=== PATIENT | male | born 1940 | race Caucasian/White ===

== ENCOUNTER 2022-12-22 10:45 | Emergency (ER) | payer MEDICARE, SELFPAY ==
[2022-12-22] VITALS (36 sets, daily range): BP systolic 127–160; BP diastolic 64–130; PULSE 67–135; RESP 30; TEMP 36.8; O2SAT 87–96
--- NOTE | 2022-12-22 11:00 | RT.EKG_ITS ---
APPROVED REPORT Exam: Resting ECG Reason for Exam: shortness of breath Patient Location: E HR:73 bpm ECG Measurements Heart Rate 73 AXIS NC 201 P 8 QRSd 159 QRS -87 QT 435 T -25 QTc 478 Conclusion Sinus rhythm...normal P axis, V-rate 60- 99 Right bundle branch block...QRSd>120, terminal axis(90,270) ST elevation secondary to IVCD...Multiple VCG criteria
--- NOTE | 2022-12-22 11:18 | ED.GENADUL_ITS ---
Discharge Plan Disposition Patient Disposition: Home Discharge Details Clinical Impression: Bronchitis, Emphysema lung, Respiratory failure, Lung nodule Primary Care Provider: Yobany Perez ED Provider: Anisha Raphael Home Meds and New Rx's Prescriptions: New doxycycline hyclate 100 mg capsule 100 mg PO BID Qty: 20 0RF prednisone 20 mg tablet 40 mg PO ONCE Qty: 10 0RF Continued phytonadione (vitamin K1) [vitamin K] 1 mg/0.5 mL Solution 1 mg PO 1XD tamsulosin 0.4 mg Capsule 0.8 mg PO 1XD simvastatin 20 mg Tablet 20 mg PO 1XD aspirin 81 mg Tablet,Chewable 81 mg PO 1XD hydrochlorothiazide 25 mg Tablet 25 mg PO 1XD calcium carbonate-vitamin D2 600 mg calcium- 200 unit Tablet 1 tab PO 2XD sertraline 50 mg Tablet 50 mg PO 1XD Eliquis 2.5 mg Tablet 2.5 mg PO 2XD epinephrine 0.3 mg/0.3 mL Auto-Injector 0.3 mg IM ONCE Rx Instructions: as a single dose; may repeat once Discharge Instructions Instructions: Acute Bronchitis (ED), COPD (Chronic Obstructive Pulmonary Disease) (ED) Additional Instructions: Use the Combivent inhaler, 1 puff every 6 hours Take the antibiotic and the prednisone as prescribed If CC on referral list for pulmonology to better address your lung capacity Yogurt daily while on antibiotic Your oxygen levels are quite low, you were requesting discharge home and preferred not to wear oxygen so I do recommend close outpatient reassessment and use of your inhalers prednisone, and antibiotics Referrals: Bianka Patel MD [ [facility] STAFF PHYSICIAN] - Discharge Data Discharge Date/Time-TO BE ENTERED AT DEPARTURE: 12/22/22 14:31 Medical Decision Making 82-year-old gentleman with multiple comorbidities but specifically with chronic oxygen failure, not oxygen dependent secondary to patient refusal, followed by his primary care physician, does not reportedly carry any diagnosis of COPD CT scan with nodule but no evidence of obvious infiltrate per radiology interpretation and my review, hypoxia 88 to 89% here, this is reportedly patient's baseline, he is speaking in complete sentences in no acute distress There is no evidence of volume overload, patient does have diminished lung sounds and rhonchi, after several nebs, there is some audible wheezing, patient is in no respiratory distress, his coloration is good, his pupils are equal round reactive to light and accommodation he is fully alert and oriented x4, he has no peripheral edema distal pulses intact, no calf swelling or tenderness, no abdominal tenderness, cardiac rate rhythm regular without murmur Patient supplied with 1 L of oxygen which she was willing to wear in the emergency department, 2 DuoNebs, 40 mg of prednisone, doxycycline We discussed admission, patient pleasantly declined, he states he is unwilling to wear oxygen as it impedes his quality of life He is agreeable to following up with pulmonology and has not done so in the past, he is given an ipratropium inhaler which she is never used before but feels confident that he is able to use it at home All conversations were had in the presence of patient's daughter, both are competent to make the decision to leave and again they were offered on several occasions admission to this facility I will treat patient for bronchitis and COPD with likely exacerbation, will refer to pulmonology, and will encouraged to be reevaluated as earliest ability HPI General Date/Time Provider Initiated Documentation: 12/22/22 10:53 . HPI Narrative: This 82-year-old gentleman presents with report of wheezing per his daughter, has had progressively worsening shortness of breath over the course the past several weeks although patient does not endorse this this, daughter has noted the patient has been more dyspneic. Baseline oxygen 89% per daughter, refuses oxygen at home. Patient denies any current complaints, falls, injuries, chest discomfort, calf pain or swelling. [place] Denies any calf pain or swelling, denies any falls or injuries. Related Data Home Medications Medication Instructions Recorded Confirmed apixaban 2.5 mg tablet (Eliquis) 2.5 mg PO 2XD 12/22/22 12/22/22 aspirin 81 mg chewable tablet 81 mg PO 1XD 12/22/22 12/22/22 calcium carb-ergocalciferol (vit 1 tab PO 2XD 12/22/22 12/22/22 D2) 600 mg calcium-200 unit tablet doxycycline hyclate 100 mg capsule 100 mg PO BID #20 caps 12/22/22 epinephrine 0.3 mg/0.3 mL 0.3 mg IM ONCE 12/22/22 12/22/22 injection, auto-injector hydrochlorothiazide 25 mg tablet 25 mg PO 1XD 12/22/22 12/22/22 phytonadione (vitamin K1) 1 mg/0.5 1 mg PO 1XD 12/22/22 12/22/22 mL injection solution (vitamin K) prednisone 20 mg tablet 40 mg PO ONCE #10 tabs 12/22/22 sertraline 50 mg tablet 50 mg PO 1XD 12/22/22 12/22/22 simvastatin 20 mg tablet 20 mg PO 1XD 12/22/22 12/22/22 tamsulosin 0.4 mg capsule 0.8 mg PO 1XD 12/22/22 12/22/22 Previous Rx's Medication Instructions Recorded doxycycline hyclate 100 mg capsule 100 mg PO BID #20 caps 12/22/22 prednisone 20 mg tablet 40 mg PO ONCE #10 tabs 12/22/22 Allergies Allergy/AdvReac Type Severity Reaction Status Date / Time bee venom protein (honey bee) Allergy Severe Unverified 12/22/22 12:17 General Stated Complaint: SOB ALFRED: 3 PFSH All Active Problems (Updated 12/22/22 @ 13:48 by TICO Galindo) Bronchitis (Acute) Emphysema lung (Acute) Respiratory failure (Acute) Lung nodule (Acute) Social History Smoking/Tobacco Use Status: Former Tobacco Use Smoking risk assessment performed?: Yes Substance use type: does not use Housing: house Do you feel safe at home: Yes Do you feel safe in your relationship?: Yes Course Vital Signs Vital signs: Vital Signs Temperature 36.8 C 12/22/22 10:58 Pulse 78 12/22/22 10:58 Respiratory Rate 30 H 12/22/22 10:58 Blood Pressure 133/64 12/22/22 10:58 Pulse Oximetry 90 L 12/22/22 10:58 Temperature 36.8 C 12/22/22 10:58 Temperature Source Oral 12/22/22 10:58 Pulse 78 12/22/22 10:58 Respiratory Rate 30 H 12/22/22 11:06 Respiratory Effort Short of Breath 12/22/22 11:06 Respiratory Depth Shallow 12/22/22 11:06 Respiratory Pattern Tachypnea 12/22/22 11:06 Blood Pressure 133/64 12/22/22 10:58 Blood Pressure Position Sitting 12/22/22 10:58 Pulse Oximetry 90 L 12/22/22 10:58 Oxygen Delivery Method Room Air 12/22/22 10:58 Oxygen Flow Rate 0 12/22/22 10:58 Pain Level 0 12/22/22 10:58
[2022-12-22] MEDS: Albuterol/Ipratropium 3 ML UPD VIAL UPD (11:20)
[2022-12-22 11:43] LABS: Abs Immature Grans 0.03 10^3/uL (0.0-0.06); Absolute Basophil Count 0.04 10^3/uL (0.0-0.2); Absolute Eosinophil Count 0.09 10^3/uL (0.0-0.7); Absolute Lymphocyte Count 1.89 10^3/uL (1.2-3.4); Absolute Neutrophil Count 5.82 10^3/uL (1.2-6.7); BE (Venous) 7 mmol/L (-2-3); Basophils % 0.5; Eosinophils % 1.1; HCO3 (Venous) 32 mmol/L (23-28); HCT 49.9 % (40.0-50.0); HGB 16.3 g/dL (13.5-17.5); Immature Grans % 0.4; Lymphocytes % 22.3; MCH 29.3 pg (27.0-33.0); MCHC 32.7 % (32.0-36.0); MCV 90 fL (80-95); MPV 11.8 fL (8.0-11.0); Monocytes % 7.1; Neutrophils % 68.6; O2 Sat (Venous) 64 %; Platelet Count 165 10^3/uL (130-400); RBC 5.56 10^6/uL (4.36-5.78); RDW 14.6 % (11.8-14.1); RDW-SD 47.9 fL; TCO2 (Venous) 28 mmol/L (24-29); WBC 8.47 10^3/uL (4.4-10.8); pCO2 (Venous) 53 mmHg (41-51); pH (Venous) 7.38 (7.31-7.41); pO2 (Venous) 36 mmHg
[2022-12-22 11:45] LABS: Source Nasal/Nares
--- NOTE | 2022-12-22 12:00 | DI.CT_ITS ---
Exam(s) CT CHEST PE CTA EXAM: CT CHEST PE CTA CLINICAL HISTORY: hypoxia. TECHNIQUE: Imaging Protocol: CT angiography of the chest was performed using pulmonary embolus miguel col. Multi planar reconstructions were performed. CONTRAST MATERIAL: Intravenous: Omnipaque 350 Contrast volume: 100 cc COMPARISON: No exams were available for comparison FINDINGS: CHEST: PULMONARY ARTERIES: There are no obvious intraluminal filling defects to suggest acute pulmonary embo li. LUNGS: There are no confluent infiltrates nor evidence of pulmonary infarction.. There are no pleural effusions. MEDIASTINUM: There is no hilar nor mediastinal adenopathy. Visualized thyroid unremarkable. CARDIAC: Heart size is upper normal. There is no pericardial effusion.Caliber of the thoracic aorta is within normal limits. No evidence of aortic dissection. There is no significant shift of the inte rventricular septum. PARTIALLY VISUALIZED UPPERMOST ABDOMEN: There is a well-defined lobulated hypodensity in the liver me asuring 3.5 by 1.8 cm. Probably represents a benign cyst but difficult to assess on this type study. OSSEOUS: No significant osseous lesions.. No fractures.. IMPRESSION: 1. No evidence of obvious acute pulmonary emboli. No evidence of pulmonary infarction.No pleural eff usions. 2. No evidence of aortic dissection and no pericardial effusion 3. Other findings as above. RADIATION DOSE DELIVERED: 509.57mGy.cm Total DLP DATA REPOSITORY: All CT scans at this facility are submitted to the National Radiology Data Registry (NRDR) Dose Index Registry (DIR) with the [employer] (ACR). RADIATION OPTIMIZATION: All CT scans at this facility use at least one of these dose optimization te chniques: automated exposure control; mA and/or kV adjustment per patient size (includes targeted exa ms where dose is matched to clinical indication); or iterative reconstruction.
[2022-12-22 12:08] LABS: ALT 25 U/L (16-63); AST 17 U/L (15-37); Albumin 3.8 g/dL (3.4-5.0); Alkaline Phosphatase 70 U/L (46-116); Anion Gap 7.9 mmol/L (3-11); BUN 14 mg/dL (7-18); Bilirubin, Total 0.7 mg/dL (0.2-1.0); CO2 31.1 mmol/L (21.0-32.0); CREATININE 1.4 mg/dL (0.70-1.30); Calcium 10.5 mg/dL (8.5-10.1); Chloride 104 mmol/L (98-107); Estimated GFR 49.56 (mL/min/1.73m2); Glucose 107 mg/dL (74-106); Magnesium 2.2 mg/dL (1.8-2.4); Sodium 143 mmol/L (136-145); Total Protein 7.6 g/dL (6.4-8.2); Troponin I < 50 ng/L (<or=60)
[2022-12-22 12:18] LABS: COVID-19 PCR Negative (Negative)
[2022-12-22] MEDS: Potassium Chloride 20 MEQ TABCR 40 MEQ PO (12:22)
[2022-12-22] MEDS: Normal Saline Flush 10 ML SYR IVP ×2 (12:22→12:33)
[2022-12-22] MEDS: Normal Saline - Diluent 50 ML VIAL IJ (12:22)
[2022-12-22] MEDS: Omnipaque 350 MG/ML 100 ML BTL IJ (12:23)
--- NOTE | 2022-12-22 12:55 | DI.VRAD_ITS ---
PROCEDURE INFORMATION: Exam: CTA Chest With Contrast Exam date and time: 12/22/2022 12:36 PM Age: 82 years old Clinical indication: Other: Hypoxia TECHNIQUE: Imaging protocol: Computed tomographic angiography of the chest with contrast. Exam focused on the arteries. 3D rendering (Not supervised by radiologist): MIP and/or 3D reconstructed images were created by the technologist. Radiation optimization: All CT scans at this facility use at least one of these dose optimization techniques: automated exposure control; mA and/or kV adjustment per patient size (includes targeted exams where dose is matched to clinical indication); or iterative reconstruction. Contrast material: OMNI 350; Contrast volume: 100 ml; Contrast route: INTRAVENOUS (IV); COMPARISON: No relevant prior studies available. FINDINGS: Pulmonary arteries: No evidence of pulmonary embolus to the segmental level. Aorta: No aneurysm of the aorta. No dissection of the aorta. Lungs: A ground-glass nodule in the left upper lobe posteriorly 8.8 mm. Series 4, image 23. Mild panlobular emphysematous changes. Bibasilar atelectasis Pleural spaces: Unremarkable. No pneumothorax. No pleural effusion. Heart: Unremarkable. No cardiomegaly. No pericardial effusion. Coronary arteries: Coronary artery calcifications may indicate coronary artery disease. Lymph nodes: Unremarkable. No enlarged lymph nodes. Stomach and bowel: 2.7 cm collection of air and debris projecting off of the 3rd duodenum. 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 Bones/joints: Unremarkable. No acute fracture. Soft tissues: Unremarkable. IMPRESSION: 1. No evidence of pulmonary embolus to the segmental level. 2. No aneurysm of the aorta. 3. No dissection of the aorta. 4. A ground-glass nodule in the left upper lobe posteriorly 8.8 mm. Series 4, image 23. 5. 2.7 cm collection of air and debris projecting off of the 3rd duodenum. 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 Dictated and Authenticated by: Clyde Page MD. Ordering:MIRELLA Lancaster MD
[2022-12-22] MEDS: predniSONE 20 MG TAB 40 MG PO (13:32)
[2022-12-22] MEDS: Doxycycline Hyclate 100 MG CAP PO (13:32)
[2022-12-22] MEDS: Ipratropium/Albuterol 4 GM 120 PUFF INH IH (13:34)
[2022-12-22 13:48] LABS: Lactate 1.9 mmol/L (0.6-1.4)
--- NOTE | 2022-12-22 14:03 | NUR.NOTE ---
Referral per DR. Severino to Pulmonology for next avail for COPD, resp failure. Put the referral in the Director [employer]'s box for follow up assistance.Nursing Note:
--- NOTE | 2022-12-23 08:50 | NUR.NOTE ---
Accessed chart to determine orders for EKG and to determine whether or not one needs to be cancelled. Nursing Note:
--- NOTE | 2022-12-23 09:40 | NUR.NOTE ---
Nursing Note: Patient's daughter Shawna Lomeli called stating prescription was not at pharmacy in [place]. With permission from Shelli Felix, the prescriptions were called in to [facility] in [place], [place]. Daughter is aware.
== END 2022-12-22 14:31 | disposition home or self-care (01) ==
PROVIDERS: Emergency Provider Physician Assistant
DX: J40 Bronchitis, not specified as acute or chronic (principal); J43.9 Emphysema, unspecified; J96.90 Respiratory failure, unspecified, unspecified whether with hypoxia or hypercapnia; R91.1 Solitary pulmonary nodule
CPT/HCPCS: 36415; 71275; 80053; 82805; 87635; 93005; 99285; 83605; 83735; 84484; 85025; 93010; 99284; J3490; J7512; J7620

== ENCOUNTER 2023-01-14 02:23 | Outpatient (CLI) | payer MEDICARE, SELFPAY ==
[2023-01-14] MEDS: Inhaler, Assist Device 1 EACH MC (14:09)
[2023-01-14] MEDS: Levalbuterol HFA 15 GM INH 4 PUFF IH (14:09)
--- NOTE | 2023-01-27 09:51 | W.PFT ---
Date of service: 01/14/23 Time of Service: 12:53 Pulmonary Function Test Result Indications: Bronchitis Interpretation Spirometry: There is not airflow limitation. The FVC is low. No bronchodilator response. Lung Volumes: There is moderate restictive lung disease. Diffusion Capacity: Decreased diffusion Airway Pressure: Normal airways resistance Impression Moderate restrictive lung disease with a decreased diffusion, could represent interstitial lung disease in the proper clinical context. Clinical Correlation therefore is recommended.
== END 2023-01-27 23:59 | disposition home or self-care (01) ==
LOC: RT 02:23
PROVIDERS: PCP Nurse Practitioner Family; Visit Provider Nurse Practitioner Family
DX: J40 Bronchitis, not specified as acute or chronic (principal)
CPT/HCPCS: 94060; 94726; 94729

== ENCOUNTER 2023-01-28 15:22 | Outpatient (REF) | payer MEDICARE, SELFPAY | END 2023-01-28 15:23 | disposition home or self-care (01) | LOC: LBN 15:22 | PROVIDERS: PCP Nurse Practitioner Family; Visit Provider Nurse Practitioner Family | DX: N39.0 Urinary tract infection, site not specified (principal) | CPT/HCPCS: 87086 ==

== ENCOUNTER 2023-03-31 16:45 | Outpatient (REF) | payer MEDICARE, SELFPAY ==
[2023-03-31 21:32] LABS: Bilirubin Negative (Negative); Blood Negative (Negative); Clarity Clear (Clear); Glucose Negative (Negative); Ketones Negative (Negative); Leukocyte Esterase Negative (Negative); Nitrite Negative (Negative); Specific Gravity 1.015 (1.005-1.025); Urobilinogen 0.2 mg/dL (Up to 0.2)
== END 2023-03-31 16:46 | disposition home or self-care (01) ==
LOC: LBN 16:45
PROVIDERS: PCP Nurse Practitioner Family; Visit Provider Nurse Practitioner Family
DX: R30.0 Dysuria (principal)
CPT/HCPCS: 81003

== ENCOUNTER 2023-04-02 10:10 | Outpatient (CLI) | payer MEDICARE, SELFPAY ==
[2023-04-02 12:38] LABS: Abs Immature Grans 0.05 10^3/uL (0.0-0.06); Absolute Basophil Count 0.06 10^3/uL (0.0-0.2); Absolute Lymphocyte Count 1.64 10^3/uL (1.2-3.4); Absolute Monocyte Count 0.75 10^3/uL (0.1-0.8); Absolute Neutrophil Count 8.01 10^3/uL (1.2-6.7); Basophils % 0.6; Eosinophils % 2.8; HCT 48.4 % (40.0-50.0); Immature Grans % 0.5; Lymphocytes % 15.2; MCH 29.7 pg (27.0-33.0); MCHC 33.1 % (32.0-36.0); MCV 90 fL (80-95); MPV 12.9 fL (8.0-11.0); Monocytes % 6.9; Platelet Count 174 10^3/uL (130-400); RBC 5.39 10^6/uL (4.36-5.78); RDW 14.3 % (11.8-14.1); WBC 10.82 10^3/uL (4.4-10.8)
[2023-04-02 12:45] LABS: Hemoglobin A1C 5.6 % (<5.7)
[2023-04-02 12:53] LABS: ALT 23 U/L (16-63); AST 19 U/L (15-37); Albumin 3.8 g/dL (3.4-5.0); Alkaline Phosphatase 68 U/L (46-116); Anion Gap 6.3 mmol/L (3-11); BUN 14 mg/dL (7-18); Bilirubin, Total 0.6 mg/dL (0.2-1.0); CO2 34.7 mmol/L (21.0-32.0); CREATININE 1.8 mg/dL (0.70-1.30); Calculated LDL 51 mg/dL (<100); Chloride 103 mmol/L (98-107); Cholesterol 129 mg/dL (<200); Estimated GFR 36.66 (mL/min/1.73m2); Glucose 129 mg/dL (74-106); HDL Cholesterol 50 mg/dL (40-60); Sodium 144 mmol/L (136-145); Total Protein 7.6 g/dL (6.4-8.2); Triglyceride 140 mg/dL (<150)
[2023-04-02 12:57] LABS: Calcium 13.8 mg/dL (8.5-10.1); Potassium 2.6 mmol/L (3.5-5.1)
== END 2023-04-02 10:11 | disposition home or self-care (01) ==
LOC: LOS 10:11
PROVIDERS: PCP Nurse Practitioner Family; Visit Provider Nurse Practitioner Family
DX: I10 Essential (primary) hypertension (principal); R73.01 Impaired fasting glucose; E78.5 Hyperlipidemia, unspecified; R53.1 Weakness
CPT/HCPCS: 36415; 80053; 80061; 83036; 85025

== ENCOUNTER → 2023-04-02 10:36 | Outpatient (CLI) | payer MEDICARE, SELFPAY ==
--- NOTE | 2023-04-02 10:30 | DI.CT_ITS ---
Exam(s) CT HEAD WO EXAM: CT HEAD WO CLINICAL HISTORY: weakness, confusion, R53.1. TECHNIQUE: Imaging Protocol: Axial computed tomography images with coronal and sagittal reformatted images were created and reviewed COMPARISON: No exams were available for comparison FINDINGS: There are no skull fractures. There is no fluid in the visualized paranasal sinuses. There is no evidence of intracranial hemorrhage, mass effect, or shift of midline structures. There are no extra-axial fluid collections. The ventricles are not enlarged or shifted and there is no blo od within the ventricular system nor within the basal cisterns. Calcification both basal ganglia noted. There is a an area of nonacute-chronic appearing infarct in the superior aspect of the left cerebella r hemisphere. Just below the tentorium. This is the territory of the left superior cerebellar arter y. There is abundant bilateral periventricular hypodensity consistent with chronic small vessel disease as well as symmetrical atrophy. There is also evidence of nonhemorrhagic infarct in the right fronta l lobe, age indeterminate. There is no compression of the right lateral ventricle frontal horn. IMPRESSION: Prominent relatively symmetrical atrophy. Abundant bilateral periventricular hypodensity consistent with chronic small vessel changes. 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 Area of nonhemorrhagic infarct in the right frontal lobe which may not be acute as there is no mass e ffect upon the frontal horn of the right lateral ventricle.. Recommend follow-up comparison to prior brain imaging studies or MRI with diffusion imaging. RADIATION DOSE DELIVERED: Total DLP DATA REPOSITORY: All CT scans at this facility are submitted to the National Radiology Data Registry (NRDR) Dose Index Registry (DIR) with the [employer] (ACR). RADIATION OPTIMIZATION: All CT scans at this facility use at least one of these dose optimization te chniques: automated exposure control; mA and/or kV adjustment per patient size (includes targeted exa ms where dose is matched to clinical indication); or iterative reconstruction.
== END ==
PROVIDERS: PCP Nurse Practitioner Family; Visit Provider Nurse Practitioner Family
DX: R53.1 Weakness (principal); I63.9 Cerebral infarction, unspecified
CPT/HCPCS: 70450

== ENCOUNTER 2023-04-02 14:51 | Inpatient (IN) | payer MEDICARE, SELFPAY ==
[2023-04-02] VITALS (30 sets, daily range): BP systolic 159–208; BP diastolic 88–101; PULSE 55–79; RESP 12–20; TEMP 36.4; O2SAT 89–96
--- NOTE | 2023-04-02 15:00 | RT.EKG_ITS ---
APPROVED REPORT Exam: Resting ECG Reason for Exam: Dizziness Patient Location: E HR:70 bpm ECG Measurements Heart Rate 70 AXIS TX 69 P 57 QRSd 134 QRS -114 QT 459 T -24 QTc 496 Conclusion Sinus rhythm...normal P axis, V-rate 60- 99 Right bundle branch block...QRSd>120, terminal axis(90,270) Inferior infarct, old...Q >35mS, II III aVF
--- NOTE | 2023-04-02 15:23 | ED.GENADUL_ITS ---
Discharge Plan Disposition Patient Disposition: Admit to [facility] Condition: Fair Discharge Details Clinical Impression: Hypokalemia, Hypercalcemia Primary Care Provider: Molly Powers ED Provider: Gael Avilez Home Meds and New Rx's Prescriptions: No Action sertraline 50 mg tablet 75 mg PO DAILY Combivent Respimat 20-100 mcg/actuation mist 1 puff inhalation Q6H PRN (Reason: shortness of breath or wheezing) Qty: 4 3RF Eliquis 2.5 mg tablet 2.5 mg PO BID aspirin 81 mg tablet,chewable 81 mg PO DAILY hydrochlorothiazide 25 mg tablet 25 mg PO DAILY simvastatin 20 mg tablet 20 mg PO DAILY tamsulosin 0.4 mg capsule 0.8 mg PO DAILY calcium carbonate-vitamin D2 600 mg calcium- 200 unit Tablet 1 tab PO 2XD epinephrine 0.3 mg/0.3 mL Auto-Injector 0.3 mg IM ONCE Rx Instructions: as a single dose; may repeat once Medical Decision Making MDM: Summary: Patient presented to the emergency department brought in by his daughters stating that he has had worsening confusion in the last 3 weeks and they did blood work today and it was abnormal. Labs were repeated here and his calcium level is 14 and his sodium level is normal but his potassium level is 2.7. With this finding of hypercalcemia the patient received IV fluids hydration aggressively as well as potassium replacement. He had an x-ray which shows an infiltrate on the left but there is no signs of infection so we are need to find why he is hypercalcemic. He will get a CAT scan of the abdomen pelvis and chest to rule out any malignancy. He is not anemic but urinalysis was also sent to rule out multiple myeloma. In the differential includes hyperparathyroidism malignancy multiple myeloma medication will be admitted to the hospital for hypercalcemia CT scan of the head was done earlier which was negative. Data Review Analysis All the data on this patient was reviewed by me including laboratory and imaging studies as well as bedside studies performed by me Independent review of Studies Imaging Chest x-ray shows a questionable infiltrate on the left Lab: Labs do not show any sign of infection but he does have hypercalcemia and hypokalemia Risk Stratification: Patient with significant hypercalcemia who will need to be admitted to the hospital for aggressive management Differential Diagnosis: 1. Multiple myeloma 2. Hyperparathyroidism 3. Sarcoidosis 4. Medications 5. Paraneoplastic syndrome and malignancy Consultants: I spoke with Dr. Reddy hospitalist who admit the patient to the hospital Shared disposition: Family understand the patient will need to be admitted for further management Impression: Medical Records Medical records reviewed: Yes I reviewed the patient's medical records. Imaging Data Radiologic Study: Attestation: I personally reviewed and interpreted this imaging study as follows: Imaging: X-Ray Radiologist's impression: Exam(s) XR PORTABLE CHEST AP EXAM: XR PORTABLE CHEST AP CLINICAL HISTORY: sob TECHNIQUE: 2D digital imaging was performed of the chest. One image was obtained. An AP view was obtained. COMPARISON: CT CT CHEST PE CTA from 12/22/2022 FINDINGS: There is poor inspiration. MEDIASTINUM: Normal. HEART: Upper limits of normal in size. PULMONARY VASCULATURE: Normal. LUNGS: There is an infiltrate seen in the left lung base. The right lung is clear. PLEURAL SPACE: No pleural effusion or pneumothorax. BONE:Within normal limits for the patient's age. Degenerative changes of the shoulders bilaterally. OTHER FINDINGS:Normal. IMPRESSION: Left basilar infiltrate. DATA REPOSITORY: ECG Data Attestation: I personally reviewed and interpreted this ECG (s) as follows: Interpretation: Heart rate 70 normal sinus rhythm right bundle branch block no acute ST-T changes with a Q waves in the inferior leads compatible with inferior ID HPI General Date/Time Provider Initiated Documentation: 04/02/23 14:53 . HPI Narrative: Patient presents emergency department brought in by the family who stated that he has been having low oxygen saturation for a month and who today was seen by the primary care because for the last 3 weeks he is having increased confusion lethargy decreased appetite and labs were done at the outpatient facility finding that his calcium level was high and his potassium level was low. They also did a CAT scan of the head which according to family is negative. The patient has a history of a stroke with left residual hemiparesis. According to family he also had a history of a pulmonary emboli years ago which required anticoagulation but at this time they do not know why he is on oxygen. Related Data Home Medications Medication Instructions Recorded Confirmed calcium carb-ergocalciferol (vit 1 tab PO 2XD 12/22/22 04/02/23 D2) 600 mg calcium-200 unit tablet epinephrine 0.3 mg/0.3 mL 0.3 mg IM ONCE 12/22/22 04/02/23 injection, auto-injector apixaban 2.5 mg tablet (Eliquis) 2.5 mg PO BID 01/06/23 04/02/23 aspirin 81 mg chewable tablet 81 mg PO DAILY 01/06/23 04/02/23 hydrochlorothiazide 25 mg tablet 25 mg PO DAILY 01/06/23 04/02/23 ipratropium 20 mcg-albuterol 100 1 puff inhalation Q6H PRN 01/06/23 04/02/23 mcg/actuation mist for inhalation shortness of breath or wheezing #4 (Combivent Respimat) grams sertraline 50 mg tablet 75 mg PO DAILY 01/06/23 04/02/23 simvastatin 20 mg tablet 20 mg PO DAILY 01/06/23 04/02/23 tamsulosin 0.4 mg capsule 0.8 mg PO DAILY 01/06/23 04/02/23 Previous Rx's Medication Instructions Recorded ipratropium 20 mcg-albuterol 100 1 puff inhalation Q6H PRN 01/06/23 mcg/actuation mist for inhalation shortness of breath or wheezing #4 (Combivent Respimat) grams Allergies Allergy/AdvReac Type Severity Reaction Status Date / Time bee venom protein (honey bee) Allergy Severe Verified 04/02/23 15:07 General Stated Complaint: AMS/LOC ALFRED: 3 Review of Systems Narrative: Unobtainable due to patient's mental status PFSH All Active Problems (Updated 04/02/23 @ 19:39 by Sara Cartwright NP) Elevated troponin (Acute) Discharge planning issues (Acute) On deep vein thrombosis (DVT) prophylaxis (Acute) Hypercalcemia (Acute) Hypokalemia (Acute) Altered mental status (Acute) Acute kidney injury (Acute) Hypokalemia (Acute) Hypercalcemia (Acute) Chronic respiratory failure with hypoxia (Chronic) Interstitial lung disease (Chronic) Cognitive impairment (Acute) Generalized anxiety disorder (Chronic) Hypertension (Chronic) Hyperlipidemia (Chronic) Osteopenia (Acute) Medical History History of thromboembolism P.E., DVT 2019 TIA (transient ischemic attack) Pulmonary embolism (~10/2018) CVA (cerebral vascular accident) (~09/2018) Right posterior internal capsule ischemic stroke Surgical History Status post left hip replacement History of appendectomy (07/16/20) Family History Mother Dementia Father No problems noted. Daughter No problems noted. Daughter No problems noted. Son No problems noted. Maternal Grandfather No problems noted. Maternal Grandmother No problems noted. Paternal Grandfather No problems noted. Paternal Grandmother No problems noted. Brother Alcohol use disorder Colon cancer Hyperlipidemia Hypertension Diabetes Social History Smoking/Tobacco Use Status: Former Tobacco Use tobacco type: cigarettes and smokeless tobacco Quit Date: 04/14/85 Smokeless tobacco user: snuff Second Hand Exposure: Yes Smoking risk assessment performed?: Yes Alcohol Intake: former Drug use: Never Substance use type: does not use Counseling given: No Adopted: No Caregiver/Support person: Yes Foster care: No Household members: caregiver Housing: house Number of Children: 3 number of grandchildren: 7 Communication Needs: None Education Level: high school Do you need help understanding health information?: Never 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 Pets and animals: Yes Pets and animals: dog(s) Sexually active: No Do you think of yourself as: straight/heterosexual Current gender identity: male What is your relationship status?: How often do you talk on the phone with friends or family?: three or more times per week How often do you get together with friends or relatives?: three or more times per week How often do you attend confucianist or quaker services?: 4 or more times per year Do you belong to any clubs or organized social groups?: no Panel score (0-1 are the most socially isolated patients): 3 What type of physical activity do you participate in: walking and regular exercise Duration: 45-60 minutes/day Frequency: daily Tamela/Evangelical: Scientology Special tamela needs: No Agree to transfusion: Yes Seatbelt use: always Drive intox or ride w/intox residential driver: No Working smoke detector in home: Yes Carbon monox detector in home: Yes Firearms in home: Yes Firearms unloaded and locked: Yes Do you feel safe at home: Yes Victim of physical abuse: No Victim of emotional abuse: No Victim of sexual abuse: No Would you like helpful sources: No Exam Narrative Exam Narrative: Exam; vitals signs as reported above normal Constitutional; In no acute distress, afebrile General: cooperative, healthy appearing, comfortable and no acute distress HEENT: Head: normal to inspection, no palpable skull fracture and normocephalic atraumatic Eyes: : appearance normal, both eyes and all related structures EOM intact bilaterally Pupils: PERRL : conjunctiva normal Direct ophthalmoscopy: normal light reflex, normal conjunctiva, normal visual acuity Ears: Normal TM, normal external canal Nose: normal no rhinorreha Neck no JVD, supple non tender Neck: normal visual inspection, full ROM and no lymphadenopathy Chest: normal inspection of the chest Respiratory : normal respiratory effort and able to speak in complete sentences no wheezing no rales Cardio Rate: regular rate, rhythm: regular rhythm normal heart sounds S1 and S2 no murmurs, gallops, or rubs GI : normal to inspection, normal bowel sounds, soft, non tender, non distended, no organomegaly Back/Spine/ no CVA tenderness Thoracic/Lumbar Spine: no tenderness or deformities Skin no rashes or lesions Neuro: patient alert oriented x 4 and no meningeal signs, Cranial Nerves: CN's II-XI intact bilaterally, Cognition: normal cognition, Speech: speech normal, Gait: normal gait, Depp tendon reflexes normal 2+ muscle strength 5/5 bilaterally Extremities, no edema, full range of motion, normal strength Course Vital Signs Vital signs: Vital Signs Pulse 77 04/02/23 15:03 Respiratory Rate 18 04/02/23 15:03 Pulse Oximetry 89 L 04/02/23 15:03 Pulse 77 04/02/23 15:03 Respiratory Rate 18 04/02/23 15:03 Pulse Oximetry 89 L 04/02/23 15:03 Oxygen Delivery Method Nasal Cannula 04/02/23 15:03 Oxygen Flow Rate 2 04/02/23 15:03
--- NOTE | 2023-04-02 15:30 | DI.RAD_ITS ---
Exam(s) XR PORTABLE CHEST AP EXAM: XR PORTABLE CHEST AP CLINICAL HISTORY: sob TECHNIQUE: 2D digital imaging was performed of the chest. One image was obtained. An AP view was ob tained. COMPARISON: CT CT CHEST PE CTA from 12/22/2022 FINDINGS: There is poor inspiration. MEDIASTINUM: Normal. HEART: Upper limits of normal in size. PULMONARY VASCULATURE: Normal. LUNGS: There is an infiltrate seen in the left lung base. The right lung is clear. PLEURAL SPACE: No pleural effusion or pneumothorax. BONE:Within normal limits for the patient's age. Degenerative changes of the shoulders bilaterally. OTHER FINDINGS:Normal. IMPRESSION: Left basilar infiltrate. DATA REPOSITORY: RADIATION DOSE DELIVERED:
[2023-04-02 15:55] LABS: Abs Immature Grans 0.04 10^3/uL (0.0-0.06); Absolute Basophil Count 0.04 10^3/uL (0.0-0.2); Absolute Eosinophil Count 0.37 10^3/uL (0.0-0.7); Absolute Lymphocyte Count 1.71 10^3/uL (1.2-3.4); Absolute Monocyte Count 0.84 10^3/uL (0.1-0.8); Absolute Neutrophil Count 7.52 10^3/uL (1.2-6.7); Basophils % 0.4; Eosinophils % 3.5; HCT 47.1 % (40.0-50.0); HGB 15.5 g/dL (13.5-17.5); Immature Grans % 0.4; Lymphocytes % 16.3; MCH 29.6 pg (27.0-33.0); MCHC 32.9 % (32.0-36.0); MCV 90 fL (80-95); MPV 11.8 fL (8.0-11.0); Neutrophils % 71.4; Platelet Count 183 10^3/uL (130-400); RBC 5.24 10^6/uL (4.36-5.78); RDW 14.3 % (11.8-14.1); RDW-SD 47.1 fL; WBC 10.52 10^3/uL (4.4-10.8)
[2023-04-02] MEDS: Normal Saline 1,000 ML 1000 ML IV (16:00)
[2023-04-02 16:12] LABS: ALT 22 U/L (16-63); AST 17 U/L (15-37); Albumin 3.8 g/dL (3.4-5.0); Alkaline Phosphatase 66 U/L (46-116); Anion Gap 6.5 mmol/L (3-11); BUN 15 mg/dL (7-18); Bilirubin, Total 0.6 mg/dL (0.2-1.0); CO2 37.5 mmol/L (21.0-32.0); CREATININE 1.7 mg/dL (0.70-1.30); Chloride 102 mmol/L (98-107); Estimated GFR 39.26 (mL/min/1.73m2); Glucose 146 mg/dL (74-106); Magnesium 2.1 mg/dL (1.8-2.4); Sodium 146 mmol/L (136-145); Total Protein 7.5 g/dL (6.4-8.2)
[2023-04-02 16:18] LABS: Potassium 2.7 mmol/L (3.5-5.1); Troponin I 81 ng/L (<or=60)
--- NOTE | 2023-04-02 17:31 | NUR.NOTE ---
Nursing Note: Pt remains on monitor tech and pt updated with potential plan of care. Pt awaiting MD orders for medications.
[2023-04-02] MEDS: POTASSIUM CHLORIDE 10 MEQ/100 ML BAG 100 MEQ IVPB ×2 (17:45→21:44)
[2023-04-02] MEDS: Normal Saline 1,000 ML 2000 ML IV (17:45)
--- NOTE | 2023-04-02 17:53 | HPE_ITS ---
Date of service: 04/02/23 Time of Service: 17:53 Assessment and Plan Assessment and plan (1) Altered mental status: Status: Acute Assessment and plan: in patient with cognitive impairment, labs today showing hypercalcemia. will correct and closely monitor. EXAM: CT HEAD WO CLINICAL HISTORY: weakness, confusion, R53.1. TECHNIQUE: Imaging Protocol: Axial computed tomography images with coronal and sagittal reformatted images were created and reviewed COMPARISON: No exams were available for comparison FINDINGS: There are no skull fractures. There is no fluid in the visualized paranasal sinuses. There is no evidence of intracranial hemorrhage, mass effect, or shift of midline structures. There are no extra-axial fluid collections. The ventricles are not enlarged or shifted and there is no blood within the ventricular system nor within the basal cisterns. Calcification both basal ganglia noted. There is a an area of nonacute-chronic appearing infarct in the superior aspect of the left cerebellar hemisphere. Just below the tentorium. This is the territory of the left superior cerebellar artery. There is abundant bilateral periventricular hypodensity consistent with chronic small vessel disease as well as symmetrical atrophy. There is also evidence of nonhemorrhagic infarct in the right frontal lobe, age indeterminate. There is no compression of the right lateral ventricle frontal horn. IMPRESSION: Prominent relatively symmetrical atrophy. Abundant bilateral periventricular hypodensity consistent with chronic small vessel changes. Also nonacute area of infarct in the upper left cerebellar hemisphere. Area of nonhemorrhagic infarct in the right frontal lobe which may not be acute as there is no mass effect upon the frontal horn of the right lateral ventricle.. Recommend follow-up comparison to prior brain imaging studies or MRI with diffusion imaging., (2) Hypercalcemia: Status: Acute Assessment and plan: receiving IV fluids, will need to stop HCTZ and supplemental calcium and continue to hydrate follow labs closely (3) Hypokalemia: Status: Acute Assessment and plan: replete and follow. (4) Malignancy: Status: Suspected Assessment and plan: CT scan pending, likely initial source of hypercalcemia based on previous imaging. further work up to be determined (5) Acute kidney injury: Status: Acute Assessment and plan: receiving IV fluids, suspect pre-renal avoid nephrotoxic drugs, renal dose as needed. consider FENA if does not improve (6) Cognitive impairment: Status: Acute Assessment and plan: severe advanced dementia safety precautions anticipate delirium in setting of hypercalcemia, hospitalization takes meds in pudding, otherwise diet regular (7) Hypertension: Status: Chronic Assessment and plan: need to stop HCTZ in setting of dehydration and hypercalcemia monitor blood pressure and consider another agent if needed. (8) Chronic respiratory failure with hypoxia: Status: Chronic Assessment and plan: stable and at baseline, continue to monitor keep O2 sat 88-92% (9) Elevated troponin: Status: Acute Assessment and plan: will trend but has been flat at 80 and 90 of unknown significance but in setting of RAMIN and chronic resp failure with hypoxia EKG non ischemic (10) On deep vein thrombosis (DVT) prophylaxis: Status: Acute Assessment and plan: anticoagulated on apixaban (11) Discharge planning issues: Status: Acute Assessment and plan: case management following for discharge planning discussed with Dr Reddy History of Present Illness Narrative: patient with cognitive impairment who was seen by pcp today for increasing confusion, outpatient labs taken show hypercalcemia, hypokalemia and creatinine of 1.7, about previous of 1.4 a month ago. work up in the ED does confirm labs, he is given bolus of fluids. CT scans are pending. no other findings on ED work up. will be admitted to med/surg for further management and work up. Review of Systems Narrative: obtained from ED provider and record All systems reviewed & are unremarkable except as noted in HPI and below PFSH All Active Problems (Updated 04/02/23 @ 19:39 by Sara Cartwright NP) Elevated troponin (Acute) Discharge planning issues (Acute) On deep vein thrombosis (DVT) prophylaxis (Acute) Hypercalcemia (Acute) Hypokalemia (Acute) Altered mental status (Acute) Acute kidney injury (Acute) Hypokalemia (Acute) Hypercalcemia (Acute) Chronic respiratory failure with hypoxia (Chronic) Interstitial lung disease (Chronic) Cognitive impairment (Acute) Generalized anxiety disorder (Chronic) Hypertension (Chronic) Hyperlipidemia (Chronic) Osteopenia (Acute) Medical History History of thromboembolism P.E., DVT 2019 TIA (transient ischemic attack) Pulmonary embolism (~10/2018) CVA (cerebral vascular accident) (~09/2018) Right posterior internal capsule ischemic stroke Surgical History Status post left hip replacement History of appendectomy (07/16/20) Family History Mother Dementia Father No problems noted. Daughter No problems noted. Daughter No problems noted. Son No problems noted. Maternal Grandfather No problems noted. Maternal Grandmother No problems noted. Paternal Grandfather No problems noted. Paternal Grandmother No problems noted. Brother Alcohol use disorder Colon cancer Hyperlipidemia Hypertension Diabetes Social History Smoking/Tobacco Use Status: Former Tobacco Use tobacco type: cigarettes and smokeless tobacco Quit Date: 04/14/85 Smokeless tobacco user: snuff Second Hand Exposure: Yes Smoking risk assessment performed?: Yes Alcohol Intake: former Drug use: Never Substance use type: does not use Counseling given: No Adopted: No Caregiver/Support person: Yes Foster care: No Household members: caregiver Housing: house Number of Children: 3 number of grandchildren: 7 Communication Needs: None Education Level: high school Do you need help understanding health information?: Never 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 Pets and animals: Yes Pets and animals: dog(s) Sexually active: No Do you think of yourself as: straight/heterosexual Current gender identity: male What is your relationship status?: How often do you talk on the phone with friends or family?: three or more times per week How often do you get together with friends or relatives?: three or more times per week How often do you attend restorationism or mormon services?: 4 or more times per year Do you belong to any clubs or organized social groups?: no Panel score (0-1 are the most socially isolated patients): 3 What type of physical activity do you participate in: walking and regular exercise Duration: 45-60 minutes/day Frequency: daily Tamela/Yazdanism: Voodoo Special tamela needs: No Agree to transfusion: Yes Seatbelt use: always Drive intox or ride w/intox industrial tractor driver: No Working smoke detector in home: Yes Carbon monox detector in home: Yes Firearms in home: Yes Firearms unloaded and locked: Yes Do you feel safe at home: Yes Victim of physical abuse: No Victim of emotional abuse: No Victim of sexual abuse: No Would you like helpful sources: No Meds Allergies and Home Medications Allergies Allergy/AdvReac Type Severity Reaction Status Date / Time bee venom protein (honey bee) Allergy Severe Verified 04/02/23 15:07 Home Medications Medication Instructions Recorded Confirmed Type calcium carb-ergocalciferol (vit 1 tab PO 2XD 12/22/22 04/02/23 History D2) 600 mg calcium-200 unit tablet epinephrine 0.3 mg/0.3 mL 0.3 mg IM ONCE 12/22/22 04/02/23 History injection, auto-injector apixaban 2.5 mg tablet (Eliquis) 2.5 mg PO BID 01/06/23 04/02/23 History aspirin 81 mg chewable tablet 81 mg PO DAILY 01/06/23 04/02/23 History hydrochlorothiazide 25 mg tablet 25 mg PO DAILY 01/06/23 04/02/23 History ipratropium 20 mcg-albuterol 100 1 puff inhalation Q6H PRN 01/06/23 04/02/23 Rx mcg/actuation mist for inhalation shortness of breath or wheezing #4 (Combivent Respimat) grams sertraline 50 mg tablet 75 mg PO DAILY 01/06/23 04/02/23 History simvastatin 20 mg tablet 20 mg PO DAILY 01/06/23 04/02/23 History tamsulosin 0.4 mg capsule 0.8 mg PO DAILY 01/06/23 04/02/23 History Exam Narrative Exam Narrative: Elderly male of stated age lying in bed quietly with eyes closed Head is atraumatic. Skin is pink warm dry well-perfused, no rashes or lesions noted on skin observed family denies Neck with no JVD Cardiovascular normal rate and irregular rhythm, good peripheral pulses Respirations are even and unlabored Abdomen is soft No peripheral edema Neurologic-not tested, daughters are at bedside who are providing information patient at baseline with severe advanced dementia requires 24/7 care, assistance with dressing and ADLs typically able to feed self after set up Results Labs 04/02/23 15:50 04/02/23 15:50 Labs: Laboratory Results - last 24 hr 04/02/23 15:50 WBC 10.52 RBC 5.24 Hgb 15.5 Hct 47.1 MCV 90 MCH 29.6 MCHC 32.9 RDW 14.3 H Plt Count 183 MPV 11.8 H Immature Gran % 0.4 Neutrophils % 71.4 Lymphocytes % 16.3 Monocytes % 8.0 Eosinophils % 3.5 Basophils % 0.4 Nucleated RBC % 0.0 Absolute Neutrophils 7.52 H Absolute Lymphocytes 1.71 Absolute Monocytes 0.84 H Absolute Eosinophils 0.37 Absolute Basophils 0.04 Sodium 146 H Potassium 2.7 L* Chloride 102 Carbon Dioxide 37.5 H Anion Gap 6.5 BUN 15 Creatinine 1.7 H Est GFR (CKD-EPI 2020) 39.26 Glucose 146 H Calcium 14.0 H* Magnesium 2.1 Total Bilirubin 0.6 AST 17 ALT 22 Alkaline Phosphatase 66 Troponin I 81 H* Total Protein 7.5 Albumin 3.8 Last Vital Signs Pulse 77 04/02/23 15:03 Resp 18 04/02/23 15:03 Pulse Ox 89 L 04/02/23 15:03 Time Spent Time spent with Patient: 40-54 minutes Time was spent: preparing to see the patient(eg.review tests), obtaining and/or reviewing separately otained hiistory, ordering medications,tests, procedures and indepentently interpreting results
--- NOTE | 2023-04-02 18:00 | DI.CT_ITS ---
Exam(s) CT CHEST/ABD/PEL W EXAM: CT CHEST/ABD/PEL W CLINICAL HISTORY: hypercalcemia TECHNIQUE: Imaging Protocol: Axial computed tomography images with coronal and sagittal reformatted images were created and reviewed CONTRAST MATERIAL: Intravenous: Omnipaque 350 contrast volume:100 mL Oral: No COMPARISON: Comparison is made with prior examinations. FINDINGS: The examination is limited due to patient motion artifact. . CHEST: Tracheobronchial tree: Patent where visualized. Pulmonary parenchyma: Centrilobular emphysematous changes are present. There is pulmonary fibrosis. Dependent atelectatic changes are seen in the lung bases. No focal consolidating infiltrates are s een. Visualized thyroid gland: Unremarkable. Mediastinum and Dalia: No dominant adenopathy or fluid collection. The esophagus is unremarkable. The re is a small hiatal hernia. Pleura: No effusion or pneumothorax. Heart: Mild cardiomegaly. Coronary artery calcifications are present. No pericardial effusion. Pulmonary arteries: No large central pulmonary embolus is seen. Aorta: Thoracic aorta non-dilated. Atherosclerosis. Lymph nodes: Within normal limits. Soft tissues: Unremarkable. Bones:Within normal limits for the patient's age. ABDOMEN: Liver: Normal density. There is a cyst again seen in the left lobe of the liver. There is a tiny hyp odensity in the right lobe of the liver. It is too small for further characterization. Portal, Superior Mesenteric, and Splenic Veins: Unremarkable. Gallbladder and Biliary Tract: No radiodense calculus or dilation. Pancreas: Normal density, no abnormal calcifications or inflammatory process. Spleen: Normal. Adrenals: No masses seen. Kidneys: Normal size, contour and axis. No radiodense stones or obstructive uropathy. No masses seen. Abdominal Aorta: Abdominal portion non-dilated. Atherosclerosis. Bowel: There is a large amount of stool in the colon particularly the rectum. Findings would be cons istent with constipation. There is diverticulosis of the colon without evidence of acute diverticuli tis. There is no evidence of bowel obstruction or bowel wall thickening. No evidence of appendiciti s. Peritoneal Cavity: No ascites, collection or mesenteric inflammatory response. No free air. Lymph Nodes: Within normal limits. Bones: Within normal limits for the patient's age. The patient has a left total hip replacement. Soft Tissues: There is a fat containing right inguinal hernia. PELVIS: Bladder: There is a diverticulum of arising from the left urinary bladder. The urinary bladder is ot herwise unremarkable. Reproductive Organs: Prostate gland is enlarged. Lymph Nodes: Within normal limits. Bones: Within normal limits. IMPRESSION: 1. No acute pulmonary process. 2. There is a large amount of stool in the colon particularly the rectum which can be seen with fecal impaction. 3. Incidental finding seen within the chest, abdomen and pelvis as described above. RADIATION DOSE DELIVERED: Total DLP DATA REPOSITORY: All CT scans at this facility are submitted to the National Radiology Data Registry (NRDR) Dose Index Registry (DIR) with the [employer] (ACR). RADIATION OPTIMIZATION: All CT scans at this facility use at least one of these dose optimization te chniques: automated exposure control; mA and/or kV adjustment per patient size (includes targeted exa ms where dose is matched to clinical indication); or iterative reconstruction.
[2023-04-02 19:21] LABS: Bilirubin Negative (Negative); Blood Negative (Negative); Clarity Clear (Clear); Glucose Negative (Negative); Ketones Negative (Negative); Leukocyte Esterase Moderate (Negative); Nitrite Negative (Negative); Specific Gravity 1.015 (1.005-1.025); Troponin I 96 ng/L (<or=60); Urobilinogen 0.2 mg/dL (Up to 0.2)
[2023-04-02 19:29] LABS: Bacteria Rare HPF (Negative); Epithelial Cells Rare HPF (Negative); RBC 0-2 HPF (0-2)
[2023-04-02] MEDS: Normal Saline - Diluent 50 ML VIAL IJ (19:29)
[2023-04-02 19:30] LABS: C & S Indicated? Yes; Crystals Negative HPF (Negative); Mucus Trace (Negative)
[2023-04-02] MEDS: Omnipaque 350 MG/ML 100 ML BTL IJ (19:30)
[2023-04-02 19:31] LABS: Casts 0-2 Coarse Granular LPF (Negative)
--- NOTE | 2023-04-02 20:31 | DI.VRAD_ITS ---
PROCEDURE INFORMATION: Exam: CT Chest With Contrast; Diagnostic Exam date and time: 04/02/2023 7:39 PM Age: 82 years old Clinical indication: Other: Hypercalcemia TECHNIQUE: Imaging protocol: Diagnostic computed tomography of the chest with contrast. 3D rendering (Not supervised by radiologist): MIP and/or 3D reconstructed images were created by the technologist. Contrast material: 350; Contrast volume: 100 ml; Contrast route: INTRAVENOUS (IV); COMPARISON: CT CHEST PE CTA 12/22/2022 12:36 PM FINDINGS: Lungs: Mild diffuse subpleural interstitial prominence of the lungs appears chronic and stable. No acute pulmonary infiltrate. Pleural spaces: Unremarkable. No pneumothorax. No pleural effusion. Heart: Unremarkable. No cardiomegaly. No pericardial effusion. Lymph nodes: Unremarkable. No enlarged lymph nodes. Vasculature: Dense atherosclerotic calcification of the thoracic aorta. No evidence of aneurysm or dissection. Bones/joints: Mild degenerative disc changes throughout the thoracic spine. No vertebral body compression or acute fracture. Soft tissues: Unremarkable. IMPRESSION: No acute abnormality evident in the chest. Chronic appearing changes as noted. PROCEDURE INFORMATION: Exam: CT Abdomen And Pelvis With Contrast Exam date and time: 04/02/2023 7:39 PM Age: 82 years old Clinical indication: Other: Hypercalcemia TECHNIQUE: Imaging protocol: Computed tomography of the abdomen and pelvis with contrast. 3D rendering (Not supervised by radiologist): MIP and/or 3D reconstructed images were created by the technologist. Contrast material: 350; Contrast volume: 100 ml; Contrast route: INTRAVENOUS (IV); COMPARISON: CT CHEST PE CTA 12/22/2022 12:36 PM FINDINGS: Liver: 3 cm simple cyst left lobe of the liver. Liver is otherwise unremarkable. Gallbladder and bile ducts: Normal. No calcified stones. No ductal dilation. Pancreas: Normal. No ductal dilation. Spleen: Normal. No splenomegaly. Adrenal glands: Normal. No mass. Kidneys and ureters: Normal. No hydronephrosis. Stomach and bowel: Large amount of retained stool in the rectum suggesting fecal impaction. Moderate retained stool throughout the remainder of the colon. No evidence of bowel obstruction. Appendix: No evidence of appendicitis. Intraperitoneal space: Unremarkable. No free air. No significant fluid collection. Vasculature: Moderate atherosclerotic calcification of the aorta and iliac arteries. No evidence of aneurysm or dissection. Lymph nodes: Unremarkable. No enlarged lymph nodes. Urinary bladder: Unremarkable as visualized. Reproductive: Unremarkable as visualized. Bones/joints: Left hip prosthesis produces streak artifact, partially obscuring pelvic structures. Soft tissues: Unremarkable. IMPRESSION: Findings concerning for rectal fecal impaction without bowel obstruction. Otherwise chronic appearing findings as noted. Dictated and Authenticated by: Quirino Grewal MD. Ordering:P.OTEJ Fatmata Mayo MD
[2023-04-02] MEDS: Apixaban 2.5 MG TAB PO (21:44)
[2023-04-02] MEDS: Potassium Chloride 20 MEQ TABCR PO (21:44)
[2023-04-03] VITALS (9 sets, daily range): BP systolic 141–188; BP diastolic 80–93; PULSE 53–94; RESP 15–22; TEMP 36–37.4; O2SAT 90–96
[2023-04-03] MEDS: Normal Saline 1,000 ML 150 ML IV (04:19)
[2023-04-03 06:37] LABS: Abs Immature Grans 0.02 10^3/uL (0.0-0.06); Absolute Basophil Count 0.05 10^3/uL (0.0-0.2); Absolute Eosinophil Count 0.46 10^3/uL (0.0-0.7); Absolute Lymphocyte Count 1.85 10^3/uL (1.2-3.4); Absolute Monocyte Count 0.74 10^3/uL (0.1-0.8); Absolute Neutrophil Count 5.91 10^3/uL (1.2-6.7); Basophils % 0.6; Eosinophils % 5.1; HCT 39.7 % (40.0-50.0); HGB 13.4 g/dL (13.5-17.5); Immature Grans % 0.2; Lymphocytes % 20.5; MCH 30.1 pg (27.0-33.0); MCHC 33.8 % (32.0-36.0); MCV 89 fL (80-95); Monocytes % 8.2; Neutrophils % 65.4; Platelet Count 158 10^3/uL (130-400); RBC 4.45 10^6/uL (4.36-5.78); RDW 14.1 % (11.8-14.1); WBC 9.03 10^3/uL (4.4-10.8)
[2023-04-03 07:00] LABS: ALT 18 U/L (16-63); AST 16 U/L (15-37); Albumin 2.9 g/dL (3.4-5.0); Alkaline Phosphatase 51 U/L (46-116); Anion Gap 5.2 mmol/L (3-11); BUN 12 mg/dL (7-18); Bilirubin, Total 0.4 mg/dL (0.2-1.0); CO2 30.8 mmol/L (21.0-32.0); CREATININE 1.5 mg/dL (0.70-1.30); Chloride 107 mmol/L (98-107); Estimated GFR 45.62 (mL/min/1.73m2); Glucose 94 mg/dL (74-106); Sodium 143 mmol/L (136-145); Total Protein 5.9 g/dL (6.4-8.2)
[2023-04-03 07:02] LABS: Calcium 11.6 mg/dL (8.5-10.1)
[2023-04-03 07:03] LABS: Potassium 2.7 mmol/L (3.5-5.1); Troponin I 123 ng/L (<or=60)
--- NOTE | 2023-04-03 07:45 | RT.EKG_ITS ---
APPROVED REPORT Exam: Resting ECG Reason for Exam: elevated troponin Patient Location: I HR:55 bpm ECG Measurements Heart Rate 55 AXIS AR 191 P 43 QRSd 178 QRS -128 QT 487 T -37 QTc 466 Conclusion Sinus bradycardia Right bundle branch block...QRSd>120, terminal axis(90,270)
[2023-04-03] MEDS: Tamsulosin 0.4 MG CAPCR 0.8 MG PO (08:17)
[2023-04-03] MEDS: Potassium Chloride Liquid 20 MEQ PKT PO (08:17)
[2023-04-03] MEDS: Potassium Chloride 20 MEQ TABCR 40 MEQ PO (08:17)
[2023-04-03] MEDS: Sertraline 50 MG TAB 75 MG PO (08:19)
[2023-04-03] MEDS: Simvastatin 20 MG TAB PO (08:20)
[2023-04-03] MEDS: Apixaban 2.5 MG TAB PO ×2 (08:20→19:25)
[2023-04-03] MEDS: Aspirin 81 MG CHEW PO (08:21)
[2023-04-03] MEDS: POTASSIUM CHLORIDE 20 MEQ/100 ML BAG 50 MEQ IVPB ×2 (08:22→10:53)
--- NOTE | 2023-04-03 09:22 | IN_ITS ---
PT Notes Visit Reasons: hypercalcemia, hypokalemia Physical Therapy Inpatient Initial Evaluation Date: 04/03/2023 Referring Doctor: Sara Cartwright NP PT Orders: PT CONSULT: Eval/Treat Precautions: Fall. Standard. Activity as tolerated. 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 of head showed no new acute abnormality, MRI of head pending. Patient is admitted for management of AMS, hypercalcemia, hypokalemia, suspectde malignanacy, RAMIN, cognitive impairment, HTN, chronic respiratory failure with hypoxia, and elevated troponin. PMHX: All Active Problems (Updated 04/02/23 @ 19:39 by Sara Cartwright NP) Elevated troponin (Acute) Discharge planning issues (Acute) On deep vein thrombosis (DVT) prophylaxis (Acute) Hypercalcemia (Acute) Hypokalemia (Acute) Altered mental status (Acute) Acute kidney injury (Acute) Hypokalemia (Acute) Hypercalcemia (Acute) Chronic respiratory failure with hypoxia (Chronic) Interstitial lung disease (Chronic) Cognitive impairment (Acute) Generalized anxiety disorder (Chronic) Hypertension (Chronic) Hyperlipidemia (Chronic) Osteopenia (Acute) Medical History History of thromboembolism P.E., DVT 2019 TIA (transient ischemic attack) Pulmonary embolism (~10/2018) CVA (cerebral vascular accident) (~09/2018) Right posterior internal capsule ischemic stroke Social History/Home Situation: Has 04/11 care. Daughters and son have been very involved in patient's care. in 2019. Able to cover 30-50 feet of household distance using walker with platform for the L UE with minimal to moderate assist of 1 until onset of weakness 2 weeks ago. Equipment Owned/DME: FWW with L UE platform, wheelchair Subjective: Patient only able to answer with 1-2 word sentences. Interview questions mostly answered by Daughter danyelle for patient this morning. Per daughter, her dad has been very sleepy and weak. She is not sure how much he will be able to do for this evaluation. When attempted by PT a second time to try transfer patient from bed to chair, daughter suggested to wait as his dad has been very sleepy. She agreed to trying again before lunch to see if patient can sit up on chair for his meal. Objective: General Observation: Patient was being fed breakfast by daughter when PT came in. Patient in bed with HOB elevated about 45 degrees. Coughed on last t easponful of cereal. Eyes mostly closed unless daughter requests him to open them. L UE swollen and in banormal flexion synergy. Mental Status: Lethargic. Attention span diminished significantly. Daughter needed to repeat questions for dad each time. Pain: Appeared comfortable in bed. No verbal and non-verbal expression of pain throughout. Vital Signs: Closely monitored by nursing staff ROM: Right Upper Extremity: Shoulder Flexion WFL. Shoulder abduction WFL. Elbow flexion WFL. Wrist flexion WFL. Functional opening and closing of hand WFL. Left Upper Extremity: L UE hemiplegia and in abnormal flexion synergy Right Lower Extremity: Hip flexion WFL. Hip abduction WFL. Knee flexion WFL. Ankle dorsiflexion WFL. Ankle plantarflexion WFL. Left Lower Extremity: L LE hemiparesis, unable to test at this time Strength: Right Upper Extremity: Grossly 3/5 Left Upper Extremity: L UE hemiplegia and in abnormal flexion synergy Right Lower Extremity: Grossly 3/5 Left Lower Extremity: L LE hemiparesis, unable to test at this time Bed Mobility/Transfers: Coleen (MEDINA) strongly recommended not getting their father out of bed as they feel he has to rest for as much as he could today. Gait: Coleen (POA) strongly recommended not getting their father out of bed as they feel he has to rest for as much as he could today. Balance: Coleen (POA) strongly recommended not getting their father out of bed as they feel he has to rest for as much as he could toda Special Tests: Mobility Limitations Standardized Measure [facility] AM-PAC 6 clicks Basic Mobility Inpatient Short Form: Raw Score: 6 CMS Score: 100% deficit Informed Consent/Education: Daughters were instructed in purpose of PT consult and plan of care. Agreeable to proceed with established PT POC to achieve personal goals but would like their father to get the rest that he needs first. They were agreeable to PT trying to come back today to see how their dad does but does not want to push getting out of bed too much. ASSESSMENT: Lethargic. Per daughter's request, patient was not mobilized out of bed as they do not feel that physical therapy is the top priority for now. Per daughters, patient has 24/7 care at home wand needed minimal to moderate assist with walking at home using a walker with platform on the L. Patient presents with clinical signs and symptoms consistent with current/admitting diagnoses that have resulted to mobility limitations, gait instability, generalized weakness, and overall ADL decline as demonstrated by the following impairment level findings: 1. Decreased strength to B UE/LE major muscle groups, L more affected than R 2. Impaired sitting/standing balance 3. Impaired activity tolerance 4. Limitation of joint range of motion in B UE/LE, L more affected than R 5. Lethargy Impairments are contributing to the following functional limitations: 1. Decline in bed mobility skills 2. Decline in transfer skills 3. Difficulty with ambulation without assistive device and physical assistance 4. Increased completion time for mobility ADL performance 5. Increased risk for falls 6. Difficulty with managing steps alone safely Patient is assessed as a 49976 complexity based on the following: History: 82-year-old male with past medical history as indicated above Examination: Demonstrable impairment in strength, balance, and mobility level with underlying impairments and functional limitations as exhibited above as well as deficit score of 100% utilizing the [facility] Mobility In patient Short Form Presentation: Evolving Decision Makin moderate complexity Goals: Goals X1 week 1. Supine-Sit minimal assist 2. Sit-Supine minimal assist 3. Sit-Stand minimal assist 4. Stand-Sit minimal assist with FWW with platform 5. Bed-Chair minimal assist with FWW with platform 6. Chair-Bed minimal assist with FWW with platform 7. Minimal assist with gait on level surface with use of platform walker for at least 30 feet without report of pain nor dyspnea 8. Fair static and dynamic standing balance/tolerance Plan of Care/Treatment Plan: 1-2x/day, 7 days/week x 1 week. Plan of care has been reviewed with the PROJECT EXECUTIVE providing the service under Physical Therapy direction. Initiate Physical Therapy intervention for pain management as needed, strengthening, bed mobility, transfers, gait, stairs, balance training, and use of assistive device. -May use STEDY lift as needed to reduce fall risk. -NEURO RE-ED: Focus in bilateral UE activities with hands clasped, AAROM as needed, through PNF patterns; increase static/dynamic standing tolerance using STEDY lift or parallel bars -THERA EX: R UE/LE strengthening using resistance DISCHARGE RECOMMENDATIONS: [] Home with no services [] [] Home with services [specify] [] Home with outpatient PT [] [] SNF for continued rehabilitation [] [] [facility] [] [] SNF versus LTC based on ability to participate and progress [] [X] Return home with 24/7 care. Patient will benefit from home health PT services in order to progress mobility level using least restrictive assistive ambulatory device, assess home safety, identify additional equipment needs, and establish a functional maintenance program that will increase ability of patient to remain at home. TREATMENT CODE/TIME: 06085 x 20 minutes for 1 unit, 79918 x 20 minutes for 1 unit beginning at 9:22 AM Thank you for the opportunity to participate in the care of this patient. Maty Britt PT, DPT, CLT [facility] [place], [place]
[2023-04-03 10:30] LABS: Troponin I 104 ng/L (<or=60)
[2023-04-03 10:36] LABS: Lab Add On Test DONE
--- NOTE | 2023-04-03 10:42 | W.PM.PROGNOT ---
Date of Service Date of service: 04/03/23 Time of Service: 10:42 Assessment and Plan Assessment and plan (1) Altered mental status: Status: Acute Assessment and plan: As per head CT on 04/02: nonhemorrhagic infarct in the right frontal lobe- no mass effect nonacute-chronic appearing infarct in the superior aspect of the left cerebellar hemisphere MRI recommended for comparison to prior brain imaging studies or MRI with diffusion imaging. Family seems not to aligned with this plan. Shawna the daughter met this morning, emphasis that they would prioritize comfort for Mr Teran, but the POA Angelique Munson was not present at this time. Palliative care consultation scheduled (2) Hypercalcemia: Status: Acute Assessment and plan: Will continue IVF as the patient Ca is 11.6 this AM from 14 Still holding hydrochlorothiazide If no improvement and depending on the cause, might consider calcitonin or zalendronic acid Closely monitor for fluid overload signs and symptoms BMP in AM (3) Hypokalemia: Status: Acute Assessment and plan: K 2.7, replete ; BMP in AM. (4) Malignancy: Status: Suspected Assessment and plan: CT chest/ abdomen /pelvis: negative except for again small hypodensity in the liver and for colonic constipation, diverticulosis w/o diverticulitis further workup is necessary : Vit D3 level, PTH level Bisacodyl supp X1 ordered (5) Acute kidney injury: Status: Acute Assessment and plan: Cr. 1.5 was 1.7 Continue IV fluids Consult with pharmacy for avoidance of avoidance of nephrotoxic drugs and need for renal dose. (6) Cognitive impairment: Status: Acute Assessment and plan: previous history of sundowning while inpatient as per family; also has severe advanced dementia for which we will maintain safety precautions Consider the possibility of delirium in setting of hypercalcemia, hospitalization; family spent the night and the patient verbalized that he did not want daughter to leave (7) Hypertension: Status: Chronic Assessment and plan: HCTZ on hold d/t hypercalcemia and increased Cr monitor blood pressure and consider another agent if needed. considering starting amlodipine 5mg oral daily scheduled (8) Chronic respiratory failure with hypoxia: Status: Chronic Assessment and plan: No O2 requirement,sat 96%, continue to monitor keep O2 sat 88-92% (9) Elevated troponin: Status: Acute Assessment and plan: trop max 123, down to 104, no further trending unless symptomatic (10) On deep vein thrombosis (DVT) prophylaxis: Status: Acute Assessment and plan: On home dose apixaban (11) Discharge planning issues: Status: Acute Assessment and plan: case management following for discharge planning Palliative consult 24-hour care at home discussed with Dr Cade Subjective Subjective Patient reports: no new complaints, tolerating liquids well, tolerating a regular diet, voiding w/o difficulty, no bowel movement, afebrile and other (tired, fatigue, no pain ); denies diarrhea, nausea, vomiting, shortness of breath or fever Exam Narrative Exam Narrative: Constitutional The patient is lying in bed comfortable and cooperative during the interview, daughter Shawna at bedside. The patient is without acute distress, appears fatigue, opens eyes with tactile stimuli and voice, makes eye contact, short-sentence answers but drifts back to sleep. HENMT: Head is atraumatic, normocephalic Eyes: Well aligned, intact ROM Neck: Normal ROM, no meningeal signs Neuro:alert and oriented to self, person. Residual upper left-sided paresis from previous CVA, ext is flaccid Chest:Chest is symmetrical and normal appearance Resp: Normal respiratory pattern, unlabored breathing, clear lung bilaterally Cardio: regular rhythm,tele first-degree AVB HR 56-79 S1, S2, no murmur, pulse are positive and palpable to ext X4 GI: Abdomen is not distended, soft and non tender, bowel sounds are present : no bladder distension Back/spine/Pelvis: No back tenderness, normal alignment Integumentary: No skin lesions or rash Extremities: strength 5/5 to right UE, 0/5 LUE, lower ext 4/5 Psych: RASS 0, tired mood and flat affect. Objective Last Vital Signs Temp 36.1 C L 04/03/23 07:34 Pulse 55 L 04/03/23 07:34 Resp 18 04/03/23 07:34 BP 153/85 H 04/03/23 07:34 Pulse Ox 93 04/03/23 07:34 Laboratory Results - last 24 hr 04/02/23 04/02/23 04/03/23 15:50 18:40 06:27 WBC 10.52 9.03 RBC 5.24 4.45 Hgb 15.5 13.4 L D Hct 47.1 39.7 L MCV 90 89 MCH 29.6 30.1 MCHC 32.9 33.8 RDW 14.3 H 14.1 Plt Count 183 158 MPV 11.8 H 12.0 H Immature Gran % 0.4 0.2 Neutrophils % 71.4 65.4 Lymphocytes % 16.3 20.5 Monocytes % 8.0 8.2 Eosinophils % 3.5 5.1 Basophils % 0.4 0.6 Nucleated RBC % 0.0 0.0 Absolute Neutrophils 7.52 H 5.91 Absolute Lymphocytes 1.71 1.85 Absolute Monocytes 0.84 H 0.74 Absolute Eosinophils 0.37 0.46 Absolute Basophils 0.04 0.05 Sodium 146 H 143 Potassium 2.7 L* 2.7 L* Chloride 102 107 Carbon Dioxide 37.5 H 30.8 Anion Gap 6.5 5.2 BUN 15 12 Creatinine 1.7 H 1.5 H Est GFR (CKD-EPI 2020) 39.26 45.62 Glucose 146 H 94 Calcium 14.0 H* 11.6 H D Magnesium 2.1 Total Bilirubin 0.6 0.4 AST 17 16 ALT 22 18 Alkaline Phosphatase 66 51 Troponin I 81 H* 96 H* 123 H* Total Protein 7.5 5.9 L Albumin 3.8 2.9 L Urine Color Yellow Urine Clarity Clear Urine pH 7.0 Ur Specific [place] 1.015 Urine Protein Negative Urine Ketones Negative Urine Blood Negative Urine Nitrite Negative Urine Bilirubin Negative Urine Urobilinogen 0.2 Ur Leukocyte Esterase Moderate H Urine RBC 0-2 Urine WBC 5-10 Ur Epithelial Cells Rare Urine Crystals Negative Urine Bacteria Rare Urine Casts 0-2 Coarse Granular Urine Mucus Trace Ur Culture Indicated? Yes Urine Glucose Negative Add-On Test Request 04/03/23 09:50 WBC RBC Hgb Hct MCV MCH MCHC RDW Plt Count MPV Immature Gran % Neutrophils % Lymphocytes % Monocytes % Eosinophils % Basophils % Nucleated RBC % Absolute Neutrophils Absolute Lymphocytes Absolute Monocytes Absolute Eosinophils Absolute Basophils Sodium Potassium Chloride Carbon Dioxide Anion Gap BUN Creatinine Est GFR (CKD-EPI 2020) Glucose Calcium Magnesium Total Bilirubin AST ALT Alkaline Phosphatase Troponin I 104 H* Total Protein Albumin Urine Color Urine Clarity Urine pH Ur Specific [place] Urine Protein Urine Ketones Urine Blood Urine Nitrite Urine Bilirubin Urine Urobilinogen Ur Leukocyte Esterase Urine RBC Urine WBC Ur Epithelial Cells Urine Crystals Urine Bacteria Urine Casts Urine Mucus Ur Culture Indicated? Urine Glucose Add-On Test Request DONE Time Spent with Patient Time Spent with Patient: >50 minutes Time was spent: preparing to see the patient(eg.review tests), ordering medications,tests, procedures, referring, communicating with other health healthcare business analyst, indepentently interpreting results, counseling the patient and care coordination
[2023-04-03 10:50] LABS: Magnesium 1.6 mg/dL (1.8-2.4)
[2023-04-03] MEDS: MAGNESIUM SULFATE 2 GM/50 ML BAG IVPB (12:41)
[2023-04-03] MEDS: Potassium Chloride 20 MEQ TABCR PO ×2 (13:35→19:25)
--- NOTE | 2023-04-03 14:39 | PCNE_ITS ---
Date of service: 04/03/23 Time of Service: 14:40 History of Present Illness Narrative: Jerrod was seen in his room with his daughter, Shawna present. I spoke to Angelique via phone prior to the visit. Angelique is his HCA. He is a DNR/DNI. AD- comfort focused care. HCA- Angelique, daughter He has 24/7 caregivers at home. They are paid privately. The caregivers are mostly LNAs and RNs. He also has little dog named, Francoise that sits on his lap all day long. He lives in [place], [place]. He started using O2 at home about a month ago. He was walking with a walker up until about a month ago. He has been getting weaker and using the wheelchair recently. His electrolytes were noted to be off when he came in. He had CT which showed: nonhemorrhagic infarct in the right frontal lobe- no mass effect nonacute-chronic appearing infarct in the superior aspect of the left cerebellar hemisphere His family declined further evaluation with MRI, they did not feel that it would be beneficial. The goal is to get him back home with his caregivers and work with PT at home. They wish for him to have comfort focused care but they are not yet ready for hospice. His on hospice 4 years ago so the family is familiar with the service. She had a brain tumor. Assessment and Plan Assessment and plan (1) Cognitive impairment: Status: Acute (2) Generalized anxiety disorder: Status: Chronic (3) Interstitial lung disease: Status: Chronic (4) Chronic respiratory failure with hypoxia: Status: Chronic (5) Altered mental status: Status: Acute (6) Elevated troponin: Status: Acute (7) CVA (cerebral vascular accident): Review of Systems Narrative: Patient slept through most of the visit. He denies pain. PFSH All Active Problems Elevated troponin (Acute) Discharge planning issues (Acute) On deep vein thrombosis (DVT) prophylaxis (Acute) Hypercalcemia (Acute) Hypokalemia (Acute) Altered mental status (Acute) Acute kidney injury (Acute) Hypokalemia (Acute) Hypercalcemia (Acute) Chronic respiratory failure with hypoxia (Chronic) Interstitial lung disease (Chronic) Cognitive impairment (Acute) Generalized anxiety disorder (Chronic) Hypertension (Chronic) Hyperlipidemia (Chronic) Osteopenia (Acute) Medical History History of thromboembolism P.E., DVT 2019 TIA (transient ischemic attack) Pulmonary embolism (~10/2018) CVA (cerebral vascular accident) (~09/2018) Right posterior internal capsule ischemic stroke Surgical History Status post left hip replacement History of appendectomy (07/16/20) Family History Mother Dementia Father No problems noted. Daughter No problems noted. Daughter No problems noted. Son No problems noted. Maternal Grandfather No problems noted. Maternal Grandmother No problems noted. Paternal Grandfather No problems noted. Paternal Grandmother No problems noted. Brother Alcohol use disorder Colon cancer Hyperlipidemia Hypertension Diabetes Social History Smoking/Tobacco Use Status: Former Tobacco Use tobacco type: cigarettes and smokeless tobacco Quit Date: 04/14/85 Smokeless tobacco user: snuff Second Hand Exposure: Yes Smoking risk assessment performed?: Yes Alcohol Intake: former Drug use: Never Substance use type: does not use Counseling given: No Adopted: No Caregiver/Support person: Yes Foster care: No Household members: caregiver Housing: house Number of Children: 3 number of grandchildren: 7 Communication Needs: None Education Level: high school Do you need help understanding health information?: Never 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 Pets and animals: Yes Pets and animals: dog(s) Sexually active: No Do you think of yourself as: straight/heterosexual Current gender identity: male What is your relationship status?: How often do you talk on the phone with friends or family?: three or more times per week How often do you get together with friends or relatives?: three or more times per week How often do you attend scientology or muslim services?: 4 or more times per year Do you belong to any clubs or organized social groups?: no Panel score (0-1 are the most socially isolated patients): 3 What type of physical activity do you participate in: walking and regular exercise Duration: 45-60 minutes/day Frequency: daily Tamela/Rastafarian: Zoroastrian Special tamela needs: No Agree to transfusion: Yes Seatbelt use: always Drive intox or ride w/intox pharmacy delivery driver: No Working smoke detector in home: Yes Carbon monox detector in home: Yes Firearms in home: Yes Firearms unloaded and locked: Yes Do you feel safe at home: Yes Victim of physical abuse: No Victim of emotional abuse: No Victim of sexual abuse: No Would you like helpful sources: No Exam Narrative Exam Narrative: General: very pleasant, elderly man, laying back in the recliner. He slept through most of the visit but answered a question occasionally. HEENT: normocephalic, atraumatic, EOMI, mmm, missing several teeth. Neck: supple. Respiratory: respirations appear even and unlabored. Results Last Vital Signs Temp 36.4 C L 04/03/23 11:29 Pulse 56 L 04/03/23 11:29 Resp 22 04/03/23 11:29 BP 150/82 H 04/03/23 11:29 Pulse Ox 94 04/03/23 11:29 Labs 04/04/23 07:33 04/04/23 07:33 Labs: Laboratory Results - last 24 hr 04/02/23 04/02/23 04/03/23 15:50 18:40 06:27 WBC 10.52 9.03 RBC 5.24 4.45 Hgb 15.5 13.4 L D Hct 47.1 39.7 L MCV 90 89 MCH 29.6 30.1 MCHC 32.9 33.8 RDW 14.3 H 14.1 Plt Count 183 158 MPV 11.8 H 12.0 H Immature Gran % 0.4 0.2 Neutrophils % 71.4 65.4 Lymphocytes % 16.3 20.5 Monocytes % 8.0 8.2 Eosinophils % 3.5 5.1 Basophils % 0.4 0.6 Nucleated RBC % 0.0 0.0 Absolute Neutrophils 7.52 H 5.91 Absolute Lymphocytes 1.71 1.85 Absolute Monocytes 0.84 H 0.74 Absolute Eosinophils 0.37 0.46 Absolute Basophils 0.04 0.05 Sodium 146 H 143 Potassium 2.7 L* 2.7 L* Chloride 102 107 Carbon Dioxide 37.5 H 30.8 Anion Gap 6.5 5.2 BUN 15 12 Creatinine 1.7 H 1.5 H Est GFR (CKD-EPI 2020) 39.26 45.62 Glucose 146 H 94 Calcium 14.0 H* 11.6 H D Magnesium 2.1 Total Bilirubin 0.6 0.4 AST 17 16 ALT 22 18 Alkaline Phosphatase 66 51 Troponin I 81 H* 96 H* 123 H* Total Protein 7.5 5.9 L Albumin 3.8 2.9 L Urine Color Yellow Urine Clarity Clear Urine pH 7.0 Ur Specific [place] 1.015 Urine Protein Negative Urine Ketones Negative Urine Blood Negative Urine Nitrite Negative Urine Bilirubin Negative Urine Urobilinogen 0.2 Ur Leukocyte Esterase Moderate H Urine RBC 0-2 Urine WBC 5-10 Ur Epithelial Cells Rare Urine Crystals Negative Urine Bacteria Rare Urine Casts 0-2 Coarse Granular Urine Mucus Trace Ur Culture Indicated? Yes Urine Glucose Negative Add-On Test Request 04/03/23 09:50 WBC RBC Hgb Hct MCV MCH MCHC RDW Plt Count MPV Immature Gran % Neutrophils % Lymphocytes % Monocytes % Eosinophils % Basophils % Nucleated RBC % Absolute Neutrophils Absolute Lymphocytes Absolute Monocytes Absolute Eosinophils Absolute Basophils Sodium Potassium Chloride Carbon Dioxide Anion Gap BUN Creatinine Est GFR (CKD-EPI 2020) Glucose Calcium Magnesium 1.6 L Total Bilirubin AST ALT Alkaline Phosphatase Troponin I 104 H* Total Protein Albumin Urine Color Urine Clarity Urine pH Ur Specific [place] Urine Protein Urine Ketones Urine Blood Urine Nitrite Urine Bilirubin Urine Urobilinogen Ur Leukocyte Esterase Urine RBC Urine WBC Ur Epithelial Cells Urine Crystals Urine Bacteria Urine Casts Urine Mucus Ur Culture Indicated? Urine Glucose Add-On Test Request DONE
--- NOTE | 2023-04-03 16:14 | PDOC.CMIN ---
Date of service: 04/03/23 Time of Service: 16:14 Care Management Initial Assmt Initial Assessment REASON FOR HOSPITALIZATION:: hypercalcemia, hypokalemia PREVIOUS FUNCTIONAL STATUS/SOCIAL/FAMILY SUPPORTS:: Resides in [place], [place], Jerrod is but well supported by adult children who reside locally. Jerrod has had multiple strokes in the past resulting in left sided residual weakness. Per reports, he has also experienced increased confusion in the last few weeks. CURRENT FUNCTIONAL STATUS:: Jerrod's family sought care at [facility] from [place]. He is lethargic and unable to engage. Daughter at bedside awaiting Palliative consult. ADVANCE DIRECTIVES:: On file, daughter Angelique as agent. Has patient been provided with info about the portal/API?: Yes Did the patient sign up for the portal?: Yes CODE STATUS:: DNR/DNI INSURANCE COVERAGE / FINANCIAL ISSUES:: Medicare, AARP PRIMARY CARE PHYSICIAN:: Molly Powers POTENTIAL DISCHARGE NEEDS:: Follow up appointments, PT evaluation, Palliative consult. PATIENT/FAMILY EDUCATION NEEDS:: Review discharge instructions, discuss Ask Me Three. ANTICIPATED BARRIERS TO DISCHARGE:: None identified. TRANSPORTATION:: Via private vehicle with family. PLAN:: Awaiting Palliative consult to inform goals of care, as well as PT consult if patient is able to engage. CM continues to follow. PFSH All Active Problems (Updated 04/02/23 @ 19:39 by Sara Cartwright NP) Elevated troponin (Acute) Discharge planning issues (Acute) On deep vein thrombosis (DVT) prophylaxis (Acute) Hypercalcemia (Acute) Hypokalemia (Acute) Altered mental status (Acute) Acute kidney injury (Acute) Hypokalemia (Acute) Hypercalcemia (Acute) Chronic respiratory failure with hypoxia (Chronic) Interstitial lung disease (Chronic) Cognitive impairment (Acute) Generalized anxiety disorder (Chronic) Hypertension (Chronic) Hyperlipidemia (Chronic) Osteopenia (Acute) Medical History History of thromboembolism P.E., DVT 2019 TIA (transient ischemic attack) Pulmonary embolism (~10/2018) CVA (cerebral vascular accident) (~09/2018) Right posterior internal capsule ischemic stroke Surgical History Status post left hip replacement History of appendectomy (07/16/20) Family History Mother Dementia Father No problems noted. Daughter No problems noted. Daughter No problems noted. Son No problems noted. Maternal Grandfather No problems noted. Maternal Grandmother No problems noted. Paternal Grandfather No problems noted. Paternal Grandmother No problems noted. Brother Alcohol use disorder Colon cancer Hyperlipidemia Hypertension Diabetes Social History Smoking/Tobacco Use Status: Former Tobacco Use tobacco type: cigarettes and smokeless tobacco Quit Date: 04/14/85 Smokeless tobacco user: snuff Second Hand Exposure: Yes Smoking risk assessment performed?: Yes Alcohol Intake: former Drug use: Never Substance use type: does not use Counseling given: No Adopted: No Caregiver/Support person: Yes Foster care: No Household members: caregiver Housing: house Number of Children: 3 number of grandchildren: 7 Communication Needs: None Education Level: high school Do you need help understanding health information?: Never 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 Pets and animals: Yes Pets and animals: dog(s) Sexually active: No Do you think of yourself as: straight/heterosexual Current gender identity: male What is your relationship status?: How often do you talk on the phone with friends or family?: three or more times per week How often do you get together with friends or relatives?: three or more times per week How often do you attend quaker or jewish services?: 4 or more times per year Do you belong to any clubs or organized social groups?: no Panel score (0-1 are the most socially isolated patients): 3 What type of physical activity do you participate in: walking and regular exercise Duration: 45-60 minutes/day Frequency: daily Tamela/Lutheran: Druze Special tamela needs: No Agree to transfusion: Yes Seatbelt use: always Drive intox or ride w/intox pickup driver: No Working smoke detector in home: Yes Carbon monox detector in home: Yes Firearms in home: Yes Firearms unloaded and locked: Yes Do you feel safe at home: Yes Victim of physical abuse: No Victim of emotional abuse: No Victim of sexual abuse: No Would you like helpful sources: No
[2023-04-03] MEDS: Bisacodyl 10 MG SUPP PR (18:07)
[2023-04-03] MEDS: amLODIPine 5 MG TAB PO (19:25)
[2023-04-03] MEDS: Nicotine 21 MG/24 HR PATCH TD (22:45)
[2023-04-04] VITALS (7 sets, daily range): BP systolic 119–150; BP diastolic 67–84; PULSE 63–72; RESP 18–20; TEMP 36.5–37.2; O2SAT 88–95
[2023-04-04] MEDS: Normal Saline 1,000 ML 150 ML IV (00:59)
[2023-04-04 07:47] LABS: Abs Immature Grans 0.02 10^3/uL (0.0-0.06); Absolute Basophil Count 0.04 10^3/uL (0.0-0.2); Absolute Eosinophil Count 0.42 10^3/uL (0.0-0.7); Absolute Lymphocyte Count 1.49 10^3/uL (1.2-3.4); Absolute Monocyte Count 0.67 10^3/uL (0.1-0.8); Absolute Neutrophil Count 6.25 10^3/uL (1.2-6.7); Basophils % 0.4; Eosinophils % 4.7; HCT 38.4 % (40.0-50.0); HGB 12.8 g/dL (13.5-17.5); Immature Grans % 0.2; Lymphocytes % 16.8; MCH 29.7 pg (27.0-33.0); MCHC 33.3 % (32.0-36.0); MCV 89 fL (80-95); MPV 11.7 fL (8.0-11.0); Monocytes % 7.5; Neutrophils % 70.4; Platelet Count 139 10^3/uL (130-400); RBC 4.31 10^6/uL (4.36-5.78); RDW 14.1 % (11.8-14.1); WBC 8.89 10^3/uL (4.4-10.8)
[2023-04-04 07:57] LABS: Anion Gap 3.5 mmol/L (3-11); BUN 9 mg/dL (7-18); CO2 30.5 mmol/L (21.0-32.0); CREATININE 1.4 mg/dL (0.70-1.30); Calcium 9.6 mg/dL (8.5-10.1); Chloride 109 mmol/L (98-107); Estimated GFR 49.56 (mL/min/1.73m2); Glucose 92 mg/dL (74-106); Magnesium 1.7 mg/dL (1.8-2.4); Sodium 143 mmol/L (136-145)
[2023-04-04 08:03] LABS: Lab Add On Test COMPLETED
[2023-04-04 08:42] LABS: Vitamin D 25 Total 64.3 ng/mL (30-100)
[2023-04-04] MEDS: Aspirin 81 MG CHEW PO (08:44)
[2023-04-04] MEDS: Tamsulosin 0.4 MG CAPCR 0.8 MG PO (08:44)
[2023-04-04] MEDS: Apixaban 2.5 MG TAB PO ×2 (08:44→19:39)
[2023-04-04] MEDS: amLODIPine 5 MG TAB PO (08:45)
[2023-04-04] MEDS: Simvastatin 20 MG TAB PO (08:46)
[2023-04-04] MEDS: Potassium Chloride 20 MEQ TABCR PO ×3 (08:46→19:39)
[2023-04-04] MEDS: Sertraline 50 MG TAB 75 MG PO (08:47)
--- NOTE | 2023-04-04 08:54 | RESPIRATORY ---
Pt's baseline is 2L O2 at home. DME: Juan A. Per report from daughter, Pt has hx of LULU and trialed NIV at [facility] in the past and adamantly refused to use it.
--- NOTE | 2023-04-04 11:34 | PDOC.CMPRO ---
Date of service: 04/04/23 Time of Service: 11:34 Care Management Progress Note Progress Note Text Progress Note Text: S/O: Jerrod was sitting up in bed when CM met with him. His daughter Shawna was in the room, helping him eat lunch, and stated that it is difficult for him to hold the small silverware; CM suggested built up silverware, and discussed this with nursing, who will provide it for his next meal. Shawna stated that she was expecting to see PT to get Jerrod up and out of bed, to his chair. CM talked with PT who will be seeing him soon. Palliative will be meeting with him this afternoon, which will help clarify his goals of care. Jerrod has 04/11 caregivers, organized by his daughters, Shawna and Angelique. He will return home with a resumption of caregiver support when medically cleared. CM will continue to follow. A: Jerrod is an 82 year old male admitted to [facility] on 04/02/23 for hypercalcemia, hypokalemia. P: Jerrod's family has expressed that they would like to focus on comfort, per his wishes, with no aggressive measures. He will be seen by palliative care later today, which will help direct his plan of care. He will likely return home with a resumption of care provided by his family. He will follow up with his PCP and discharge plan of care. CM will continue to follow.
--- NOTE | 2023-04-04 13:01 | W.NUTRFU ---
Date of service: 04/04/23 Time of Service: 11:30 Nutrition Note NOTE: visited with kayleigh and his during lunch -his assisting with his feeding. They are anxious and hopefully looking forward to discharge tomorrow if all goes well. regular diet order with normal consistencies however appears that most ofhis lunch food were puree consistency. low albumin and total protein low two days ago - offered protein supplement bid and he and his stated he does get boost ONS at home and we will provide this on his breakfast and dinner trays during his admission. offered my card for outpatient nutrition support. pt and with no concerns or questions regarding his nutrition at this time. Time Spent in Nutritional Counseling and Treatment: 15 minutes
--- NOTE | 2023-04-04 13:46 | PT.INTREAT ---
Date of service: 04/04/23 Time of Service: 12:58 PT Notes Visit Reasons: hypercalcemia, hypokalemia Inpatient Physical Therapy Treatment Note [facility] Date: 04/04/23 PRECAUTIONS: Fall, standard, activity as tolerated. LEFT SIDE WEAKNESS FROM PREVIOUS CVAS. SUBJECTIVE: Patient reports I'm gaining on it. Daughter Shawna present, reports patient looks much better today than yesterday. OBJECTIVE: Patient supine in bed. Daughter Shawna present. Both report agreeable to therapy, looking forward to patient sitting up in bedside chair. ? PAIN: None reported, except briefly when patient's left leg was badly positioned to don shoes. Resolves immediately upon repositioning leg. VITALS: monitored by nursing staff. Therapeutic Activities ([id number]): Direct one-on-one instruction in dynamic activities to improve functional performance. ? BED MOBILITY/TRANSFERS? Rolling L/R: min assist x2 with CORPORATE ETHICS OFFICER Melissa Supine-sit x3: max assist of 1 or mod x2? Sit-supine x2: max assist of 1 or mod x2 ? Sit-stand x6: mod-max x2 with gait belt.? Stand-sit x6: CGA-min x2 ? Bed-Chair: max x2 with max verbal and tactile cueing, transferring to right (unaffected) side. ? Chair-bed: max x2 with max verbal and tactile cueing, transferring to right (unaffected) side. Provided skilled cues and instruction on performance and technique throughout. ASSESSMENT:? Patient would benefit from continued strengthening before returning home, as he is not yet at his baseline min-mod assist for all bed mobility and transfers. PLAN: Continue global strengthening per plan of care until patient is medically cleared for discharge and obtains a safe discharge plan. TREATMENT CODE/TIME: 45 minutes beginning at 12:58
--- NOTE | 2023-04-04 15:37 | PGE_ITS ---
Date of Service Date of service: 04/04/23 Time of Service: 09:15 Assessment and Plan Assessment and plan (1) Altered mental status: Status: Acute Assessment and plan: As per head CT on 04/02: nonhemorrhagic infarct in the right frontal lobe- no mass effect nonacute-chronic appearing infarct in the superior aspect of the left cerebellar hemisphere MRI recommended: Family still refusing MRI, Chely HANEY ( daughter) not in the room at this time but as per Shawna they were looking forward to bring their dad home today and that most tomorrow., awaiting palliative care consult (2) Hypercalcemia: Status: Acute Assessment and plan: Ca 9.6 today, after albumin correction Ca is 10.6. Will stop IVF and continue to hold thiazide. The patient was on calcium supplementation at home and this will not be re-ordered at discharge. The patient also has CDK stage 3 history. Most likely those 3 risk factors could have contributed greatly to the hypercalcemia. At this point the patient might not require calcitonin or zalendronic acid, as the calcium level is decreasing to near normal. BMP and albumin in AM hold HCTZ D/C IVF (3) Hypokalemia: Status: Acute Assessment and plan: K 3.0 replacement provided BMP in AM. (4) Malignancy: Status: Suspected Assessment and plan: CT chest/ abdomen /pelvis: negative except for again small hypodensity in the liver and for colonic constipation, diverticulosis w/o diverticulitis further workup is necessary Vit D3 level, PTH level ordered and results are pending Bisacodyl SC on 04/03, effective (5) Acute kidney injury: Status: Acute Assessment and plan: Cr. 1.4, close to baseline from 12/22/2022 Stop IV fluids Careful screening of nephrotoxic drugs and pharmacy consultation if renal dosing necessary (6) Cognitive impairment: Status: Acute Assessment and plan: no acute delirium, patient remains calm, previous history of delirium sun- downingas per daughter. Patient cooperative during interview, but not oriented d/t history of dementia. Continue PT: as per PT notes: Patient would benefit from continued strengthening before returning home, as he is not yet at his baseline min-mod assist for all bed mobility and transfers. (7) Hypertension: Status: Chronic Assessment and plan: Continue amlodipine 5mg oral daily, new from 04/03 holding HCTZ on hold d/t hypercalcemia (8) Chronic respiratory failure with hypoxia: Status: Chronic Assessment and plan: Not requiring oxygen supplementation, sat in the mid-90's; continue to monitor keep O2 sat 88-92% (9) Elevated troponin: Status: Acute Assessment and plan: Resolved: max 123, then 104 remains asymptomatic (10) On deep vein thrombosis (DVT) prophylaxis: Status: Acute Assessment and plan: Continue home dose Eliquis (11) Discharge planning issues: Status: Acute Assessment and plan: Anticipated for 04/05; case management following for discharge planning, considering nursing, PT, OT and HEAD OF BIOLOGY. Palliative consult pending Private 24-hour care at home discussed with Dr Cade Subjective Subjective Patient reports: no new complaints, feels better, tolerating liquids well, tolerating a regular diet, voiding w/o difficulty, flatus and bowel movement; denies diarrhea, blood in stool, nausea, vomiting, shortness of breath or fever Exam Narrative Exam Narrative: When seen, the patient was in bed, appears tired, daughter Shawna at bedside. The patient had his eyes closed, was arousable to voice and light tactile stimuli. Head was atraumatic, normocephalic. No acute focal neurodeficit noticed, residual left upper extremity somewhat flaccid paralysis again noticed. Clear lungs, diminished bases Telemetry in first-degree AV block, heart rate 58-73, S1 and S2 regular,no murmur, pulses are positive and palpable to all 4 extremities Abdomen is soft nontender, not distended, bowel sounds are present No bladder retention Strength right upper extremity 5 out of 5, bilateral lower extremities 4 out of 5, unable to move left upper extremity Objective Last Vital Signs Temp 36.8 C 04/04/23 11:25 Pulse 65 04/04/23 11:25 Resp 18 04/04/23 11:25 BP 124/67 04/04/23 11:25 Pulse Ox 94 04/04/23 11:25 Laboratory Results - last 24 hr 04/04/23 04/04/23 04/04/23 07:33 07:38 07:59 WBC 8.89 RBC 4.31 L Hgb 12.8 L Hct 38.4 L MCV 89 MCH 29.7 MCHC 33.3 RDW 14.1 Plt Count 139 MPV 11.7 H Immature Gran % 0.2 Neutrophils % 70.4 Lymphocytes % 16.8 Monocytes % 7.5 Eosinophils % 4.7 Basophils % 0.4 Nucleated RBC % 0.0 Absolute Neutrophils 6.25 Absolute Lymphocytes 1.49 Absolute Monocytes 0.67 Absolute Eosinophils 0.42 Absolute Basophils 0.04 Sodium 143 Potassium 3.0 L Chloride 109 H Carbon Dioxide 30.5 Anion Gap 3.5 BUN 9 Creatinine 1.4 H Est GFR (CKD-EPI 2020) 49.56 Glucose 92 Calcium 9.6 Magnesium 1.7 L 25-OH Vitamin D Total 64.3 Add-On Test Request COMPLETED Time Spent with Patient Time Spent with Patient: >50 minutes Time was spent: preparing to see the patient(eg.review tests), ordering medications,tests, procedures, referring, communicating with other health assistant child care teacher, indepentently interpreting results, counseling the patient and care coordination
[2023-04-04 15:53] LABS: Lab Add On Test DONE
[2023-04-04 16:08] LABS: Albumin 2.7 g/dL (3.4-5.0)
[2023-04-04] MEDS: Potassium Chloride 20 MEQ TABCR 40 MEQ PO (16:39)
[2023-04-04] MEDS: MAGNESIUM SULFATE 2 GM/50 ML BAG IVPB (16:39)
[2023-04-04] MEDS: POTASSIUM CHLORIDE 20 MEQ/100 ML BAG 50 MEQ IVPB (19:41)
[2023-04-05 03:50] VITALS: BP 146/94; PULSE 72; RESP 20; TEMP 36.8; O2SAT 92
[2023-04-05 06:58] LABS: Abs Immature Grans 0.04 10^3/uL (0.0-0.06); Absolute Basophil Count 0.04 10^3/uL (0.0-0.2); Absolute Eosinophil Count 0.39 10^3/uL (0.0-0.7); Absolute Lymphocyte Count 1.62 10^3/uL (1.2-3.4); Absolute Monocyte Count 0.82 10^3/uL (0.1-0.8); Absolute Neutrophil Count 6.43 10^3/uL (1.2-6.7); Basophils % 0.4; Eosinophils % 4.2; HCT 38.6 % (40.0-50.0); HGB 12.9 g/dL (13.5-17.5); Immature Grans % 0.4; Lymphocytes % 17.3; MCH 29.8 pg (27.0-33.0); MCHC 33.4 % (32.0-36.0); MCV 89 fL (80-95); MPV 12.5 fL (8.0-11.0); Monocytes % 8.8; Neutrophils % 68.9; Platelet Count 134 10^3/uL (130-400); RBC 4.33 10^6/uL (4.36-5.78); RDW 14.1 % (11.8-14.1); WBC 9.34 10^3/uL (4.4-10.8)
[2023-04-05 07:16] VITALS: BP 167/68; PULSE 70; RESP 17; TEMP 36.2; O2SAT 93
[2023-04-05 07:18] LABS: Albumin 2.6 g/dL (3.4-5.0); Anion Gap 7.6 mmol/L (3-11); BUN 9 mg/dL (7-18); CO2 26.4 mmol/L (21.0-32.0); CREATININE 1.2 mg/dL (0.70-1.30); Calcium 8.6 mg/dL (8.5-10.1); Chloride 109 mmol/L (98-107); Estimated GFR 59.63 (mL/min/1.73m2); Glucose 91 mg/dL (74-106); Potassium 3.4 mmol/L (3.5-5.1); Sodium 143 mmol/L (136-145)
[2023-04-05] MEDS: Sertraline 50 MG TAB 75 MG PO (08:39)
[2023-04-05] MEDS: Tamsulosin 0.4 MG CAPCR 0.8 MG PO (08:41)
[2023-04-05] MEDS: Aspirin 81 MG CHEW PO (08:42)
[2023-04-05] MEDS: Potassium Chloride 20 MEQ TABCR PO (08:42)
[2023-04-05] MEDS: Simvastatin 20 MG TAB PO (08:43)
[2023-04-05] MEDS: Apixaban 2.5 MG TAB PO (08:44)
[2023-04-05] MEDS: amLODIPine 5 MG TAB PO (08:44)
[2023-04-05] MEDS: Normal Saline Flush 10 ML SYR (08:45)
[2023-04-05] MEDS: POTASSIUM CHLORIDE 20 MEQ/100 ML BAG 50 MEQ IVPB (08:46)
--- NOTE | 2023-04-05 09:19 | W.PM.DS.N ---
Date of service: 04/05/23 Time of Service: 11:42 DS: Diagnosis Discharge Diagnosis (1) Altered mental status: Status: Acute (2) Hypercalcemia: Status: Acute (3) Hypokalemia: Status: Acute (4) Malignancy: Status: Suspected (5) Acute kidney injury: Status: Acute (6) Cognitive impairment: Status: Acute (7) Hypertension: Status: Chronic (8) Chronic respiratory failure with hypoxia: Status: Chronic (9) Elevated troponin: Status: Acute (10) On deep vein thrombosis (DVT) prophylaxis: Status: Acute (11) Discharge planning issues: Status: Acute (12) CVA (cerebral vascular accident): (13) Generalized anxiety disorder: Status: Chronic (14) Interstitial lung disease: Status: Chronic Discharge Plan Disposition Patient Disposition: Home W/Home Health Services Condition: Improving Discharge Details Reason For Visit: hypercalcemia, hypokalemia Admit Date/Time: 04/02/23 18:11 Admit Provider: Tejinder Reddy Attending Provider: Tejinder Reddy Primary Care Provider: Molly Powers Hospital Course Hospital Course: This 82 years old male patient with a past medical history of cerebaral vascular accident, pulmonary embolism, and deep veinous thrombosis presented to the ED at [facility] on 04/02/2023 with cognitive impairment with increased confusion after seen his primary care provider. Reported outpatient lab values showed hypercalcemia, hypokalemia and creatinine of 1.7, about previous of 1.4 a month ago.Repeated ED labs showed calcium level is 14 and his sodium level is normal but his potassium level is 2.7. In the ED the patient received IV fluids hydration aggressively as well as potassium replacement. The chest x-ray which shows an infiltrate on the left but there is no signs of infection. The CAT scan of the abdomen pelvis and chest to rule out any malignancy showed no acute pulmonary process, colonic constipation. Small left lobe liver cyst seen again as on the CT form 12/2022. The head CT showed nonhemorrhagic infarct in the right frontal lobe- no mass effect and a nonacute-chronic appearing infarct in the superior aspect of the left cerebellar hemisphere. Changes most likely old and MRI suggestion was refused. The hospitalist admitted the patient to med/surg with telemetry for further evaluation and management of hypercalcemia, confusion, hypokalemia and hypomagnesemia. During his stay, the patient received IV fluid to correct the hypercalcemia and calcium is now 8.6. Hypokalemia and hypomagnesemia corrected with further replacement. Thiazide and calcium supplement were stopped as they can contribute to the hypercalcemia with a creatinine for which the baseline seems to have been around 1.4. Troponin aximum evleation was 126 then down to 104, without symptoms of acute coronary syndrome. Telemetry was in a first degree AV block , 56 to 78 heart rate. The patient was started on Amlodipine for hypertension, as hydrochlorothiazide was no more and option. Cardiac echo completed and official read is pending. PTH levels ordered and level pending; to be followed by primary care. The patient saw physical therapy and recommendation is for home health physical therapy for global strengthening. The patient is alert and oriented to self, family members and knows he wants to go home from the hospital. The patient will need a follow-up with his primary care within the next seven days. Home Meds and New Rx's Prescriptions: New amlodipine 5 mg Tablet 5 mg PO DAILY Qty: 30 0RF Continued sertraline 50 mg tablet 75 mg PO DAILY Combivent Respimat 20-100 mcg/actuation mist 1 puff inhalation Q6H PRN (Reason: shortness of breath or wheezing) Qty: 4 3RF Eliquis 2.5 mg tablet 2.5 mg PO BID aspirin 81 mg tablet,chewable 81 mg PO DAILY simvastatin 20 mg tablet 20 mg PO DAILY tamsulosin 0.4 mg capsule 0.8 mg PO DAILY epinephrine 0.3 mg/0.3 mL Auto-Injector 0.3 mg IM ONCE Rx Instructions: as a single dose; may repeat once Discontinued hydrochlorothiazide 25 mg tablet 25 mg PO DAILY calcium carbonate-vitamin D2 600 mg calcium- 200 unit Tablet 1 tab PO 2XD Discharge Instructions Stand Alone Forms: Nursing Discharge Form Activity:: Activity as Tolerated Equipment/Supplies:: Walker Diet:: As Tolerated Discharge Orders Discharge Orders: Discharge Order (Routine); Ordered 04/05/23 Ordered By: Melody Desir DS: Summary Time Spent with Patient providing and/or coordinating discharge services: Greater than 30 minutes Status at Discharge Functional status at discharge: uses cane/walker Overall status at discharge: patient is back to baseline Mental Status: mental status grossly normal Speech and Movement: speech and movement normal Mood: congruent mood Affect: normal affect Exam Narrative Exam Narrative: When seen, the patient was in bed, comfortable, daughter Shawna at bedside. 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, diminished bases Telemetry in first-degree AV block, heart rate 72-78, S1 and S2 regular,no murmur, positive pulse to extremities Abdomen is soft nontender, not distended, bowel sounds are present No bladder retention Psych Mental Status: mental status grossly normal Speech and Movement: speech and movement normal Mood: congruent mood Affect: normal affect DS: Data Vitals/I&O Vitals and I&O: Vital Signs Temperature 36.2 C L 04/05/23 07:16 Temperature Source Tympanic 04/05/23 07:16 Pulse 70 04/05/23 07:16 Pulse Rhythm Regular 04/04/23 19:30 Pulse 79 04/02/23 19:54 Respiratory Rate 17 04/05/23 07:16 Respiratory Effort Normal, Non-Labored 04/04/23 19:30 Respiratory Depth Normal 04/04/23 19:30 Respiratory Pattern Normal 04/04/23 19:30 Blood Pressure 167/68 H 04/05/23 07:16 Blood Pressure Mean 139 04/02/23 20:01 Pulse Oximetry 93 04/05/23 07:16 Oxygen Delivery Method Room Air 04/05/23 07:16 Oxygen Flow Rate 0 04/05/23 07:16 Pain Level 0 04/05/23 07:16 Comment eyes pain around 2 dry 04/03/23 22:49 Intake & Output 04/04/23 04/04/23 04/05/23 11:59 23:59 11:59 Intake Total 1100 / 1100 Balance 1100 / 1100 Intake: IV 1100 / 1100 Other: Urine Color Yellow Yellow Urine Appearance Clear Clear Urine Odor Normal Stool Size Small Large Stool Characteristics Soft Soft Mucoid Voiding Methods Diaper Urinal Incontinent Data Completed and Pending Labs on day of discharge: Labs from last 24 hours 04/05/23 04/04/23 04/04/23 06:10 15:46 07:33 WBC 9.34 RBC 4.33 L Hgb 12.9 L Hct 38.6 L MCV 89 MCH 29.8 MCHC 33.4 RDW 14.1 Plt Count 134 MPV 12.5 H Immature Gran % 0.4 Neutrophils % 68.9 Lymphocytes % 17.3 Monocytes % 8.8 Eosinophils % 4.2 Basophils % 0.4 Nucleated RBC % 0.0 Absolute Neutrophils 6.43 Absolute Lymphocytes 1.62 Absolute Monocytes 0.82 H Absolute Eosinophils 0.39 Absolute Basophils 0.04 Sodium 143 Potassium 3.4 L Chloride 109 H Carbon Dioxide 26.4 Anion Gap 7.6 BUN 9 Creatinine 1.2 Est GFR (CKD-EPI 2020) 59.63 Glucose 91 Calcium 8.6 Magnesium 2.0 Albumin 2.6 L 2.7 L Add-On Test Request DONE [facility] All Active Problems Elevated troponin (Acute) Discharge planning issues (Acute) On deep vein thrombosis (DVT) prophylaxis (Acute) Hypercalcemia (Acute) Hypokalemia (Acute) Altered mental status (Acute) Acute kidney injury (Acute) Hypokalemia (Acute) Hypercalcemia (Acute) Chronic respiratory failure with hypoxia (Chronic) Interstitial lung disease (Chronic) Cognitive impairment (Acute) Generalized anxiety disorder (Chronic) Hypertension (Chronic) Hyperlipidemia (Chronic) Osteopenia (Acute) Medical History History of thromboembolism P.E., DVT 2019 TIA (transient ischemic attack) Pulmonary embolism (~10/2018) CVA (cerebral vascular accident) (~09/2018) Right posterior internal capsule ischemic stroke Surgical History Status post left hip replacement History of appendectomy (07/16/20) Family History Mother Dementia Father No problems noted. Daughter No problems noted. Daughter No problems noted. Son No problems noted. Maternal Grandfather No problems noted. Maternal Grandmother No problems noted. Paternal Grandfather No problems noted. Paternal Grandmother No problems noted. Brother Alcohol use disorder Colon cancer Hyperlipidemia Hypertension Diabetes Social History Smoking/Tobacco Use Status: Former Tobacco Use tobacco type: cigarettes and smokeless tobacco Quit Date: 04/14/85 Smokeless tobacco user: snuff Second Hand Exposure: Yes Smoking risk assessment performed?: Yes Alcohol Intake: former Drug use: Never Substance use type: does not use Counseling given: No Adopted: No Caregiver/Support person: Yes Foster care: No Household members: caregiver Housing: house Number of Children: 3 number of grandchildren: 7 Communication Needs: None Education Level: high school Do you need help understanding health information?: Never 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 Pets and animals: Yes Pets and animals: dog(s) Sexually active: No Do you think of yourself as: straight/heterosexual Current gender identity: male What is your relationship status?: How often do you talk on the phone with friends or family?: three or more times per week How often do you get together with friends or relatives?: three or more times per week How often do you attend cheondoism or latter day services?: 4 or more times per year Do you belong to any clubs or organized social groups?: no Panel score (0-1 are the most socially isolated patients): 3 What type of physical activity do you participate in: walking and regular exercise Duration: 45-60 minutes/day Frequency: daily Tamela/Yazidi: Mormon Special tamela needs: No Agree to transfusion: Yes Seatbelt use: always Drive intox or ride w/intox sales route driver helper: No Working smoke detector in home: Yes Carbon monox detector in home: Yes Firearms in home: Yes Firearms unloaded and locked: Yes Do you feel safe at home: Yes Victim of physical abuse: No Victim of emotional abuse: No Victim of sexual abuse: No Would you like helpful sources: No Time Spent with Patient Time Spent with Patient: >85 minutes Time was spent: preparing to see the patient(eg.review tests), ordering medications,tests, procedures, referring, communicating with other health healthcare analyst, indepentently interpreting results, counseling the patient and care coordination
--- NOTE | 2023-04-05 10:14 | PT.INNT ---
PT Notes Visit Reasons: hypercalcemia, hypokalemia Pt getting ready for Discharge, pt going home with daughter on personal vehicle. Pt will be with [facility] care.
[2023-04-05] MEDS: Nicotine 21 MG/24 HR PATCH TD (10:36)
--- NOTE | 2023-04-05 12:08 | PDOC.HHF2F ---
Home Health Referral Home Health Orders Clinical synopsis of why skilled professionals are needed: Patient with past medical history of CVA with residual paralysis, TIA, PE admiitted with hypercalcemia with weakness and confusion. Medical diagnosis necessitation home health referral: Hypercalcemia resulting in residual weakness, improving with PT Physical Therapist: Check all that apply Increase strength & endurance for safe mobility at home: Ordered To design/establish home maintenance program: Ordered Home safety evaluation and teaching/gait training including stair management (if applicable): Ordered Other: Continue global strengthening per plan of residential Bound Status Requires the aid of supportive device (check all that apply): Wheelchair and Walker Describe why leaving home would require a considerable and taxing effort: Requires frequent rest periods and Confusion Encounter Date and Reason: I certify that a FTF encounter for this patient was performed on April 05, 2023 and that such encounter was related to the primary reason the patient requires home health services. The encounter was conducted in the following manner: By me as the certifying physician, SELLING UNDERWRITER, PA or By an inpatient physician, SELLING UNDERWRITER or PA during an inpatient stay who communicated findings to me, Certification And Authentication I certify that I composed the above information based on my clinical judgment relating to this patient's medical condition and, if applicable, clinical findings communicated to me by the NPP or inpatient physician who performed the FTF encounter. Name of Provider that will be monitoring home health services: Molly Powers
--- NOTE | 2023-04-05 14:42 | PDOC.CMDIS ---
Date of service: 04/05/23 Time of Service: 14:42 LACE Index Scoring Tool Questions: Length of Stay (in days): 3 Was the patient admitted via the E.D.?: Yes Comorbidities: Cerebrovascular Disease and Chronic Pulmonary Disease E.D. Visits: 2 Answers: Total Score: 11 Risk of Readmission: High Risk Care Management Discharge Plan Reason for Hospitalization: hypercalcemia, hypokalemia Discharge Plan: Kayleigh has 04/11 caregivers, organized by his daughters, Shawna and Angelique. He will return home with a resumption of caregiver support and the [id number] of new home health services for PT. kayleigh will transport with family and follow up with community providers and plan of care. Patient/Family Education Needs: Review discharge instructions, expectations, limitations, follow up plan, discuss Ask Me Three. Services Needed at Discharge: Home Health Care Services
[2023-04-09 15:14] LABS: 1,25-Dihydroxyvitamin D <8.0 pg/mL (18-64)
[2023-04-09 15:27] LABS: PTH-Related Peptide 0.7 pmol/L (< or = 4.2)
[2023-04-10 17:28] LABS: PTH AB NEGATIVE (NEGATIVE)
== END 2023-04-05 15:15 | disposition home health service (06) | DRG 641 ==
LOC: ER 18:38 → MS 20:22
PROVIDERS: Internal Medicine; Nurse Practitioner Acute Care; Admitting Provider Family Medicine; Emergency Provider Emergency Medicine Emergency Medical Services; PCP Nurse Practitioner Family; Visit Provider Family Medicine
DX: E83.52 Hypercalcemia (principal); N17.9 Acute kidney failure, unspecified; J96.11 Chronic respiratory failure with hypoxia; J84.9 Interstitial pulmonary disease, unspecified; R41.82 Altered mental status, unspecified; R53.1 Weakness; E87.6 Hypokalemia; R41.89 Other symptoms and signs involving cognitive functions and awareness; R74.8 Abnormal levels of other serum enzymes; F41.1 Generalized anxiety disorder; E78.5 Hyperlipidemia, unspecified; M85.80 Other specified disorders of bone density and structure, unspecified site; Z86.718 Personal history of other venous thrombosis and embolism; Z86.711 Personal history of pulmonary embolism; Z86.73 Personal history of transient ischemic attack (TIA), and cerebral infarction without residual deficits; Z96.642 Presence of left artificial hip joint; K59.09 Other constipation; K57.30 Diverticulosis of large intestine without perforation or abscess without bleeding; N18.30 Chronic kidney disease, stage 3 unspecified; I12.9 Hypertensive chronic kidney disease with stage 1 through stage 4 chronic kidney disease, or unspecified chronic kidney disease; C80.1 Malignant (primary) neoplasm, unspecified
CPT/HCPCS: 00123; 36415; 36416; 74177; 80048; 80053; 80061; 82306; 82962; 83519; 93005; 96361; 96365; 96366; 97162; 97530; 99285; 70450; 71045; 71260; 81003; 81015; 82040; 82397; 82652; 83036; 83735; 84484; 85025; 87086; 93010; 93306; 94760; 99223; 99233; 99239; J3480; J3490

== ENCOUNTER 2023-04-10 15:50 | Outpatient (REF) | payer MEDICARE, SELFPAY ==
[2023-04-10 21:23] LABS: Abs Immature Grans 0.04 10^3/uL (0.0-0.06); Absolute Basophil Count 0.07 10^3/uL (0.0-0.2); Absolute Eosinophil Count 0.34 10^3/uL (0.0-0.7); Absolute Lymphocyte Count 1.68 10^3/uL (1.2-3.4); Absolute Monocyte Count 0.67 10^3/uL (0.1-0.8); Absolute Neutrophil Count 7.55 10^3/uL (1.2-6.7); Basophils % 0.7; Eosinophils % 3.3; HCT 44.6 % (40.0-50.0); HGB 14.7 g/dL (13.5-17.5); Immature Grans % 0.4; Lymphocytes % 16.2; MCH 29.8 pg (27.0-33.0); MCV 91 fL (80-95); Monocytes % 6.5; Neutrophils % 72.9; Platelet Count 195 10^3/uL (130-400); RBC 4.93 10^6/uL (4.36-5.78); RDW 14.9 % (11.8-14.1); RDW-SD 49.2 fL; WBC 10.35 10^3/uL (4.4-10.8)
[2023-04-10 21:46] LABS: Lab Add On Test DONE
[2023-04-10 21:47] LABS: FREE T4 0.89 ng/dL (0.76-1.46); TSH 7.79 uIU/mL (0.36-3.74)
[2023-04-10 21:48] LABS: ALT 22 U/L (16-63); AST 16 U/L (15-37); Albumin 3.5 g/dL (3.4-5.0); Alkaline Phosphatase 73 U/L (46-116); Anion Gap 9.8 mmol/L (3-11); BUN 7 mg/dL (7-18); Bilirubin, Total 0.4 mg/dL (0.2-1.0); CO2 27.2 mmol/L (21.0-32.0); CREATININE 1.3 mg/dL (0.70-1.30); Calcium 8.9 mg/dL (8.5-10.1); Chloride 106 mmol/L (98-107); Estimated GFR 54.17 (mL/min/1.73m2); Ferritin 69 ng/mL (26-388); Glucose 119 mg/dL (74-106); Potassium 3.5 mmol/L (3.5-5.1); Sodium 143 mmol/L (136-145); Total Protein 6.9 g/dL (6.4-8.2)
[2023-04-10 22:24] LABS: Vitamin B12 986 pg/mL (193-986)
[2023-04-11 20:32] LABS: PSA, Screening 1.1 ng/mL (<=6.5)
[2023-04-11 21:16] LABS: Hepatitis C Ab w Rflx HCV PCR Negative (Negative)
== END 2023-04-10 15:51 | disposition home or self-care (01) ==
LOC: LBN 15:50
PROVIDERS: PCP Nurse Practitioner Family; Visit Provider Nurse Practitioner Family
DX: N17.9 Acute kidney failure, unspecified (principal); R41.89 Other symptoms and signs involving cognitive functions and awareness
CPT/HCPCS: 80053; 84153; 86803; 82607; 82728; 84439; 84443; 85025

== ENCOUNTER 2023-04-20 20:00 | Inpatient (IN) | payer MEDICARE, SELFPAY ==
[2023-04-20] VITALS (40 sets, daily range): BP systolic 88–131; BP diastolic 55–72; PULSE 87–118; RESP 15–28; TEMP 36.6–38.3; O2SAT 86–91
--- NOTE | 2023-04-20 20:15 | DI.RAD_ITS ---
Exam(s) XR PORTABLE CHEST AP EXAM: XR PORTABLE CHEST AP CLINICAL HISTORY: fever TECHNIQUE: 2D digital imaging was performed of the chest. One image was obtained. An AP view was ob tained. COMPARISON: CR XR PORTABLE CHEST AP from 04/02/2023 FINDINGS: Exam limited by low lung volumes and patient positioning. MEDIASTINUM: Normal. HEART: Normal. PULMONARY VASCULATURE: Normal. Aortic calcifications are present. LUNGS: The right lung apex is not visualized due to the patient's position. No focal consolidations. PLEURAL SPACE: No pleural effusion or pneumothorax. BONE:Within normal limits for the patient's age. OTHER FINDINGS:Normal. IMPRESSION: No acute pulmonary findings. DATA REPOSITORY: RADIATION DOSE DELIVERED:
--- NOTE | 2023-04-20 20:30 | W.ED.GENAD ---
HPI General Stated Complaint: Fever ALFRED: 3 Date/Time Provider Initiated Documentation: 04/20/23 20:25. Limitations to Documentation: physical limitation. Information obtained by: patient and family. HPI Narrative: 82-year-old gentleman with past medical history including interstitial lung, hypertension, CVA presents for evaluation of GERD. Symptoms started today. Associated with raspy. Being sad. Does have several oxygen to use at home, and they. Reports that his O2 sat should be between 88 to 92%. They report some cough. He had a recent hospitalization with significant electrolyte derangement. He was discharged home, they report that last week he had a cold. He was not evaluated at that time. He had no fever at that time. Denies any vomiting, abdominal pain, complaints of chest pain. He lives at home with 24 hour day care attendant. Related Data Home Medications Medication Instructions Recorded Confirmed epinephrine 0.3 mg/0.3 mL 0.3 mg IM ONCE 12/22/22 04/20/23 injection, auto-injector aspirin 81 mg chewable tablet 81 mg PO DAILY 01/06/23 04/20/23 ipratropium 20 mcg-albuterol 100 1 puff inhalation Q6H PRN 01/06/23 04/20/23 mcg/actuation mist for inhalation shortness of breath or wheezing #4 (Combivent Respimat) grams amlodipine 5 mg tablet 5 mg PO DAILY #90 tabs 04/10/23 04/20/23 apixaban 2.5 mg tablet (Eliquis) 2.5 mg PO BID #180 tabs 04/10/23 04/20/23 cholecalciferol (vitamin D3) 25 25 mcg PO DAILY 04/10/23 04/20/23 mcg (1,000 unit) capsule multivitamin 1 tab PO DAILY 04/10/23 04/20/23 polyethylene glycol 3350 17 17 g PO DAILY 04/10/23 04/20/23 gram/dose oral powder (Miralax) sertraline 50 mg tablet 75 mg (1.5 x 50 mg) PO DAILY #135 04/10/23 04/20/23 tabs simvastatin 20 mg tablet 20 mg PO DAILY #90 tabs 04/10/23 04/20/23 tamsulosin 0.4 mg capsule 0.8 mg (2 x 0.4 mg) PO DAILY #180 04/10/23 04/20/23 caps Previous Rx's Medication Instructions Recorded ipratropium 20 mcg-albuterol 100 1 puff inhalation Q6H PRN 01/06/23 mcg/actuation mist for inhalation shortness of breath or wheezing #4 (Combivent Respimat) grams amlodipine 5 mg tablet 5 mg PO DAILY #90 tabs 04/10/23 apixaban 2.5 mg tablet (Eliquis) 2.5 mg PO BID #180 tabs 04/10/23 sertraline 50 mg tablet 75 mg (1.5 x 50 mg) PO DAILY #135 04/10/23 tabs simvastatin 20 mg tablet 20 mg PO DAILY #90 tabs 04/10/23 tamsulosin 0.4 mg capsule 0.8 mg (2 x 0.4 mg) PO DAILY #180 04/10/23 caps Allergies Allergy/AdvReac Type Severity Reaction Status Date / Time bee venom protein (honey bee) Allergy Severe Verified 04/20/23 20:49 PFSH All Active Problems (Updated 04/20/23 @ 21:45 by Miller Adorno) Sepsis syndrome (Acute) Pneumonia (Acute) Cognitive impairment (Chronic) Suspect dementia, declines neurology consult Interstitial lung disease (Chronic) Chronic respiratory failure with hypoxia (Chronic) Hypertension (Chronic) Hyperlipidemia (Chronic) History of thromboembolism (Chronic) P.E., DVT 2018 Generalized anxiety disorder (Chronic) Osteopenia (Chronic) BPH w urinary obs/LUTS (Chronic) Diverticulosis of colon (Chronic) Medical History Bladder diverticulum TIA (transient ischemic attack) Pulmonary embolism (~10/2018) CVA (cerebral vascular accident) (~09/2018) Right posterior internal capsule ischemic stroke Surgical History Status post left hip replacement History of appendectomy (07/16/20) Family History Mother Dementia Father No problems noted. Daughter No problems noted. Daughter No problems noted. Son No problems noted. Maternal Grandfather No problems noted. Maternal Grandmother No problems noted. Paternal Grandfather No problems noted. Paternal Grandmother No problems noted. Brother Alcohol use disorder Colon cancer Hyperlipidemia Hypertension Diabetes Social History Smoking/Tobacco Use Status: Former Tobacco Use tobacco type: cigarettes and smokeless tobacco Quit Date: 04/14/85 Smokeless tobacco user: snuff Second Hand Exposure: Yes Smoking risk assessment performed?: Yes Alcohol Intake: former Drug use: Never Substance use type: does not use Counseling given: No Adopted: No Caregiver/Support person: Yes Foster care: No Household members: caregiver Housing: house Number of Children: 3 number of grandchildren: 7 Communication Needs: None Education Level: high school Do you need help understanding health information?: Never 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 Pets and animals: Yes Pets and animals: dog(s) Sexually active: No Do you think of yourself as: straight/heterosexual Current gender identity: male What is your relationship status?: How often do you talk on the phone with friends or family?: three or more times per week How often do you get together with friends or relatives?: three or more times per week How often do you attend muslim or nondenominational services?: 4 or more times per year Do you belong to any clubs or organized social groups?: no Panel score (0-1 are the most socially isolated patients): 3 What type of physical activity do you participate in: walking and regular exercise Duration: 45-60 minutes/day Frequency: daily Tamela/Sabianism: Protestant Special tamela needs: No Agree to transfusion: Yes Seatbelt use: always Drive intox or ride w/intox coach tour driver: No Working smoke detector in home: Yes Carbon monox detector in home: Yes Firearms in home: Yes Firearms unloaded and locked: Yes Do you feel safe at home: Yes Victim of physical abuse: No Victim of emotional abuse: No Victim of sexual abuse: No Would you like helpful sources: No Exam Narrative Exam Narrative: Review of Systems: All systems reviewed & are unremarkable except as noted in HPI and below Elderly, frail-appearing NACT PERRL, normal conjunctiva Dry mucous membranes Tachycardic Coarse breath sounds bilaterally O2 sat 88 on room air, Unlabored respiratory effort Nontender, nondistended abdomen Extremities w/o deformity, no cyanosis Trace bilateral lower extremity edema No rashes or lesions. Course Vital Signs Vital signs: Vital Signs Temperature 36.6 C 04/20/23 20:02 Pulse 118 H 04/20/23 20:02 Respiratory Rate 18 04/20/23 20:02 Blood Pressure 128/67 04/20/23 20:02 Pulse Oximetry 88 L 04/20/23 20:02 Temperature 36.6 C 04/20/23 20:02 Temperature Source Skin 04/20/23 20:02 Pulse 118 H 04/20/23 20:02 Respiratory Rate 18 04/20/23 20:02 Blood Pressure 128/67 04/20/23 20:02 Pulse Oximetry 91 L 04/20/23 20:23 Oxygen Delivery Method OxyMask 04/20/23 20:23 Oxygen Flow Rate 3 04/20/23 20:23 Pain Level 0 04/20/23 20:02 Lab/Test Results Lab/Test Results: 04/20/23 20:25 Blood Blood Culture - Pending 04/20/23 20:25 Blood Blood Culture - Pending Medical Decision Making Emergent evaluation of acute febrile illness. Initial differential includes sepsis, pneumonia, bacteremia. Viral illness also considered. Patient reports any swelling. Has 0 complaints. His daughters are concerned about his fever. They report that he did give Tylenol about 4 hours ago, he is afebrile here. he is oxygen saturation is normal, but with normal limits normal per the daughters. initial plan For lab work, x-ray and likely admission given his condition. 2100: labs reviewed, leukocytosis noted with slightly elevated lactic acid. will give broad spectrum abx. reviewed medical record and noted recent echo with EF 55%. will give fluid resuscitation as well. 2150: discussed with hospitalist. given concern for sepsis, possible HCAP, will admit to hospital. Medical Records Medical records reviewed: Yes I reviewed the patient's medical records. Lab Data Lab results reviewed: Yes I reviewed the patient's lab results. ECG Data Attestation: I personally reviewed and interpreted this ECG (s) as follows: Prior ECG tracings: available for review Interpretation: SINUS 98 RBBb Quality:SDOH Health Related Social Needs: No Data to Display Discharge Plan Discharge Details Chief Complaint: Fever Primary Care Provider: Molly Powers ED Provider: Lucio Long Home Meds and New Rx's Prescriptions: No Action cholecalciferol (vitamin D3) 25 mcg (1,000 unit) capsule 25 mcg PO DAILY multivitamin Tablet 1 tab PO DAILY polyethylene glycol 3350 [Miralax] 17 gram/dose powder 17 g PO DAILY amlodipine 5 mg tablet 5 mg PO DAILY Qty: 90 3RF Eliquis 2.5 mg tablet 2.5 mg PO BID Qty: 180 3RF sertraline 50 mg tablet 75 mg PO DAILY Qty: 135 3RF simvastatin 20 mg tablet 20 mg PO DAILY Qty: 90 3RF tamsulosin 0.4 mg capsule 0.8 mg PO DAILY Qty: 180 3RF Combivent Respimat 20-100 mcg/actuation mist 1 puff inhalation Q6H PRN (Reason: shortness of breath or wheezing) Qty: 4 3RF aspirin 81 mg tablet,chewable 81 mg PO DAILY epinephrine 0.3 mg/0.3 mL Auto-Injector 0.3 mg IM ONCE Rx Instructions: as a single dose; may repeat once
[2023-04-20 20:47] LABS: Abs Immature Grans 0.07 10^3/uL (0.0-0.06); Basophils % 0.2; Eosinophils % 0.1; HCT 43.9 % (40.0-50.0); HGB 14.5 g/dL (13.5-17.5); Immature Grans % 0.4; Lactate 1.7 mmol/L (0.6-1.4); Lymphocytes % 3.7; MCH 29.2 pg (27.0-33.0); MCV 88 fL (80-95); MPV 11.2 fL (8.0-11.0); Monocytes % 4.1; Neutrophils % 91.5; Platelet Count 192 10^3/uL (130-400); RBC 4.97 10^6/uL (4.36-5.78); RDW 15.1 % (11.8-14.1); RDW-SD 49.1 fL; WBC 17.16 10^3/uL (4.4-10.8)
[2023-04-20 20:48] LABS: Absolute Basophil Count 0.03 10^3/uL (0.0-0.2); Absolute Eosinophil Count 0.02 10^3/uL (0.0-0.7); Absolute Lymphocyte Count 0.63 10^3/uL (1.2-3.4)
[2023-04-20 21:08] LABS: ALT 27 U/L (16-63); AST 24 U/L (15-37); Albumin 3.4 g/dL (3.4-5.0); Alkaline Phosphatase 79 U/L (46-116); BUN 12 mg/dL (7-18); Bilirubin, Total 0.7 mg/dL (0.2-1.0); CREATININE 1.5 mg/dL (0.70-1.30); Chloride 105 mmol/L (98-107); Estimated GFR 45.62 (mL/min/1.73m2); Glucose 136 mg/dL (74-106); Potassium 3.4 mmol/L (3.5-5.1); Sodium 143 mmol/L (136-145); Troponin I < 50 ng/L (<or=60)
[2023-04-20 21:13] LABS: NT-proBNP 210 pg/mL (<300)
[2023-04-20 21:19] LABS: Procalcitonin 0.2 ng/mL
[2023-04-20] MEDS: Normal Saline 1,000 ML 1000 ML IV (21:26)
[2023-04-20] MEDS: PIPERACILLIN/TAZO 4.5 GM in Normal Saline 100 ML IVPB (21:26)
--- NOTE | 2023-04-20 21:30 | RT.EKG_ITS ---
APPROVED REPORT Exam: Resting ECG Reason for Exam: tachy Patient Location: E HR:98 bpm ECG Measurements Heart Rate 98 AXIS PA 180 P 12 QRSd 148 QRS -138 QT 396 T -17 QTc 506 Conclusion Sinus rhythm normal P axis, V-rate 60- 99 Right bundle branch
--- NOTE | 2023-04-20 21:39 | HPE_ITS ---
Date of service: 04/20/23 Time of Service: 21:40 Assessment and Plan Assessment and plan (1) Sepsis syndrome: Start date: 04/20/23 Status: Acute Assessment and plan: This is an 82-year-old gentleman recently hospitalized for electrolyte abnormalities with adjustment of his medications and only mild abnormalities presently presenting with acute onset of fever with rigors, tachypnea with cough and extreme weakness. In the ED he had hypotension with no measured fever but continued tachypnea and tachycardia with leukocytosis. Met criteria for sepsis but was responding well to IV fluid resuscitation having been given 1.5 L and now on 150 cc of normal saline continuously. His BNP was normal and he does have some slight edema which he does not recognize at home and will be careful with fluid resuscitation. He does have elevation in his baseline creatinine with mild RAMIN but once again is responding to IV fluids. His electrolyte abnormalities are nonsevere and he did receive 1 run of potassium 10 mEq in the ED with a low normal magnesium not requiring repletion. Clinically he has signs and symptoms of pneumonia with his presentation but chest x-ray was read as no acute abnormalities. Follow-up will be made on chest x-ray if clinical findings persist in the right lobe. He is on hospital-acquired pneumonia treatment with cefepime and vancomycin. He is a DNR/DNI. (2) Pneumonia: Start date: 04/20/23 Status: Acute Assessment and plan: Clinically patient has pneumonia with ED physician concerned about right lung tong. Imaging was unrevealing with plain film and follow-up imaging as indicated. Patient appears to be responding to treatment. Follow-up on cultures to screen for other sources of infection with adjustment antibiotics as needed. Of note, the patient procalcitonin was negative. Viral screening was negative as well. Qualifiers: Laterality: right Lung location: lower lobe of lung Pneumonia type: d ue to unspecified organism Qualified Code(s): J18.9 - Pneumonia, unspecified organism (3) Chronic respiratory failure with hypoxia: Status: Chronic Assessment and plan: Patient only recently began to use oxygen according to his daughters but does have a history of interstitial lung disease. Continue oxygen supplementation as needed during his hospital stay and reevaluate need for home O2. Nebulizer treatments will be given for now with the patient's previous history of interstitial lung disease and having a raspy cough. This may help clear secretions. (4) Interstitial lung disease: Status: Chronic Assessment and plan: Not usually on respiratory care or oxygen at home according to the daughters. (5) History of thromboembolism: Status: Chronic Assessment and plan: Continue Eliquis with no other DVT prophylaxis needed at this time. History of Present Illness History of Present Illness Chief Complaint: Fever with cough and acute hypoxemia Narrative: This is an 82-year-old male patient recently hospitalized in late March 2023 for electrolyte abnormalities and had a cold 1 week prior to this admission but was feeling stronger and even while ambulating and exercising at home prior to acute onset of symptoms on the day of admission. About 3 in the afternoon he began to have a raspy voice with cough without much production and a lower oxygen level than his usual being on intermittent oxygen at home which was used only since his last admission in March 2023. He also had an acute onset of rigors with fever and did not feel well asking his daughters to bring him to the emergency room for evaluation. He usually lives at home with 24-hour care. In the ED he was not febrile though has had fever at home and was given Tylenol at home. He was tachypneic with tachycardia and became hypotensive with IV fluid resuscitation initiated. He did have an elevated WBC and chest x-ray was read by the ED provider as progressive pneumonia with chronic changes. Since patient was recently hospitalized and had symptoms of sepsis he was initiated on IV antibiotic therapy to cover for a possible pneumonia with cultures pending. He has not increased oxygen needs and had nasal cannula O2 to maintain maintain pulse oximeter above 90% and stated that he felt better since he has had IV fluid resuscitation and IV antibiotics. He does appear slightly dry from his baseline and his potassium was low with magnesium being checked with repletion as needed. During his last hospitalization he was severely low on potassium and magnesium with elevated calcium having been on hydrochlorothiazide and calcium supplement at home with these now having been stopped. Hypertension medications which is only amlodipine at this point will be held and his apixaban will be continued with a history of thromboembolic phenomena with PE. His recent echocardiogram in March 2023 revealed preserved left ventricular ejection fraction with no wall movement abnormalities with this being performed during his last hospital stay. The patient is a DNR/DNI. Patient's daughters were present in the room when I interviewed the patient and examined him. They clarified history with patient being soft-spoken and still weak. Review of Systems Narrative: 13 point review of systems otherwise unrevealing or stable as per patient and family in the room. This family denies any chronic use of oxygen other than this last hospitalization but he did have a diagnosis of stiff lungs. He denies any peripheral edema but does have weakness in his right upper extremity especially in the hand which is chronically closed after recent stroke. He has no new neurological complaints. He was tachypneic at home and upon presentation with his moist cough. PFSH All Active Problems (Updated 04/20/23 @ 21:45 by Miller Adorno) Sepsis syndrome (Acute) Pneumonia (Acute) Cognitive impairment (Chronic) Suspect dementia, declines neurology consult Interstitial lung disease (Chronic) Chronic respiratory failure with hypoxia (Chronic) Hypertension (Chronic) Hyperlipidemia (Chronic) History of thromboembolism (Chronic) P.E., DVT 2018 Generalized anxiety disorder (Chronic) Osteopenia (Chronic) BPH w urinary obs/LUTS (Chronic) Diverticulosis of colon (Chronic) Medical History Bladder diverticulum TIA (transient ischemic attack) Pulmonary embolism (~10/2018) CVA (cerebral vascular accident) (~09/2018) Right posterior internal capsule ischemic stroke Surgical History Status post left hip replacement History of appendectomy (07/16/20) Family History Mother Dementia Father No problems noted. Daughter No problems noted. Daughter No problems noted. Son No problems noted. Maternal Grandfather No problems noted. Maternal Grandmother No problems noted. Paternal Grandfather No problems noted. Paternal Grandmother No problems noted. Brother Alcohol use disorder Colon cancer Hyperlipidemia Hypertension Diabetes Social History Smoking/Tobacco Use Status: Former Tobacco Use tobacco type: cigarettes and smokeless tobacco Quit Date: 04/14/85 Smokeless tobacco user: snuff Second Hand Exposure: Yes Smoking risk assessment performed?: Yes Alcohol Intake: former Drug use: Never Substance use type: does not use Counseling given: No Adopted: No Caregiver/Support person: Yes Foster care: No Household members: caregiver Housing: house Number of Children: 3 number of grandchildren: 7 Communication Needs: None Education Level: high school Do you need help understanding health information?: Never 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 Pets and animals: Yes Pets and animals: dog(s) Sexually active: No Do you think of yourself as: straight/heterosexual Current gender identity: male What is your relationship status?: How often do you talk on the phone with friends or family?: three or more times per week How often do you get together with friends or relatives?: three or more times per week How often do you attend sikhism or sabianism services?: 4 or more times per year Do you belong to any clubs or organized social groups?: no Panel score (0-1 are the most socially isolated patients): 3 What type of physical activity do you participate in: walking and regular exercise Duration: 45-60 minutes/day Frequency: daily Tamela/Jain: Jain Special tamela needs: No Agree to transfusion: Yes Seatbelt use: always Drive intox or ride w/intox milk pickup driver: No Working smoke detector in home: Yes Carbon monox detector in home: Yes Firearms in home: Yes Firearms unloaded and locked: Yes Do you feel safe at home: Yes Victim of physical abuse: No Victim of emotional abuse: No Victim of sexual abuse: No Would you like helpful sources: No Meds Allergies and Home Medications Allergies Allergy/AdvReac Type Severity Reaction Status Date / Time bee venom protein (honey bee) Allergy Severe Verified 04/20/23 20:49 Home Medications Medication Instructions Recorded Confirmed Type epinephrine 0.3 mg/0.3 mL 0.3 mg IM ONCE 12/22/22 04/20/23 History injection, auto-injector aspirin 81 mg chewable tablet 81 mg PO DAILY 01/06/23 04/20/23 History ipratropium 20 mcg-albuterol 100 1 puff inhalation Q6H PRN 01/06/23 04/20/23 Rx mcg/actuation mist for inhalation shortness of breath or wheezing #4 (Combivent Respimat) grams amlodipine 5 mg tablet 5 mg PO DAILY #90 tabs 04/10/23 04/20/23 Rx apixaban 2.5 mg tablet (Eliquis) 2.5 mg PO BID #180 tabs 04/10/23 04/20/23 Rx cholecalciferol (vitamin D3) 25 25 mcg PO DAILY 04/10/23 04/20/23 History mcg (1,000 unit) capsule multivitamin 1 tab PO DAILY 04/10/23 04/20/23 History polyethylene glycol 3350 17 17 g PO DAILY 04/10/23 04/20/23 History gram/dose oral powder (Miralax) sertraline 50 mg tablet 75 mg (1.5 x 50 mg) PO DAILY #135 04/10/23 04/20/23 Rx tabs simvastatin 20 mg tablet 20 mg PO DAILY #90 tabs 04/10/23 04/20/23 Rx tamsulosin 0.4 mg capsule 0.8 mg (2 x 0.4 mg) PO DAILY #180 04/10/23 04/20/23 Rx caps Exam Narrative Exam Narrative: General: Patient appears appropriate for age, he appears generally weak and needs 3 to assist sitting up in bed. He is in no acute distress. He is alert and oriented at least to person and place. HEENT: Normocephalic, eyes with pupils equal and react light symmetrically, extraocular movement intact and sclera anicteric. Oropharynx with dry mucosa and mostly missing teeth with poor dentition. Neck: Supple without JVD. Back: Kyphotic without CVA tenderness. Lungs: Bronchovesicular breath sounds diffusely with fair aeration except at right base with coarse crackles and rhonchi and sparse coarse crackles over the left base. No expiratory wheeze. No focalizing rales. Heart: Regular rate and rhythm at the time my exam with patient being tachycardic prior, no appreciable murmur or gallop. Abdomen: Obese contour, soft nontender to palpation no palpable hepatosplenomegaly. Bowel sounds positive all quadrants. Genitalia/rectal: Exam deferred. Extremities: 1+ pitting edema both ankles with chronic skin changes over the legs with loss of hair and shiny atrophic skin. Osteoarthritic changes of most joints with fair range of motion. Patient does have his left hand close in a tight fist and is unable to open this voluntarily with his previous stroke. Capillary refill fair. No clubbing or cyanosis. Skin: Pale, warm and dry. Exam changes over sun exposed areas with rough texture. Neuro: Cranial nerves II through XII gross intact, no motor strength or movement in the left hand with 3-4 out of 5 strength over the rest of the left upper extremity, no other focal motor deficits. No tremor. Psych: Flattened affect with normal mood. No abnormal thought processes. Remote memory intact with recent memory less intact but difficult to test with the daughters doing most of the answering of questions. Results Imaging Imaging Studies: Exam: XR Chest Exam date and time: 04/20/2023 8:53 PM Age: 82 years old Clinical indication: Fever TECHNIQUE: Imaging protocol: Radiologic exam of the chest. Views: 1 view. COMPARISON: CT CHEST/ABD/PEL W 04/02/2023 7:39 PM FINDINGS: Lungs: Unremarkable. No consolidation. Pleural spaces: Unremarkable. No pleural effusion. No pneumothorax. Heart/Mediastinum: Unremarkable. No cardiomegaly. Bones/joints: Mild degenerative changes of the spine and right shoulder. No acute fracture. IMPRESSION: No acute disease Labs 04/20/23 20:36 04/20/23 20:36 Labs: Laboratory Results - last 24 hr 04/20/23 20:36 WBC 17.16 H RBC 4.97 Hgb 14.5 Hct 43.9 MCV 88 MCH 29.2 MCHC 33.0 RDW 15.1 H Plt Count 192 MPV 11.2 H Immature Gran % 0.4 Neutrophils % 91.5 Lymphocytes % 3.7 Monocytes % 4.1 Eosinophils % 0.1 Basophils % 0.2 Nucleated RBC % 0.0 Absolute Neutrophils 15.70 H Absolute Lymphocytes 0.63 L Absolute Monocytes 0.70 Absolute Eosinophils 0.02 Absolute Basophils 0.03 VBG Lactate 1.7 H Sodium 143 Potassium 3.4 L Chloride 105 Carbon Dioxide 26.0 Anion Gap 12.0 H BUN 12 Creatinine 1.5 H Est GFR (CKD-EPI 2020) 45.62 Glucose 136 H Calcium 10.0 Total Bilirubin 0.7 AST 24 ALT 27 Alkaline Phosphatase 79 Troponin I < 50 NT-Pro-B Natriuret Pep 210 Total Protein 7.0 Albumin 3.4 Procalcitonin 0.2 Last Vital Signs Temp 36.6 C 04/20/23 20:02 Pulse 105 H 04/20/23 21:26 Resp 25 H 04/20/23 21:26 BP 88/55 L 04/20/23 21:26 Pulse Ox 88 L 04/20/23 21:26 Time Spent Time spent with Patient: >75 minutes Time was spent: obtaining and/or reviewing separately otained hiistory, ordering medications,tests, procedures, referring, communicating with other health neonatal critical care nurse, indepentently interpreting results, care coordination and other (Reviewing care plan and differential diagnoses with daughters)
--- NOTE | 2023-04-20 21:42 | DI.VRAD_ITS ---
PROCEDURE INFORMATION: Exam: XR Chest Exam date and time: 04/20/2023 8:53 PM Age: 82 years old Clinical indication: Fever TECHNIQUE: Imaging protocol: Radiologic exam of the chest. Views: 1 view. COMPARISON: CT CHEST/ABD/PEL W 04/02/2023 7:39 PM FINDINGS: Lungs: Unremarkable. No consolidation. Pleural spaces: Unremarkable. No pleural effusion. No pneumothorax. Heart/Mediastinum: Unremarkable. No cardiomegaly. Bones/joints: Mild degenerative changes of the spine and right shoulder. No acute fracture. IMPRESSION: No acute disease Dictated and Authenticated by: Quirino Grewal MD. Ordering:DAVID Cox MD
[2023-04-20] MEDS: Normal Saline 250 ML IV (21:57)
[2023-04-20] MEDS: Normal Saline 250 ML 500 ML IV (21:57)
[2023-04-20] MEDS: VANCOMYCIN 1,300 MG in Normal Saline 500 ML 250 MG IVPB (21:57)
[2023-04-20 21:58] LABS: BE (Venous) 0 mmol/L (-2-3); HCO3 (Venous) 24 mmol/L (23-28); O2 Sat (Venous) 98 %; TCO2 (Venous) 21 mmol/L (24-29); pCO2 (Venous) 31 mmHg (41-51); pH (Venous) 7.49 (7.31-7.41); pO2 (Venous) 90 mmHg
[2023-04-20] MEDS: Acetaminophen 500 MG TAB 1000 MG PO (22:12)
[2023-04-20 22:14] LABS: Magnesium 1.9 mg/dL (1.8-2.4)
[2023-04-20] MEDS: Normal Saline 1,000 ML 150 ML IV (22:37)
[2023-04-20 23:24] LABS: Bilirubin Negative (Negative); Blood Negative (Negative); Clarity Sl Cloudy (Clear); Glucose Negative (Negative); Ketones Negative (Negative); Leukocyte Esterase Small (Negative); Nitrite Negative (Negative); Specific Gravity 1.015 (1.005-1.025); Urobilinogen 0.2 mg/dL (Up to 0.2)
[2023-04-20] MEDS: CEFEPIME 1 GM in Normal Saline 50 ML IVPB (23:32)
[2023-04-20 23:34] LABS: Bacteria Few HPF (Negative); C & S Indicated? Yes; Crystals Negative HPF (Negative); Epithelial Cells Rare HPF (Negative); Mucus Trace (Negative); RBC 0-2 HPF (0-2)
[2023-04-20] MEDS: Albuterol/Ipratropium 3 ML UPD VIAL UPD (23:38)
[2023-04-21] VITALS (83 sets, daily range): BP systolic 93–146; BP diastolic 46–71; PULSE 65–94; RESP 2–26; TEMP 36.7–37.6; O2SAT 90–97
--- NOTE | 2023-04-21 | DI.CT_ITS ---
Exam(s) CT CHEST PE ABD PELVIS W EXAM: CT CHEST PE ABD PELVIS W CLINICAL HISTORY: sepsis, unclear source , h/o thromboembolism. TECHNIQUE: Imaging Protocol: Axial CT angiography was performed with multi-slice acquisition and mu lti-planar and/or 3D reconstructions. CONTRAST MATERIAL: Intravenous: Omnipaque 350contrast volume:100 mL COMPARISON: CT CT CHEST/ABD/PEL W from 04/02/2023 CR,XR XR PORTABLE CHEST AP from 04/20/2023 FINDINGS: CHEST: Tracheobronchial tree: Patent where visualized. Pulmonary parenchyma: Centrilobular emphysematous changes are present. There is an infiltrate seen i n the right lower lobe. Mild pulmonary fibrosis is seen in the lung. No pulmonary nodules are prese nt. Pulmonary Arteries: Beyond the segmental level secondary to patient motion artifact. No large centra l pulmonary embolism is seen. Mediastinum and Dalia: No dominant adenopathy or fluid collection. The esophagus is unremarkable. Ther e is a small hiatal hernia. Visualized thyroid gland: Unremarkable. Pleura: No effusion or pneumothorax. Heart: Cardiomegaly. Coronary artery calcifications are present. No pericardial effusion. Aorta: Thoracic aorta non-dilated. There is suboptimal opacification of the aorta secondary to the emily germaine timed to the pulmonary arteries. No obvious dissection is seen. Atherosclerosis. Bones: Within normal limits for the patient's age. Soft tissues: Unremarkable. ABDOMEN: Liver: Normal density. There is a hepatic cyst in the left lobe of the liver. No follow-up is recomm ended. There is a tiny hypodensity in the right lobe of the liver. It is too small for further emmanuel acterization but likely reflects a small cyst. No suspicious hepatic masses are seen. Portal, Superior Mesenteric, and Splenic Veins: Unremarkable. Gallbladder and Biliary Tract: There does appear to be a gallstone or polyp. No biliary ductal dilat ation. Pancreas: Normal density, no abnormal calcifications or inflammatory process. Spleen: Normal. Adrenals: No masses seen. Kidneys: Normal size, contour and axis. Right nephrolithiasis. No obstructive uropathy. No masses s een. Abdominal Aorta: Abdominal portion non-dilated. Atherosclerosis. Bowel: The stomach is distended but otherwise unremarkable. There is a diverticulum associated with the 3rd portion of the duodenum. There is a large amount of stool in the rectum which may represent impaction. There is mild thickening of the wall of the distal sigmoid colon and proximal rectum. No inflammatory changes are seen. There is diverticulosis seen in the colon but no findings to suggest diverticulitis. There is no evidence of bowel obstruction. No evidence of appendicitis. Peritoneal Cavity: No ascites, collection or mesenteric inflammatory response. No free air. Lymph Nodes: Within normal limits. Bones: Within normal limits for the patient's age. The patient has a left total hip replacement. Soft Tissues: There is a small fat containing umbilical hernia. There is a fat containing right ingu inal hernia. PELVIS: Bladder: Symmetric distention, no gross wall thickening. There is a left-sided urinary bladder divert iculum. Reproductive Organs: Prostate gland appears enlarged but is obscured by artifact from the patient's l eft total hip replacement. Lymph Nodes: Within normal limits. Bones: Within normal limits. IMPRESSION: 1. No evidence of a pulmonary embolism as described above. 2. Right lower lobe pneumonia. 3. Large amount of stool seen in the distal sigmoid colon and rectum with bowel wall thickening sugge sting stercoral colitis. 4. Diverticulosis of the colon without evidence of acute diverticulitis. 5. Chronic findings seen in the abdomen and pelvis as described above. RADIATION DOSE DELIVERED: 1,840.58mGy.cm Total DLP DATA REPOSITORY: All CT scans at this facility are submitted to the National Radiology Data Registry (NRDR) Dose Index Registry (DIR) with the [employer] (ACR). RADIATION OPTIMIZATION: All CT scans at this facility use at least one of these dose optimization te chniques: automated exposure control; mA and/or kV adjustment per patient size (includes targeted exa ms where dose is matched to clinical indication); or iterative reconstruction.
--- NOTE | 2023-04-21 | DI.US_ITS ---
Exam(s) US EXTREMITY VENOUS BI EXAM: US EXTREMITY VENOUS BI CLINICAL HISTORY: BLE edema. TECHNIQUE: Bilateral lower extremity venous ultrasound performed using grayscale, color-flow, and sp ectral Doppler analysis. COMPARISON: CT CT CHEST PE ABD PELVIS W from 04/21/2023 FINDINGS: The right common femoral, femoral and popliteal veins demonstrate normal compressibility, augmentatio n, and color Doppler. The posterior tibial and peroneal veins are patent. The saphenofemoral junctio n is unremarkable. There is no evidence of a Callahan's cyst. The soft tissues are unremarkable. The left common femoral and popliteal veins demonstrate normal compressibility, augmentation, and col or Doppler. The left femoral vein is decreased in size with no flow seen internally. The findings a re suspicious for thrombus which may be chronic. The posterior tibial and peroneal veins are patent. The saphenofemoral junction is unremarkable. There is no evidence of a Callahan's cyst. The soft tiss ues are unremarkable. IMPRESSION: 1. No evidence of a right lower extremity DVT. 2. No flow in the small sized left femoral vein. The findings are suspicious for thrombus. This may be chronic or acute. DATA REPOSITORY:
[2023-04-21] MEDS: POTASSIUM CHLORIDE 10 MEQ/100 ML BAG 100 MEQ IVPB (00:07)
[2023-04-21] MEDS: Albuterol/Ipratropium 3 ML UPD VIAL UPD ×3 (03:57→21:29)
[2023-04-21 06:07] LABS: HCT 35.5 % (40.0-50.0); HGB 11.7 g/dL (13.5-17.5); MCH 29.5 pg (27.0-33.0); MCV 89 fL (80-95); Platelet Count 153 10^3/uL (130-400); RBC 3.97 10^6/uL (4.36-5.78); RDW 15.3 % (11.8-14.1); RDW-SD 50.5 fL; WBC 17.77 10^3/uL (4.4-10.8)
[2023-04-21 06:08] LABS: Lactate 1.3 mmol/L (0.6-1.4)
[2023-04-21 06:28] LABS: ALT 18 U/L (16-63); AST 17 U/L (15-37); Albumin 2.4 g/dL (3.4-5.0); Alkaline Phosphatase 55 U/L (46-116); Anion Gap 10.2 mmol/L (3-11); BUN 13 mg/dL (7-18); Bilirubin, Total 0.7 mg/dL (0.2-1.0); CO2 24.8 mmol/L (21.0-32.0); CREATININE 1.4 mg/dL (0.70-1.30); Calcium 8.4 mg/dL (8.5-10.1); Chloride 109 mmol/L (98-107); Estimated GFR 49.56 (mL/min/1.73m2); Glucose 112 mg/dL (74-106); Magnesium 1.8 mg/dL (1.8-2.4); Potassium 3.4 mmol/L (3.5-5.1); Sodium 144 mmol/L (136-145); Total Protein 5.3 g/dL (6.4-8.2)
--- NOTE | 2023-04-21 06:35 | NUR.NOTE ---
PT provided with breakfast Nursing Note:
[2023-04-21] MEDS: Normal Saline - Diluent 50 ML VIAL IJ (08:33)
[2023-04-21] MEDS: Omnipaque 350 MG/ML 100 ML BTL IJ (08:34)
[2023-04-21] MEDS: Aspirin 81 MG CHEW PO (09:40)
[2023-04-21] MEDS: Sertraline 50 MG TAB 75 MG PO (09:40)
[2023-04-21] MEDS: Apixaban 2.5 MG TAB PO (09:40)
[2023-04-21] MEDS: Cholecalciferol (Vitamin D3) 1,000 UNIT TAB 1000 UNITS PO (09:41)
[2023-04-21] MEDS: Multivitamin TAB 1 TAB PO (09:41)
[2023-04-21] MEDS: Potassium Chloride 20 MEQ TABCR 40 MEQ PO (09:41)
[2023-04-21] MEDS: Normal Saline Flush 10 ML SYR IVP ×3 (09:47→20:49)
--- NOTE | 2023-04-21 10:19 | W.PM.PROGNOT ---
Date of Service Date of service: 04/21/23 Time of Service: 10:22 Assessment and Plan Assessment and plan (1) Sepsis syndrome: Start date: 04/20/23 Status: Acute Assessment and plan: Due to pneumonia, present on admission. UA is also c/w bacteriuria but not too impressive for a UTI. However, antibiotics should effectively target both. I did switch his abx to unasyn given that the source is likely aspiration and am checking his MRSA nares to see if we can stop the vancomycin Await blood and urine culture. Await sputum cx. I have ordered pneumonia studies. (2) Acute respiratory failure with hypoxia: Status: Acute Assessment and plan: Due to pneumonia. The patient is NOT on home oxygen, per my discussion with the daughter. Treat pneumonia. Wean O2 as tolerated. (3) Aspiration pneumonia: Status: Acute Assessment and plan: As above. C/s speech therapy for a swallowing evaluation. (4) Left femoral vein DVT: Status: Acute Assessment and plan: Acute vs chronic - read not definitive. Increase apixaban to 10 mg BID x 7 days. (5) Interstitial lung disease: Status: Chronic Assessment and plan: This does not appear to be a flare. F/u as outpatient. (6) Constipation: Status: Acute Assessment and plan: Schedule a bowel regimen. (7) Bacteriuria: Status: Acute Assessment and plan: I am not convinced the patient has a UTI, but he is being treated w/ antibiotics. Prior urine cultures mixed. Has a h/o bladder diverticulum. It appears a montgomery catheter was placed in the ED. would need to have a voiding trial prior to d/c. I held his flomax today. (8) Discharge planning issues: Status: Acute Assessment and plan: DNR/DNI C/s PT, OT, speech. Consider a palliative care consult. Subjective Subjective Interval history since last seen: Mr Teran is feeling a little better. No dizziness, CP, SOB is a little better, not coughing much today. Headache and nausea have resolved. Diarrhea has also resolved. The family member in the room does state that the patient sometimes chokes. They do sit him up to eat and administer his pills with yogurt at home. We discussed the findings on the CT scan, the possibility that the RLL pneumonia is due to aspiration, and that I was consulting speech therapy. He is on 2L of O2 by GA. BPs have normalized. He was downgraded to the medical surgical floor. Exam Narrative Exam Narrative: General: Pleasant elderly male who is dysarthric, A&Ox3, answering questions appropriately, R facial droop HEENT: EOMI, MMM Heart: RRR, no m/r/g Lungs: crackles and expiratory wheezes at B bases Abdomen: soft, nontender, nondistended Extremities: +1 edema B ankles, symmetric, no c/c Objective Last Vital Signs Temp 36.7 C 04/21/23 07:40 Pulse 79 04/21/23 08:01 Resp 21 04/21/23 08:10 BP 130/65 04/21/23 08:01 Pulse Ox 97 04/21/23 07:40 Laboratory Results - last 24 hr 04/20/23 04/20/23 04/20/23 20:36 21:53 23:16 WBC 17.16 H RBC 4.97 Hgb 14.5 Hct 43.9 MCV 88 MCH 29.2 MCHC 33.0 RDW 15.1 H Plt Count 192 MPV 11.2 H Immature Gran % 0.4 Neutrophils % 91.5 Lymphocytes % 3.7 Monocytes % 4.1 Eosinophils % 0.1 Basophils % 0.2 Nucleated RBC % 0.0 Absolute Neutrophils 15.70 H Absolute Lymphocytes 0.63 L Absolute Monocytes 0.70 Absolute Eosinophils 0.02 Absolute Basophils 0.03 VBG pH 7.49 H VBG pCO2 31 L VBG pO2 90 VBG HCO3 24 VBG Total CO2 21 L VBG O2 Saturation 98 VBG Base Excess 0 VBG Lactate 1.7 H Sodium 143 Potassium 3.4 L Chloride 105 Carbon Dioxide 26.0 Anion Gap 12.0 H BUN 12 Creatinine 1.5 H Est GFR (CKD-EPI 2020) 45.62 Glucose 136 H Calcium 10.0 Magnesium 1.9 Total Bilirubin 0.7 AST 24 ALT 27 Alkaline Phosphatase 79 Troponin I < 50 NT-Pro-B Natriuret Pep 210 Total Protein 7.0 Albumin 3.4 Procalcitonin 0.2 TSH 2.40 Urine Color Yellow Urine Clarity Sl Cloudy Urine pH 7.0 Ur Specific [place] 1.015 Urine Protein Negative Urine Ketones Negative Urine Blood Negative Urine Nitrite Negative Urine Bilirubin Negative Urine Urobilinogen 0.2 Ur Leukocyte Esterase Small H Urine RBC 0-2 Urine WBC 10-20 H Ur Epithelial Cells Rare Urine Crystals Negative Urine Bacteria Few Urine Mucus Trace Ur Culture Indicated? Yes Urine Glucose Negative 04/21/23 06:03 WBC 17.77 H RBC 3.97 L Hgb 11.7 L D Hct 35.5 L MCV 89 MCH 29.5 MCHC 33.0 RDW 15.3 H Plt Count 153 MPV 11.0 Immature Gran % Neutrophils % Lymphocytes % Monocytes % Eosinophils % Basophils % Nucleated RBC % Absolute Neutrophils Absolute Lymphocytes Absolute Monocytes Absolute Eosinophils Absolute Basophils VBG pH VBG pCO2 VBG pO2 VBG HCO3 VBG Total CO2 VBG O2 Saturation VBG Base Excess VBG Lactate 1.3 Sodium 144 Potassium 3.4 L Chloride 109 H Carbon Dioxide 24.8 Anion Gap 10.2 BUN 13 Creatinine 1.4 H Est GFR (CKD-EPI 2020) 49.56 Glucose 112 H Calcium 8.4 L Magnesium 1.8 Total Bilirubin 0.7 AST 17 ALT 18 Alkaline Phosphatase 55 Troponin I NT-Pro-B Natriuret Pep Total Protein 5.3 L Albumin 2.4 L Procalcitonin TSH Urine Color Urine Clarity Urine pH Ur Specific [place] Urine Protein Urine Ketones Urine Blood Urine Nitrite Urine Bilirubin Urine Urobilinogen Ur Leukocyte Esterase Urine RBC Urine WBC Ur Epithelial Cells Urine Crystals Urine Bacteria Urine Mucus Ur Culture Indicated? Urine Glucose Objective Narrative Objective Narrative: CT Chest/abdomen/pelvis: 1. No evidence of a pulmonary embolism as described above. 2. Right lower lobe pneumonia. 3. Large amount of stool seen in the distal sigmoid colon and rectum with bowel wall thickening suggesting stercoral colitis. 4. Diverticulosis of the colon without evidence of acute diverticulitis. 5. Chronic findings seen in the abdomen and pelvis as described above. Venous doppler BLEs: 1. No evidence of a right lower extremity DVT. 2. No flow in the small sized left femoral vein. The findings are suspicious for thrombus. This may be chronic or acute. Time Spent with Patient Time Spent with Patient: 35-49 minutes Time was spent: preparing to see the patient(eg.review tests), obtaining and/or reviewing separately otained hiistory, ordering medications,tests, procedures, referring, communicating with other health foster care therapist, indepentently interpreting results, counseling the patient and care coordination
[2023-04-21] MEDS: Docusate Sodium 100 MG CAP PO ×2 (10:51→20:48)
[2023-04-21] MEDS: AMPICILLIN/SULBACTAM 3 GM in Normal Saline 100 ML IVPB ×3 (11:02→22:26)
[2023-04-21 11:19] LABS: Vancomycin, Random 8.3 ug/mL
[2023-04-21] MEDS: VANCOMYCIN 500 MG in Normal Saline 100 ML 100 MG IVPB ×2 (11:46→23:03)
--- NOTE | 2023-04-21 13:51 | PT.INIE ---
PT Notes Visit Reasons: Fever Physical Therapy Inpatient Initial Evaluation Date: 04/21/2022 Referring Doctor: Larissa Cade MD PT Orders: PT CONSULT: Eval/Treat Precautions: Fall. Standard. Activity as tolerated. 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 PMHX: All Active Problems (Updated 04/20/23 @ 21:45 by Miller Aodrno) Sepsis syndrome (Acute) Pneumonia (Acute) Cognitive impairment (Chronic) Suspect dementia, declines neurology consultInterstitial lung disease (Chronic) Chronic respiratory failure with hypoxia (Chronic) Hypertension (Chronic) Hyperlipidemia (Chronic) History of thromboembolism (Chronic) P.E., DVT 2019Generalized anxiety disorder (Chronic) Osteopenia (Chronic) BPH w urinary obs/LUTS (Chronic) Diverticulosis of colon (Chronic) Medical History Bladder diverticulum TIA (transient ischemic attack) Pulmonary embolism (~10/2018) CVA (cerebral vascular accident) (~09/2018) Right posterior internal capsule ischemic stroke Surgical History Status post left hip replacement History of appendectomy (07/16/20) Social History/Home Situation: Has 04/11 care. Daughters and son have been very involved in patient's care. in 2019. Able to cover 30-50 feet of household distance using walker (with platform for the L UE) with minimal to moderate assist of 1. receiving HH PT and OT at home. Equipment Owned/DME: FWW with L UE platform, wheelchair Subjective: Patient was trying to sleep when PT came in around 1:51 PM today and needed to be repositioned on the bedside recliner to be more comfortable and be safer. On the second try later in the afternoon, daughter felt that father usually uses the bedside commode for a bowel movement at this time and so patient was assisted to and from the commode for this session using hemiwalker on the R side. Did not report any chest pain, lighthededness and headache through out the seond session. Objective: General Observation: Patient in bedside chair trying to get some sleep. Daughter danyelle present in room. L UE flexion synergy. Mental Status: Able to respond to questions appropriately. Able to express needs a lot better than he did the last admission. Pain:No verbal and non-verbal expression of pain throughout. Vital Signs: Closely monitored by nursing staff ROM: Right Upper Extremity: Shoulder Flexion WFL. Shoulder abduction WFL. Elbow flexion WFL. Wrist flexion WFL. Functional opening and closing of hand WFL. Left Upper Extremity: L UE hemiplegia and in abnormal flexion synergy Right Lower Extremity: Hip flexion WFL. Hip abduction WFL. Knee flexion WFL. Ankle dorsiflexion WFL. Ankle plantarflexion WFL. Left Lower Extremity: L LE hemiparesis, unable to test at this time Strength: Right Upper Extremity: Grossly 3/5 Left Upper Extremity: L UE hemiplegia and in abnormal flexion synergy Right Lower Extremity: Grossly 3/5 Left Lower Extremity: L LE hemiparesis, unable to test at this time Bed Mobility/Transfers: Moderate cueing provided for use of B hands as needed for support, movement sequence, Ad management, and and posture to reduce fall risk and minimize pain report. Sit to stand minimal assist of PT and CGA of daughter Danyelle using hemiwalker on R Stand to sit minimal assist of PT and CGA of daughter Danyelle using hemiwalker on R recliner to bedside commode minimal assist of PT and CGA of yoli Matos using hemiwalker on R Bedside commode to recliner minimal assist of PT and CGA of yoli Matso using hemiwalker on R yeah if you can Gait: Tolerated 6-8 steps using hemiwalker with minimal assist of 2 and moderate verbal cueing for AD management, posture, limb advancement, and overall safety. Special Tests: Mobility Limitations Standardized Measure [facility] AM-PAC 6 clicks Basic Mobility Inpatient Short Form: Raw Score: 17 CMS Score: 51% deficit Informed Consent/Education: Patient and daughter Danyelle were instructed in purpose of PT consult and plan of care. Agreeable to proceed with established PT POC to achieve personal goals while on admission. ASSESSMENT: Patient able to negotiate short distance to transfer from recliner to bedside commode using hemiwalker on R with moderate cueing to appropriately weight bear onto AD. No report of dicsomfort nor fatigue covering a short distance from commode to chair. Daughter states that patient is alomost at baseline mobility but is agreeable to continue PT so he does not decline while hospitalized. Could not have a bowel movement this afternoon which is unusual for him per daughter, question beginning issue with constipation. Nurse Samira in room when patient was asssited to the commode and is aware that he did not defecate. Patient presents with clinical signs and symptoms consistent with current/admitting diagnoses that have resulted to mobility limitations, gait instability, generalized weakness, and overall ADL decline as demonstrated by the following impairment level findings: 1. Decreased strength to B UE/LE major muscle groups, L more affected than R 2. Impaired sitting/standing balance 3. Impaired activity tolerance 4. Limitation of joint range of motion in B UE/LE, L more affected than R Impairments are contributing to the following functional limitations: 1. Decline in bed mobility skills 2. Decline in transfer skills 3. Difficulty with ambulation without assistive device and physical assistance 4. Increased completion time for mobility ADL performance 5. Increased risk for falls 6. Difficulty with managing steps alone safely Patient is assessed as a 54189 complexity based on the following: History: 82-year-old male with past medical history as indicated above Examination: Demonstrable impairment in strength, balance, and mobility level with underlying impairments and functional limitations as exhibited above as well as deficit score of 100% utilizing the [facility] Mobility Inpatient Short Form Presentation: Evolving Decision Makin moderate complexity Goals: Goals X1 week 1. Supine-Sit minimal assist 2. Sit-Supine minimal assist 3. Sit-Stand minimal assist 4. Stand-Sit minimal assist with hemiwalker 5. Bed-Chair minimal assist with hemiwalker 6. Chair-Bed minimal assist with hemiwalker 7. Minimal assist with gait on level surface with use of hemiwalker for at least 30 feet without report of pain nor dyspnea 8. Fair static and dynamic standing balance/tolerance Plan of Care/Treatment Plan: 1-2x/day, 7 days/week x 1 week. Plan of care has been reviewed with the UNIFORM FORCE CAPTAIN providing the service under Physical Therapy direction. Initiate Physical Therapy intervention for pain management as needed, strengthening, bed mobility, transfers, gait, stairs, balance training, and use of assistive device. -NEURO RE-ED: Focus in bilateral UE activities with hands clasped, AAROM as needed, through PNF patterns; increase static/dynamic standing tolerance using STEDY lift or parallel bars -THERA EX: R UE/LE strengthening using resistance to maintain/improve mobility level DISCHARGE RECOMMENDATIONS: [] Home with no services [] [] Home with services [specify] [] Home with outpatient PT [] [] SNF for continued rehabilitation [] [] Shelter Care [] [] SNF versus LTC based on ability to participate and progress [] [X] Return home with 24/7 care. Patient will benefit from home health PT services in order to progress mobility level using least restrictive assistive ambulatory device, assess home safety, identify additional equipment needs, and establish a functional maintenance program that will increase ability of patient to remain at home. TREATMENT CODE/TIME: 60968 x 20 minutes for 1 unit, 24297 x 13 minutes for 1 unit beginning at 13:51 and 14:40 PM. Thank you for the opportunity to participate in the care of this patient. Maty Britt PT, DPT, CLT [facility] [place], [place]
--- NOTE | 2023-04-21 14:06 | W.SPSTE ---
Date of service: 04/21/23 Time of Service: 12:45 Subjective Clinical (Bedside) Swallow Evaluation Speech Language Pathology Referred by: Dr. Cade Referral Type: Clinical Swallow Evaluation Reason for Referral/HPI: Jerrod Teran is an 82 yo male with PMH significant for hx posterior ICA CVA in September 2018 (daughter reports hx 4 CVAs in total, though September 2018 was most significant), cognitive impairment, interstitial lung disease, and acute respiratory failure who presented to [facility] 04/20/23 with fever, cough, and weakness. This is in the context of recent admission in March 2023 with sepsis. MARKET DEVELOPER referral placed due to suspicion of aspiration pneumonia. CXR completed 04/21/23 revealing R LL pneumonia. Jerrod has 04/11 caregiver aid support and is 1:1 feed assist for all PO, typically performing a few bites of self-feeding each meal. Family/aids cut up food into small bites and add sauces at baseline. MARKET DEVELOPER IMPRESSIONS & RECOMMENDATIONS: Jerrod presents with acute on chronic mild-moderate oral pharyngeal dysphagia, judged to be residual from his history of CVA in September 2018 and likely exacerbated in light of current deconditioned state. Oral mechanism assessment is significant for slight asymmetry of palate and tongue on protrusion, missing/sparse lower dentition, and upper denture. Oral phase is judged to be slow/prolonged though WFL for trials assessed (chopped/moist foods). Pharyngeal phase is significant for delayed swallow initiation and suspected reduced hyolaryngeal movement, however no overt s/s aspiration within duration of noon meal today. Patient did attempt to self-feed 1-2 bites throughout meal, though this significantly increased work of breath and thus he continues to benefit from 1:1 assist for majority of meal. Ultimately, patient is at risk for aspiration-related illness in light of deficits outlined above, however anticipate these risks can be mitigated with swallowing precautions/recommendations as outlined below. Recommend continue baseline diet: L6 soft/bite size, thin liquids, 1:1 assist for all meals, pills whole in yogurt or applesauce. Based on today's assessment, and no additional history of pneumonia per family, will hold on instrumental assessment at this time, though will continue to monitor to determine if need. Nature of modified barium swallow assessment was explained to daughter and patient, who agreed they would like to hold off for now if not necessary. Extensive education reviewed with Jerrod and his daughter, who expressed excellent awareness of swallow precautions at baseline, including chopping up Jerrod's food, adding extra sauce/condiments, slow eating, encouraging him to take his time, upright positioning during and at least 2-3 hours after meals. FURTHER MARKET DEVELOPER SERVICES: Patient to be followed while on unit. Upon Discharge, do not anticipate ongoing MARKET DEVELOPER needs Diet Recommendations: SOLIDS: L6 Soft Bite Size LIQUIDS: L0 thin MEDICATIONS: 1 at a time in yogurt/applesauce (baseline) SUPERVISION: 1:1 assist with all meals, direct supervision with solids, intermittent supervision with liquids SUBJECTIVE: Patient received awake/alert, agreeable to evaluation Pain Reported? none Baseline Swallow Function: Patient denies difficulty Daughter reports occasional coughing episodes with PO, no specific trigger foods identified. Feels it's better if food is cut up and moist PO Trials Assessed: IDDSI 0 Thin Liquids via straw IDDSI 4 Puree (ice cream) IDDSI 6 Soft & Bite Size Solid (chopped salad with dressing, chopped chicken) Oral Mechanism Examination: Dentition: upper dentures in place, sparse lower dentition (1 tooth) Oral mucosa is moist. Cranial Nerve Assessment: CN V ? Trigeminal Jaw Strength reduced ?Impaired CN VII- Facial Reduced labial strength Impaired CN IX ? Glossopharyngeal No evidence of nasal emissions. Palate rises on phonation but assymetrically to left Impaired CN X ? Vagus Delayed swallow initiation Wet cough intermittently Impaired CX XII ? Hypoglossal Mildly decreased with protrusion to R side Impaired Oral Phase Findings: Difficulty chewing Pharyngeal Phase Findings: Delayed swallow initiation Reduced hyolaryngeal elevation/excursion ? Thompson Swallow Protocol Results: PASS ??? ASSESSMENT: Further MARKET DEVELOPER Services indicated. Patient to be followed while on unit. Recommendation at Discharge: to be determined Suggested Referrals: N/A Recommended Procedures: Will continue to monitor need for MBSS Recommendations: ? SOLIDS: 6-Soft & Bite-Sized Solids LIQUIDS: 0-Thin Liquids MEDICATIONS: Whole with Puree (yogurt/applesauce) RISK MANAGEMENT: HOB upright as tolerated; upright for all PO intake. Encourage physical mobility as tolerated. Oral hygiene BID using friction with toothbrush on all oral structures as tolerated Level of Assistance/Supervision: Assistive feeding by trained staff/family Direct supervision with solids, intermittent supervision with liquids Strategies/Adaptations/Assistive Equipment: Reduce auditory and/or visual distractions when eating Provide verbal and/or visual cues to use recommended strategies Small sips and bites when eating Slow rate of intake Posture/Positioning Needs: Maintain upright position at least 30-60 minutes after meals Avoid meals/snacks 2-3 hours prior to reclining/sleeping Sleep with head of bed elevated to reduce likelihood of nocturnal reflux Education Provided to: Patient, Daughter, Nursing Topics Addressed: anatomy/physiology of swallowing mechanism, overt s/sx to monitor for re: potential aspiration of food / liquids, role of MARKET DEVELOPER, consideration of MBSS PLAN: Frequency: 2-3x/week for 1-2 weeks Goals: Mcfp Goals: Patient will remain free from aspiration-related illness, malnutrition, and dehydration. Short Term Goals: Patient will tolerate L6 Soft Bite Size Diet and Thin liquids without overt s/s aspiration across 2/2 visits. Patient will tolerate PO trials for consideration of diet upgrade without overt s/s aspiration across 2/2 visits. MARKET DEVELOPER CPT Code: 95632 Clinical Swallowing Evaluation TOTAL TIME: 20 Minutes (12:40-1:00) Coding CPT Codes EVALUATE SWALLOWING FUNCTION - 93384 ([id number]) Additional Codes Date of Service (19764) Date of service: 04/21/23
[2023-04-21] MEDS: Nicotine 21 MG/24 HR PATCH TD (19:35)
[2023-04-21] MEDS: Apixaban 5 MG TAB 10 MG PO (20:48)
[2023-04-21] MEDS: Simvastatin 20 MG TAB PO (20:49)
[2023-04-21 23:25] LABS: MRSA PCR Negative (Negative)
[2023-04-21 23:43] LABS: Legionella Ag Detection Urine Negative (Negative)
[2023-04-22] VITALS (11 sets, daily range): BP systolic 119–168; BP diastolic 68–93; PULSE 69–99; RESP 2–19; TEMP 36.8–37.5; O2SAT 89–97
[2023-04-22] MEDS: Albuterol/Ipratropium 3 ML UPD VIAL UPD ×3 (04:07→21:56)
[2023-04-22] MEDS: Acetaminophen 325 MG TAB 650 MG PO (04:43)
[2023-04-22] MEDS: AMPICILLIN/SULBACTAM 3 GM in Normal Saline 100 ML IVPB ×4 (06:50→21:42)
[2023-04-22 07:21] LABS: Abs Immature Grans 0.08 10^3/uL (0.0-0.06); Absolute Basophil Count 0.05 10^3/uL (0.0-0.2); Absolute Eosinophil Count 0.35 10^3/uL (0.0-0.7); Absolute Lymphocyte Count 1.33 10^3/uL (1.2-3.4); Basophils % 0.4; Eosinophils % 2.7; HCT 36.2 % (40.0-50.0); HGB 12.1 g/dL (13.5-17.5); Immature Grans % 0.6; Lymphocytes % 10.2; MCH 29.9 pg (27.0-33.0); MCHC 33.4 % (32.0-36.0); MCV 89 fL (80-95); MPV 12.2 fL (8.0-11.0); Monocytes % 5.4; Neutrophils % 80.7; Platelet Count 163 10^3/uL (130-400); RBC 4.05 10^6/uL (4.36-5.78); RDW 15.4 % (11.8-14.1); RDW-SD 50.7 fL; WBC 13.06 10^3/uL (4.4-10.8)
[2023-04-22 07:24] LABS: Absolute Monocyte Count 0.71 10^3/uL (0.1-0.8); Absolute Neutrophil Count 10.54 10^3/uL (1.2-6.7)
[2023-04-22 07:42] LABS: Anion Gap 9.4 mmol/L (3-11); BUN 11 mg/dL (7-18); CO2 24.6 mmol/L (21.0-32.0); CREATININE 1.3 mg/dL (0.70-1.30); Chloride 108 mmol/L (98-107); Estimated GFR 54.17 (mL/min/1.73m2); Glucose 98 mg/dL (74-106); Potassium 3.2 mmol/L (3.5-5.1); Sodium 142 mmol/L (136-145)
[2023-04-22] MEDS: Normal Saline Flush 10 ML SYR IVP ×3 (10:05→20:20)
[2023-04-22] MEDS: Polyethylene Glycol 3350 17 GM PACKET PO (10:06)
[2023-04-22] MEDS: Sertraline 50 MG TAB 75 MG PO (10:07)
[2023-04-22] MEDS: POTASSIUM CHLORIDE 20 MEQ/100 ML BAG 50 MEQ IVPB ×2 (10:07→13:23)
[2023-04-22] MEDS: Docusate Sodium 100 MG CAP PO ×2 (10:07→20:20)
[2023-04-22] MEDS: Cholecalciferol (Vitamin D3) 1,000 UNIT TAB 1000 UNITS PO (10:08)
[2023-04-22] MEDS: Apixaban 5 MG TAB 10 MG PO ×2 (10:08→20:20)
[2023-04-22] MEDS: Multivitamin TAB 1 TAB PO (10:08)
[2023-04-22] MEDS: Aspirin 81 MG CHEW PO (10:08)
[2023-04-22] MEDS: VANCOMYCIN 500 MG in Normal Saline 100 ML 100 MG IVPB (10:24)
--- NOTE | 2023-04-22 10:49 | PTTR_ITS ---
Date of service: 04/22/23 Time of Service: 10:16 PT Notes Visit Reasons: Fever Inpatient Physical Therapy Treatment Note [facility] Date: 04/22/23 PRECAUTIONS: Fall. Standard. Activity as tolerated. 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 SUBJECTIVE: Patient appears alert and in a good mood. OBJECTIVE: Supine in bed, agreeable to therapy. Daughter Bina present. AFTERNOON: Sitting up in bedside chair, agreeable to therapy. Daughter Shawna present. ? PAIN: none reported. VITALS: monitored by nursing staff Therapeutic Activities (16118q0): Direct one-on-one instruction in dynamic activities to improve functional performance. ? BED MOBILITY/TRANSFERS? Rolling L/R: min assist of one with mod-max verbal and tactile cues Supine-sit: tactile cues and extended time to swing legs over EOB. Min assist of one behind left (affected) shoulder to assist patient pushing up into seated position. ?Sit-supine: min assist to maneuver bilateral legs into bed. Min assist to hold feet in place so that patient can push to scoot up. Verbal cues for patient to scoot up, square hips. ? Sit-stand: min-mod assist of one at gait belt with verbal cues to push up from sitting surface. ? Stand-sit: CGA-min assist of one at gait belt to slow patient's descent. ? Bed-Chair: min assist of one at gait belt on left side to support patient's balance, support left arm. ? Chair-bed: min assist of one at gait belt on left side to support patient's balance, support left arm. Skilled cues provided throughout. Neuromuscular Re-education (33042b6): Activities that facilitate re-education of movement balance, posture, coordination, and proprioception or kinesthetic sense, requiring skilled tactile and verbal cues ? Exercises/techniques: * unsupported sitting static balance * unsupported sitting - dynamic balance, reaching activities * facilitation of opening affected left hand * weight bearing activities through left hand knuckles * self PROM of left UE via interlaced fingers * Weight bearing activities simultaneously through affected left UE and LE during multiple sit to stands. ASSESSMENT:? Patient tolerates therapy well. Reports fatigue in the afternoon, requests to go back to bed for a while despite daughter Shawna stating that patient typically does not return to bed during the day. PLAN: Continue global strengthening and neuro reeducation training per plan of care until patient is medically cleared for discharge. TREATMENT CODE/TIME: 32 minutes beginning at 10:16 and 31 minutes beginning at 14:32 for a total of 63 minutes today.
--- NOTE | 2023-04-22 12:50 | W.SPSTP ---
Date of service: 04/22/23 Time of Service: 12:15 Subjective Patient was contacted during lunch for meal tolerance follow-up and continued education. He was up to chair and his daughter, Bina was present and providing feeding setup and assist. She was not present yesterday during initial evaluation but has spoken with her sister, Shawna about the results and recommendations of that evaluation. Objective/Assessment/Plan Objective Treatment Techniques & Outcomes: PO Trials Assessed: IDDSI 0 Thin Liquids via straw IDDSI 4 Puree (ice cream) IDDSI 6 Soft & Bite Size Solid (chopped salad with dressing, chopped chicken) Oral Phase Findings: Difficulty chewing Intermittent buccal residue, cleared with cued vs spontaneous finger sweep, liquid wash. Pharyngeal Phase Findings: Delayed swallow initiation Reduced hyolaryngeal elevation/excursion suspected Assessment Acute on chronic mild-moderate oral pharyngeal dysphagia likely residual from CVA and exacerbated by in deconditioned state. Patient and family participated in through education x2 regarding rationale and instructions for aspiration risk management including posture, oral care, diet consistency, and safe swallow strategies. They are receptive to all education and plan to implement new oral care regimen, strict upright positioning during/after meals, and continue with safe swallow strategies as outlined below. Good baseline understanding of dysphagia and given this is first incidence of pna, no MBSS to be performed at this time per family preference. Recommendation at discharge: Home without further FINANCE INTERN services. Patient's daughters received adequate education and verbalized plans for implementing new recommendations and increasing involvement of paid caregivers. If further concerns arise, please refer for MBSS. ? Plan Plan: Frequency: 2-3x/week for 1-2 weeks Goals: Filler Shredding Machine Loader Goals: Patient will remain free from aspiration-related illness, malnutrition, and dehydration. Short Term Goals: Patient will tolerate L6 Soft Bite Size Diet and Thin liquids without overt s/s aspiration across 2/2 visits. Patient will tolerate PO trials for consideration of diet upgrade without overt s/s aspiration across 2/2 visits. Recommendations Diet: 6-Soft & Bite Size(advanced/chopped) Liquids: 0-Thin Liquids Recommendations: MEDICATIONS: Whole with Puree (yogurt/applesauce) RISK MANAGEMENT: HOB upright as tolerated; upright for all PO intake. Encourage physical mobility as tolerated. Oral hygiene BID using friction with toothbrush on all oral structures as tolerated Level of Assistance/Supervision: Assistive feeding by trained staff/family Direct supervision with solids, intermittent supervision with liquids Strategies/Adaptations/Assistive Equipment: Reduce auditory and/or visual distractions when eating Provide verbal and/or visual cues to use recommended strategies Small sips and bites when eating Slow rate of intake Posture/Positioning Needs: Maintain upright position at least 30-60 minutes after meals Avoid meals/snacks 2-3 hours prior to reclining/sleeping Sleep with head of bed elevated to reduce likelihood of nocturnal reflux Total Time Spent: 25 minutes (12:15-12:40pm) Coding CPT Codes ORAL FUNCTION THERAPY - 06155 ([id number]) Additional Codes Date of Service (24230) Date of service: 04/22/23
[2023-04-22] MEDS: Tamsulosin 0.4 MG CAPCR 0.8 MG PO (13:21)
--- NOTE | 2023-04-22 16:12 | DSE_ITS ---
Date of service: 04/22/23 Time of Service: 16:13 DS: Diagnosis Discharge Diagnosis (1) Sepsis syndrome: Status: Acute (2) Acute respiratory failure with hypoxia: Status: Acute (3) Aspiration pneumonia: Status: Acute (4) Left femoral vein DVT: Status: Acute (5) Interstitial lung disease: Status: Chronic (6) Constipation: Status: Acute (7) Bacteriuria: Status: Acute (8) Hypokalemia: Status: Acute (9) Tobacco abuse: Status: Acute Discharge Plan Disposition Patient Disposition: Home W/Home Health Services Condition: Improving Discharge Details Reason For Visit: Fever Admit Date/Time: 04/20/23 21:45 Admit Provider: Larissa Cdae Attending Provider: Larissa Cade [facility] Hospital Course: Mr Teran is an 82 year old male with PMHx of CVA with resultant L hemiparesis and cognitive impairment, as well as dysphagia, LLE DVT in 2019, BPH, who was admitted to [facility] ICU under the hospitalist service on 04/20/23 for sepsis due to aspiration pneumonia with acute hypoxic respiratory failure. He had leucocytosis, a fever, and was saturating 86% on RA, requiring 2L of O2 to saturate in the 90s. CT chest/abdomen/pelvis confirmed a RLL pneumonia. The patient was started empirically on vancomycin/cefepime, which was then changed to unasyn. He was hypotensive to 88/55. his initial lactate was 1.7. He did not require vasopressor use, responding quite quickly to antibiotics and IV fluids. He was downgraded to the medical surgical floor on 04/21/23. He was evaluated by speech therapy who recommended Soft and Bite-sized solid with thin liquids, medications to be administered whole with puree (yogurt/applesauce). The patient's blood cultures came back negative. His oxygen requirement has resolved. Given h/o VTE, we did rule out an acute PE given the patient's presentation with a negative CTA of the chest. Given mild edema of his BLEs, we also obtained venous dopplers of his BLEs. This did confirm that he has a small left femoral vein DVT, which may be chronic or acute. Given that he was on apixaban 2.5 mg BID and the age of the clot is not known, it is not obvious that he failed apixaban. We did increase the apixaban to 10 mg PO BID x 7 days prior to decreasing to 5 mg PO BID to treat it as if it were acute (and present on admission). He is getting his ambulatory pulse ox checked prior to discharge home tomorrow once his home caregivers have been confirmed. He is medically stable for discharge home tomorrow morning to complete his antibiotic course with liquid augmentin, as well as with a higher dose of eliquis. Home health services are being resumed on discharge. Home health nursing to obtain a CBC w/ diff, BMP, magnesium on 04/24/23 with results to his PCP, Molly Powers. Care for patient as well as completion of his discharge summary took 45 minutes. Home Meds and New Rx's Prescriptions: New nicotine 21 mg/24 hr Patch 24 Hour 21 mg transdermal DAILY PRN PRNQty: 28 0RF nicotine (polacrilex) 2 mg Lozenge 2 mg SUC Q2H PRN PRNQty: 72 0RF amoxicillin-pot clavulanate 400-57 mg/5 mL suspension for reconstitution 10 ml PO Q12H Qty: 75 0RF Eliquis 5 mg tablet See Rx Instructions .ROUTE .COMPLEX Qty: 70 0RF Rx Instructions: 2 tablets (10 mg) by mouth twice daily x 9 doses, then 1 tablet (5 mg) by mouth twice daily potassium chloride 40 mEq/15 mL liquid 40 meq PO DAILY Qty: 473 0RF Continued cholecalciferol (vitamin D3) 25 mcg (1,000 unit) capsule 25 mcg PO DAILY multivitamin Tablet 1 tab PO DAILY polyethylene glycol 3350 [Miralax] 17 gram/dose powder 17 g PO DAILY amlodipine 5 mg tablet 5 mg PO DAILY Qty: 90 3RF sertraline 50 mg tablet 75 mg PO DAILY Qty: 135 3RF simvastatin 20 mg tablet 20 mg PO DAILY Qty: 90 3RF tamsulosin 0.4 mg capsule 0.8 mg PO DAILY Qty: 180 3RF Combivent Respimat 20-100 mcg/actuation mist 1 puff inhalation Q6H PRN (Reason: shortness of breath or wheezing) Qty: 4 3RF aspirin 81 mg tablet,chewable 81 mg PO DAILY epinephrine 0.3 mg/0.3 mL Auto-Injector 0.3 mg IM ONCE Rx Instructions: as a single dose; may repeat once Discontinued Eliquis 2.5 mg tablet 2.5 mg PO BID Qty: 180 3RF Discharge Instructions Instructions: Amoxicillin/Clavulanate Potassium (By mouth), Apixaban (By mouth), Deep Vein Thrombosis (DC), Aspiration Pneumonia (DC) Additional Instructions: Finish your antibiotics as prescribed. Return to the hospital with any fever, bleeding, chest pain, or shortness of breath. Follow up with your PCP in 1-2 weeks. Care Plan Goals: Resumption of home health services. Home health nursing to draw CBC w/ diff, BMP, magnesium on 04/24/23 - results to Molly Powers. Referrals: Molly Powers NP [Primary Care Provider] - Activity:: Activity as Tolerated Equipment/Supplies:: No Equipment Needed Diet:: soft/bite-sized/thin liquids DS: Summary Time Spent with Patient providing and/or coordinating discharge services: Greater than 30 minutes Status at Discharge Functional status at discharge: uses cane/walker Overall status at discharge: patient is progressing back to baseline Mental Status: mental status grossly normal Speech and Movement: speech and movement normal Mood: congruent mood Affect: normal affect Quality:SDOH Health Related Social Needs: No Data to Display Exam Narrative Exam Narrative: General: Pleasant elderly male who is dysarthric, A&Ox3, answering questions appropriately, on RA, looks better HEENT: EOMI, MMM Heart: RRR, no m/r/g Lungs: quiet expiratory wheezes Abdomen: soft, nontender, nondistended Extremities: +1 edema B ankles, symmetric, no c/c Psych Mental Status: mental status grossly normal Speech and Movement: speech and movement normal Mood: congruent mood Affect: normal affect DS: Data Vitals/I&O Vitals and I&O: Vital Signs Temperature 36.9 C 04/22/23 15:31 Temperature Source Tympanic 04/22/23 15:31 Pulse 69 04/22/23 15:31 Pulse Rhythm Regular 04/21/23 20:40 Pulse 72 04/21/23 11:20 Respiratory Rate 18 04/22/23 15:31 Respiratory Effort Normal, Non-Labored 04/21/23 20:40 Respiratory Depth Normal 04/21/23 20:40 Respiratory Pattern Normal 04/21/23 20:40 Blood Pressure 163/87 H 04/22/23 15:31 Blood Pressure Mean 95 04/21/23 11:01 Pulse Oximetry 90 L 04/22/23 15:31 Oxygen Delivery Method Room Air 04/22/23 15:31 Oxygen Flow Rate 0 04/22/23 15:31 Pain Level 0 04/22/23 15:31 Comment Pt. denies pain at this time. 04/22/23 11:33 Intake & Output 04/21/23 04/22/23 04/22/23 23:59 11:59 23:59 Intake Total 510 / 2060 440 / 1027.5 587.5 / 1027.5 Output Total 800 / 800 1100 / 1445 345 / 1445 Balance -290 / 1260 -660 / -417.5 242.5 / -417.5 Weight 85.73 kg Intake: IV 410 / 1960 200 / 307.5 107.5 / 307.5 Oral 100 / 100 240 / 720 480 / 720 Output: Urine 800 / 800 1100 / 1445 345 / 1445 Other: Urine Color Pale Yellow Yellow Yellow Urine Appearance Clear Clear Clear Urine Odor Normal Normal Comment According to patient's daughter patient voided again in urinal with the amount of 120 ml. two voids. Stool Size Large Stool Characteristics Soft Liquid Brown Voiding Methods Urinal Urinal Urinal Data Completed and Pending Completed studies during hospitalization [Text1]: CXR 04/20/23: No acute pulmonary findings. CT chest/abdomen/pelvis 04/20/23: 1. No evidence of a pulmonary embolism as described above. 2. Right lower lobe pneumonia. 3. Large amount of stool seen in the distal sigmoid colon and rectum with bowel wall thickening suggesting stercoral colitis. 4. Diverticulosis of the colon without evidence of acute diverticulitis. 5. Chronic findings seen in the abdomen and pelvis as described above. Venous dopplers BLEs 04/21/23: 1. No evidence of a right lower extremity DVT. 2. No flow in the small sized left femoral vein. The findings are suspicious for thrombus. This may be chronic or acute. Labs on day of discharge: Labs from last 24 hours 04/22/23 04/21/23 04/21/23 06:27 22:23 21:40 WBC 13.06 H RBC 4.05 L Hgb 12.1 L Hct 36.2 L MCV 89 MCH 29.9 MCHC 33.4 RDW 15.4 H Plt Count 163 MPV 12.2 H Immature Gran % 0.6 Neutrophils % 80.7 Lymphocytes % 10.2 Monocytes % 5.4 Eosinophils % 2.7 Basophils % 0.4 Nucleated RBC % 0.0 Absolute Neutrophils 10.54 H Absolute Lymphocytes 1.33 Absolute Monocytes 0.71 Absolute Eosinophils 0.35 Absolute Basophils 0.05 Sodium 142 Potassium 3.2 L Chloride 108 H Carbon Dioxide 24.6 Anion Gap 9.4 BUN 11 Creatinine 1.3 Est GFR (CKD-EPI 2020) 54.17 Glucose 98 Calcium 9.0 Magnesium 2.0 Urine Legionella Ag MRSA (TEM-PCR) Negative Ur Strep pneumoniae Ag Pending 04/21/23 12:30 WBC RBC Hgb Hct MCV MCH MCHC RDW Plt Count MPV Immature Gran % Neutrophils % Lymphocytes % Monocytes % Eosinophils % Basophils % Nucleated RBC % Absolute Neutrophils Absolute Lymphocytes Absolute Monocytes Absolute Eosinophils Absolute Basophils Sodium Potassium Chloride Carbon Dioxide Anion Gap BUN Creatinine Est GFR (CKD-EPI 2020) Glucose Calcium Magnesium Urine Legionella Ag Negative MRSA (TEM-PCR) Ur Strep pneumoniae Ag Preliminary micro results at discharge 04/20/23 23:16 Urine Culture - Preliminary Urine - Reflex from Ua Gram Positive Francoise,Mixed Gram Negative Albert 04/21/23 11:29 Sputum Culture - Preliminary Sputum Normal Francoise 04/20/23 19:00 Blood Culture - Preliminary Blood NO GROWTH 24 HOURS 04/20/23 20:36 Blood Culture - Preliminary Blood NO GROWTH 24 HOURS PFSH All Active Problems (Updated 04/22/23 @ 16:34 by Larissa Cade MD) Tobacco abuse (Acute) Hypokalemia (Acute) Constipation (Acute) Discharge planning issues (Acute) Acute respiratory failure with hypoxia (Acute) Bacteriuria (Acute) Left femoral vein DVT (Acute) Aspiration pneumonia (Acute) Sepsis syndrome (Acute) Pneumonia (Acute) Cognitive impairment (Chronic) Suspect dementia, declines neurology consult Interstitial lung disease (Chronic) Chronic respiratory failure with hypoxia (Chronic) Hypertension (Chronic) Hyperlipidemia (Chronic) History of thromboembolism (Chronic) P.E., DVT 2018 Generalized anxiety disorder (Chronic) Osteopenia (Chronic) BPH w urinary obs/LUTS (Chronic) Diverticulosis of colon (Chronic) Medical History Bladder diverticulum TIA (transient ischemic attack) Pulmonary embolism (~10/2018) CVA (cerebral vascular accident) (~09/2018) Right posterior internal capsule ischemic stroke Surgical History Status post left hip replacement History of appendectomy (07/16/20) Family History Mother Dementia Father No problems noted. Daughter No problems noted. Daughter No problems noted. Son No problems noted. Maternal Grandfather No problems noted. Maternal Grandmother No problems noted. Paternal Grandfather No problems noted. Paternal Grandmother No problems noted. Brother Alcohol use disorder Colon cancer Hyperlipidemia Hypertension Diabetes Social History Smoking/Tobacco Use Status: Former Tobacco Use tobacco type: cigarettes and smokeless tobacco Quit Date: 04/14/85 Smokeless tobacco user: snuff Second Hand Exposure: Yes Smoking risk assessment performed?: Yes Alcohol Intake: former Drug use: Never Substance use type: does not use Counseling given: No Adopted: No Caregiver/Support person: Yes Foster care: No Household members: caregiver Housing: house Number of Children: 3 number of grandchildren: 7 Communication Needs: None Education Level: high school Do you need help understanding health information?: Never 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 Pets and animals: Yes Pets and animals: dog(s) Sexually active: No Do you think of yourself as: straight/heterosexual Current gender identity: male What is your relationship status?: How often do you talk on the phone with friends or family?: three or more times per week How often do you get together with friends or relatives?: three or more times per week How often do you attend evangelical or sabianism services?: 4 or more times per year Do you belong to any clubs or organized social groups?: no Panel score (0-1 are the most socially isolated patients): 3 What type of physical activity do you participate in: walking and regular exercise Duration: 45-60 minutes/day Frequency: daily Tamela/Pentecostal: Gnosticism Special tamela needs: No Agree to transfusion: Yes Seatbelt use: always Drive intox or ride w/intox hammer driver: No Working smoke detector in home: Yes Carbon monox detector in home: Yes Firearms in home: Yes Firearms unloaded and locked: Yes Do you feel safe at home: Yes Victim of physical abuse: No Victim of emotional abuse: No Victim of sexual abuse: No Would you like helpful sources: No Time Spent with Patient Time Spent with Patient: 45-69 minutes Time was spent: preparing to see the patient(eg.review tests), obtaining and/or reviewing separately otained hiistory, ordering medications,tests, procedures, referring, communicating with other health post acute care nurse, indepentently interpreting results, counseling the patient and care coordination
[2023-04-22] MEDS: Furosemide 20 MG/2 ML VIAL IVP (17:15)
--- NOTE | 2023-04-22 17:34 | PDOC.CMIN ---
Date of service: 04/22/23 Time of Service: 17:34 Care Management Initial Assmt Initial Assessment REASON FOR HOSPITALIZATION:: Fever PREVIOUS FUNCTIONAL STATUS/SOCIAL/FAMILY SUPPORTS:: Jerrod lives in [place] with 24/7 caregivers, coordinated by his daughters, Shawna and Bina. His adult children are very supportive and live locally. Jerrod requires support for his ADLs due to multiple strokes in the past resulting in left sided residual weakness. CURRENT FUNCTIONAL STATUS:: Jerrod was lying in bed when CM met with him. His daughter, Shawna, was visiting. They were both pleasant and engaged well in conversation. He stated that he feels much better today. Per MD, he will likely be discharged tomorrow, as long as he continues to improve. Jerrod expressed understanding and agreement to this plan. Shawna stated that they have 24/7 caregivers in the home, who will be prepared for his return tomorrow. Shawna stated that Jerrod has HH services; CM will resume HH upon discharge. CM will continue to follow. ADVANCE DIRECTIVES:: On file, yoli Merino as agent. Has patient been provided with info about the portal/API?: Yes Did the patient sign up for the portal?: Yes CODE STATUS:: DNR/DNI INSURANCE COVERAGE / FINANCIAL ISSUES:: MCR. AARP. CURRENT HOME/COMMUNITY SERVICES/EQUIPMENT:: 24/7 caregivers in the home; HH services. FWW with L UE platform; Wheelchair. PRIMARY CARE PHYSICIAN:: Molly Powers POTENTIAL DISCHARGE NEEDS:: Evaluations for further needs, follow up appointments. PATIENT/FAMILY EDUCATION NEEDS:: Review discharge instructions and limitations, discussion of self care needs including ask me three. ANTICIPATED BARRIERS TO DISCHARGE:: None identified. TRANSPORTATION:: Via private vehicle by Shawna. PLAN:: Anticipate Jerrod will return home when medically cleared with a resumption of HH services. His daughter Shawna will drive him home via private vehicle. He will follow up with his PCP and discharge plan of care. CM will continue to follow. PFSH All Active Problems (Updated 04/22/23 @ 16:34 by Larissa Cade MD) Tobacco abuse (Acute) Hypokalemia (Acute) Constipation (Acute) Discharge planning issues (Acute) Acute respiratory failure with hypoxia (Acute) Bacteriuria (Acute) Left femoral vein DVT (Acute) Aspiration pneumonia (Acute) Sepsis syndrome (Acute) Pneumonia (Acute) Cognitive impairment (Chronic) Suspect dementia, declines neurology consult Interstitial lung disease (Chronic) Chronic respiratory failure with hypoxia (Chronic) Hypertension (Chronic) Hyperlipidemia (Chronic) History of thromboembolism (Chronic) P.E., DVT 2018 Generalized anxiety disorder (Chronic) Osteopenia (Chronic) BPH w urinary obs/LUTS (Chronic) Diverticulosis of colon (Chronic) Medical History Bladder diverticulum TIA (transient ischemic attack) Pulmonary embolism (~10/2018) CVA (cerebral vascular accident) (~09/2018) Right posterior internal capsule ischemic stroke Surgical History Status post left hip replacement History of appendectomy (07/16/20) Family History Mother Dementia Father No problems noted. Daughter No problems noted. Daughter No problems noted. Son No problems noted. Maternal Grandfather No problems noted. Maternal Grandmother No problems noted. Paternal Grandfather No problems noted. Paternal Grandmother No problems noted. Brother Alcohol use disorder Colon cancer Hyperlipidemia Hypertension Diabetes Social History Smoking/Tobacco Use Status: Former Tobacco Use tobacco type: cigarettes and smokeless tobacco Quit Date: 04/14/85 Smokeless tobacco user: snuff Second Hand Exposure: Yes Smoking risk assessment performed?: Yes Alcohol Intake: former Drug use: Never Substance use type: does not use Counseling given: No Adopted: No Caregiver/Support person: Yes Foster care: No Household members: caregiver Housing: house Number of Children: 3 number of grandchildren: 7 Communication Needs: None Education Level: high school Do you need help understanding health information?: Never 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 Pets and animals: Yes Pets and animals: dog(s) Sexually active: No Do you think of yourself as: straight/heterosexual Current gender identity: male What is your relationship status?: How often do you talk on the phone with friends or family?: three or more times per week How often do you get together with friends or relatives?: three or more times per week How often do you attend roman catholic or restoration services?: 4 or more times per year Do you belong to any clubs or organized social groups?: no Panel score (0-1 are the most socially isolated patients): 3 What type of physical activity do you participate in: walking and regular exercise Duration: 45-60 minutes/day Frequency: daily Tamela/Yazdanism: Episcopal Special tamela needs: No Agree to transfusion: Yes Seatbelt use: always Drive intox or ride w/intox diesel truck driver: No Working smoke detector in home: Yes Carbon monox detector in home: Yes Firearms in home: Yes Firearms unloaded and locked: Yes Do you feel safe at home: Yes Victim of physical abuse: No Victim of emotional abuse: No Victim of sexual abuse: No Would you like helpful sources: No SDOH(Care Management) Screening Will the Patient Participate in the Screening?: Yes Do you worry about having a steady place to live?: no In the past 12 months, have you had to go without electric, gas, oil or water in your home?: no Have you or anyone in your house had to go without enough food to eat?: no Has lack of transportation kept you from medical appointments or from doing things needed for daily living?: no Has anyone in your support network made you feel unsafe for any reason?: no
[2023-04-22] MEDS: Simvastatin 20 MG TAB PO (20:19)
[2023-04-23 03:13] VITALS: BP 129/82; PULSE 79; RESP 18; TEMP 36.8; O2SAT 91
[2023-04-23] MEDS: AMPICILLIN/SULBACTAM 3 GM in Normal Saline 100 ML IVPB ×2 (04:45→09:42)
[2023-04-23 06:54] LABS: Abs Immature Grans 0.07 10^3/uL (0.0-0.06); Absolute Basophil Count 0.05 10^3/uL (0.0-0.2); Absolute Eosinophil Count 0.49 10^3/uL (0.0-0.7); Absolute Lymphocyte Count 1.39 10^3/uL (1.2-3.4); Absolute Monocyte Count 0.67 10^3/uL (0.1-0.8); Absolute Neutrophil Count 7.96 10^3/uL (1.2-6.7); Basophils % 0.5; Eosinophils % 4.6; HCT 37.9 % (40.0-50.0); HGB 12.7 g/dL (13.5-17.5); Immature Grans % 0.7; Lymphocytes % 13.1; MCH 29.6 pg (27.0-33.0); MCHC 33.5 % (32.0-36.0); MCV 88 fL (80-95); MPV 11.4 fL (8.0-11.0); Monocytes % 6.3; Neutrophils % 74.8; Platelet Count 185 10^3/uL (130-400); RBC 4.29 10^6/uL (4.36-5.78); RDW 15.4 % (11.8-14.1); RDW-SD 50.3 fL; WBC 10.63 10^3/uL (4.4-10.8)
[2023-04-23 07:21] LABS: Anion Gap 8.2 mmol/L (3-11); BUN 10 mg/dL (7-18); CO2 26.8 mmol/L (21.0-32.0); CREATININE 1.4 mg/dL (0.70-1.30); Calcium 9.3 mg/dL (8.5-10.1); Chloride 107 mmol/L (98-107); Estimated GFR 49.56 (mL/min/1.73m2); Glucose 96 mg/dL (74-106); Potassium 3.3 mmol/L (3.5-5.1); Sodium 142 mmol/L (136-145)
[2023-04-23 07:36] VITALS: BP 150/85; PULSE 80; RESP 18; TEMP 37.4; O2SAT 90
--- NOTE | 2023-04-23 09:37 | PT.INTREAT ---
Date of service: 04/23/23 PT Notes Visit Reasons: Fever Inpatient Physical Therapy Treatment Note [facility] Date: 04/24/23 PRECAUTIONS: Fall. Standard. Activity as tolerated. 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 SUBJECTIVE: Patient appears alert and in a good mood. Greets this clinician warmly. Daughter Shawna reports that patient was able to get right up this a.m. with very little assistance. OBJECTIVE: Sitting up in bedside chair. Daughter Shawna present. Agreeable to therapy. ? PAIN: none reported VITALS: monitored by nursing staff ? BED MOBILITY/TRANSFERS? Rolling L/R: not assessed Supine-sit: not assessed ? Sit-supine: not assessed ? Sit-stand: not assessed ? Stand-sit: not assessed ? Bed-Chair: not assessed ? Chair-bed: not assessed ? Therapeutic Exercises ([id number]): Direct one-on-one instruction in therapeutic exercises to develop strength, endurance, range of motion and flexibility. ? Exercises: Created and reviewed HEP as follows, with patient and daughter Shawna. Access Code: [email or web address] URL: [email or web address] Date: 04/23/2023 Prepared by: Shari Hawthorne Exercises - LE D2 Extension in Supine - 1 x daily - 7 x weekly - 3 sets - 10 reps - LE D2 Flexion in Supine - 1 x daily - 7 x weekly - 3 sets - 10 reps - LE D1 Extension in Supine - 1 x daily - 7 x weekly - 3 sets - 10 reps - LE D1 Flexion in Supine - 1 x daily - 7 x weekly - 3 sets - 10 reps - Supine Single Arm Shoulder PNF D1 Extension - 1 x daily - 7 x weekly - 3 sets - 10 reps - Supine Single Arm Shoulder PNF D1 Flexion - 1 x daily - 7 x weekly - 3 sets - 10 reps - Supine PNF D2 - 1 x daily - 7 x weekly - 3 sets - 10 reps Patient Education - Weight-Bearing Benefits and Modifications for the Hemiplegic Hand ASSESSMENT:? Patient tolerates therapy well, reports no discomfort with movement. Both patient and daughter report a notable difference in the flexibility of the affected left hand since yesterday. PLAN: Continue global strengthening, neuro reeducation, patient and caregiver training until patient is medically cleared for discharge. Patient would benefit from home health PT after discharge to continue restoring function. TREATMENT CODE/TIME: 18 minutes beginning at 9:55
[2023-04-23] MEDS: Polyethylene Glycol 3350 17 GM PACKET PO (09:40)
[2023-04-23] MEDS: Cholecalciferol (Vitamin D3) 1,000 UNIT TAB 1000 UNITS PO (09:40)
[2023-04-23] MEDS: Potassium Chloride Liquid 20 MEQ PKT 40 MEQ PO (09:40)
[2023-04-23] MEDS: Aspirin 81 MG CHEW PO (09:40)
[2023-04-23] MEDS: Multivitamin TAB 1 TAB PO (09:40)
[2023-04-23] MEDS: Tamsulosin 0.4 MG CAPCR 0.8 MG PO (09:40)
[2023-04-23] MEDS: Docusate Sodium 100 MG CAP PO (09:41)
[2023-04-23] MEDS: Normal Saline Flush 10 ML SYR IVP (09:41)
[2023-04-23] MEDS: Sertraline 50 MG TAB 75 MG PO (09:41)
[2023-04-23] MEDS: Apixaban 5 MG TAB 10 MG PO (09:45)
--- NOTE | 2023-04-23 09:53 | W.PM.PROGNOT ---
Date of Service Date of service: 04/23/23 Time of Service: 09:53 Assessment and Plan Assessment and plan (1) Sepsis syndrome: Status: Resolved Assessment and plan: see Dr. Cade's excellent discharge summary from yesterday. No plans for any change in his therapies. He is ready for dc home w/ continued Augmentin for his pneumonia (2) Acute respiratory failure with hypoxia: Status: Resolved Assessment and plan: no longer hypoxemic (3) Aspiration pneumonia: Status: Acute Assessment and plan: patient to complete his course of Augmentin. He had Unasyn this morning. Qualifiers: Aspiration pneumonia type: due to gastric secretions Laterality: right Lung location: lower lobe of lung Qualified Code(s): J69.0 - Pneumonitis due to inhalation of food and vomit (4) Left femoral vein DVT: Status: Acute Assessment and plan: not requiring any supplemental oxygen Qualifiers: Chronicity: acute Qualified Code(s): I82.412 - Acute embolism and thrombosis of left femoral vein (5) Interstitial lung disease: Status: Chronic (6) Bacteriuria: Status: Acute Assessment and plan: urine culture pending but patient already on antibiotics for his pneumonia (7) Discharge planning issues: Status: Acute Assessment and plan: dc home w/ 24 hour care givers present, resumption of home health services as outlined by Dr. Cade. Daughter will transport him home today Subjective Subjective Interval history since last seen: Patient was seen prior to dc home. I met w/ him, his nurse and his daughter. There has been no clinical changes overnight. He is not dyspneic at rest. he is tolerating his diet, eating breakfast w/out any coughing or choking spells. Exam Narrative Exam Narrative: Alert, oriented to person/place; smiling and pleasant Lungs: right basilar rhonchi and rales Heart: irregularly irregular but controlled rate Extremities: no edema Objective Last Vital Signs Temp 37.4 C 04/23/23 07:36 Pulse 80 04/23/23 07:36 Resp 18 04/23/23 07:36 BP 150/85 H 04/23/23 07:36 Pulse Ox 90 L 04/23/23 07:36 Laboratory Results - last 24 hr 04/23/23 06:22 WBC 10.63 RBC 4.29 L Hgb 12.7 L Hct 37.9 L MCV 88 MCH 29.6 MCHC 33.5 RDW 15.4 H Plt Count 185 MPV 11.4 H Immature Gran % 0.7 Neutrophils % 74.8 Lymphocytes % 13.1 Monocytes % 6.3 Eosinophils % 4.6 Basophils % 0.5 Nucleated RBC % 0.0 Absolute Neutrophils 7.96 H Absolute Lymphocytes 1.39 Absolute Monocytes 0.67 Absolute Eosinophils 0.49 Absolute Basophils 0.05 Sodium 142 Potassium 3.3 L Chloride 107 Carbon Dioxide 26.8 Anion Gap 8.2 BUN 10 Creatinine 1.4 H Est GFR (CKD-EPI 2020) 49.56 Glucose 96 Calcium 9.3 Magnesium 2.0 Time Spent with Patient Time Spent with Patient: <25 minutes Time was spent: referring, communicating with other health manager home healthcare and care coordination
--- NOTE | 2023-04-23 10:20 | PDOC.CMDIS ---
Date of service: 04/23/23 Time of Service: 10:20 LACE Index Scoring Tool Questions: Length of Stay (in days): 3 Was the patient admitted via the E.D.?: Yes Comorbidities: Cerebrovascular Disease and Chronic Pulmonary Disease E.D. Visits: 2 Answers: Total Score: 11 Risk of Readmission: High Risk Care Management Discharge Plan Reason for Hospitalization: Fever Discharge Plan: Jerrod will return home with a resumption of HH PT through [facility]. His daughter, Shawna will drive him home via private vehicle. He will follow up with his PCP and discharge plan of care. He is happy to be going home. Patient/Family Education Needs: Review discharge instructions and limitations, discussion of self care needs including ask me three. Services Needed at Discharge: Home Health Care Services (resume HH PT, O/E vna) SDOH Health Related Social Needs: No Data to Display
[2023-04-23 10:25] VITALS: RESP 5; RESP 9; O2SAT 89
[2023-04-23] MEDS: Albuterol/Ipratropium 3 ML UPD VIAL UPD (10:25)
[2023-04-23 11:45] VITALS: BP 140/70; PULSE 74; RESP 18; TEMP 37; O2SAT 92
--- NOTE | 2023-04-23 14:21 | OT.INNT ---
Occupational Therapy Notes 04/23/23 OT consult received and pts chart was reviewed. OT went in to see pt and his daughter was present. They report that pt is leaving today and have all adaptive equipment needed. They do not feel that OT consult is needed at this time. Monika Posada, OTR/L
--- NOTE | 2023-04-23 15:13 | CHAPLAIN ---
Jerrod was up in the chair and nurse Roor, MALLORY, was helping him take some meds, when I visited. Jerrod told me that he is from [place], [place] and attends the [employer] there. His daughter encouraged Jerrod to tell me that his hearing aid consultant in [place] had unexpectedly last weekend. He went on to tell me that the volunteer, Nisreen Kenny, who plays the dulcimer for patients, came in to play for him yesterday and it was emotional for him because his hearing aid consultant also played the dulcimer. Jerrod said Nisreen played some songs that his hearing aid consultant played in scientology, and she offered to play them in memory of his hearing aid consultant. Jerrod was discharged this afternoon.
[2023-04-24 15:07] LABS: Streptococcus Pneumoniae Ag, U Negative (Negative)
== END 2023-04-23 13:24 | disposition home health service (06) | DRG 871 ==
LOC: ER 04-21 07:09 → MS 04-21 12:17
PROVIDERS: Family Medicine; Admitting Provider Internal Medicine; Emergency Provider Emergency Medicine; PCP Nurse Practitioner Family; Visit Provider Internal Medicine
DX: A41.9 Sepsis, unspecified organism (principal); J69.0 Pneumonitis due to inhalation of food and vomit; J96.21 Acute and chronic respiratory failure with hypoxia; J84.9 Interstitial pulmonary disease, unspecified; I82.412 Acute embolism and thrombosis of left femoral vein; N17.9 Acute kidney failure, unspecified; N13.8 Other obstructive and reflux uropathy; I69.354 Hemiplegia and hemiparesis following cerebral infarction affecting left non-dominant side; Z86.718 Personal history of other venous thrombosis and embolism; K59.00 Constipation, unspecified; E87.6 Hypokalemia; Z79.01 Long term (current) use of anticoagulants; Z66 Do not resuscitate; Z86.711 Personal history of pulmonary embolism; E78.5 Hyperlipidemia, unspecified; F41.1 Generalized anxiety disorder; K57.30 Diverticulosis of large intestine without perforation or abscess without bleeding; N40.1 Benign prostatic hyperplasia with lower urinary tract symptoms; M85.80 Other specified disorders of bone density and structure, unspecified site; I10 Essential (primary) hypertension; Z96.642 Presence of left artificial hip joint; F17.290 Nicotine dependence, other tobacco product, uncomplicated; I69.391 Dysphagia following cerebral infarction; R13.10 Dysphagia, unspecified; I69.318 Other symptoms and signs involving cognitive functions following cerebral infarction
CPT/HCPCS: 00123; 36415; 71275; 74177; 80048; 80053; 82805; 84145; 85027; 87040; 87449; 87641; 92526; 92610; 93005; 96365; 96366; 96367; 96368; 97110; 97112; 97162; 97530; 99283; 99285; 71045; 80202; 81003; 81015; 83605; 83735; 83880; 84443; 84484; 85025; 87070; 87086; 87205; 87581; 87899; 93010; 93970; 94640; 94760; 99233; 99239; J0295; J0692; J1941; J2543; J3370; J3480; J3490; J7620

== ENCOUNTER 2023-04-28 16:30 | Outpatient (CLI) | payer MEDICARE, SELFPAY ==
[2023-04-28 12:46] LABS: Abs Immature Grans 0.17 10^3/uL (0.0-0.06); Absolute Basophil Count 0.09 10^3/uL (0.0-0.2); Absolute Eosinophil Count 0.41 10^3/uL (0.0-0.7); Absolute Monocyte Count 0.94 10^3/uL (0.1-0.8); Basophils % 0.6; Eosinophils % 2.8; HCT 46.4 % (40.0-50.0); HGB 15.2 g/dL (13.5-17.5); Immature Grans % 1.2; Lymphocytes % 11.9; MCH 29.6 pg (27.0-33.0); MCHC 32.8 % (32.0-36.0); MCV 90 fL (80-95); Monocytes % 6.4; Neutrophils % 77.1; Platelet Count 285 10^3/uL (130-400); RBC 5.13 10^6/uL (4.36-5.78); RDW-SD 50.1 fL; WBC 14.67 10^3/uL (4.4-10.8)
[2023-04-28 12:47] LABS: Absolute Lymphocyte Count 1.75 10^3/uL (1.2-3.4); Absolute Neutrophil Count 11.31 10^3/uL (1.2-6.7)
[2023-04-28 13:44] LABS: ALT 33 U/L (16-63); AST 20 U/L (15-37); Albumin 3.4 g/dL (3.4-5.0); Alkaline Phosphatase 82 U/L (46-116); Anion Gap 7.2 mmol/L (3-11); BUN 10 mg/dL (7-18); Bilirubin, Total 0.5 mg/dL (0.2-1.0); CO2 29.8 mmol/L (21.0-32.0); CREATININE 1.6 mg/dL (0.70-1.30); Calcium 10.5 mg/dL (8.5-10.1); Chloride 105 mmol/L (98-107); Estimated GFR 42.22 (mL/min/1.73m2); Ferritin 81 ng/mL (26-388); Glucose 106 mg/dL (74-106); Potassium 4.2 mmol/L (3.5-5.1); Sodium 142 mmol/L (136-145); TSH (W/Ref FT4) 4.88 uIU/mL (0.36-3.74); Total Protein 7.7 g/dL (6.4-8.2)
[2023-04-28 23:07] LABS: PSA, Screening 3.3 ng/mL (<=6.5)
[2023-04-28 23:55] LABS: Hepatitis C Ab w Rflx HCV PCR Negative (Negative)
== END 2023-04-28 16:31 | disposition home or self-care (01) ==
LOC: LBO 16:30
PROVIDERS: PCP Nurse Practitioner Family; Visit Provider Nurse Practitioner Family
DX: N17.9 Acute kidney failure, unspecified (principal); Z12.5 Encounter for screening for malignant neoplasm of prostate
CPT/HCPCS: 36415; 80053; 84153; 86803; 82728; 84439; 84443; 85025

== ENCOUNTER 2023-07-30 04:31 | Outpatient (CLI) | payer MEDICARE, SELFPAY ==
[2023-07-30 12:47] LABS: Abs Immature Grans 0.02 10^3/uL (0.0-0.06); Absolute Basophil Count 0.04 10^3/uL (0.0-0.2); Absolute Eosinophil Count 0.13 10^3/uL (0.0-0.7); Absolute Lymphocyte Count 2.22 10^3/uL (1.2-3.4); Absolute Monocyte Count 0.53 10^3/uL (0.1-0.8); Absolute Neutrophil Count 6.09 10^3/uL (1.2-6.7); Basophils % 0.4; Eosinophils % 1.4; HCT 44.9 % (40.0-50.0); HGB 14.5 g/dL (13.5-17.5); Immature Grans % 0.2; Lymphocytes % 24.6; MCH 28.3 pg (27.0-33.0); MCHC 32.3 % (32.0-36.0); MCV 88 fL (80-95); MPV 12.1 fL (8.0-11.0); Monocytes % 5.9; Neutrophils % 67.5; Platelet Count 198 10^3/uL (130-400); RBC 5.13 10^6/uL (4.36-5.78); RDW 14.1 % (11.8-14.1); RDW-SD 45.7 fL; WBC 9.03 10^3/uL (4.4-10.8)
[2023-07-30 14:20] LABS: ALT 21 U/L (16-63); AST 15 U/L (15-37); Albumin 3.8 g/dL (3.4-5.0); Alkaline Phosphatase 85 U/L (46-116); Anion Gap 9.6 mmol/L (3-11); BUN 11 mg/dL (7-18); Bilirubin, Total 0.5 mg/dL (0.2-1.0); CO2 29.4 mmol/L (21.0-32.0); CREATININE 1.4 mg/dL (0.70-1.30); Calcium 9.6 mg/dL (8.5-10.1); Chloride 105 mmol/L (98-107); Estimated GFR 49.56 (mL/min/1.73m2); Glucose 125 mg/dL (74-106); Potassium 3.7 mmol/L (3.5-5.1); Sodium 144 mmol/L (136-145)
[2023-07-30 14:58] LABS: FREE T4 0.82 ng/dL (0.76-1.46); Total Protein 7.4 g/dL (6.4-8.2)
[2023-07-30 16:05] LABS: Vitamin D 25 Total 75.8 ng/mL (30-100)
[2023-07-30 18:04] LABS: Ionized Calcium 1.18 mmol/L (1.14-1.35)
[2023-07-30 20:06] LABS: Parathyroid Hormone,Intact 69 pg/mL (19-88)
== END 2023-07-30 04:32 | disposition home or self-care (01) ==
LOC: LOS 04:31
PROVIDERS: PCP Nurse Practitioner Family; Visit Provider Family Medicine
DX: E83.52 Hypercalcemia (principal); J96.11 Chronic respiratory failure with hypoxia; R79.89 Other specified abnormal findings of blood chemistry
CPT/HCPCS: 36415; 80053; 82306; 82330; 83970; 84439; 84443; 85025

== ENCOUNTER 2023-11-06 14:06 | Inpatient (IN) | payer MEDICARE, SELFPAY ==
[2023-11-06] VITALS (34 sets, daily range): BP systolic 102–159; BP diastolic 51–83; PULSE 79–112; RESP 16–31; TEMP 37.1–38.8; O2SAT 89–97
--- NOTE | 2023-11-06 14:00 | RT.EKG_ITS ---
APPROVED REPORT Exam: Resting ECG Reason for Exam: chest pain Patient Location: E HR:98 bpm ECG Measurements Heart Rate 98 AXIS VT 182 P -1 QRSd 153 QRS 136 QT 371 T 31 QTc 474 Conclusion Sinus rhythm...normal P axis, V-rate 60- 99 Multiple ventricular premature complexes...V complexes w/ short R-R intervls RBBB and LPFB...QRSd >120mS, axis(90,210) Normal [place] Nonspecific ST-T changes There are no significant changes compared to prior EKG performed on 04/20/2023 at 21:39.
--- NOTE | 2023-11-06 14:13 | W.ED.GENAD ---
Discharge Plan Disposition Patient Disposition: Admit to [facility] Condition: Fair Discharge Details Clinical Impression: Pneumonia Primary Care Provider: Molly Powers ED Provider: Prabhakar Major and New Rx's Prescriptions: No Action cholecalciferol (vitamin D3) 25 mcg (1,000 unit) capsule 25 mcg PO DAILY multivitamin Tablet 1 tab PO DAILY polyethylene glycol 3350 [Miralax] 17 gram/dose powder 17 g PO DAILY amlodipine 5 mg tablet 5 mg PO DAILY Qty: 90 3RF sertraline 50 mg tablet 75 mg PO DAILY Qty: 135 3RF simvastatin 20 mg tablet 20 mg PO DAILY Qty: 90 3RF tamsulosin 0.4 mg capsule 0.8 mg PO DAILY Qty: 180 3RF Eliquis 5 mg tablet 5 mg PO BID Qty: 180 3RF Combivent Respimat 20-100 mcg/actuation mist 1 puff inhalation Q6H PRN (Reason: shortness of breath or wheezing) Qty: 4 3RF aspirin 81 mg tablet,chewable 81 mg PO DAILY potassium chloride 20 mEq tablet extended release 20 meq PO DAILY Qty: 90 3RF epinephrine 0.3 mg/0.3 mL Auto-Injector 0.3 mg IM ONCE Rx Instructions: as a single dose; may repeat once HPI General Mode of arrival: EMS. Date/Time Provider Initiated Documentation: 11/06/23 14:12. Limitations to Documentation: no limitations. Information obtained by: patient, RN notes reviewed and old records reviewed. HPI Narrative: Patient transferred to us from urgent care after presenting there with complaint of cough, weakness. Patient initially tachycardic and hypoxic there. EMS placed on NRB and sats up to low 90's. tank house supervisor reported STEMI so EMS also gave patient aspirin. On arrival patient is awake and alert. He denies any pain or SOB. He does feel extremely weak, tired and has had a cough. He denies fever. Per notes symptoms potentially started a few weeks ago. Family/caregiver not here yet. Patient denies vomiting, urinary symptoms, chest pain, abdominal pain, headache. He was admitted here in April with aspiration pneumonia. Related Data Home Medications ?Medication ?Instructions ?Recorded ?Confirmed epinephrine 0.3 mg/0.3 mL 0.3 mg IM ONCE 12/22/22 11/06/23 injection, auto-injector aspirin 81 mg chewable tablet 81 mg PO DAILY 01/06/23 11/06/23 ipratropium 20 mcg-albuterol 100 1 puff inhalation Q6H PRN 01/06/23 11/06/23 mcg/actuation mist for inhalation shortness of breath or wheezing #4 (Combivent Respimat) grams amlodipine 5 mg tablet 5 mg PO DAILY #90 tabs 04/10/23 11/06/23 cholecalciferol (vitamin D3) 25 25 mcg PO DAILY 04/10/23 11/06/23 mcg (1,000 unit) capsule multivitamin 1 tab PO DAILY 04/10/23 11/06/23 polyethylene glycol 3350 17 17 g PO DAILY 04/10/23 11/06/23 gram/dose oral powder (Miralax) sertraline 50 mg tablet 75 mg (1.5 x 50 mg) PO DAILY #135 04/10/23 11/06/23 tabs simvastatin 20 mg tablet 20 mg PO DAILY #90 tabs 04/10/23 11/06/23 tamsulosin 0.4 mg capsule 0.8 mg (2 x 0.4 mg) PO DAILY #180 04/10/23 11/06/23 caps apixaban 5 mg tablet (Eliquis) 5 mg PO BID #180 tabs 04/30/23 11/06/23 potassium chloride 20 mEq 20 meq PO DAILY #90 tabs 07/16/23 11/06/23 tablet,extended release Previous Rx's ?Medication ?Instructions ?Recorded ipratropium 20 mcg-albuterol 100 1 puff inhalation Q6H PRN 01/06/23 mcg/actuation mist for inhalation shortness of breath or wheezing #4 (Combivent Respimat) grams amlodipine 5 mg tablet 5 mg PO DAILY #90 tabs 04/10/23 sertraline 50 mg tablet 75 mg (1.5 x 50 mg) PO DAILY #135 04/10/23 tabs simvastatin 20 mg tablet 20 mg PO DAILY #90 tabs 04/10/23 tamsulosin 0.4 mg capsule 0.8 mg (2 x 0.4 mg) PO DAILY #180 04/10/23 caps apixaban 5 mg tablet (Eliquis) 5 mg PO BID #180 tabs 04/30/23 potassium chloride 20 mEq 20 meq PO DAILY #90 tabs 07/16/23 tablet,extended release Allergies Allergy/AdvReac Type Severity Reaction Status Date / Time bee venom protein (honey bee) Allergy Severe Anaphylaxis Verified 11/06/23 14:12 General Stated Complaint: SOB ALFRED: 2 Review of Systems Narrative: per HPI Exam Narrative Exam Narrative: Const: WDWN elderly male in NAD. VS per triage. HEENT: NC/AT. Normal facial exam. Neck: Supple. Trachea midline. Lungs: Normal respiratory effort. Lungs w rhonchi B bases. Cor: Irregular without murmur. Good radial pulses. GI: Soft/ND/NT. Neuro: A+O x 3. Normal speech. Cranial nerves II - XII grossly intact. LUE weakness/mild contracture Ext: No C/C. BLE edema present. Course Vital Signs Vital signs: Vital Signs Temperature 99.9 F H 11/06/23 14:07 Pulse 94 H 11/06/23 14:07 Respiratory Rate 31 H 11/06/23 14:07 Blood Pressure 132/73 11/06/23 14:07 Pulse Oximetry 90 L 11/06/23 14:07 Temperature 99.9 F H 11/06/23 14:07 Pulse 94 H 11/06/23 14:07 Respiratory Rate 31 H 11/06/23 14:07 Respiratory Effort Normal 11/06/23 14:11 Blood Pressure 132/73 11/06/23 14:07 Pulse Oximetry 90 L 11/06/23 14:07 Oxygen Delivery Method Non-Rebreather 11/06/23 14:07 Oxygen Flow Rate 15 11/06/23 14:07 Pain Level 0 11/06/23 14:07 Medical Decision Making Patient presenting to ED by ambulance from urgent care where he had presented with increased weakness and cough. tank house supervisor for EMS reported STEMI. He did receive aspirin. He denies any chest pain or shortness of breath. I reviewed the rhythm strips from EMS monitor. I do not agree with the computer reading and do not see a STEMI. 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 Patient reportedly tachycardic and hypoxemic upon EMS arrival at urgent care. Arrives here with a heart rate in the 90s and saturations in the low 90s on nonrebreather. Second IV placed. Fluids started. Laboratory studies and chest x-ray ordered. 16:00 - Patient's laboratory studies pretty unremarkable except for elevated white count greater than 18. Troponin is negative. Electrolytes are normal. Kidney function is baseline. Chest x-ray per my read and radiology read consistent with right lower lobe pneumonia best seen on lateral view. Given patient's prior history of aspiration will cover with Unasyn as well as azithromycin. Still requiring oxygen but appears to be stable and appropriate for floor. Discussed with hospitalist. Discussed with patient and family. Medical Records Medical records reviewed: Yes I reviewed the patient's medical records. Medical records narrative: Discharge summary from this winter as well as last 2 clinic visits and urgent care visit today Lab Data Lab results reviewed: Yes I reviewed the patient's lab results. ECG Data Attestation: I personally reviewed and interpreted this ECG (s) as follows: Prior ECG tracings: available for review Interpretation: See EKG/MDM PFS All Active Problems (Updated 11/06/23 @ 17:23 by Prabhakar Major MD) Pneumonia (Acute) Acute on chronic respiratory failure with hypoxia (Acute) HTN (hypertension) (Chronic) RAMIN (acute kidney injury) (Acute) Aspiration pneumonia (Acute) Severe sepsis (Acute) TIA (transient ischemic attack) (Acute) Pulmonary embolism (Chronic ~10/2018) Bladder diverticulum (Acute) Nicotine dependence (Acute) Hypercalcemia (Acute) Left femoral vein DVT (Acute) Chronic respiratory failure with hypoxia (Chronic) Osteopenia (Chronic) Diverticulosis of colon (Chronic) Medical History Interstitial lung disease Generalized anxiety disorder BPH w urinary obs/LUTS History of thromboembolism P.E., DVT 2018 Hyperlipidemia Hypertension Cognitive impairment Suspect dementia, declines neurology consult CVA (cerebral vascular accident) (~09/2018) Right posterior internal capsule ischemic stroke Surgical History Status post left hip replacement History of appendectomy (07/16/20) Family History Mother Dementia Father No problems noted. Daughter No problems noted. Daughter No problems noted. Son No problems noted. Maternal Grandfather No problems noted. Maternal Grandmother No problems noted. Paternal Grandfather No problems noted. Paternal Grandmother No problems noted. Brother Alcohol use disorder Colon cancer Hyperlipidemia Hypertension Diabetes Social History Smoking/Tobacco Use Status: Former Tobacco Use tobacco type: cigarettes and smokeless tobacco Quit Date: 04/14/85 Smokeless tobacco user: snuff Second Hand Exposure: Yes Smoking risk assessment performed?: Yes Alcohol Intake: former Drug use: Never Substance use type: does not use Counseling given: No Adopted: No Caregiver/Support person: Yes Foster care: No Household members: caregiver Housing: house Number of Children: 3 number of grandchildren: 7 Communication Needs: None Education Level: high school Do you need help understanding health information?: Never 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 Pets and animals: Yes Pets and animals: dog(s) Sexually active: No Do you think of yourself as: straight/heterosexual Current gender identity: male What is your relationship status?: How often do you talk on the phone with friends or family?: three or more times per week How often do you get together with friends or relatives?: three or more times per week How often do you attend scientology or mormonism services?: 4 or more times per year Do you belong to any clubs or organized social groups?: no Panel score (0-1 are the most socially isolated patients): 3 What type of physical activity do you participate in: walking and regular exercise Duration: 45-60 minutes/day Frequency: daily Tamela/Presybeterian: Yarsanism Special tamela needs: No Agree to transfusion: Yes Seatbelt use: always Drive intox or ride w/intox pick up truck driver: No Working smoke detector in home: Yes Carbon monox detector in home: Yes Firearms in home: Yes Firearms unloaded and locked: Yes Do you feel safe at home: Yes Victim of physical abuse: No Victim of emotional abuse: No Victim of sexual abuse: No Would you like helpful sources: No
--- NOTE | 2023-11-06 14:15 | DI.RAD_ITS ---
Exam(s) XR CHEST 2V PA LATERAL EXAM: XR CHEST 2V PA LATERAL CLINICAL HISTORY: cough, weakness. TECHNIQUE: 2D digital imaging was performed. COMPARISON: CR,XR XR PORTABLE CHEST AP from 04/20/[address] CHEST PE ABD PELVIS W from 04/21/2023 FINDINGS: 2 views: Heart size is upper normal. The mediastinum is not widened. Pulmonary venous hypertension pattern noted without airspace pulmonary edema nor obvious pleural effu sions. On the lateral view there is a suggestion of infiltrate posteriorly. I suspect this is in the bucket wash operator ior basal segment of the right lower lobe, given the findings on CT scan of 04/21/2023. IMPRESSION: Probable right lower lobe infiltrate. Please note there is infiltrate in the right lower on chest CT scan of 04/21/2023. No obvious pleural effusions. DATA REPOSITORY: RADIATION DOSE DELIVERED:
[2023-11-06 14:28] LABS: Absolute Basophil Count 0.06 10^3/uL (0.0-0.2); Absolute Lymphocyte Count 1.57 10^3/uL (1.2-3.4); Absolute Monocyte Count 0.91 10^3/uL (0.1-0.8); Absolute Neutrophil Count 16.26 10^3/uL (1.2-6.7); Basophils % 0.3 %; Eosinophils % 0.2 %; HCT 43.3 % (40.0-50.0); HGB 13.7 g/dL (13.5-17.5); Immature Grans % 0.5 %; Lymphocytes % 8.3 %; MCH 27.4 pg (27.0-33.0); MCHC 31.6 % (32.0-36.0); MCV 87 fL (80-95); MPV 12.1 fL (8.0-11.0); Monocytes % 4.8 %; Neutrophils % 85.9 %; Platelet Count 182 10^3/uL (130-400); RDW 15.4 % (11.8-14.1); RDW-SD 48.7 fL; WBC 18.93 10^3/uL (4.4-10.8)
[2023-11-06 14:29] LABS: Absolute Eosinophil Count 0.04 10^3/uL (0.0-0.7)
[2023-11-06] MEDS: Lactated Ringers 1,000 ML 1000 ML IV (14:49)
[2023-11-06 14:53] LABS: ALT 17 U/L (16-63); Albumin 3.8 g/dL (3.4-5.0); Alkaline Phosphatase 73 U/L (46-116); BUN 13 mg/dL (7-18); Bilirubin, Total 0.76 mg/dL (0.2-1.0); CREATININE 1.7 mg/dL (0.70-1.30); Calcium 9.5 mg/dL (8.5-10.1); Chloride 105 mmol/L (98-107); Estimated GFR 39.02 (mL/min/1.73m2); Glucose 137 mg/dL (74-106); Magnesium 2.1 mg/dL (1.8-2.4); Potassium 4.1 mmol/L (3.5-5.1); Sodium 143 mmol/L (136-145); Total Protein 7.3 g/dL (6.4-8.2); Troponin I < 50 ng/L (< or =60)
[2023-11-06 14:57] LABS: AST < 5 U/L (15-37)
[2023-11-06 16:04] LABS: COVID-19 PCR Negative (Negative); Influenza A PCR Negative (Negative); Influenza B PCR Negative (Negative); RSV PCR Negative (Negative); Source Nasopharynx
--- NOTE | 2023-11-06 16:12 | W.PM.HP.N ---
Date of service: 11/06/23 Time of Service: 17:07 Assessment and Plan Assessment and plan (1) Severe sepsis: Status: Acute Assessment and plan: -Patient meets criteria for severe sepsis with heart rate greater than 90, white blood cell count of 18, suspected source of infection being right lower lobe aspiration pneumonia given history of aspiration, and an RAMIN with a creatinine of 1.7 (baseline 1.4) -Patient started on Unasyn and azithromycin in the emergency department, will continue Unasyn for coverage of aspiration pneumonia -follow-up a.m. CBC (2) Aspiration pneumonia: Status: Acute Assessment and plan: - As noted above (3) Acute on chronic respiratory failure with hypoxia: Status: Acute Assessment and plan: - Currently requiring 10 L OxyMask -Wean as tolerated with goal oxygen saturation greater than 90% -Discharge from previous hospitalization patient was documented as having chronic hypoxic respiratory failure though family states they have oxygen at home but patient does not use it -Will continue to monitor oxygen requirements set up patient with home oxygen if unable to completely wean off of supplemental oxygen during this hospitalization (4) RAMIN (acute kidney injury): Status: Acute Assessment and plan: - As noted above -Will follow-up a.m. BMP (5) Left femoral vein DVT: Status: Acute Assessment and plan: - History of left femoral DVT -Continue home Eliquis Qualifiers: Chronicity: acute Qualified Code(s): I82.412 - Acute embolism and thrombosis of left femoral vein (6) HTN (hypertension): Status: Chronic Assessment and plan: - Continue home amlodipine (7) Generalized anxiety disorder: Assessment and plan: Continue home sertraline (8) Cognitive impairment: (9) Interstitial lung disease: Assessment and plan: - Continue home inhaler regimen History of Present Illness History of Present Illness Chief Complaint: cough, weakness Narrative: 83-year-old male with past medical history of TIA, PE, nicotine dependence, left femoral vein DVT, and interstitial lung disease with recent hospitalization in April due to an aspiration pneumonia presents to the emergency department with complaints of cough and weakness. Patient initially presented to urgent care complaining of cough and weakness while there, he was noted to be tachycardic and hypoxic prompting EMS to bring him to the emergency department. EMS had placed him on a nonrebreather neurointervention oxygen saturation greater than 90%. Initially, EMS flat spring assembler showed concern for STEMI patient was given aspirin. Upon further questioning the patient he states that he been feeling weak with a cough for the last few days but denies any lightheadedness, dizziness, shortness of breath, nausea vomiting diarrhea or fever. In the emergency department the patient was noted as initially requiring up to 15 L OxyMask to maintain oxygen saturation of greater than 90% though this was weaned down to about 10 L oxime mask. Additionally, he was tachycardic with a heart rate in the low 100s, white blood cell count of 18, blood pressure 134/71, and respiratory rate of 22. CMP was unremarkable with the exception of a creatinine of 1.7 (baseline and normally 1.4), and chest x-ray showed likely right lower lobe infiltrate. Given that the patient had history of aspiration in the past he was started Unasyn and azithromycin, was also given 1 L of LR. At which time, emergency room physician paged hospitalist for admission for patient with severe sepsis secondary to presumed aspiration pneumonia with acute hypoxic respiratory failure. Review of Systems All systems reviewed & are unremarkable except as noted in HPI and below PFSH All Active Problems (Updated 11/06/23 @ 17:28 by AME RIVERO) Pneumonia (Acute) Acute on chronic respiratory failure with hypoxia (Acute) HTN (hypertension) (Chronic) RAMIN (acute kidney injury) (Acute) Aspiration pneumonia (Acute) Severe sepsis (Acute) TIA (transient ischemic attack) (Acute) Pulmonary embolism (Chronic ~10/2018) Bladder diverticulum (Acute) Nicotine dependence (Acute) Hypercalcemia (Acute) Left femoral vein DVT (Acute) Chronic respiratory failure with hypoxia (Chronic) Osteopenia (Chronic) Diverticulosis of colon (Chronic) Medical History Interstitial lung disease Generalized anxiety disorder BPH w urinary obs/LUTS History of thromboembolism P.E., DVT 2019 Hyperlipidemia Hypertension Cognitive impairment Suspect dementia, declines neurology consult CVA (cerebral vascular accident) (~09/2018) Right posterior internal capsule ischemic stroke Surgical History Status post left hip replacement History of appendectomy (07/16/20) Family History Mother Dementia Father No problems noted. Daughter No problems noted. Daughter No problems noted. Son No problems noted. Maternal Grandfather No problems noted. Maternal Grandmother No problems noted. Paternal Grandfather No problems noted. Paternal Grandmother No problems noted. Brother Alcohol use disorder Colon cancer Hyperlipidemia Hypertension Diabetes Social History Smoking/Tobacco Use Status: Former Tobacco Use tobacco type: cigarettes and smokeless tobacco Quit Date: 04/14/85 Smokeless tobacco user: snuff Second Hand Exposure: Yes Smoking risk assessment performed?: Yes Alcohol Intake: former Drug use: Never Substance use type: does not use Counseling given: No Adopted: No Caregiver/Support person: Yes Foster care: No Household members: caregiver Housing: house Number of Children: 3 number of grandchildren: 7 Communication Needs: None Education Level: high school Do you need help understanding health information?: Never 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 Pets and animals: Yes Pets and animals: dog(s) Sexually active: No Do you think of yourself as: straight/heterosexual Current gender identity: male What is your relationship status?: How often do you talk on the phone with friends or family?: three or more times per week How often do you get together with friends or relatives?: three or more times per week How often do you attend rastafarian or rastafarian services?: 4 or more times per year Do you belong to any clubs or organized social groups?: no Panel score (0-1 are the most socially isolated patients): 3 What type of physical activity do you participate in: walking and regular exercise Duration: 45-60 minutes/day Frequency: daily Tamela/Gnosticist: Roman Catholic Special tamela needs: No Agree to transfusion: Yes Seatbelt use: always Drive intox or ride w/intox route driver salesperson: No Working smoke detector in home: Yes Carbon monox detector in home: Yes Firearms in home: Yes Firearms unloaded and locked: Yes Do you feel safe at home: Yes Victim of physical abuse: No Victim of emotional abuse: No Victim of sexual abuse: No Would you like helpful sources: No Meds Allergies and Home Medications Allergies Allergy/AdvReac Type Severity Reaction Status Date / Time bee venom protein (honey bee) Allergy Severe Anaphylaxis Verified 11/06/23 14:12 Home Medications ?Medication ?Instructions ?Recorded ?Confirmed ?Type epinephrine 0.3 mg/0.3 mL 0.3 mg IM ONCE 12/22/22 11/06/23 History injection, auto-injector aspirin 81 mg chewable tablet 81 mg PO DAILY 01/06/23 11/06/23 History ipratropium 20 mcg-albuterol 100 1 puff inhalation Q6H PRN 01/06/23 11/06/23 Rx mcg/actuation mist for inhalation shortness of breath or wheezing #4 (Combivent Respimat) grams amlodipine 5 mg tablet 5 mg PO DAILY #90 tabs 04/10/23 11/06/23 Rx cholecalciferol (vitamin D3) 25 25 mcg PO DAILY 04/10/23 11/06/23 History mcg (1,000 unit) capsule multivitamin 1 tab PO DAILY 04/10/23 11/06/23 History polyethylene glycol 3350 17 17 g PO DAILY 04/10/23 11/06/23 History gram/dose oral powder (Miralax) sertraline 50 mg tablet 75 mg (1.5 x 50 mg) PO DAILY #135 04/10/23 11/06/23 Rx tabs simvastatin 20 mg tablet 20 mg PO DAILY #90 tabs 04/10/23 11/06/23 Rx tamsulosin 0.4 mg capsule 0.8 mg (2 x 0.4 mg) PO DAILY #180 04/10/23 11/06/23 Rx caps apixaban 5 mg tablet (Eliquis) 5 mg PO BID #180 tabs 04/30/23 11/06/23 Rx potassium chloride 20 mEq 20 meq PO DAILY #90 tabs 07/16/23 11/06/23 Rx tablet,extended release Exam Narrative Exam Narrative: Chronically ill-appearing older gentleman laying in bed in no acute distress, nonrebreather in place, awake, alert, oriented to person only, heart regular rate rhythm, lungs with coarse breath sounds and right lower lobe, abdomen soft, nontender, nondistended Results Labs 11/06/23 14:20 11/06/23 14:20 Labs: Laboratory Results - last 24 hr 11/06/23 11/06/23 14:20 15:20 WBC 18.93 H RBC 5.00 Hgb 13.7 Hct 43.3 MCV 87 MCH 27.4 MCHC 31.6 L RDW 15.4 H Plt Count 182 MPV 12.1 H Immature Gran % 0.5 Neutrophils % 85.9 Lymphocytes % 8.3 Monocytes % 4.8 Eosinophils % 0.2 Basophils % 0.3 Nucleated RBC % 0.0 Absolute Neutrophils 16.26 H Absolute Lymphocytes 1.57 Absolute Monocytes 0.91 H Absolute Eosinophils 0.04 Absolute Basophils 0.06 Sodium 143 Potassium 4.1 Chloride 105 Carbon Dioxide 26.0 Anion Gap 12.0 H BUN 13 Creatinine 1.7 H Est GFR (CKD-EPI 2020) 39.02 Glucose 137 H Calcium 9.5 Magnesium 2.1 Total Bilirubin 0.76 AST < 5 L ALT 17 Alkaline Phosphatase 73 Troponin I < 50 Total Protein 7.3 Albumin 3.8 COVID-19 Source Nasopharynx SARS-CoV-2 (PCR) Negative Influenza Type A (PCR) Negative Influenza Type B (PCR) Negative RSV (PCR) Negative Last Vital Signs Temp 99.9 F H 11/06/23 14:07 Pulse 87 11/06/23 15:01 Resp 22 11/06/23 15:01 BP 134/71 11/06/23 15:01 Pulse Ox 96 11/06/23 15:25 Time Spent Time spent with Patient: >75 minutes Time was spent: preparing to see the patient(eg.review tests), obtaining and/or reviewing separately otained hiistory, ordering medications,tests, procedures, referring, communicating with other health care information associate, indepentently interpreting results, counseling the patient and care coordination
[2023-11-06] MEDS: AMPICILLIN/SULBACTAM 3 GM in Normal Saline 100 ML IVPB (16:15)
[2023-11-06] MEDS: Azithromycin 250 MG TAB 500 MG PO (16:16)
[2023-11-06] MEDS: Nicotine 21 MG/24 HR PATCH TD (18:32)
[2023-11-06] MEDS: Simvastatin 20 MG TAB PO (20:29)
[2023-11-06] MEDS: Normal Saline Flush 10 ML SYR IVP (20:29)
[2023-11-06] MEDS: Apixaban 5 MG TAB PO (20:29)
[2023-11-06] MEDS: Acetaminophen 325 MG TAB PO (20:36)
[2023-11-07] VITALS (71 sets, daily range): BP systolic 110–139; BP diastolic 59–84; PULSE 64–89; RESP 13–26; TEMP 36.5–37.7; O2SAT 87–95
[2023-11-07] MEDS: AMPICILLIN/SULBACTAM 3 GM in Normal Saline 100 ML IVPB ×2 (04:22→16:21)
[2023-11-07] MEDS: Normal Saline 10 ML VIAL IJ (04:28)
[2023-11-07] MEDS: Normal Saline Flush 10 ML SYR IVP ×3 (05:01→20:46)
[2023-11-07 06:59] LABS: HCT 35.1 % (40.0-50.0); HGB 11.3 g/dL (13.5-17.5); MCH 27.6 pg (27.0-33.0); MCHC 32.2 % (32.0-36.0); MCV 86 fL (80-95); Platelet Count 135 10^3/uL (130-400); RBC 4.09 10^6/uL (4.36-5.78); RDW 15.4 % (11.8-14.1); RDW-SD 48.1 fL; WBC 14.42 10^3/uL (4.4-10.8)
[2023-11-07 07:09] LABS: BUN 13 mg/dL (7-18); CREATININE 1.4 mg/dL (0.70-1.30); Calcium 9.3 mg/dL (8.5-10.1); Chloride 108 mmol/L (98-107); Estimated GFR 49.25 (mL/min/1.73m2); Glucose 97 mg/dL (74-106); Potassium 3.4 mmol/L (3.5-5.1); Sodium 144 mmol/L (136-145)
[2023-11-07] MEDS: Polyethylene Glycol 3350 17 GM PACKET PO (08:25)
[2023-11-07] MEDS: Nicotine 21 MG/24 HR PATCH TD (08:25)
[2023-11-07] MEDS: Potassium Chloride 20 MEQ TABCR PO (08:26)
[2023-11-07] MEDS: Sertraline 25 MG TAB 75 MG PO (08:26)
[2023-11-07] MEDS: Aspirin 81 MG CHEW PO (08:26)
[2023-11-07] MEDS: Cholecalciferol (Vitamin D3) 1,000 UNIT TAB 1000 UNITS PO (08:26)
[2023-11-07] MEDS: Tamsulosin 0.4 MG CAPCR 0.8 MG PO (08:26)
[2023-11-07] MEDS: amLODIPine 5 MG TAB PO (08:27)
[2023-11-07] MEDS: Multivitamin TAB 1 TAB PO (08:27)
[2023-11-07] MEDS: Apixaban 5 MG TAB PO ×2 (08:27→20:45)
--- NOTE | 2023-11-07 08:56 | INITIAL_ITS ---
Date of service: 11/07/23 Time of Service: 08:57 Care Management Initial Assmt Initial Assessment Reason for Hospitalization: sepsis with pneumonia Functional Status/Living Situation Patient Presentation: Jerrod was sleeping when CM went to see him. CM did not wake him as his daughter Shawna was available to provide information. Jerrod was admitted with aspiration pneumonia and sepsis. He has dementia at baseline and was more confused than baseline per Shawna. Jerrod lives in his own home in [place]. He has 24/7 privately paid caregivers who have been with the family for many years. They first cared for his before she 4 years ago and have been caring for him since. Jerrod requires total care, including bathing, dressing and toileting. He can ambulate for very short distances with a cane or walker with a gait belt and someone to assist. He has 3 children who live locally and who regularly check on him and visit. 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 Town of Residence: [place] Resides with: Other (/ caregivers) Significant Other/Family: Local Employment Status: Retired Instrumental Activities of Daily Living (ADLs): Requires support (needs help with all ADLs) with Dishes/food prep, Groceries and Transportation Medications Medication Management: No Issues/Barriers identified Physical Functioning/Mobility Assistive Device: cane, walker and other assistive equipment Advance Directives Advance Directives: Do you have an Advance Directive: Y 01/12/23 21:[address] [facility]: Y 11/17/17 08:10 Date Asked 11/06/23 11/06/23 14:17 AD Date Reviewed 07/29/23 07/29/23 11:[address] [facility] Yes 01/12/23 21:09 COLST Date Scanned 01/06/23 01/12/23 21:09 Comment: Angelique Rhoades Code Status Resuscitation Status DNR/DNI Portal Pt does not currently have a portal and education provided: No Insurance Coverage/Financial Issues Insurance: Medicare [facility] Care Team Visit Care Team Role Provider Type Molly Powers NP Primary Care Provider NURSE PRACTITIONER Prabhakar Major MD Emergency Provider [facility] STAFF PHYSICIAN Tejinder Reddy MD Admit Provider [facility] STAFF PHYSICIAN Attending Provider Discharge Potential Discharge Needs: PCP F/U Appt Anticipated Barriers to Discharge: None Identified Patient/Family Education Needs: Review discharge instructions, discuss Ask Me Three Transportation: Private vehicle Plan: Anticipate Jerrod will return home when medically cleared, possibly with new home health services for PT and OT. He will follow up with his PCP and plan of care and transport with family.CM will follow and continue to assess for d ischarge needs. PFSH All Active Problems (Updated 11/06/23 @ 17:28 by AME RIVERO) Pneumonia (Acute) Acute on chronic respiratory failure with hypoxia (Acute) HTN (hypertension) (Chronic) RAMIN (acute kidney injury) (Acute) Aspiration pneumonia (Acute) Severe sepsis (Acute) TIA (transient ischemic attack) (Acute) Pulmonary embolism (Chronic ~10/2018) Bladder diverticulum (Acute) Nicotine dependence (Acute) Hypercalcemia (Acute) Left femoral vein DVT (Acute) Chronic respiratory failure with hypoxia (Chronic) Osteopenia (Chronic) Diverticulosis of colon (Chronic) Medical History Interstitial lung disease Generalized anxiety disorder BPH w urinary obs/LUTS History of thromboembolism P.E., DVT 2019 Hyperlipidemia Hypertension Cognitive impairment Suspect dementia, declines neurology consult CVA (cerebral vascular accident) (~09/2018) Right posterior internal capsule ischemic stroke Surgical History Status post left hip replacement History of appendectomy (07/16/20) Family History Mother Dementia Father No problems noted. Daughter No problems noted. Daughter No problems noted. Son No problems noted. Maternal Grandfather No problems noted. Maternal Grandmother No problems noted. Paternal Grandfather No problems noted. Paternal Grandmother No problems noted. Brother Alcohol use disorder Colon cancer Hyperlipidemia Hypertension Diabetes Social History Smoking/Tobacco Use Status: Former Tobacco Use tobacco type: cigarettes and smokeless tobacco Quit Date: 04/14/85 Smokeless tobacco user: snuff Second Hand Exposure: Yes Smoking risk assessment performed?: Yes Alcohol Intake: former Drug use: Never Substance use type: does not use Counseling given: No Adopted: No Caregiver/Support person: Yes Foster care: No Household members: caregiver Housing: house Number of Children: 3 number of grandchildren: 7 Communication Needs: None Education Level: high school Do you need help understanding health information?: Never 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 Pets and animals: Yes Pets and animals: dog(s) Sexually active: No Do you think of yourself as: straight/heterosexual Current gender identity: male What is your relationship status?: How often do you talk on the phone with friends or family?: three or more times per week How often do you get together with friends or relatives?: three or more times per week How often do you attend faith or moravian services?: 4 or more times per year Do you belong to any clubs or organized social groups?: no Panel score (0-1 are the most socially isolated patients): 3 What type of physical activity do you participate in: walking and regular exercise Duration: 45-60 minutes/day Frequency: daily Tamela/Hoahaoism: Religion Special tamela needs: No Agree to transfusion: Yes Seatbelt use: always Drive intox or ride w/intox bus van driver: No Working smoke detector in home: Yes Carbon monox detector in home: Yes Firearms in home: Yes Firearms unloaded and locked: Yes Do you feel safe at home: Yes Victim of physical abuse: No Victim of emotional abuse: No Victim of sexual abuse: No Would you like helpful sources: No SDOH(Care Management) Screening Will the Patient Participate in the Screening?: Yes Do you worry about having a steady place to live?: no Problems where you live: no known problems In the past 12 months, have you had to go without electric, gas, oil or water in your home?: no Have you or anyone in your house had to go without enough food to eat?: no Has lack of transportation kept you from medical appointments or from doing things needed for daily living?: no Has anyone in your support network made you feel unsafe for any reason?: no
--- NOTE | 2023-11-07 10:39 | W.PM.PROGNOT ---
Date of Service Date of service: 11/07/23 Time of Service: 10:39 Assessment and Plan Assessment and plan (1) Severe sepsis: Status: Acute Assessment and plan: -Patient meets criteria for severe sepsis with heart rate greater than 90, white blood cell count of 18, suspected source of infection being right lower lobe aspiration pneumonia given history of aspiration, and an RAMIN with a creatinine of 1.7 (baseline 1.4) -Patient started on Unasyn and azithromycin in the emergency department, will continue Unasyn for coverage of aspiration pneumonia -WBC 14, down from 18 on admission -f/u AM CBC (2) Aspiration pneumonia: Status: Acute Assessment and plan: - As noted above (3) Acute on chronic respiratory failure with hypoxia: Status: Acute Assessment and plan: -had required up to 10 L OxyMask -down to 2L NC AM 11/06 -Wean as tolerated with goal oxygen saturation greater than 90% -Discharge from previous hospitalization patient was documented as having chronic hypoxic respiratory failure though family states they have oxygen at home but patient does not use it -Will continue to monitor oxygen requirements set up patient with home oxygen if unable to completely wean off of supplemental oxygen during this hospitalization (4) RAIMN (acute kidney injury): Status: Acute Assessment and plan: - As noted above -Will follow-up a.m. BMP (5) Left femoral vein DVT: Status: Acute Assessment and plan: - History of left femoral DVT -Continue home Eliquis Qualifiers: Chronicity: acute Qualified Code(s): I82.412 - Acute embolism and thrombosis of left femoral vein (6) HTN (hypertension): Status: Chronic Assessment and plan: - Continue home amlodipine (7) Generalized anxiety disorder: Assessment and plan: Continue home sertraline (8) Cognitive impairment: (9) Interstitial lung disease: Assessment and plan: - Continue home inhaler regimen Subjective Subjective Interval history since last seen: Patient sitting up eating with the assistance of INFORMATICA ARCHITECT and states that he is feeling well today. Exam Narrative Exam Narrative: well appearing older gentleman laying in bed in no acute distress, nonrebreather in place, awake, alert, oriented to person only, heart regular rate rhythm, lungs with coarse breath sounds and right lower lobe, abdomen soft, nontender, nondistended Objective Last Vital Signs Temp 97.7 F 11/07/23 08:01 Pulse 66 11/07/23 08:01 Resp 22 11/07/23 08:01 BP 133/64 11/07/23 08:01 Pulse Ox 92 11/07/23 08:08 Laboratory Results - last 24 hr 11/06/23 11/06/23 11/07/23 14:20 15:20 05:30 WBC 18.93 H 14.42 H RBC 5.00 4.09 L Hgb 13.7 11.3 L D Hct 43.3 35.1 L MCV 87 86 MCH 27.4 27.6 MCHC 31.6 L 32.2 RDW 15.4 H 15.4 H Plt Count 182 135 MPV 12.1 H 13.0 H Immature Gran % 0.5 Neutrophils % 85.9 Lymphocytes % 8.3 Monocytes % 4.8 Eosinophils % 0.2 Basophils % 0.3 Nucleated RBC % 0.0 Absolute Neutrophils 16.26 H Absolute Lymphocytes 1.57 Absolute Monocytes 0.91 H Absolute Eosinophils 0.04 Absolute Basophils 0.06 Sodium 143 144 Potassium 4.1 3.4 L Chloride 105 108 H Carbon Dioxide 26.0 27.0 Anion Gap 12.0 H 9.0 BUN 13 13 Creatinine 1.7 H 1.4 H Est GFR (CKD-EPI 2020) 39.02 49.25 Glucose 137 H 97 Calcium 9.5 9.3 Magnesium 2.1 2.0 Total Bilirubin 0.76 AST < 5 L ALT 17 Alkaline Phosphatase 73 Troponin I < 50 Total Protein 7.3 Albumin 3.8 COVID-19 Source Nasopharynx SARS-CoV-2 (PCR) Negative Influenza Type A (PCR) Negative Influenza Type B (PCR) Negative RSV (PCR) Negative Time Spent with Patient Time Spent with Patient: >50 minutes Time was spent: preparing to see the patient(eg.review tests), obtaining and/or reviewing separately otained hiistory, ordering medications,tests, procedures, referring, communicating with other health healthcare network pricing consultant, indepentently interpreting results, counseling the patient and care coordination
--- NOTE | 2023-11-07 11:46 | IN_ITS ---
PT Notes Visit Reasons: severe sepsis,aspiration,PNA,acute hyp resp failur Inpatient Physical Therapy Evaluation Date: 11/07/23 Referring Doctor: Dr. Reddy PT Orders: PT CONSULT: limited ability to ambulate Precautions: fall, standard Patient Profile/Admitting Diagnosis: Patient admitted 11/06/23 for acute management of severe sepsis secondary to presumed aspiration pneumonia with acute hypoxic respiratory failure. PT orders received today. Social History/Home Situation: Jerrod lives in [place] with 04/11 caregivers, coordinated by his daughters, one of whom is present and supportive during evaluation. Jerrod requires support for his ADLs due to multiple strokes with left hemiparesis. His daughter reports that he typically ambulates with a cane or a platform walker and assist of one. He also requires assist of one for bed mobility, utilizing a trapeze with RUE. He has had intermittent PT through , and his caregivers carry out daily exercises with him. Equipment Owned/DME: cane, platform walker, trapeze Subjective: Jerrod is agreeable to PT intervention. Objective: General Observation: Resting in bed, with bolsters and pillows positioning him in partial right sidelying. He has supplemental O2 via nasal cannula, and IV in RUE. Monitored on telemetry and pulse oximetry. Mental Status: Alert throughout session. Pleasant and cooperative. Able to follow commands throughout session. Pain: denies Vital Signs: Resting O2 saturations in low 90s. With bed exercises, he desaturates to 87%, recovering back to 90s with cues for breathing. During transfer, he desaturates to 78%, requiring seated rest to recover. ROM: Right Upper Extremity: Passive shoulder flexion allows 100*. Elbow and wrist motion WFL. Left Upper Extremity: Passive shoulder flexion allows 90*. Elbow and wrist motion WFL. Hand clasped in full oncology physician assistant (amputated first digit), and passively able to open ~75%. Right Lower Extremity: WFL Left Lower Extremity: WFL Strength: Right Upper Extremity: Shoulder flexion 3-/5, with scapular hiking. Biceps 4/5. Triceps 3+/5. Window Caser is weak. Left Upper Extremity: Shoulder flexion 2/5. Biceps 3-/5. Triceps 3-/5. Unable to actively open hand. Right Lower Extremity: Hip flexion 3/5. Hip AB 3/5. Quads 4/5. HS 3/5. Ankle DF 3/5. Left Lower Extremity: Hip flexion 3/5. Hip AB 3-/5. Quads 4/5. HS 3/5. Ankle DF 3/5. Bed Mobility/Transfers: supine-sit: mod A x 3 sit-stand: mod A x 2 stand-sit: mod A x 2, with limited safety awareness and need for continuous cues for positioning bed-chair: mod A x 2 via stand step with hemiwalker on right, with significant left trunk lean and reliance on assistance for management of hemiwalker Gait: unable Balance: Static Sitting: fair, requiring mod cues for neutral positioning, and frequent external support due to left trunk lean. Requires pillow positioning in chair to support trunk Dynamic Sitting: poor Static Standing: poor Dynamic Standing: poor Special Tests: Mobility Limitations Standardized Measure [facility] AM-PAC 6 clicks Basic Mobility Inpatient Short Form: Raw Score: 10 CMS Score: 77% impairment Informed Consent/Education: Patient instructed in purpose of PT consult and plan of care. Treatment: Initial Evaluation (49684) Therapeutic Exercises (40120r3): Instructed in the following: ankle pumps 10x SAQ 10x each SLR 10x each LAQ 10x each seated ankle pumps 10x seated march 10x right shoulder flexion (punch out within limited range) 10x Assessment: Patient is an 83 year old male referred to physical therapy service s with the diagnosis of severe sepsis secondary to presumed aspiration pneumonia with acute hypoxic respiratory failure. He has baseline mobility impairments related to left hemiparesis, and has round the clock care in his home, with very supportive family managing. He demonstrates limitations in functional mobility today below his baseline level of mobility, and requires PT intervention to maximize participation and activity tolerance to allow for safe transition back home with caregiver support. He currently demonstrates the following impairment level findings: 1. left hemiparesis with weakness LUE>LLE 2. decreased static and dynamic balance 3. decreased safety awareness 4. decreased activity tolerance, with significant oxygen desaturation during transfers Impairments are contributing to the following functional limitations: 1. unable to perform baseline bed mobility (min A x 1) 2. unable to perform baseline transfer (min A x 1 with cane) 3. unable to sit independently 4. unable to ambulate Patient is assessed as Moderate 62972 complexity based on the following: History: As above Examination: functional limitations as noted above Presentation: evolving due to acute medical issues (severe sepsis) Decision Making: moderate complexity Goals: Goals X1 week 1. Supine-Sit : min A x 2 (use of trapeze at home with min A x 1) 2. Sit-Supine : min A x 2 3. Sit-Stand : min A x 1 4. Stand-Sit : min A x 1 5. Bed-Chair : min A x 1 with hemiwalker or cane 6. Chair-Bed : min A x 1 with hemiwalker or cane 7. Gait : min A x 1 with hemiwalker or cane x 20' Plan of Care/Treatment Plan: 1-2x/day, 7 days/week x 1 week. Plan of care has been reviewed with the WATER TREATMENT PLANT ENGINEER providing the service under Physical Therapy direction. Initiate Physical Therapy intervention for strengthening, bed mobility, transfers, gait, stairs, balance training, use of assistive device. DISCHARGE RECOMMENDATIONS: Home with PT TREATMENT CODE/TIME: 72873, 57775 ([id number]) Corrie Deras, PT, DPT [facility] All Active Problems (Updated 11/06/23 @ 17:28 by AME RIVERO) Pneumonia (Acute) Acute on chronic respiratory failure with hypoxia (Acute) HTN (hypertension) (Chronic) RAMIN (acute kidney injury) (Acute) Aspiration pneumonia (Acute) Severe sepsis (Acute) TIA (transient ischemic attack) (Acute) Pulmonary embolism (Chronic ~10/2018) Bladder diverticulum (Acute) Nicotine dependence (Acute) Hypercalcemia (Acute) Left femoral vein DVT (Acute) Chronic respiratory failure with hypoxia (Chronic) Osteopenia (Chronic) Diverticulosis of colon (Chronic) Medical History Interstitial lung disease Generalized anxiety disorder BPH w urinary obs/LUTS History of thromboembolism P.E., DVT 2019 Hyperlipidemia Hypertension Cognitive impairment Suspect dementia, declines neurology consult CVA (cerebral vascular accident) (~09/2018) Right posterior internal capsule ischemic stroke Surgical History Status post left hip replacement History of appendectomy (07/16/20)
--- NOTE | 2023-11-07 13:40 | PT.INTREAT ---
PT Notes Visit Reasons: severe sepsis,aspiration,PNA,acute hyp resp failur Inpatient Physical Therapy Treatment Note [facility] Date: 11/07/23 PRECAUTIONS:fall, standard SUBJECTIVE: Jerrod's daughter reports that he seems to be getting tired. Jerrod nods in agreement that he'd like to go back to bed. OBJECTIVE: ? VITALS: ? During transfer, Jerrod desaturates to low 80s while on 3LPM via nasal cannula. Requires supplementation at 5LPM via mask for recovery, as managed by nursing. Therapeutic Activities ([id number]): Direct one-on-one instruction in dynamic activities to improve functional performance. ? BED MOBILITY/TRANSFERS? Rolling L/R: max A x 2? Sit-supine: max A x 2 ? Sit-stand: mod A x 2? Stand-sit: mod A x 2 ? Bed-Chair: mod A x 2 with hemiwalker on right side. Cues for sequencing throughout. Limited safety awareness, requiring step by step cues for foot placement and hemiwalker advancement. ? ASSESSMENT:? Improved tolerance to transfer. PLAN: Continue progressive strengthening and ambulation. TREATMENT CODE/TIME: [id number] (40128) DISCHARGE RECOMMENDATION: home with caregiver support
--- NOTE | 2023-11-07 16:09 | CHAPLAIN ---
Jerrod was resting in bed when I visited. His daughter was with him. He's from [place], [place], and connected to the [employer] there. I explained my role and offered support and will continue to visit.
--- NOTE | 2023-11-07 16:21 | SP_ITS ---
Date of service: 11/07/23 Time of Service: 16:21 Subjective Clinical (Bedside) Swallow Evaluation Speech Language Pathology Referred by: Dr. Reddy Referral Type: Clinical Swallow Evaluation Start time: 13:45 End time: 14:15 Total length of session: 30 minutes Reason for Referral/HPI: Jerrod Teran is an 83 yo male with PMH significant for hx posterior ICA CVA in September 2018 (daughter reports hx 4 CVAs in total, though September 2018 was most significant), cognitive impairment, interstitial lung disease, aspiration pneumonia (04/2023 admitted to [facility]), Jerrod has / caregiver aid support and is 1:1 feed assist for all PO. On previous hospitalization he was evaluated by CUSTOMER ASSISTANCE REPRESENTATIVE with consideration of MBSS but family decided against it at that time. He is now admitted with sepsis for presumed R LL pneumonia with hypoxic respiratory failure. CUSTOMER ASSISTANCE REPRESENTATIVE IMPRESSIONS & RECOMMENDATIONS: Jerrod presents with stable chronic mild- moderate oral pharyngeal dysphagia, though at heightened risk of aspiration at this time due to respiratory failure and acute medical status. Dysphagia judged to be residual from history of CVA. Patient has had sparse lower dentition completely removed since last hospitalization, and is in process of obtaining lower dentures. He has full upper dentures as well. Oral mechanism assessment is remarkable for mild lingual palate asymmetry (as baseline). Patient was unwilling to take any solid PO trials with CUSTOMER ASSISTANCE REPRESENTATIVE this date but per family and nursing, he appears to tolerate soft/bite size solids (baseline diet) without any s/sx aspiration. He does not cough with thin liquids at home, and nursing does not report this at this time either. Per discussion with his daughter, they do their best to keep him fully upright for meals but they have a rotation of paid caregivers who assist with feeding and sometimes this is forgotten. He also has water within reach at all times and often remains very reclined for liquid intake. He also chews tobacco at home. Patient/caregivers perform oral care BID at baseline. Patient does recline himself after meals are complete. Question if there is reflux aspiration component. Also given this is second instance of aspiration pna, provided education with Jerrod/family regarding increasing frequency of oral care, remaining upright after meals, and further re commendations as below. Patient's family is not interested in MBSS at this time, but may consider this once he is feeling better. MBSS may be useful in determine likelihood of prandial vs post-prandial aspiration and to further identify appropriate modifications/risk management approaches. FURTHER CUSTOMER ASSISTANCE REPRESENTATIVE SERVICES: Patient to be followed while on unit. Consider inpatient vs outpatient MBSS. Recommend HH CUSTOMER ASSISTANCE REPRESENTATIVE once discharged. Recommendations: ? SOLIDS: 6-Soft & Bite-Sized Solids LIQUIDS: 0-Thin Liquids MEDICATIONS: Whole with Puree (yogurt/applesauce) RISK MANAGEMENT: HOB upright as tolerated; upright for all PO intake. Encourage physical mobility as tolerated. Oral hygiene before/after meals using friction with toothbrush on all oral structures as tolerated Level of Assistance/Supervision: Assistive feeding by trained staff/family Direct supervision with solids, intermittent supervision with liquids Strategies/Adaptations/Assistive Equipment: Reduce auditory and/or visual distractions when eating Provide verbal and/or visual cues to use recommended strategies Small sips and bites when eating Slow rate of intake Posture/Positioning Needs: Maintain upright position at least 30-60 minutes after meals Avoid meals/snacks 2-3 hours prior to reclining/sleeping Sleep with head of bed elevated to reduce likelihood of nocturnal reflux Education Provided to: Patient, Daughter, Nursing Topics Addressed: anatomy/physiology of swallowing mechanism, overt s/sx to monitor for re: potential aspiration of food / liquids, role of CUSTOMER ASSISTANCE REPRESENTATIVE, consideration of MBSS SUBJECTIVE: Patient received awake/alert, agreeable to evaluation Pain Reported? none Baseline Swallow Function: Patient denies difficulty. Daughter reports frequent throat clearing throughout the day, postnasal drip, coughing after lying down. Denies difficulty tolerating liquids, solids. She does not believe food gets stuck in his throat. Reports minimal coughing with PO intake. Takes pills in yogurt at home without difficulty. OBJECTIVE: Oral Mechanism Examination: Dentition: upper dentures in place, absent lower dentition. Oral mucosa is moist. Cranial Nerve Assessment: CN V ? Trigeminal Jaw Strength/ROM WNL ?WNL CN VII- Facial WNL labial ROM, strength, reduced coordination. abn CN IX ? Glossopharyngeal Palate rises on phonation but assymetrically to left abn CN X ? Vagus Delayed swallow initiation abn CX XII ? Hypoglossal Mildly decreased with protrusion to R side abn PO Trials Assessed: IDDSI 0 Thin Liquids via tsp, straw Oral Phase Findings: Difficulty chewing (reported, not observed) Otherwise WFL for thin liquids Pharyngeal Phase Findings: Delayed swallow initiation Reduced hyolaryngeal elevation/excursion SUSPECTED ? [place] Swallow Protocol Results: PASS PLAN: Frequency: 2-3x/week for 1-2 weeks Goals: Showroom Consultant Goals: Patient will remain free from aspiration-related illness, malnutrition, and dehydration. Short Term Goals: Patient will tolerate L6 Soft Bite Size Diet and Thin liquids without overt s/s aspiration across 2/2 visits. Patient will tolerate PO trials for consideration of diet upgrade without overt s/s aspiration across 2/2 visits.
[2023-11-07] MEDS: Acetaminophen 325 MG TAB PO (20:45)
[2023-11-07] MEDS: Simvastatin 20 MG TAB PO (20:46)
[2023-11-08 00:01] VITALS: BP 131/74; PULSE 68; PULSE 69; RESP 18; O2SAT 93
[2023-11-08 02:00] VITALS: PULSE 73; RESP 20; TEMP 36.4; O2SAT 92
[2023-11-08 04:02] VITALS: BP 127/69; PULSE 73; PULSE 74; RESP 19; O2SAT 91
[2023-11-08] MEDS: AMPICILLIN/SULBACTAM 3 GM in Normal Saline 100 ML IVPB (04:39)
[2023-11-08] MEDS: Normal Saline Flush 10 ML SYR IVP ×2 (05:43→08:28)
[2023-11-08 06:02] LABS: HCT 34.6 % (40.0-50.0); MCH 27.4 pg (27.0-33.0); MCHC 31.8 % (32.0-36.0); MCV 86 fL (80-95); MPV 12.8 fL (8.0-11.0); Platelet Count 134 10^3/uL (130-400); RBC 4.02 10^6/uL (4.36-5.78); RDW 15.3 % (11.8-14.1); RDW-SD 48.8 fL; WBC 11.22 10^3/uL (4.4-10.8)
[2023-11-08 06:14] LABS: Anion Gap 7.3 mmol/L (3-11); BUN 14 mg/dL (7-18); CO2 27.7 mmol/L (21.0-32.0); CREATININE 1.2 mg/dL (0.70-1.30); Calcium 8.8 mg/dL (8.5-10.1); Chloride 108 mmol/L (98-107); Estimated GFR 59.26 (mL/min/1.73m2); Glucose 90 mg/dL (74-106); Potassium 3.4 mmol/L (3.5-5.1); Sodium 143 mmol/L (136-145)
[2023-11-08] MEDS: Nicotine 21 MG/24 HR PATCH TD (07:53)
[2023-11-08] MEDS: amLODIPine 5 MG TAB PO (07:54)
[2023-11-08] MEDS: Sertraline 25 MG TAB 75 MG PO (07:54)
[2023-11-08] MEDS: Multivitamin TAB 1 TAB PO (07:54)
[2023-11-08] MEDS: Aspirin 81 MG CHEW PO (07:54)
[2023-11-08] MEDS: Polyethylene Glycol 3350 17 GM PACKET PO (07:54)
[2023-11-08] MEDS: Potassium Chloride 20 MEQ TABCR PO (07:55)
[2023-11-08] MEDS: Tamsulosin 0.4 MG CAPCR 0.8 MG PO (07:55)
[2023-11-08] MEDS: Apixaban 5 MG TAB PO (07:55)
[2023-11-08] MEDS: Cholecalciferol (Vitamin D3) 1,000 UNIT TAB 1000 UNITS PO (07:55)
--- NOTE | 2023-11-08 10:22 | W.PM.DS.N ---
Date of service: 11/08/23 Time of Service: 10:22 DS: Diagnosis Discharge Diagnosis (1) Severe sepsis: Status: Acute Asessment and Plan: -Patient met criteria for severe sepsis with heart rate greater than 90, white blood cell count of 18, suspected source of infection being right lower lobe aspiration pneumonia given history of aspiration, and an RAMIN with a creatinine of 1.7 (baseline 1.4) -Patient started on Unasyn and azithromycin in the emergency department, -unasyn was continued during hospitalization, but patient will transition to PO augmentin for an additional 4 days of treatment -WBC 14, down from 18 on admission (2) Aspiration pneumonia: Status: Acute (3) Acute on chronic respiratory failure with hypoxia: Status: Acute Asessment and Plan: -had required up to 10 L OxyMask -down to 2L NC AM 11/06 and to room air as of PM 11/06 -Wean as tolerated with goal oxygen saturation greater than 90% -Discharge from previous hospitalization patient was documented as having chronic hypoxic respiratory failure though family states they have oxygen at home but patient does not use it (4) RAMIN (acute kidney injury): Status: Acute Asessment and Plan: -back to baseline (5) Left femoral vein DVT: Status: Acute Asessment and Plan: -continue home eliqus (6) HTN (hypertension): Status: Chronic (7) Generalized anxiety disorder: (8) Cognitive impairment: (9) Interstitial lung disease: Discharge Plan Disposition Patient Disposition: Home Condition: Good Discharge Details Reason For Visit: severe sepsis,aspiration,PNA,acute hyp resp failur Admit Date/Time: 11/06/23 16:12 Admit Provider: Tejinder Reddy Attending Provider: Tejinder Reddy Primary Care Provider: Molly Powers Hospital Course Hospital Course: Patient presented initially with signs and symptoms that were ultimately determined to be consistent with severe sepsis secondary to aspiration pneumonia. He was treated with IV Unasyn and had significant improvement of his symptoms very rapidly returned to his baseline mental and functional status. Given that the patient has very close family support and 04/11 caregivers who are comfortable with patient returning home and in combination with his rapid clinical improvement, is determined that the patient was stable for discharge home and will continue his antibiotic regiment with p.o. Augmentin. Home Meds and New Rx's Prescriptions: New amoxicillin-pot clavulanate [Augmentin XR] 1,000-62.5 mg tablet extended release 12 hr 1 tab PO BID 4 Days Qty: 8 0RF Continued cholecalciferol (vitamin D3) 25 mcg (1,000 unit) capsule 25 mcg PO DAILY multivitamin Tablet 1 tab PO DAILY polyethylene glycol 3350 [Miralax] 17 gram/dose powder 17 g PO DAILY amlodipine 5 mg tablet 5 mg PO DAILY Qty: 90 3RF sertraline 50 mg tablet 75 mg PO DAILY Qty: 135 3RF simvastatin 20 mg tablet 20 mg PO DAILY Qty: 90 3RF tamsulosin 0.4 mg capsule 0.8 mg PO DAILY Qty: 180 3RF Eliquis 5 mg tablet 5 mg PO BID Qty: 180 3RF Combivent Respimat 20-100 mcg/actuation mist 1 puff inhalation Q6H PRN (Reason: shortness of breath or wheezing) Qty: 4 3RF aspirin 81 mg tablet,chewable 81 mg PO DAILY potassium chloride 20 mEq tablet extended release 20 meq PO DAILY Qty: 90 3RF epinephrine 0.3 mg/0.3 mL Auto-Injector 0.3 mg IM ONCE Rx Instructions: as a single dose; may repeat once Discharge Instructions Activity:: Activity as Tolerated Equipment/Supplies:: No Equipment Needed Diet:: As Tolerated Discharge Orders Discharge Orders: Discharge Order (Routine); Ordered 11/08/23 Ordered By: Tejinder Reddy DS: Summary Time Spent with Patient providing and/or coordinating discharge services: Greater than 30 minutes Status at Discharge Functional status at discharge: independent ambulation Overall status at discharge: patient is back to baseline Mental Status: mental status grossly normal Speech and Movement: speech and movement normal Mood: congruent mood Affect: normal affect Quality:SDOH Health Related Social Needs: No Data to Display Exam Narrative Exam Narrative: well appearing older gentleman laying in bed in no acute distress, nonrebreather in place, awake, alert, oriented to person only, heart regular rate rhythm, lungs with coarse breath sounds and right lower lobe, abdomen soft, nontender, nondistended Psych Mental Status: mental status grossly normal Speech and Movement: speech and movement normal Mood: congruent mood Affect: normal affect DS: Data Vitals/I&O Vitals and I&O: Vital Signs Temperature 97.5 F L 11/08/23 02:00 Temperature Source Temporal Artery Scan 11/07/23 20:15 Pulse 73 11/08/23 04:02 Pulse Rhythm Regular 11/08/23 02:45 Pulse 74 11/08/23 04:02 Respiratory Rate 19 11/08/23 04:02 Respiratory Effort Normal 11/08/23 07:28 Respiratory Depth Normal 11/08/23 07:28 Respiratory Pattern Normal 11/08/23 07:28 Blood Pressure 127/69 11/08/23 04:02 Blood Pressure Mean 88 11/08/23 04:02 Pulse Oximetry 91 L 11/08/23 04:02 Oxygen Delivery Method Nasal Cannula 11/07/23 23:33 Oxygen Flow Rate 1 11/07/23 23:33 Pain Level 2 11/07/23 20:45 Intake & Output 11/07/23 11/08/23 11/08/23 17:59 05:59 17:59 Intake Total 1010 / 1010 340 / 340 Output Total 395 / 395 900 / 1295 125 / 125 Balance 615 / 615 -900 / -285 215 / 215 Intake: IV 110 / 110 100 / 100 Oral 900 / 900 240 / 240 Output: Urine 395 / 395 900 / 1295 125 / 125 Other: Urine Color Yellow Yellow Yellow Urine Appearance Clear Clear Clear Urine Odor Normal Comment pt was also incontinent other than the 100 out with urinary incont Voiding Methods Urinal Urinal Data Completed and Pending Labs on day of discharge: Labs from last 24 hours 11/08/23 05:50 WBC 11.22 H RBC 4.02 L Hgb 11.0 L Hct 34.6 L MCV 86 MCH 27.4 MCHC 31.8 L RDW 15.3 H Plt Count 134 MPV 12.8 H Sodium 143 Potassium 3.4 L Chloride 108 H Carbon Dioxide 27.7 Anion Gap 7.3 BUN 14 Creatinine 1.2 Est GFR (CKD-EPI 2020) 59.26 Glucose 90 Calcium 8.8 PFSH All Active Problems (Updated 11/06/23 @ 17:28 by AME RIVERO) Pneumonia (Acute) Acute on chronic respiratory failure with hypoxia (Acute) HTN (hypertension) (Chronic) RAMIN (acute kidney injury) (Acute) Aspiration pneumonia (Acute) Severe sepsis (Acute) TIA (transient ischemic attack) (Acute) Pulmonary embolism (Chronic ~10/2018) Bladder diverticulum (Acute) Nicotine dependence (Acute) Hypercalcemia (Acute) Left femoral vein DVT (Acute) Chronic respiratory failure with hypoxia (Chronic) Osteopenia (Chronic) Diverticulosis of colon (Chronic) Medical History Interstitial lung disease Generalized anxiety disorder BPH w urinary obs/LUTS History of thromboembolism P.E., DVT 2019 Hyperlipidemia Hypertension Cognitive impairment Suspect dementia, declines neurology consult CVA (cerebral vascular accident) (~09/2018) Right posterior internal capsule ischemic stroke Surgical History Status post left hip replacement History of appendectomy (07/16/20) Family History Mother Dementia Father No problems noted. Daughter No problems noted. Daughter No problems noted. Son No problems noted. Maternal Grandfather No problems noted. Maternal Grandmother No problems noted. Paternal Grandfather No problems noted. Paternal Grandmother No problems noted. Brother Alcohol use disorder Colon cancer Hyperlipidemia Hypertension Diabetes Social History Smoking/Tobacco Use Status: Former Tobacco Use tobacco type: cigarettes and smokeless tobacco Quit Date: 04/14/85 Smokeless tobacco user: snuff Second Hand Exposure: Yes Smoking risk assessment performed?: Yes Alcohol Intake: former Drug use: Never Substance use type: does not use Counseling given: No Adopted: No Caregiver/Support person: Yes Foster care: No Household members: caregiver Housing: house Number of Children: 3 number of grandchildren: 7 Communication Needs: None Education Level: high school Do you need help understanding health information?: Never 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 Pets and animals: Yes Pets and animals: dog(s) Sexually active: No Do you think of yourself as: straight/heterosexual Current gender identity: male What is your relationship status?: How often do you talk on the phone with friends or family?: three or more times per week How often do you get together with friends or relatives?: three or more times per week How often do you attend hoahaoism or anabaptist services?: 4 or more times per year Do you belong to any clubs or organized social groups?: no Panel score (0-1 are the most socially isolated patients): 3 What type of physical activity do you participate in: walking and regular exercise Duration: 45-60 minutes/day Frequency: daily Tamela/Rastafarian: Mosque Special tamela needs: No Agree to transfusion: Yes Seatbelt use: always Drive intox or ride w/intox regional company hazmat tanker driver: No Working smoke detector in home: Yes Carbon monox detector in home: Yes Firearms in home: Yes Firearms unloaded and locked: Yes Do you feel safe at home: Yes Victim of physical abuse: No Victim of emotional abuse: No Victim of sexual abuse: No Would you like helpful sources: No Time Spent with Patient Time Spent with Patient: <45 minutes Time was spent: preparing to see the patient(eg.review tests), obtaining and/or reviewing separately otained hiistory, ordering medications,tests, procedures, referring, communicating with other health career services manager, indepentently interpreting results, counseling the patient and care coordination
--- NOTE | 2023-11-08 10:53 | PDOC.HHF2F_ITS ---
Home Health Referral Home Health Orders Clinical synopsis of why skilled professionals are needed: Dementia, aspiration pneumonia Physical Therapist: Check all that apply Increase strength & endurance for safe mobility at home: Ordered To design/establish home maintenance program: Ordered Home safety evaluation and teaching/gait training including stair management (if applicable): Ordered Other: Continue global strengthening per plan of shelter Bound Status Requires the aid of supportive device (check all that apply): Wheelchair and Walker Encounter Date and Reason: I certify that a FTF encounter for this patient was performed on November 08, 2023 and that such encounter was related to the primary reason the patient requires home health services. The encounter was conducted in the following manner: * By me as the certifying physician, [employer], PA or * By an inpatient physician, [employer]PERINT[employer]ENT or PA during an inpatient stay who communicated findings to me, Certification And Authentication I certify that I composed the above information based on my clinical judgment relating to this patient's medical condition and, if applicable, clinical findings communicated to me by the NPP or inpatient physician who performed the FTF encounter. Name of Provider that will be monitoring home health services: Molly Powers
--- NOTE | 2023-11-08 18:08 | PDOC.CMDIS ---
Date of service: 11/08/23 Time of Service: 18:08 LACE Index Scoring Tool Questions: Length of Stay (in days): 2 Was the patient admitted via the E.D.?: Yes Comorbidities: Cerebrovascular Disease, Chronic Pulmonary Disease and Dementia E.D. Visits: 1 Answers: Total Score: 11 Risk of Readmission: High Risk Care Management Discharge Plan Reason for Hospitalization: pneumonia Discharge Plan: Jerrod will return home when medically cleared with new home health services for PT and OT. He will follow up with his PCP and plan of care and transport with family. Patient/Family Education Needs: Review discharge instructions, activity, limitations, follow up discuss Ask Me Three Services Needed at Discharge: Home Health Care Services SDOH Health Related Social Needs: No Data to Display
== END 2023-11-08 12:12 | disposition home or self-care (01) | DRG 871 ==
LOC: ER 17:23 → ICU 18:33
PROVIDERS: Admitting Provider Family Medicine; Emergency Provider Emergency Medicine; PCP Nurse Practitioner Family; Visit Provider Family Medicine
DX: A41.9 Sepsis, unspecified organism (principal); J69.0 Pneumonitis due to inhalation of food and vomit; J96.21 Acute and chronic respiratory failure with hypoxia; N17.9 Acute kidney failure, unspecified; J84.9 Interstitial pulmonary disease, unspecified; I45.2 Bifascicular block; R65.20 Severe sepsis without septic shock; I10 Essential (primary) hypertension; F41.1 Generalized anxiety disorder; Z86.73 Personal history of transient ischemic attack (TIA), and cerebral infarction without residual deficits; Z86.711 Personal history of pulmonary embolism; K57.30 Diverticulosis of large intestine without perforation or abscess without bleeding; M85.80 Other specified disorders of bone density and structure, unspecified site; E78.5 Hyperlipidemia, unspecified; Z96.642 Presence of left artificial hip joint; F03.90 Unspecified dementia, unspecified severity, without behavioral disturbance, psychotic disturbance, mood disturbance, and anxiety; Z79.01 Long term (current) use of anticoagulants; Z86.718 Personal history of other venous thrombosis and embolism; I49.3 Ventricular premature depolarization
CPT/HCPCS: 00123; 36415; 80048; 80053; 85027; 87637; 92610; 93005; 96361; 96365; 97110; 97116; 97162; 99285; 71046; 83735; 84484; 85025; 93010; 99223; 99233; 99238; J0295

== ENCOUNTER 2024-01-20 21:43 | Outpatient (REF) | payer MEDICARE, SELFPAY ==
[2024-01-20 22:42] LABS: C Diff PCR Negative (Negative)
== END 2024-01-20 21:44 | disposition home or self-care (01) ==
LOC: LBN 21:43
PROVIDERS: PCP Nurse Practitioner Family; Visit Provider Family Medicine
DX: R91.8 Other nonspecific abnormal finding of lung field (principal)
CPT/HCPCS: 87493

== ENCOUNTER 2024-01-28 21:09 | Outpatient (REF) | payer MEDICARE, SELFPAY ==
[2024-01-28 22:06] LABS: Anion Gap 12.4 mmol/L (3-11); BUN 11 mg/dL (7-18); CO2 28.6 mmol/L (21.0-32.0); CREATININE 1.2 mg/dL (0.70-1.30); Calcium 10.4 mg/dL (8.5-10.1); Chloride 107 mmol/L (98-107); Estimated GFR 59.26 (mL/min/1.73m2); Glucose 90 mg/dL (74-106); Potassium 4.1 mmol/L (3.5-5.1); Sodium 148 mmol/L (136-145)
[2024-01-28 22:07] LABS: Abs Immature Grans 0.02 10^3/uL (0.0-0.06); Absolute Basophil Count 0.03 10^3/uL (0.0-0.2); Absolute Lymphocyte Count 1.63 10^3/uL (1.2-3.4); Absolute Monocyte Count 0.64 10^3/uL (0.1-0.8); Basophils % 0.4 %; Eosinophils % 1.3 %; HCT 43.5 % (40.0-50.0); HGB 13.7 g/dL (13.5-17.5); Immature Grans % 0.3 %; Lymphocytes % 21.4 %; MCH 27.1 pg (27.0-33.0); MCHC 31.5 % (32.0-36.0); MCV 86 fL (80-95); Monocytes % 8.4 %; Neutrophils % 68.2 %; Platelet Count 177 10^3/uL (130-400); RBC 5.06 10^6/uL (4.36-5.78); RDW 16.5 % (11.8-14.1); RDW-SD 51.4 fL; WBC 7.62 10^3/uL (4.4-10.8)
== END 2024-01-28 21:10 | disposition home or self-care (01) ==
LOC: LBN 21:09
PROVIDERS: PCP Nurse Practitioner Family; Visit Provider Nurse Practitioner Family
DX: I10 Essential (primary) hypertension (principal); J96.11 Chronic respiratory failure with hypoxia; Z23 Encounter for immunization
CPT/HCPCS: 80048; 85025

== ENCOUNTER 2024-05-15 21:08 | Observation (INO) | payer MEDICARE, SELFPAY ==
[2024-05-15] VITALS (16 sets, daily range): BP systolic 128–154; BP diastolic 52–102; PULSE 48–115; RESP 12–25; TEMP 37.1; O2SAT 92–94
--- NOTE | 2024-05-15 21:15 | DI.CT_ITS ---
Exam(s) CT CHEST/ABD/PEL WO CT THORACIC LUMBAR SPINE REC EXAM: CT CHEST/ABD/PEL WO CLINICAL HISTORY: trauma TECHNIQUE: Imaging Protocol: Axial computed tomography images with coronal and sagittal reformatted images were created and reviewed. Computer aided detection (CAD) was utilized. COMPARISON: CT CT CHEST PE CTA from 12/22/[address] CHEST PE ABD PELVIS W from 04/21/2023 CR XR CHEST 2V PA LATERAL from 11/06/[address] THORACIC LUMBAR SPINE REC from 05/15/2024 FINDINGS: Evaluation of the abdominal and pelvic organs is limited secondary to lack of IV contrast material. The examination is limited due to patient motion artifact. CHEST: Tracheobronchial tree: Patent where visualized. No bronchiectasis. Pulmonary parenchyma: No consolidation or dominant measurable mass. There are areas of pulmonary fibr osis. Mediastinum and Dalia: No dominant adenopathy or fluid collection. The esophagus is unremarkable. Thyroid gland: Unremarkable. Pleura: No effusion or pneumothorax. Heart: Cardiomegaly. There is 3 vessel coronary artery calcification. No pericardial effusion. Aorta: Thoracic aorta non-dilated. Atherosclerotic calcification is present. Lymph nodes: Within normal limits. Bones:Within normal limits for the patient's age. Soft tissues: Unremarkable. CT thoracic spine recons: Age-appropriate degenerative changes are seen in the thoracic spine. There is mild compression of the T12 vertebral body not present on prior examinations. This is of indeter minate age. Otherwise the thoracic vertebral bodies appears stable. CT lumbar spine recons: Age-appropriate degenerative changes are seen in the lumbar spine. No new ac mario fractures or subluxations are present. The appearance of the vertebral bodies appears stable. ABDOMEN: Liver: Normal density. Stable hepatic cysts. Gallbladder and Biliary Tract: There is a gallstone present. No biliary ductal dilatation. Pancreas: Normal density, no abnormal calcifications or inflammatory process. Spleen: Normal. Adrenals: No masses seen. Kidneys: Normal size, contour and axis. No radiodense stones or obstructive uropathy. No masses seen. Abdominal Aorta: Abdominal portion non-dilated. Atherosclerotic calcification is present. Bowel: There is a large amount of stool seen in the colon and rectum. There is colonic diverticulosi s but no evidence of acute diverticulitis. There is no evidence of bowel obstruction or bowel wall t hickening. There is no evidence of appendicitis. Peritoneal Cavity: No ascites, collection or mesenteric inflammatory response. No free air. Lymph Nodes: Within normal limits. Bones: Within normal limits for the patient's age. There is artifact in the pelvis from the patient' s left total hip arthroplasty. Soft Tissues: There is a fat containing small right inguinal hernia. PELVIS: Bladder: The urinary bladder is incompletely distended limiting evaluation. No gross abnormalities i dentified. Reproductive Organs: The prostate gland is enlarged. Lymph Nodes: Within normal limits. Bones: Within normal limits for the patient's age. IMPRESSION: 1. No acute pulmonary process. 2. No acute abdominal or pelvic process. 3. Nonacute stable findings in the abdomen and pelvis. 4. No evidence of an acute fracture subluxation of the lumbar spine. 5. Mild compression of the superior endplate of T12 which was new compared to prior examinations. It is age indeterminate. Follow-up as clinically appropriate. This may include an MRI of the thoracic spine. Unexpected findings RADIATION DOSE DELIVERED: 895.32mGy.cm Total DLP 895.32mGy.cm Total DLP DATA REPOSITORY: All CT scans at this facility are submitted to the National Radiology Data Registry (NRDR) Dose Index Registry (DIR) with the [employer] (ACR). RADIATION OPTIMIZATION: All CT scans at this facility use at least one of these dose optimization te chniques: automated exposure control; mA and/or kV adjustment per patient size (includes targeted exa ms where dose is matched to clinical indication); or iterative reconstruction.
--- NOTE | 2024-05-15 21:15 | DI.CT_ITS ---
Exam(s) CT HEAD CERVICAL SPINE WO EXAM: CT HEAD CERVICAL SPINE WO CLINICAL HISTORY: fall, on eliquis. TECHNIQUE: Imaging Protocol: Axial computed tomography images with coronal and sagittal reformatted images were created and reviewed COMPARISON: CT CT HEAD WO from 04/02/2023 FINDINGS: CT Head: Ventricles and Extra axial spaces: Normal in size and morphology for the patient's age. Hemorrhage: None. Cerebral parenchyma: There are areas of decreased attenuation in the white matter consistent with chr onic microvascular ischemic disease. There are bilateral lacunar infarcts present. No acute territo rial infarct. There are old bilateral cerebellar infarcts. Midline shift: None. Brainstem/Cerebellum: Normal. Calvarium: Normal. Visualized Paranasal sinuses/Mastoids: Clear. Soft Tissues: Unremarkable. CT Cervical Spine: Bones: No acute fracture or subluxation. Age-appropriate degenerative changes are present. Soft Tissues: Unremarkable. Lung Apices: Clear. IMPRESSION: 1. No acute intracranial process. 2. No acute fracture or subluxation in the cervical spine. RADIATION DOSE DELIVERED: 1,289.95mGy.cm Total DLP DATA REPOSITORY: All CT scans at this facility are submitted to the National Radiology Data Registry (NRDR) Dose Index Registry (DIR) with the [employer] (ACR). RADIATION OPTIMIZATION: All CT scans at this facility use at least one of these dose optimization te chniques: automated exposure control; mA and/or kV adjustment per patient size (includes targeted exa ms where dose is matched to clinical indication); or iterative reconstruction.
--- NOTE | 2024-05-15 21:41 | ED.GENADUL_ITS ---
Discharge Plan Discharge Details Chief Complaint: Orthopedic Primary Care Provider: Molly Powers ED Provider: Lala Thomas Home Meds and New Rx's Prescriptions: No Action cholecalciferol (vitamin D3) 25 mcg (1,000 unit) capsule 25 mcg PO DAILY multivitamin Tablet 1 tab PO DAILY sertraline 50 mg tablet 75 mg PO DAILY Qty: 135 3RF Combivent Respimat 20-100 mcg/actuation mist 1 puff inhalation Q6H PRN (Reason: shortness of breath or wheezing) Qty: 4 3RF aspirin 81 mg tablet,chewable 81 mg PO DAILY potassium chloride 20 mEq tablet extended release 20 meq PO DAILY Qty: 90 3RF polyethylene glycol 3350 [Miralax] 17 gram/dose powder 17 g PO .MWF Rx Instructions: See Task from 01/21/2024. -hb simvastatin 20 mg tablet 20 mg PO DAILY Qty: 90 3RF amlodipine 5 mg tablet 5 mg PO DAILY Qty: 90 3RF Eliquis 5 mg tablet 5 mg PO BID Qty: 180 3RF tamsulosin 0.4 mg capsule 0.8 mg PO DAILY Qty: 180 3RF epinephrine 0.3 mg/0.3 mL Auto-Injector 0.3 mg IM ONCE Rx Instructions: as a single dose; may repeat once HPI General Date/Time Provider Initiated Documentation: 05/15/24 21:28 . HPI Narrative: Jerrod is an 83 year old male who presents to the ED today via EMS for evaluation of lower back pain and L hip pain. According to daughter, he fell while getting ready to go out, losing his balance while walking with his walker. He fell backwards, landing directly on his back, possibly hitting his head as well. No loss of consciousness. He has reported lower back pain with palpation along the sacrum/coccyx, as well as left hip pain with ambulation. No shortening of the extremity or rotation of the limb. Jerrod denies headache, dizziness, vision changes, nausea/vomiting, bleeding from nose or mouth, neck pain, back pain, chest pain, shortness of breath, new extremity weakness or numbness. Past medical history is significant for dementia, PE currently on anticoagulation, HTN, TIA, CVA with left-sided deficits, and chronic respiratory failure with hypoxia requiring O2 at baseline. Physical exam reassuring. Marcille is alert, answers questions easily. PERRL, EOMs intact. Facial strength normal. Sensation grossly intact to lower extremities, 5 out of 5 muscle strength to feet. Easy work of breathing, lung sounds clear bilaterally. Normal heart sounds. Abdomen soft, nondistended, nontender to palpation. No C-spine or T-spine step-off/deformity/tenderness to palpation. He does have some pain along the lower lumbar spine and sacrum with palpation, no obvious step-off/deformity. No overlying ecchymosis or skin tears. No tenderness with palpation of legs or hips. D/dx includes but is not limited to: Fracture, dislocation, soft tissue injury, intracranial hemorrhage I independently interpreted the following tests: Head CT reassuring, no intracranial hemorrhage noted. This was confirmed by radiologist. Handoff report given to Dr. Suazo, overnight attending (CT results pending). Related Data Home Medications ?Medication ?Instructions ?Recorded ?Confirmed epinephrine 0.3 mg/0.3 mL 0.3 mg IM ONCE 12/22/22 05/15/24 injection, auto-injector aspirin 81 mg chewable tablet 81 mg PO DAILY 01/06/23 05/15/24 ipratropium 20 mcg-albuterol 100 1 puff inhalation Q6H PRN 01/06/23 05/15/24 mcg/actuation mist for inhalation shortness of breath or wheezing #4 (Combivent Respimat) grams cholecalciferol (vitamin D3) 25 25 mcg PO DAILY 04/10/23 05/15/24 mcg (1,000 unit) capsule multivitamin 1 tab PO DAILY 04/10/23 05/15/24 sertraline 50 mg tablet 75 mg (1.5 x 50 mg) PO DAILY #135 04/10/23 05/15/24 tabs potassium chloride 20 mEq 20 meq PO DAILY #90 tabs 07/16/23 05/15/24 tablet,extended release polyethylene glycol 3350 17 17 g PO .MWF 01/21/24 05/15/24 gram/dose oral powder (Miralax) amlodipine 5 mg tablet 5 mg PO DAILY #90 tabs 04/12/24 05/15/24 apixaban 5 mg tablet (Eliquis) 5 mg PO BID #180 tabs 04/12/24 05/15/24 simvastatin 20 mg tablet 20 mg PO DAILY #90 tabs 04/12/24 05/15/24 tamsulosin 0.4 mg capsule 0.8 mg (2 x 0.4 mg) PO DAILY #180 04/12/24 05/15/24 caps Previous Rx's ?Medication ?Instructions ?Recorded ipratropium 20 mcg-albuterol 100 1 puff inhalation Q6H PRN 01/06/23 mcg/actuation mist for inhalation shortness of breath or wheezing #4 (Combivent Respimat) grams sertraline 50 mg tablet 75 mg (1.5 x 50 mg) PO DAILY #135 04/10/23 tabs potassium chloride 20 mEq 20 meq PO DAILY #90 tabs 07/16/23 tablet,extended release amlodipine 5 mg tablet 5 mg PO DAILY #90 tabs 04/12/24 apixaban 5 mg tablet (Eliquis) 5 mg PO BID #180 tabs 04/12/24 simvastatin 20 mg tablet 20 mg PO DAILY #90 tabs 04/12/24 tamsulosin 0.4 mg capsule 0.8 mg (2 x 0.4 mg) PO DAILY #180 04/12/24 caps Allergies Allergy/AdvReac Type Severity Reaction Status Date / Time bee venom protein (honey bee) Allergy Severe Anaphylaxis Verified 05/15/24 21:17 General Stated Complaint: Orthopedic ALFRED: 3 Review of Systems Narrative: See HPI Exam Const General: cooperative, healthy appearing, comfortable, no acute distress and well developed Nutritional Appearance: average body habitus Orientation: alert and awake [facility] Head: normal to inspection, no Yancey's sign, no raccoon eyes and No periorbital ecchymosis Ears: hearing grossly normal bilaterally, external ears normal and TM's normal bilaterally General nose exam: external nose normal Face and sinus: normal facial exam Mouth: oral mucosae normal and moist mucous membranes Eyes Periorbital: periorbital findings normal Pupils: PERRL EOM: EOM intact bilaterally Neck Neck: normal visual inspection Resp Effort & Inspection: normal respiratory effort and able to speak in complete sentences Auscultation: clear to auscultation bilaterally Other: on O2 per baseline Cardio Rate: regular rate Rhythm: regular rhythm GI Inspection: normal to inspection and non-distended Palpation: soft, not firm, no guarding and nontender Back/Spine/Pelvis Cervical Spine: normal cervical lordosis and cervical ROM normal Thoracic/Lumbar Spine: No thoracic spinal tenderness Sacrum: tenderness Coccyx: tenderness Back/spine/pelvis image: 2 1. tenderness with palpation, no deformity or overlying lesions/ecchymosis Skin General skin exam: no rashes or lesions noted Course Vital Signs Vital signs: Vital Signs Temperature 37.1 C 05/15/24 21:08 Pulse 115 H 05/15/24 21:08 Respiratory Rate 21 05/15/24 21:08 Blood Pressure 154/102 H 05/15/24 21:08 Pulse Oximetry 93 05/15/24 21:08 Temperature 37.1 C 05/15/24 21:08 Pulse 115 H 05/15/24 21:08 Respiratory Rate 21 05/15/24 21:08 Blood Pressure 154/102 H 05/15/24 21:08 Blood Pressure Position Sitting 05/15/24 21:08 Pulse Oximetry 93 05/15/24 21:08 Oxygen Delivery Method Nasal Cannula 05/15/24 21:08 Oxygen Flow Rate 2 05/15/24 21:08 Medical Decision Making Imaging Data Radiologic Study: Radiologist's impression: PROCEDURE INFORMATION: Exam: CT Head Without Contrast Exam date and time: 05/15/2024 9:54 PM Age: 83 years old Clinical indication: Other: Fall, on eliquis TECHNIQUE: Imaging protocol: Computed tomography of the head without contrast. COMPARISON: CT HEAD WO 04/02/2023 11:07 AM FINDINGS: Brain: No acute intracranial hemorrhage, mass-effect, midline shift, or extra-axial collection is seen. There are small old right frontal, right parietal, and left cerebellar infarcts. There are old bilateral lacunar infarcts in the region of the basal ganglia and deep white matter tracts. Otherwise, the graywhite matter differentiation appears preserved. There is extensive patchy white matter hypoattenuation, nonspecific but commonly seen as a chronic sequela of small vessel ischemic disease. There is global parenchymal volume loss. There is symmetric basal ganglia calcification. Cerebral ventricles: The ventricular system and basilar cisterns appear prominent but appropriate in size and configuration given the degree of parenchymal volume loss. Paranasal sinuses: The visualized paranasal sinuses appear well-aerated. Mastoid air cells: The mastoid air cells appear well-aerated. Auditory system: The middle ear cavities appear clear. Orbital cavities: The globes and intraorbital structures appear grossly intact. Bones: The bony calvarium appears intact. No depressed skull fracture is seen. Soft tissues: There is a 2.0 cm x 1.0 cm left posterior scalp lipoma, image 49 of series 2. No gross focal scalp hematoma is seen. Vasculature: There is atherosclerotic calcification within the intracranial portion of the internal carotid arteries bilaterally. IMPRESSION: 1. No acute intracranial abnormality seen. 2. Presumed chronic microvascular ischemic change. Small old transcortical infarcts and lacunar infarcts, as detailed above. 3. Global parenchymal volume loss. PROCEDURE INFORMATION: Exam: CT Cervical Spine Without Contrast Exam date and time: 05/15/2024 9:54 PM Age: 83 years old Clinical indication: Other: Fall, on eliquis TECHNIQUE: Imaging protocol: Computed tomography of the cervical spine without contrast. COMPARISON: CT CHEST PE ABD PELVIS W 04/21/2023 8:28 AM FINDINGS: Bones/joints: No acute cervical fracture or malalignment is seen. Old superior endplate compression fracture deformity at T1 with mild loss of anterior vertebral height, also seen on the comparison CT chest exam from April 02, 2023. C2-C3: Disc height preserved. Moderate-severe facet arthrosis on the right. No significant central canal narrowing or left- sided foraminal narrowing. Mild right-sided foraminal narrowing. C3-C4: Disc height preserved. Severe facet arthrosis on the right. Posterior osteophytic ridging with uncovertebral hypertrophy on the right. Mild central canal narrowing. No significant left-sided foraminal narrowing. Moderate right-sided foraminal narrowing. C4-C5: Disc height preserved. Moderate-severe facet arthrosis on the right. No central canal narrowing. No left-sided foraminal narrowing. Moderate right-sided foraminal narrowing. C5-C6: Disc height relatively preserved. Anterior osteophytes. No central canal narrowing or neural foraminal narrowing. C6-C7: Loss of disc height with endplate irregularity, posterior osteophytic ridging, and bilateral uncovertebral hypertrophy. No central canal narrowing. Mild bilateral foraminal narrowing. C7-T1: Disc height preserved. No central canal narrowing or neural foraminal narrowing. Lungs: The lung apices appear clear. Vasculature: There is atherosclerotic calcification at the carotid bifurcations bilaterally. Soft tissues: Within the limits of the exam, no gross soft tissue fluid collection is seen in the neck. IMPRESSION: No acute cervical fracture or malalignment is seen. Quality:SDOH Health Related Social Needs: 2 No Data to Display PFSH All Active Problems HTN (hypertension) (Chronic) TIA (transient ischemic attack) (Acute) Pulmonary embolism (Chronic ~10/2018) Bladder diverticulum (Acute) Nicotine dependence (Acute) Hypercalcemia (Acute) Left femoral vein DVT (Acute) Chronic respiratory failure with hypoxia (Chronic) Osteopenia (Chronic) Diverticulosis of colon (Chronic) Medical History Pneumonia BPH w urinary obs/LUTS Interstitial lung disease Cognitive impairment Suspect dementia, declines neurology consult History of thromboembolism P.E., DVT 2019 Generalized anxiety disorder Hypertension Hyperlipidemia CVA (cerebral vascular accident) (~09/2018) Right posterior internal capsule ischemic stroke Surgical History Status post left hip replacement History of appendectomy (07/16/20) Family History Mother Dementia Father No problems noted. Daughter No problems noted. Daughter No problems noted. Son No problems noted. Maternal Grandfather No problems noted. Maternal Grandmother No problems noted. Paternal Grandfather No problems noted. Paternal Grandmother No problems noted. Brother Alcohol use disorder Colon cancer Hyperlipidemia Hypertension Diabetes Social History Smoking/Tobacco Use Status: Former Tobacco Use tobacco type: cigarettes and smokeless tobacco Quit Date: 04/14/85 Smokeless tobacco user: snuff Second Hand Exposure: Yes Smoking risk assessment performed?: Yes Alcohol Intake: former Drug use: Never Substance use type: does not use Counseling given: No Adopted: No Caregiver/Support person: Yes Foster care: No Household members: caregiver Housing: house Number of Children: 3 number of grandchildren: 7 Communication Needs: None Education Level: high school Do you need help understanding health information?: Never 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 Pets and animals: Yes Pets and animals: dog(s) Sexually active: No Do you think of yourself as: straight/heterosexual Current gender identity: male What is your relationship status?: How often do you talk on the phone with friends or family?: three or more times per week How often do you get together with friends or relatives?: three or more times per week How often do you attend religion or christianity services?: 4 or more times per year Do you belong to any clubs or organized social groups?: no Panel score (0-1 are the most socially isolated patients): 3 What type of physical activity do you participate in: walking and regular exercise Duration: 45-60 minutes/day Frequency: daily Tamela/Christian: Jainism Special tamela needs: No Agree to transfusion: Yes Seatbelt use: always Drive intox or ride w/intox short haul driver: No Working smoke detector in home: Yes Carbon monox detector in home: Yes Firearms in home: Yes Firearms unloaded and locked: Yes Do you feel safe at home: Yes Victim of physical abuse: No Victim of emotional abuse: No Victim of sexual abuse: No Would you like helpful sources: No
--- NOTE | 2024-05-15 22:44 | DI.VRAD_ITS ---
PROCEDURE INFORMATION: Exam: CT Head Without Contrast Exam date and time: 05/15/2024 9:54 PM Age: 83 years old Clinical indication: Other: Fall, on eliquis TECHNIQUE: Imaging protocol: Computed tomography of the head without contrast. COMPARISON: CT HEAD WO 04/02/2023 11:07 AM FINDINGS: Brain: No acute intracranial hemorrhage, mass-effect, midline shift, or extra-axial collection is seen. There are small old right frontal, right parietal, and left cerebellar infarcts. There are old bilateral lacunar infarcts in the region of the basal ganglia and deep white matter tracts. Otherwise, the aleman-white matter differentiation appears preserved. There is extensive patchy white matter hypoattenuation, nonspecific but commonly seen as a chronic sequela of small vessel ischemic disease. There is global parenchymal volume loss. There is symmetric basal ganglia calcification. Cerebral ventricles: The ventricular system and basilar cisterns appear prominent but appropriate in size and configuration given the degree of parenchymal volume loss. Paranasal sinuses: The visualized paranasal sinuses appear well-aerated. Mastoid air cells: The mastoid air cells appear well-aerated. Auditory system: The middle ear cavities appear clear. Orbital cavities: The globes and intraorbital structures appear grossly intact. Bones: The bony calvarium appears intact. No depressed skull fracture is seen. Soft tissues: There is a 2.0 cm x 1.0 cm left posterior scalp lipoma, image 49 of series 2. No gross focal scalp hematoma is seen. Vasculature: There is atherosclerotic calcification within the intracranial portion of the internal carotid arteries bilaterally. IMPRESSION: 1. No acute intracranial abnormality seen. 2. Presumed chronic microvascular ischemic change. Small old transcortical infarcts and lacunar infarcts, as detailed above. 3. Global parenchymal volume loss. PROCEDURE INFORMATION: Exam: CT Cervical Spine Without Contrast Exam date and time: 05/15/2024 9:54 PM Age: 83 years old Clinical indication: Other: Fall, on eliquis TECHNIQUE: Imaging protocol: Computed tomography of the cervical spine without contrast. COMPARISON: CT CHEST PE ABD PELVIS W 04/21/2023 8:28 AM FINDINGS: Bones/joints: No acute cervical fracture or malalignment is seen. Old superior endplate compression fracture deformity at T1 with mild loss of anterior vertebral height, also seen on the comparison CT chest exam from April 02, 2023. C2-C3: Disc height preserved. Moderate-severe facet arthrosis on the right. No significant central canal narrowing or left-sided foraminal narrowing. Mild right-sided foraminal narrowing. C3-C4: Disc height preserved. Severe facet arthrosis on the right. Posterior osteophytic ridging with uncovertebral hypertrophy on the right. Mild central canal narrowing. No significant left-sided foraminal narrowing. Moderate right-sided foraminal narrowing. C4-C5: Disc height preserved. Moderate-severe facet arthrosis on the right. No central canal narrowing. No left-sided foraminal narrowing. Moderate right-sided foraminal narrowing. C5-C6: Disc height relatively preserved. Anterior osteophytes. No central canal narrowing or neural foraminal narrowing. C6-C7: Loss of disc height with endplate irregularity, posterior osteophytic ridging, and bilateral uncovertebral hypertrophy. No central canal narrowing. Mild bilateral foraminal narrowing. C7-T1: Disc height preserved. No central canal narrowing or neural foraminal narrowing. Lungs: The lung apices appear clear. Vasculature: There is atherosclerotic calcification at the carotid bifurcations bilaterally. Soft tissues: Within the limits of the exam, no gross soft tissue fluid collection is seen in the neck. IMPRESSION: No acute cervical fracture or malalignment is seen. Dictated and Authenticated by: Eriberto Lane MD. Orderin Manjit Reeves MD
--- NOTE | 2024-05-15 23:36 | DI.VRAD_ITS ---
PROCEDURE INFORMATION: Exam: CT Chest Without Contrast; Diagnostic Exam date and time: 05/15/2024 10:02 PM Age: 83 years old Clinical indication: Other: Trauma TECHNIQUE: Imaging protocol: Diagnostic computed tomography of the chest without contrast. COMPARISON: CT CHEST PE ABD PELVIS W 04/21/2023 8:28 AM FINDINGS: Lungs: Mild scattered subpleural interstitial prominence. No yeni pulmonary consolidation. Pleural spaces: Unremarkable. No pneumothorax. No pleural effusion. Heart: Unremarkable. No cardiomegaly. No pericardial effusion. Coronary arteries: Moderate diffuse coronary artery calcifications. Lymph nodes: Unremarkable. No enlarged lymph nodes. Vasculature: Dense atherosclerotic calcification throughout the aorta. No evidence of aneurysm. Bones/joints: Osseous alignment is normal. No acute fracture. Mild multilevel degenerative changes throughout the thoracic spine. Soft tissues: Unremarkable. IMPRESSION: No acute abnormality. Chronic appearing findings as noted. PROCEDURE INFORMATION: Exam: CT Abdomen And Pelvis Without Contrast Exam date and time: 05/15/2024 10:02 PM Age: 83 years old Clinical indication: Other: Trauma TECHNIQUE: Imaging protocol: Computed tomography of the abdomen and pelvis without contrast. COMPARISON: CT CHEST PE ABD PELVIS W 04/21/2023 8:28 AM FINDINGS: Liver: 4 cm cystic appearing lesion in the medial segment of the left lobe of the liver measure is slightly larger than previous. Liver is otherwise unremarkable. Gallbladder and biliary ducts: Single small calcified gallstone is present in the gallbladder. No gallbladder wall thickening. No significant biliary ductal dilation. Pancreas: Normal. No ductal dilation. Spleen: Normal. No splenomegaly. Adrenal glands: Normal. No mass. Kidneys and ureters: Normal. No hydronephrosis. Stomach and bowel: Diffuse colonic diverticulosis, most pronounced in the sigmoid. No bowel wall thickening or evidence of bowel obstruction. Appendix: No evidence of appendicitis. Intraperitoneal space: Unremarkable. No free air. No significant fluid collection. Vasculature: Dense atherosclerotic calcification throughout the aorta and its branches. No evidence of aneurysm. Lymph nodes: Unremarkable. No enlarged lymph nodes. Urinary bladder: Unremarkable as visualized. Reproductive: Unremarkable as visualized. Bones/joints: Left hip prosthesis noted. Mild degenerative changes throughout the lumbar spine. No vertebral body compression. No acute fracture. Soft tissues: Unremarkable. IMPRESSION: No acute abnormality. Chronic appearing findings as noted. Dictated and Authenticated by: Quirino Grewal MD. Orderin Manjit Reeves MD
--- NOTE | 2024-05-15 23:40 | DI.VRAD_ITS ---
PROCEDURE INFORMATION: Exam: CT Thoracic Spine Without Contrast Exam date and time: 05/15/2024 10:02 PM Age: 83 years old Clinical indication: Other: Fall, lower back pain and L hip pain TECHNIQUE: Imaging protocol: Computed tomography of the thoracic spine without contrast. COMPARISON: CT CHEST/ABD/PEL WO 05/15/2024 10:02 PM FINDINGS: Bones/joints: Slight thoracic scoliosis. No acute compression fracture. Mild multilevel degenerative disc changes throughout the thoracic spine. Soft tissues: Unremarkable. Vasculature: Moderate atherosclerotic calcification throughout the aorta. No evidence of aneurysm. IMPRESSION: No acute abnormality. Chronic findings as noted PROCEDURE INFORMATION: Exam: CT Lumbar Spine Without Contrast Exam date and time: 05/15/2024 10:02 PM Age: 83 years old Clinical indication: Other: Fall, lower back pain and L hip pain TECHNIQUE: Imaging protocol: Computed tomography of the lumbar spine without contrast. COMPARISON: CT CHEST/ABD/PEL WO 05/15/2024 10:02 PM FINDINGS: Bones/joints: Mild multilevel disc bulge. No vertebral body compression or acute fracture. Moderate narrowing of the left L5 neural foramen Vasculature: Diffuse atherosclerotic calcification throughout the distal aorta and iliac arteries. No aneurysm. Moderate degenerative changes of the sacroiliac joints. Soft tissues: Unremarkable. IMPRESSION: No acute abnormality. Chronic findings as noted. Dictated and Authenticated by: Quirino Grewal MD. Orderin Manjit Reeves MD
--- NOTE | 2024-05-15 23:51 | ED.PROG_ITS ---
Date of service: 05/15/24 Time of Service: 23:30 Medical Decision Making This patient was signed out to me. Please see previous notes for H&P and initial eval. In brief, 83yo M presenting after a fall. CT head/c-spine negative. Awaiting VRAD read of chest/abd/pelvis. CTs as below, no acute findings. On reassessment patient is well appearing with reassuring vital signs. No significant traumatic findings on my exam; he dose have an extremely tender left thoracic paraspinal spasm. No midline tenderness. Given tylenol, cyclobenzaprine, and lidocaine patch. Subsequently remains unable to get up, significant pain with attempting to sit upright. Added oxycodone. On reassessment pt able to sit but is a three-person assist when ambulating, remains in significant pain. Given this, warrants observation for pain control and PT/OT. Discussed with [facility] hospitalist Dr. Fermin; pt accepted to medicine service. Awaiting admission orders and transfer to the floor when bed available; will board in the ED in the meantime. Imaging Data Radiologic Study: Imaging: CT Scan Radiologist's impression: Chest: IMPRESSION: No acute abnormality. Chronic appearing findings as noted Abd/pelv: IMPRESSION: No acute abnormality. Chronic appearing findings as noted Thoracic spine: IMPRESSION: No acute abnormality. Chronic appearing findings as noted Lumbar spine: IMPRESSION: No acute abnormality. Chronic findings as noted. Quality:SDOH Health Related Social Needs: No Data to Display Exam Narrative Exam Narrative: GENERAL: Alert, no acute distress SKIN: Warm and well perfused. No rashes, bruises, discolorations or abrasions. HEAD: Atraumatic, normocephalic without edema, discoloration or evidence of trauma. EYES: PERRL. No scleral icterus or conjunctival injection. NECK: Trachea midline. No discolorations or edema. No midline spinal tenderness. CV: Regular rate and rhythm, Normal s1 and s2. No murmurs, rubs, or gallops. PV: Radial pulses 2+ bilaterally and symmetric. 2+ capillary refill. CHEST: No abrasions or ecchymosis. Chest symmetric with respirations. No chest wall tenderness. Lungs are clear to auscultation bilaterally. ABDOMEN: No ecchymosis or abrasions. Soft, nondistended, nontender. BACK: No abrasions, skin openings, or ecchymosis. Spine without bony tenderness, no step offs. Left thoracic paraspinal spasm. PELVIC: Pelvis stable, nontender to lateral compression MSK: No gross deformities or discolorations or lesions. Extremities without tenderness. NEURO: Alert. Moves all extremities freely against gravity. Discharge Plan Disposition Patient Disposition: Admit to [facility] Condition: Stable Discharge Details Clinical Impression: Fall, Ambulatory dysfunction, Back pain, Muscle spasm Admit Date/Time: 05/16/24 04:55 Admit Provider: Catarino Fermin Attending Provider: Catarino Fermin Primary Care Provider: Molly Powers ED Provider: Janine Suazo Discharge Data Discharge Date/Time-TO BE ENTERED AT DEPARTURE: 05/16/24 05:21
[2024-05-16] VITALS (81 sets, daily range): BP systolic 98–162; BP diastolic 60–95; PULSE 54–91; RESP 14–25; TEMP 36.6–37.6; O2SAT 89–96
[2024-05-16] MEDS: Lidocaine 5% Patch 1 PATCH TP (00:35)
[2024-05-16] MEDS: Cyclobenzaprine 10 MG TAB PO (00:36)
[2024-05-16] MEDS: Acetaminophen 500 MG TAB 1000 MG PO (00:36)
[2024-05-16] MEDS: oxyCODONE 10 MG TAB PO (01:32)
--- NOTE | 2024-05-16 04:24 | W.PM.HP.N ---
Date of service: 05/16/24 Time of Service: 04:24 Assessment and Plan Assessment and plan (1) Back pain: Status: Acute Assessment and plan: The patient comes in with acute back pain s/p fall w/o any loss of consciousness earlier this evening. His imaging does not show any acute fracture and his pain has required Flexeril, Oxycodone, Lidocaine and Tylenol. On my evaluation he is drowsy and his BP is slightly low. He is not in any acute pain. I recommend to obs the patient and continue to monitor him. For now we should defer further opioids due to slight hypotension. Re-evaluate if his pain is controlled in the morning. -Obs patient and cont to monitor -Monitor BP and hold any opioids -Control pain w/ non-opioid (2) HTN (hypertension): Status: Chronic Assessment and plan: Hold BP meds due to hypotension from pain meds -Hold Norvasc 5mg daily (3) Left femoral vein DVT: Status: Acute Assessment and plan: -Cont w/ Eliquis 5mg bid (4) Chronic respiratory failure with hypoxia: Status: Chronic Assessment and plan: Emphysematous, fibrotic changes noted on chest CT scans over the years with PFTs this month showing moderate restrictive pattern -Cont to monitor w/ oxygen supplementation as needed (5) CVA (cerebral vascular accident): Assessment and plan: CVA w/ LUE/LLE weakness -Not on ASA -Cont w/ Simvastatin 20mg daily History of Present Illness History of Present Illness Chief Complaint: Back Pain Narrative: The patient is a 83 y/o C M w/ PMH CVA w/ LUE/LLE weakness, ILD on oxygen and DVT (2018) who is brought in today due to a fall which has resulted in back pain. He is under the care of 24 hour nursing and got tripped up with his oxygen tubing when he fell backwards. The nurse did note that he did hit his head but he did not have any loss of consciousness. He was able to get up with the assistance of his care takers. Since then he has been reporting of mid-line back pain. On my evaluation he is sleepy/drowsy and the history has been obtained by the daughter at his bedside. She notes that while he was complaining of pain it was not intolerable. At baseline, he is conversational and is able to ambulate with the use of a walker and a gait belt and requires assistance. She denies any recent fever, chills or night sweats. He was not complaining of chest pain or worsening dyspnea. She did not notice any dysarthria, facial droops or any new motor deficits. Review of Systems Narrative: Patient is drowsy and the ROS is obtained from the daughter who provided the history. PFSH All Active Problems (Updated 05/16/24 @ 03:58 by Janine Suazo MD) Muscle spasm (Acute) Back pain (Acute) Ambulatory dysfunction (Acute) Fall (Acute) HTN (hypertension) (Chronic) TIA (transient ischemic attack) (Acute) Pulmonary embolism (Chronic ~10/2018) Bladder diverticulum (Acute) Nicotine dependence (Acute) Hypercalcemia (Acute) Left femoral vein DVT (Acute) Chronic respiratory failure with hypoxia (Chronic) Osteopenia (Chronic) Diverticulosis of colon (Chronic) Medical History Pneumonia BPH w urinary obs/LUTS Interstitial lung disease Cognitive impairment Suspect dementia, declines neurology consult History of thromboembolism P.E., DVT 2019 Generalized anxiety disorder Hypertension Hyperlipidemia CVA (cerebral vascular accident) (~09/2018) Right posterior internal capsule ischemic stroke Surgical History Status post left hip replacement History of appendectomy (07/16/20) Family History Mother Dementia Father No problems noted. Daughter No problems noted. Daughter No problems noted. Son No problems noted. Maternal Grandfather No problems noted. Maternal Grandmother No problems noted. Paternal Grandfather No problems noted. Paternal Grandmother No problems noted. Brother Alcohol use disorder Colon cancer Hyperlipidemia Hypertension Diabetes Social History Smoking/Tobacco Use Status: Former Tobacco Use tobacco type: cigarettes and smokeless tobacco Quit Date: 04/14/85 Smokeless tobacco user: snuff Second Hand Exposure: Yes Smoking risk assessment performed?: Yes Alcohol Intake: former Drug use: Never Substance use type: does not use Counseling given: No Adopted: No Caregiver/Support person: Yes Foster care: No Household members: caregiver Housing: house Number of Children: 3 number of grandchildren: 7 Communication Needs: None Education Level: high school Do you need help understanding health information?: Never 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 Pets and animals: Yes Pets and animals: dog(s) Sexually active: No Do you think of yourself as: straight/heterosexual Current gender identity: male What is your relationship status?: How often do you talk on the phone with friends or family?: three or more times per week How often do you get together with friends or relatives?: three or more times per week How often do you attend christianity or anabaptism services?: 4 or more times per year Do you belong to any clubs or organized social groups?: no Panel score (0-1 are the most socially isolated patients): 3 What type of physical activity do you participate in: walking and regular exercise Duration: 45-60 minutes/day Frequency: daily Tamela/Latter Day: Bahai Special tamela needs: No Agree to transfusion: Yes Seatbelt use: always Drive intox or ride w/intox cdl truck driver: No Working smoke detector in home: Yes Carbon monox detector in home: Yes Firearms in home: Yes Firearms unloaded and locked: Yes Do you feel safe at home: Yes Victim of physical abuse: No Victim of emotional abuse: No Victim of sexual abuse: No Would you like helpful sources: No Meds Allergies and Home Medications Allergies Allergy/AdvReac Type Severity Reaction Status Date / Time bee venom protein (honey bee) Allergy Severe Anaphylaxis Verified 05/15/24 21:17 Home Medications ?Medication ?Instructions ?Recorded ?Confirmed ?Type epinephrine 0.3 mg/0.3 mL 0.3 mg IM ONCE 12/22/22 05/15/24 History injection, auto-injector aspirin 81 mg chewable tablet 81 mg PO DAILY 01/06/23 05/15/24 History ipratropium 20 mcg-albuterol 100 1 puff inhalation Q6H PRN 01/06/23 05/15/24 Rx mcg/actuation mist for inhalation shortness of breath or wheezing #4 (Combivent Respimat) grams cholecalciferol (vitamin D3) 25 25 mcg PO DAILY 04/10/23 05/15/24 History mcg (1,000 unit) capsule multivitamin 1 tab PO DAILY 04/10/23 05/15/24 History sertraline 50 mg tablet 75 mg (1.5 x 50 mg) PO DAILY #135 04/10/23 05/15/24 Rx tabs potassium chloride 20 mEq 20 meq PO DAILY #90 tabs 07/16/23 05/15/24 Rx tablet,extended release polyethylene glycol 3350 17 17 g PO .MWF 01/21/24 05/15/24 History gram/dose oral powder (Miralax) amlodipine 5 mg tablet 5 mg PO DAILY #90 tabs 04/12/24 05/15/24 Rx apixaban 5 mg tablet (Eliquis) 5 mg PO BID #180 tabs 04/12/24 05/15/24 Rx simvastatin 20 mg tablet 20 mg PO DAILY #90 tabs 04/12/24 05/15/24 Rx tamsulosin 0.4 mg capsule 0.8 mg (2 x 0.4 mg) PO DAILY #180 04/12/24 05/15/24 Rx caps Exam Const General: no acute distress Orientation: other (Drowsy) HENMT Head: normal to inspection Ears: hearing grossly normal bilaterally General nose exam: external nose normal Face and sinus: normal facial exam Eyes General: appearance normal, both eyes and all related structures Alignment and Position: alignment normal Eyelids: eyelids normal Neck Neck: normal visual inspection Chest Chest: normal inspection of the chest Resp Effort & Inspection: normal respiratory effort Auscultation: crackles Cardio Rate: regular rate Rhythm: regular rhythm Heart Sounds: S1 normal and S2 normal GI Inspection: normal to inspection Percussion: normal to percussion Auscultation: normal bowel sounds Skin General skin exam: no rashes or lesions noted Neuro Other: L hand w/ contracture Results Imaging Imaging Studies: CT Chest and Thoracic Spine Bones/joints: Slight thoracic scoliosis. No acute compression fracture. Mild multilevel degenerative disc changes throughout the thoracic spine. Soft tissues: Unremarkable. Vasculature: Moderate atherosclerotic calcification throughout the aorta. No evidence of aneurysm. CT head 1. No acute intracranial abnormality seen. 2. Presumed chronic microvascular ischemic change. Small old transcortical infarcts and lacunar infarcts, as detailed above. 3. Global parenchymal volume loss. Last Vital Signs Temp 37.1 C 05/15/24 21:08 Pulse 67 05/16/24 04:02 Resp 18 05/16/24 02:01 BP 129/71 05/16/24 02:26 Pulse Ox 94 05/16/24 04:02 Time Spent Time spent with Patient: 40-54 minutes Time was spent: preparing to see the patient(eg.review tests), obtaining and/or reviewing separately otained hiistory, ordering medications,tests, procedures, referring, communicating with other health manager urgent care, indepentently interpreting results, counseling the patient and care coordination
[2024-05-16] MEDS: Apixaban 5 MG TAB PO ×2 (08:28→21:24)
[2024-05-16] MEDS: Tamsulosin 0.4 MG CAPCR 0.8 MG PO (08:28)
[2024-05-16] MEDS: Aspirin 81 MG CHEW PO (08:28)
--- NOTE | 2024-05-16 11:02 | IN_ITS ---
PT Notes Visit Reasons: Back Pain Inpatient Physical Therapy Evaluation Date: 05/16/24 Referring Doctor: Dr. Mead PT Orders: PT CONSULT Precautions: N/A Patient Profile/Admitting Diagnosis: Back pain following a fall Subjective: Pt's daughters present and provide the patient history. They note that Jerrod lives alone but has 24/7 care providers that assist him fully. He does not ever manage any stairs and uses a walker for all mobility. He does not usually walk far distances. He does use supplemental 02 of 2 L/min at baseline which the caregivers assist with. He fell last night backwards with one of the new caregivers. He required EMS to transfer him to the hospital and he did not get any sleep as he was in the ED all night. His daughters state that he is much more tired than usual. He did have a previous stroke that effected his LUE mostly and he has to use a platform attachement on his walker. Objective: General Observation: Does not converse more than one word answers Mental Status: A+Ox2 Pain: Describes pain during movements Vital Signs: SpO2 - 94% on 2 L/min ROM: LUE limited as he is unable to perform any active motion on that side. RUE is able to flex about 60 degrees with heavy cues. Strength: Able to perform heel slide on RLE, unable to perform on LLE Bed Mobility/Transfers: max assist of 3 to sit him up at the edge of the bed, unable to support himself in the seated position without assistance Gait: No attempt, not safe to perform Balance: Static Sitting: poor Dynamic Sitting: poor Special Tests: Mobility Limitations Standardized Measure [facility] AM-PAC 6 clicks Basic Mobility Inpatient Short Form: Raw Score: 8 CMS Score: 86.62% Informed Consent/Education: Patient instructed in purpose of PT consult and plan of care. Assessment: Patient presents today with many functional limitations that make him unable to return home. He does have 24/7 caregivers but he is currently only able to sit up at the edge of the bed with max assist of 3. He was unable to support himself in static sitting so standing was not attempted. He will need rehab likely prior to returning home. He is very fatigued today so this may be playing a part in his significant lack of mobility. He will continue to be followed by PT to progress him functionally as tolerated. Patient is assessed as a Moderate 96048 complexity based on the following: History: Moderate Examination: Moderate Presentation: Moderate Decision Making: Moderate Goals: Goals X1 week 1. Supine-Sit - min assist 2. Sit-Supine - min assist 3. Sit-Stand - min assist 4. Stand-Sit - min assist 5. Bed-Chair - min assist 6. Chair-Bed - min assist 7. Gait - ambulate 50 ft w/platform walker and CGA Plan of Care/Treatment Plan: 1-2x/day, 7 days/week x 1 week. Plan of care has been reviewed with the CLAM SHUCKING MACHINE TENDER providing the service under Physical Therapy direction. Initiate Physical Therapy intervention for strengthening, bed mobility, transfers, gait, stairs, balance training, use of assistive device. DISCHARGE RECOMMENDATIONS: [x] SNF versus LTC based on ability to participate and progress TREATMENT CODE/TIME: Moderate Complexity Evaluation - 52147 (30 min)
--- NOTE | 2024-05-16 13:57 | W.PC.ACHO ---
Registration Status: Primary Language: Preferred Language: ED Information & Data Chief Complaint Orthopedic 05/15/24 22:17 Triage Note BIBA from home, pt had a 05/15/24 21:08 fall earlier in the day. Witnessed by home health nurse, able to get him into a chair, pain with standing to his right hip. left deficits from prior CVA. pt was able to stand and pivot to EMS cot. pt on 2L nc continuously Medical / Surgical History (Last Reviewed 01/28/24 @ 12:04 by Cristobal Casillas NP) Pneumonia Interstitial lung disease Generalized anxiety disorder BPH w urinary obs/LUTS History of thromboembolism Hyperlipidemia Hypertension Cognitive impairment CVA (cerebral vascular accident) (~09/2018) (Last Reviewed 01/28/24 @ 12:04 by Cristobal Casillas NP) Status post left hip replacement History of appendectomy (07/16/20) Most Recent Vital Signs Temperature 36.6 C 05/16/24 07:53 Temperature Source Oral 05/16/24 07:53 Pulse 68 05/16/24 11:39 Pulse 86 05/16/24 02:10 Respiratory Rate 16 05/16/24 07:53 Respiratory Effort Normal, Non-Labored 05/16/24 04:56 Respiratory Depth Normal 05/16/24 04:56 Respiratory Pattern Normal 05/16/24 04:56 Blood Pressure 123/71 05/16/24 08:00 Blood Pressure Mean 86 05/16/24 08:00 Blood Pressure Position Supine 05/16/24 04:56 Pulse Oximetry 94 05/16/24 11:39 Oxygen Delivery Method Nasal Cannula 05/16/24 11:39 Oxygen Flow Rate 2 05/16/24 11:39 Comment oxygen 2-3 lpm at home 05/15/24 21:08 Allergies bee venom protein (honey bee) Allergy (Severe, Verified 05/15/24 21:17) Anaphylaxis Active Medications Generic Name Dose Route Start Last Admin Trade Name Freq PRN Reason Stop Dose Admin Apixaban 5 mg 05/16/24 08:30 05/16/24 08:28 Apixaban 5 Mg Tab PO 5 mg BID ZEUS Administration Aspirin 81 mg 05/16/24 08:30 05/16/24 08:28 Aspirin 81 Mg Chew PO 81 mg DAILY ZEUS Administration Tamsulosin HCl 0.8 mg 05/16/24 08:30 05/16/24 08:28 Tamsulosin 0.4 Mg Capcr PO 0.8 mg DAILY ZEUS Administration Diet Orders Category Date Time Status Heart Healthy Eating [DIET] Nutrition 05/16/24 Breakfast Active Intake and Output - 24 Hour Total 05/15/24 21:01 thru 05/15/24 21:08 Weight 72.575 kg Falls Risk Assessment History of Falls Previous History 05/15/24 21:14 Contributing Factors Impairments 05/15/24 21:14 Ambulatory Aids Uses ambulatory device + 05/15/24 21:14 Tubes/Lines None 05/15/24 21:14 Gait Evaluation W/any additional score 05/15/24 21:14 Cognition Cognitive impairment 05/15/24 21:14 Fall Total Score 83 05/15/24 21:14 Level of Risk Maximum Risk 05/15/24 21:14 Problems (Last Reviewed 01/28/24 @ 12:04 by Cristobal Casillas NP) Back pain (Acute) HTN (hypertension) (Chronic) Left femoral vein DVT (Acute) Chronic respiratory failure with hypoxia (Chronic) v v v v v v v v v Sending and/or Receiving Nurses: Please use comment section below to note any information pertinent to the patient hand-off not included above. Information / Comments: pt is alert and oriented w/ lower back and hip pain. pt receiving PO tylenol before coming up to floor. 2L NC 93%, daughteris with pt. Report received from: MALLORY Reaves
[2024-05-16] MEDS: Acetaminophen 325 MG TAB 650 MG PO ×3 (13:58→21:25)
[2024-05-16] MEDS: Nicotine 21 MG/24 HR PATCH TD (16:18)
--- NOTE | 2024-05-16 16:29 | PDOC.CMIN ---
Date of service: 05/16/24 Time of Service: 16:29 Care Management Initial Assmt Initial Assessment Reason for Hospitalization: Back pain Functional Status/Living Situation Patient Presentation: Jerrod was resting when CM met with him; he opened his eyes and said hello, but quickly dozed off again. His daughter, Angelique was in the room visiting. Angelique stated that Jerrod lives in his own home, and they have hired 24/7 caregivers, who have been caring for him for the last six years. She reported that he is , and there are three children (including her) that are very supportive, and manage the caregivers. Angelique advocated for her father to receive a nicotine patch, as he is a daily tobacco user and she worries that he will be ornery if he doesn't have a replacement; his nurse is aware and was working on obtaining this for him. Angelique stated that their plan will be to bring Jerrod home, hopefully tomorrow, once he is medically cleared. He may benefit from PT, in addition to his caregivers, to help with his mobility and train his caregivers, if needed. CM will continue to follow. Town of Residence: [place] Resides with: Other (24/ caregivers, private) Significant Other/Family: Local Caregiver/Guardian: Angelique listed as [facility] Natural Supports: Children: Angelique, Humberto and Shawna Employment Status: Retired Instrumental Activities of Daily Living (ADLs): Requires support Medications Medication Management: No Issues/Barriers identified (medication managed by caregivers) Physical Functioning/Mobility Assistive Device: cane Advance Directives Advance Directives: Do you have an Advance Directive: Y 01/12/23 21:09 AD On File at [facility]: Y 11/17/17 08:10 Date Asked 11/19/23 11/19/23 11:21 AD Date Reviewed 07/29/23 07/29/23 11:46 COLST On File at [facility] Yes 01/12/23 21:09 COLST Date Scanned 01/06/23 01/12/23 21:09 Code Status Resuscitation Status DNR/DNI Insurance Coverage/Financial Issues Insurance: [facility] NA[facility] supplement Care Team Visit Care Team Role Provider Type Molly Powers NP Primary Care Provider NURSE PRACTITIONER InPatient Kumar Faria Other Providers OTHER Janine Suazo MD Emergency Provider [facility] STAFF PHYSICIAN Catarino eFrmin MD Admit Provider [facility] STAFF PHYSICIAN Attending Provider Discharge Potential Discharge Needs: PT Evaluation and PCP F/U Appt Anticipated Barriers to Discharge: None Identified Patient/Family Education Needs: Review discharge instructions, discuss Ask Me Three Transportation: Private vehicle Plan: Anticipate Jerrod will return home once medically cleared, and his 04/11 caregivers will resume care. He may benefit from HH PT to increase his independence with mobility at home. He will transport via private vehicle by family. He will follow up with his PCP and discharge plan of care. CM will continue to follow. Social Determinants of Health Screening Social Determinants of Health last assessed: 05/16/24 Will the Patient Participate in the Screening?: Yes Do you worry about having a steady place to live?: no Problems where you live: no known problems In the past 12 months, have you had to go without electric, gas, oil or water in your home?: no Have you or anyone in your house had to go without enough food to eat?: no Has lack of transportation kept you from medical appointments or from doing things needed for daily living?: no Has anyone in your life made you feel unsafe or unsupported?: no How hard is it for you to pay for the very basics like food, housing, medical care, and heating? Would you say it is:: Not hard at all Do you want help finding or keeping work or a job?: I do not need or want help If for any reason you need help with day-to-day activities such as bathing, preparing meals, shopping, managing finances, etc., do you get the help you need?: I get all the help I need How often do you feel lonely or isolated from those around you?: Never Do you speak a language other than Singaporean at home?: No Does the patient want assistance with any of the above?: No Social Determinants of Health Comments([facility] Details): pt receives 04/11 home health services PFSH All Active Problems (Updated 05/16/24 @ 03:58 by Janine Suazo MD) Muscle spasm (Acute) Back pain (Acute) Ambulatory dysfunction (Acute) Fall (Acute) HTN (hypertension) (Chronic) TIA (transient ischemic attack) (Acute) Pulmonary embolism (Chronic ~10/2018) Bladder diverticulum (Acute) Nicotine dependence (Acute) Hypercalcemia (Acute) Left femoral vein DVT (Acute) Chronic respiratory failure with hypoxia (Chronic) Osteopenia (Chronic) Diverticulosis of colon (Chronic) Medical History Pneumonia BPH w urinary obs/LUTS Interstitial lung disease Cognitive impairment Suspect dementia, declines neurology consult History of thromboembolism P.E., DVT 2018 Generalized anxiety disorder Hypertension Hyperlipidemia CVA (cerebral vascular accident) (~09/2018) Right posterior internal capsule ischemic stroke Surgical History Status post left hip replacement History of appendectomy (07/16/20) Family History Mother Dementia Father No problems noted. Daughter No problems noted. Daughter No problems noted. Son No problems noted. Maternal Grandfather No problems noted. Maternal Grandmother No problems noted. Paternal Grandfather No problems noted. Paternal Grandmother No problems noted. Brother Alcohol use disorder Colon cancer Hyperlipidemia Hypertension Diabetes Social History Smoking/Tobacco Use Status: Former Tobacco Use tobacco type: cigarettes and smokeless tobacco Quit Date: 04/14/85 Smokeless tobacco user: snuff Second Hand Exposure: Yes Smoking risk assessment performed?: Yes Alcohol Intake: former Drug use: Never Substance use type: does not use Counseling given: No Adopted: No Caregiver/Support person: Yes Foster care: No Household members: caregiver Housing: house Number of Children: 3 number of grandchildren: 7 Communication Needs: None Education Level: high school Do you need help understanding health information?: Never 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 Pets and animals: Yes Pets and animals: dog(s) Sexually active: No Do you think of yourself as: straight/heterosexual Current gender identity: male What is your relationship status?: How often do you talk on the phone with friends or family?: three or more times per week How often do you get together with friends or relatives?: three or more times per week How often do you attend sikh or yazidi services?: 4 or more times per year Do you belong to any clubs or organized social groups?: no Panel score (0-1 are the most socially isolated patients): 3 What type of physical activity do you participate in: walking and regular exercise Duration: 45-60 minutes/day Frequency: daily Tamela/Church: [employer] Special tamela needs: No Agree to transfusion: Yes Seatbelt use: always Drive intox or ride w/intox jukebox route driver: No Working smoke detector in home: Yes Carbon monox detector in home: Yes Firearms in home: Yes Firearms unloaded and locked: Yes Do you feel safe at home: Yes Victim of physical abuse: No Victim of emotional abuse: No Victim of sexual abuse: No Would you like helpful sources: No
[2024-05-16] MEDS: Polyethylene Glycol 3350 17 GM PACKET PO (21:25)
[2024-05-17 07:15] VITALS: BP 132/74; PULSE 76; RESP 15; TEMP 37.6; O2SAT 92
--- NOTE | 2024-05-17 08:53 | CMPROGNOTE_ITS ---
Date of service: 05/17/24 Time of Service: 08:53 Care Management Progress Note Progress Note Text Progress Note Text: Jerrod was sitting up in bed when CM met with him. He was quite sleepy and was sparse with conversation. Jerrod's 2 daughters Angelique and Shawna were present and requested to see CM. They informed CM that they were very upset with the care at [facility] and were disappointed that they had not been kept informed about their Dad's condition. A nurse told them last evening that Jerrod has a compression fracture. They (his daughters) determined that his pain was coming from that and were advocating to have him transferred to [facility] for a procedure to stabilize the fracture. CM relayed the request to the TETRYL WRINGER OPERATOR assigned to Jerrod. She was able to help them understand that the compression fracture was of indeterminate age and was not acute. Additionally, His pain is in his lumbar spine and the compression fracture is thoracic. After the discussion, they agreed to keep him at [facility] for continued PT. Jerrod has received scheduled Tylenol and one dose of IV Toradol for pain; he has not needed or received any narcotics. Jerrod lives in [facility]. He has 2 daughters and a son who are very attentive. Jerrod also has privately paid caregivers 04/11. He will return home with a resumption of caregiver services. Jerrod may need a hopital bed if his mobility is limited at discharge. Angelique discussed with CM and will notify CM if that is going to be needed. Discharge Potential Discharge Needs: PT Evaluation and PCP F/U Appt Anticipated Barriers to Discharge: None Identified Patient/Family Education Needs: Review discharge instructions, discuss Ask Me Three Transportation: Private vehicle Plan: Anticipate Jerrod will return home once medically cleared, and his 04/11 caregivers will resume care. He may benefit from PT to increase his independence with mobility at home. He will transport via private vehicle by family. He will follow up with his PCP and discharge plan of care. CM will continue to follow. Social Determinants of Health Screening Social Determinants of Health last assessed: 05/17/24 Will the Patient Participate in the Screening?: Yes Do you worry about having a steady place to live?: no Problems where you live: no known problems In the past 12 months, have you had to go without electric, gas, oil or water in your home?: no Have you or anyone in your house had to go without enough food to eat?: no Has lack of transportation kept you from medical appointments or from doing things needed for daily living?: no Has anyone in your life made you feel unsafe or unsupported?: no How hard is it for you to pay for the very basics like food, housing, medical care, and heating? Would you say it is:: Not hard at all Do you want help finding or keeping work or a job?: I do not need or want help If for any reason you need help with day-to-day activities such as bathing, preparing meals, shopping, managing finances, etc., do you get the help you need?: I get all the help I need How often do you feel lonely or isolated from those around you?: Never Do you speak a language other than Swedish at home?: No Does the patient want assistance with any of the above?: No Social Determinants of Health Comments(SDOH Details): pt receives 04/11 home health services
--- NOTE | 2024-05-17 10:09 | W.PM.PROGNOT ---
Date of Service Date of service: 05/17/24 Time of Service: 10:09 Assessment and Plan Assessment and plan (1) Back pain: Status: Acute Assessment and plan: The patient comes in with acute back pain s/p fall w/o any loss of consciousness earlier this evening. His imaging does not show any acute fracture and his pain has required Flexeril, Oxycodone, Lidocaine and Tylenol. On my evaluation he is drowsy and his BP is slightly low. He is not in any acute pain. I recommend to obs the patient and continue to monitor him. For now we should defer further opioids due to slight hypotension. Re-evaluate if his pain is controlled in the morning. -Obs patient and cont to monitor -Monitor BP and hold any opioids -Control pain w/ non-opioid (2) HTN (hypertension): Status: Chronic Assessment and plan: Hold BP meds due to hypotension from pain meds -Hold Norvasc 5mg daily (3) Left femoral vein DVT: Status: Acute Assessment and plan: -Cont w/ Eliquis 5mg bid (4) Chronic respiratory failure with hypoxia: Status: Chronic Assessment and plan: Emphysematous, fibrotic changes noted on chest CT scans over the years with PFTs this month showing moderate restrictive pattern -Cont to monitor w/ oxygen supplementation as needed (5) CVA (cerebral vascular accident): Assessment and plan: CVA w/ LUE/LLE weakness -Not on ASA -Cont w/ Simvastatin 20mg daily Exam Narrative Exam Narrative: Constitutional Facial structures with normal appearance Eyes: Well aligned, intact ROM Neck: Normal ROM, no meningeal signs Neuro:alert and oriented to self, person, days off by one.left sided weakness s/p stroke Chest:Chest is symmetrical and normal appearance Resp: Normal respiratory pattern, speaks in short, unlabored breathing, clear lung bilaterally Cardio: regular rhythm, S1, S2, no murmur, PPP X 4 GI: Abdomen is not distended, soft and non tender, bowel sounds are present Back/spine/Pelvis: No back tenderness, normal alignment Integumentary: No skin lesions or rash Extremities: strength 5/5 to bilateral lower and upper extremities Psych: RASS 0, congruent mood and normal affect. Objective Last Vital Signs Temp 37.6 C H 05/17/24 07:15 Pulse 76 05/17/24 07:15 Resp 15 05/17/24 07:15 BP 132/74 05/17/24 07:15 Pulse Ox 92 05/17/24 07:15
[2024-05-17] MEDS: Apixaban 5 MG TAB PO ×2 (10:19→20:27)
[2024-05-17] MEDS: Tamsulosin 0.4 MG CAPCR 0.8 MG PO (10:19)
[2024-05-17] MEDS: Nicotine 21 MG/24 HR PATCH TD (10:19)
[2024-05-17] MEDS: Polyethylene Glycol 3350 17 GM PACKET PO ×2 (10:19→20:26)
[2024-05-17] MEDS: Aspirin 81 MG CHEW PO (10:19)
[2024-05-17] MEDS: Acetaminophen 325 MG TAB 650 MG PO ×3 (11:56→20:27)
--- NOTE | 2024-05-17 13:02 | PTTR_ITS ---
PT Notes Visit Reasons: Back Pain Inpatient Physical Therapy Treatment Note [facility] Date: 05/17/2024 PRECAUTIONS:Fall RIsk, Left hemiplegia SUBJECTIVE: Pt agreeable to try sitting at the EOB. His dtrs report he has 24hour care at home and are working on getting him a hospital bed. They noted they may take him home instead of going to rehab and have Home PT come in to the house. OBJECTIVE: Pt presents in bed with oxygen 2L/Min via NC, His 2 daughters present. ?He has a clip gait belt with handles which was labelled with his name. ? PAIN: Pt reports pain to palpation to left PSIS, iliac crest area. He denied pain with palpation to spine. He noted pain as 10% out of 100% during session although he had 2 vocalizations of Oww during transition supine to from sit Therapeutic Activities (47087d[]): Direct one-on-one instruction in dynamic activities to improve functional performance. ? BED MOBILITY/TRANSFERS? Rolling L/R: max A of 2 due to pain in left lateral/ posterior hip along illiac crest Supine-sit: with HOB elevated and toward the left ( as at home) Max Assist of 1 with increased time.? Sit-supine: max A of 2? Sit-stand: Mod A of 2 with SBQC on R x 3 trials then Max a of 1 x 3 trials ? Stand-sit:Mod A of 2 with SBQC on R x 3 trials then Max a of 1 x 3 trials Attempted to perform pivot however pt unable to tolerate stand long enough for LE advancement. ? Provided skilled cues and instruction on performance and technique throughout. Neuromuscular Re-education ([id number][]): Activities that facilitate re-education of movement balance, posture, coordination, and proprioception or kinesthetic sense, requiring skilled tactile and verbal cues ?sit at EOB with BLE wide TERRY and intermittent RUE support wide to the right to achieve and sustain midline. Pt required min A intermittently to reset LLE wide to sustain midline. Pt able to reach for targets with RUE on right side of body without LOB. Pt tolerated eob tasks for >30 mins ASSESSMENT:? Pt able to localize pain in posterior left hip along PSIS, iliac crest anteriorly along ecchymotic area. He denied pain to spine with palpation. He reported pain the worst during transition. He was able to sustain seated tasks for >30 mins. He was unable to perform pivot to chair with and without SBQC. Will attempt with Hemiwalker to provide more stability to RUE at next session. Dtrs also educated on hand hygiene with use of wrist flexion to aide in opening Left hand. PLAN: 1-2x/day, 7 days/week x 1 week.Plan of care has been reviewed with the WIRE PREPARATION WORKER providing the service under Physical Therapy direction. Initiate Physical Therapy intervention for strengthening, bed mobility, transfers, gait, balance training, use of assistive device. TREATMENT CODE/TIME:98768, [id number]/ [id number] DISCHARGE RECOMMENDATION: Home with private Home services as prior and HH PT vs SNF
--- NOTE | 2024-05-17 13:45 | W.PM.DS.N ---
Date of service: 05/19/24 Time of Service: 09:00 DS: Diagnosis Discharge Diagnosis (1) Back pain: Status: Acute (2) HTN (hypertension): Status: Chronic (3) Left femoral vein DVT: Status: Acute (4) Chronic respiratory failure with hypoxia: Status: Chronic (5) CVA (cerebral vascular accident): Discharge Plan Disposition Patient Disposition: Home W/Home Health Services Condition: Improving Discharge Details Reason For Visit: Back Pain Admit Date/Time: 05/16/24 04:55 Admit Provider: Catarino Fermin Attending Provider: Catarino Fermin [facility] Hospital Course: This 83-year-old male patient with past medical history dementia, of CVA with left lower extremity and left upper extremity weakness, additional lung disease on home oxygen and DVT on Eliquis presented to the ED at [facility] on 05/15/2024 status post fall with complaints of ongoing back pain. The patient has been receiving 24-hour nursing care at home and sustained a mechanical fall after tripping on his oxygen tubing. There was no report of head strike or loss of consciousness. The patient was able to get up with assistance of his chief innovation officer. Workup in the ED was significant for mild compression of the superior endplate of the T12 which was of indeterminate age. Other imaging showed no acute process, no pelvis or lower spine injury. The patient was unable to ambulate in the ED and was admitted to the hospitalist service for evaluation and management of ambulatory dysfunction and back pain. The patient was noticed to have pain to his left lumbar area where ecchymosis/bruising was forming. The patient did not express any complaints of pain to the T12 area. During the stay was treated with scheduled acetaminophen and NSAID with improvement in his mobility. The patient continued to work with physical therapy and was able to transfer from bed to chair with walker and public health training assistant which is similar to Assessment from home. The patient will be discharged home with home health physical therapy in addition to his 24-hour chief innovation officer services that he was getting prior to admission. The patient will need to follow-up with his primary care practitioner within 7 days of discharge; they should discuss outpatient trading specialist referral. Discussed with Dr. Redyd Home Meds and New Rx's Prescriptions: New acetaminophen 325 mg Tablet 650 mg PO QID Qty: 40 0RF ibuprofen 200 mg tablet 400 mg PO Q12H PRNQty: 30 0RF pantoprazole [Protonix] 40 mg tablet,delayed release (DR/EC) 40 mg PO DAILY Qty: 5 0RF lidocaine 5 % adhesive patch,medicated 1 patch topical DAILY Qty: 15 0RF Rx Instructions: leave on most painful area for up to 12 hrs Continued cholecalciferol (vitamin D3) 25 mcg (1,000 unit) capsule 25 mcg PO DAILY multivitamin Tablet 1 tab PO DAILY sertraline 50 mg tablet 75 mg PO DAILY Qty: 135 3RF Combivent Respimat 20-100 mcg/actuation mist 1 puff inhalation Q6H PRN (Reason: shortness of breath or wheezing) Qty: 4 3RF aspirin 81 mg tablet,chewable 81 mg PO DAILY potassium chloride 20 mEq tablet extended release 20 meq PO DAILY Qty: 90 3RF polyethylene glycol 3350 [Miralax] 17 gram/dose powder 17 g PO .MWF Rx Instructions: See Task from 01/21/2024. -hb simvastatin 20 mg tablet 20 mg PO DAILY Qty: 90 3RF amlodipine 5 mg tablet 5 mg PO DAILY Qty: 90 3RF Eliquis 5 mg tablet 5 mg PO BID Qty: 180 3RF tamsulosin 0.4 mg capsule 0.8 mg PO DAILY Qty: 180 3RF epinephrine 0.3 mg/0.3 mL Auto-Injector 0.3 mg IM ONCE Rx Instructions: as a single dose; may repeat once Discharge Instructions Instructions: Preventing Falls ED Stand Alone Forms: Nursing Discharge Form Referrals: Molly Powers NP [Primary Care Provider] - (Please call the office to make a follow up within 7-10 days. I left a message at the office with your information ) Activity:: Activity as Tolerated Equipment/Supplies:: Walker Diet:: Currently heart healthy Discharge Orders Discharge Orders: Discharge Order (Routine); Ordered 05/19/24 Ordered By: Melody Desir DS: Summary Time Spent with Patient providing and/or coordinating discharge services: Greater than 30 minutes Status at Discharge Functional status at discharge: uses cane/walker Overall status at discharge: patient is progressing back to baseline Mental Status: mental status grossly normal Speech and Movement: speech and movement normal Mood: congruent mood Affect: normal affect Quality:SDOH Health Related Social Needs: No Data to Display Exam Narrative Exam Narrative: Constitutional The patient is without acute distress Neuro:alert and oriented to self, person. Appears nonfocal Resp: Unlabored breathing, clear lung bilaterally Cardio: regular rhythm, S1, S2 GI: Abdomen is not distended, soft and non tender, bowel sounds are present : Negative Costovertebral angle tenderness, no bladder distension Back/spine/Pelvis: No back tenderness, normal alignment Integumentary: No skin lesions or rash Extremities: strength 5/5 to bilateral lower and upper extremities Psych: RASS 0, congruent mood and normal affect. Psych Mental Status: mental status grossly normal Speech and Movement: speech and movement normal Mood: congruent mood Affect: normal affect DS: Data Vitals/I&O Vitals and I&O: Vital Signs Temperature 37.6 C H 05/17/24 07:15 Temperature Source Temporal Artery Scan 05/17/24 07:15 Pulse 76 05/17/24 07:15 Pulse Rhythm Regular 05/16/24 14:25 Pulse 86 05/16/24 02:10 Respiratory Rate 15 05/17/24 07:15 Respiratory Effort Normal, Non-Labored 05/16/24 14:25 Respiratory Depth Normal 05/16/24 14:25 Respiratory Pattern Normal 05/16/24 14:25 Blood Pressure 132/74 05/17/24 07:15 Blood Pressure Mean 86 05/16/24 08:00 Blood Pressure Position Supine 05/16/24 04:56 Pulse Oximetry 92 05/17/24 07:15 Oxygen Delivery Method Room Air 05/17/24 07:15 Oxygen Flow Rate 0 05/17/24 07:15 Pain Level 0 05/16/24 22:56 Comment Daughter reports that pT winced in pain when she touched his back. 05/17/24 07:15 Intake & Output 05/16/24 05/17/24 05/17/24 23:59 11:59 23:59 Intake Total 240 / 240 Balance 240 / 240 Weight 72.5 kg Intake: Oral 240 / 240 Other: Urine Color Yellow Yellow Urine Appearance Clear Urine Odor None None Comment incontinent of urine x 1 voided small amount into brief. PFSH All Active Problems (Updated 05/17/24 @ 14:04 by Melody Desir APRN) Discharge planning issues (Acute) Muscle spasm (Acute) Back pain (Acute) Ambulatory dysfunction (Acute) Fall (Acute) HTN (hypertension) (Chronic) TIA (transient ischemic attack) (Acute) Pulmonary embolism (Chronic ~10/2018) Bladder diverticulum (Acute) Nicotine dependence (Acute) Hypercalcemia (Acute) Left femoral vein DVT (Acute) Chronic respiratory failure with hypoxia (Chronic) Osteopenia (Chronic) Diverticulosis of colon (Chronic) Medical History Pneumonia BPH w urinary obs/LUTS Interstitial lung disease Cognitive impairment Suspect dementia, declines neurology consult History of thromboembolism P.E., DVT 2019 Generalized anxiety disorder Hypertension Hyperlipidemia CVA (cerebral vascular accident) (~09/2018) Right posterior internal capsule ischemic stroke Surgical History Status post left hip replacement History of appendectomy (07/16/20) Family History Mother Dementia Father No problems noted. Daughter No problems noted. Daughter No problems noted. Son No problems noted. Maternal Grandfather No problems noted. Maternal Grandmother No problems noted. Paternal Grandfather No problems noted. Paternal Grandmother No problems noted. Brother Alcohol use disorder Colon cancer Hyperlipidemia Hypertension Diabetes Social History Smoking/Tobacco Use Status: Former Tobacco Use tobacco type: cigarettes and smokeless tobacco Quit Date: 04/14/85 Smokeless tobacco user: snuff Second Hand Exposure: Yes Smoking risk assessment performed?: Yes Alcohol Intake: former Drug use: Never Substance use type: does not use Counseling given: No Adopted: No Caregiver/Support person: Yes Foster care: No Household members: caregiver Housing: house Number of Children: 3 number of grandchildren: 7 Communication Needs: None Education Level: high school Do you need help understanding health information?: Never 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 Pets and animals: Yes Pets and animals: dog(s) Sexually active: No Do you think of yourself as: straight/heterosexual Current gender identity: male What is your relationship status?: How often do you talk on the phone with friends or family?: three or more times per week How often do you get together with friends or relatives?: three or more times per week How often do you attend zoroastrianism or jehovah's witness services?: 4 or more times per year Do you belong to any clubs or organized social groups?: no Panel score (0-1 are the most socially isolated patients): 3 What type of physical activity do you participate in: walking and regular exercise Duration: 45-60 minutes/day Frequency: daily Tamela/Pentecostalism: Jew Special tamela needs: No Agree to transfusion: Yes Seatbelt use: always Drive intox or ride w/intox service car driver: No Working smoke detector in home: Yes Carbon monox detector in home: Yes Firearms in home: Yes Firearms unloaded and locked: Yes Do you feel safe at home: Yes Victim of physical abuse: No Victim of emotional abuse: No Victim of sexual abuse: No Would you like helpful sources: No Time Spent with Patient Time Spent with Patient: 70-84 minutes4 Time was spent: preparing to see the patient(eg.review tests), obtaining and/or reviewing separately otained hiistory, ordering medications,tests, procedures, referring, communicating with other health home care provider, indepentently interpreting results, counseling the patient and care coordination
--- NOTE | 2024-05-17 13:52 | W.PM.PROGNOT ---
Date of Service Date of service: 05/17/24 Time of Service: 13:52 Assessment and Plan Assessment and plan (1) Back pain: Status: Acute Assessment and plan: T12 compression Fx on CT- age undetermined- Non- acute Family thought this was acute from the fall and were not aware that his pain was in his lower back with the brusing, and wanted [place] [facility] [place]- agreed to stay for pain control and PT at this time No injury to lower spine as per report- this is where tenderness is reported Continue multimodal Pain m with Flexeril, Lidocaine and scheduled Tylenol Will add NSAIDs scheduled Keep opioids for pain not controled by above regimen since the patient had an episode of slight hypotension. This has resolved now (2) HTN (hypertension): Status: Chronic Assessment and plan: Continue home medicine regimen (3) Left femoral vein DVT: Status: Acute Assessment and plan: -On Eliquis 5mg bid (4) Chronic respiratory failure with hypoxia: Status: Chronic Assessment and plan: As per CT emphysematou and fibrotic changes noted PFTs this month showing moderate restrictive pattern -Monitor w/ oxygen supplementation as needed PRN nebs (5) CVA (cerebral vascular accident): Assessment and plan: CVA w ogoing LUE/LLE weakness -Not on ASA -On home dose Simvastatin 20mg daily -On Eliquis for DVT (6) Discharge planning issues: Status: Acute Assessment and plan: Return home with home pricvate services and HH when at baseline and able to transfer Discussed with Dr. Reddy Subjective Subjective Patient reports: no new complaints, pain is less (localized to left lumbar/iliac area on palpation ), tolerating liquids well, tolerating a regular diet, voiding w/o difficulty and afebrile; denies no bowel movement, diarrhea, nausea, vomiting or shortness of breath Exam Const General: cooperative, healthy appearing, comfortable, no acute distress and well developed Nutritional Appearance: average body habitus Orientation: alert and awake HENMT Mouth: moist mucous membranes Resp Effort & Inspection: normal respiratory effort and able to speak in complete sentences Auscultation: clear to auscultation bilaterally Other: on O2 per baseline Cardio Rate: regular rate Rhythm: regular rhythm GI Inspection: normal to inspection and non-distended Palpation: soft, not firm, no guarding and nontender Back/Spine/Pelvis Cervical Spine: normal cervical lordosis and cervical ROM normal Thoracic/Lumbar Spine: No thoracic spinal tenderness Sacrum: tenderness Coccyx: tenderness Other: left sided lumbar/iliac region tenderness on palpation , + bruising Skin General skin exam: no rashes or lesions noted Objective Last Vital Signs Temp 37.6 C H 05/17/24 07:15 Pulse 76 05/17/24 07:15 Resp 15 05/17/24 07:15 BP 132/74 05/17/24 07:15 Pulse Ox 92 05/17/24 07:15 Time Spent with Patient Time Spent with Patient: >50 minutes Time was spent: preparing to see the patient(eg.review tests), obtaining and/or reviewing separately otained hiistory, ordering medications,tests, procedures, referring, communicating with other health transitional care liaison, indepentently interpreting results, counseling the patient and care coordination
[2024-05-17] MEDS: Ketorolac 10 MG TAB PO ×2 (14:26→20:27)
[2024-05-17 15:09] VITALS: BP 127/68; PULSE 78; RESP 15; TEMP 37.1; O2SAT 92
[2024-05-17] MEDS: Docusate Sodium 100 MG CAP PO (20:27)
[2024-05-17 23:29] VITALS: BP 125/80; PULSE 81; RESP 16; TEMP 37; O2SAT 93
[2024-05-18 07:13] LABS: Abs Immature Grans 0.04 10^3/uL (0.0-0.06); Absolute Basophil Count 0.04 10^3/uL (0.0-0.2); Absolute Eosinophil Count 0.33 10^3/uL (0.0-0.7); Absolute Lymphocyte Count 1.47 10^3/uL (1.2-3.4); Absolute Monocyte Count 0.61 10^3/uL (0.1-0.8); Absolute Neutrophil Count 5.31 10^3/uL (1.2-6.7); Basophils % 0.5 %; Eosinophils % 4.2 %; HCT 32.9 % (40.0-50.0); HGB 10.8 g/dL (13.5-17.5); Immature Grans % 0.5 %; Lymphocytes % 18.8 %; MCH 27.8 pg (27.0-33.0); MCHC 32.8 % (32.0-36.0); MCV 85 fL (80-95); MPV 13.1 fL (8.0-11.0); Monocytes % 7.8 %; Neutrophils % 68.2 %; Platelet Count 128 10^3/uL (130-400); RBC 3.88 10^6/uL (4.36-5.78); RDW-SD 49.6 fL
[2024-05-18 07:31] LABS: Anion Gap 6.3 mmol/L (3-11); BUN 23 mg/dL (7-18); CO2 29.7 mmol/L (21.0-32.0); CREATININE 1.4 mg/dL (0.70-1.30); Chloride 109 mmol/L (98-107); Estimated GFR 49.25 (mL/min/1.73m2); Glucose 91 mg/dL (74-106); Potassium 3.7 mmol/L (3.5-5.1); Sodium 145 mmol/L (136-145)
[2024-05-18 07:33] VITALS: BP 138/83; PULSE 76; RESP 16; TEMP 36.5; O2SAT 93
--- NOTE | 2024-05-18 08:45 | CMPROGNOTE_ITS ---
Date of service: 05/18/24 Time of Service: 08:46 Care Management Progress Note Progress Note Text Progress Note Text: Jerrod was sleeping soundly when CM went to see him. One of his caregivers was by his side and stated that he had just fallen asleep. Jerrod is scheduled to discharge home tomorrow. There had been some discussion about the possible need for a hospital bed but Jerrod's caregiver stated that the family determined that he did not need one. She explained that there are grab bars throughout his living space and that the caregivers are able to get him in and out of bed. Jerrod's daughter requested that he be ready for discharge by 11 am as she needs to go to work after he returns home. CM communicated the request to his provider who was in agreement, barring any unforeseen circumstances. Discharge Potential Discharge Needs: PCP F/U Appt Anticipated Barriers to Discharge: None Identified Patient/Family Education Needs: Review discharge instructions, discuss Ask Me Three Transportation: Private vehicle Plan: Anticipate Jerrod will return home once medically cleared, and his 04/11 caregivers will resume care. He may benefit from HH PT to increase his independence with mobility at home. He will transport via private vehicle by family. He will follow up with his PCP and discharge plan of care. CM will continue to follow. Social Determinants of Health Screening Social Determinants of Health last assessed: 05/18/24 Will the Patient Participate in the Screening?: Yes Do you worry about having a steady place to live?: no Problems where you live: no known problems In the past 12 months, have you had to go without electric, gas, oil or water in your home?: no Have you or anyone in your house had to go without enough food to eat?: no Has lack of transportation kept you from medical appointments or from doing things needed for daily living?: no Has anyone in your life made you feel unsafe or unsupported?: no How hard is it for you to pay for the very basics like food, housing, medical care, and heating? Would you say it is:: Not hard at all Do you want help finding or keeping work or a job?: I do not need or want help If for any reason you need help with day-to-day activities such as bathing, preparing meals, shopping, managing finances, etc., do you get the help you need?: I get all the help I need How often do you feel lonely or isolated from those around you?: Never Do you speak a language other than Croatian at home?: No Does the patient want assistance with any of the above?: No Social Determinants of Health Comments(SDOH Details): pt receives 04/11 home health services
[2024-05-18] MEDS: Nicotine 21 MG/24 HR PATCH TD (10:10)
[2024-05-18] MEDS: Ketorolac 10 MG TAB PO ×2 (10:11→14:17)
--- NOTE | 2024-05-18 10:12 | W.PM.PROGNOT ---
Date of Service Date of service: 05/18/24 Time of Service: 19:25 Assessment and Plan Assessment and plan (1) Back pain: Status: Acute Assessment and plan: On admission: T12 compression Fx on CT- age undetermined Continue pain management and PT as the patient mobility has improved today. No injury to lower spine as per report- this is where tenderness is reported Keep opioids for pain not controlled by above regimen since the patient had an episode of slight hypotension on admission. (2) HTN (hypertension): Status: Chronic Assessment and plan: On home medicine regimen (3) Left femoral vein DVT: Status: Acute Assessment and plan: -Continue Eliquis 5mg bid (4) Chronic respiratory failure with hypoxia: Status: Chronic Assessment and plan: As per CT emphysematous and fibrotic changes noted PFTs report showing moderate restrictive pattern Continue to monitor no supplementation in oxygen needed Continue PRN nebs (5) CVA (cerebral vascular accident): Assessment and plan: History of CVA w ongoing LUE/LLE weakness -Not on ASA -Continue home dose Simvastatin 20mg daily -Continue home dose Eliquis for DVT (6) Discharge planning issues: Status: Acute Assessment and plan: BMP tomorrow with services as per physical therapy recommendation Discussed with Dr. Reddy Subjective Subjective Patient reports: no new complaints, pain is less, tolerating liquids well, tolerating a regular diet and voiding w/o difficulty; denies diarrhea, vomiting, shortness of breath or fever Exam Const General: cooperative, healthy appearing, comfortable and no acute distress Nutritional Appearance: average body habitus Orientation: alert and awake HENMT Mouth: moist mucous membranes Resp Effort & Inspection: normal respiratory effort and able to speak in complete sentences Auscultation: clear to auscultation bilaterally Other: on O2 per baseline Cardio Rate: regular rate Rhythm: regular rhythm GI Inspection: normal to inspection and non-distended Palpation: soft, not firm, no guarding and nontender Back/Spine/Pelvis Cervical Spine: normal cervical lordosis and cervical ROM normal Thoracic/Lumbar Spine: No thoracic spinal tenderness Sacrum: tenderness Coccyx: tenderness Other: left sided lumbar/iliac region tenderness on palpation , + bruising Skin General skin exam: no rashes or lesions noted (but left lower back bruising improving ) Objective Last Vital Signs Temp 36.5 C 05/18/24 07:33 Pulse 76 05/18/24 07:33 Resp 16 05/18/24 07:33 BP 138/83 05/18/24 07:33 Pulse Ox 93 05/18/24 07:33 Laboratory Results - last 24 hr 05/18/24 06:11 WBC 7.80 RBC 3.88 L Hgb 10.8 L Hct 32.9 L MCV 85 MCH 27.8 MCHC 32.8 RDW 16.0 H Plt Count 128 L MPV 13.1 H Immature Gran % 0.5 Neutrophils % 68.2 Lymphocytes % 18.8 Monocytes % 7.8 Eosinophils % 4.2 Basophils % 0.5 Nucleated RBC % 0.0 Absolute Neutrophils 5.31 Absolute Lymphocytes 1.47 Absolute Monocytes 0.61 Absolute Eosinophils 0.33 Absolute Basophils 0.04 Sodium 145 Potassium 3.7 Chloride 109 H Carbon Dioxide 29.7 Anion Gap 6.3 BUN 23 H Creatinine 1.4 H Est GFR (CKD-EPI 2020) 49.25 Glucose 91 Calcium 9.0 Magnesium 2.0 Time Spent with Patient Time Spent with Patient: >50 minutes Time was spent: preparing to see the patient(eg.review tests), obtaining and/or reviewing separately otained hiistory, ordering medications,tests, procedures, referring, communicating with other health laboratory animal care veterinarian, indepentently interpreting results, counseling the patient and care coordination
[2024-05-18] MEDS: Tamsulosin 0.4 MG CAPCR 0.8 MG PO (10:13)
[2024-05-18] MEDS: Apixaban 5 MG TAB PO ×2 (10:13→20:21)
[2024-05-18] MEDS: Acetaminophen 325 MG TAB 650 MG PO ×2 (10:14→20:20)
[2024-05-18] MEDS: Potassium Chloride 20 MEQ TABCR PO (10:15)
[2024-05-18] MEDS: amLODIPine 5 MG TAB PO (10:16)
[2024-05-18] MEDS: Sertraline 50 MG TAB 75 MG PO (10:17)
[2024-05-18] MEDS: Aspirin 81 MG CHEW PO (10:22)
--- NOTE | 2024-05-18 12:17 | PT.INTREAT ---
PT Notes Visit Reasons: Back Pain Inpatient Physical Therapy Treatment Note [facility] Date: 05/18/2024 PRECAUTIONS:Fall RIsk, Left hemiplegia SUBJECTIVE: Pt agreeable to geting OOB today. OBJECTIVE: Pt presents in bed with oxygen 2L/Min via [place], His caregiver from home is present and participated in care PAIN: Pt denied pain throughout his body until step turn with SBQC and 2 assist He noted pain in his right knee as he attempted to weight shift onto foot after advancing his RLE. He stated the sensation only lasted for that quick moment and resolved after sitting in chair Therapeutic Activities ([id number][]): Direct one-on-one instruction in dynamic activities to improve functional performance. ? BED MOBILITY/TRANSFERS? Supine-sit: with HOB elevated 70 degrees and toward the left ( as at home) Max Assist of 1 with increased time.? Sit-supine: max A of 2? Sit-stand: Mod A of 1 with SBQC on R x 3 trials then Max a of 1 x 3 trials ?with cues to stand up straight ? Stand-sit:Mod A of 1 with SBQC on R x 3 trials then Max a of 1 x 3 trials Step turn transfer to right with SBQC Max A of 2 after initial stand with mod A of 1. Pt difficulty sustaining upright posture and difficulty advancing LEs. ? Provided skilled cues and instruction on performance and technique throughout. Neuromuscular Re-education ([id number][]): Activities that facilitate re-education of movement balance, posture, coordination, and proprioception or kinesthetic sense, requiring skilled tactile and verbal cues ?sit at EOB with BLE wide TERRY and intermittent RUE support wide to the right to achieve and sustain midline. Pt required min A intermittently to reset LLE wide to sustain midline. Pt able to reach for targets with RUE on right side of body without LOB. Pt tolerated eob tasks for ASSESSMENT:?Pt tolerated session well despite reports of fatigue after performing sit to /from stand. Pt required continuous cues for upright trunk posture in stand. He required 2 assist for stability to enable him to advance his RLE for step turn with SBQC. At end of session pt noted fatigue and stated he was fearful during the transfer but knew he was not going to fall. Pt to be a steady lift with nursing staff for transfers at this time. PT to continue to work on step turn transfers with AD . PLAN: 1-2x/day, 7 days/week x 1 week.Plan of care has been reviewed with the CANDY DEPARTMENT MANAGER providing the service under Physical Therapy direction. Initiate Physical Therapy intervention for strengthening, bed mobility, transfers, gait, balance training, use of assistive device. TREATMENT CODE/TIME:39474/ [id number] DISCHARGE RECOMMENDATION: Home with private Home services as prior and HH PT vs SNF
--- NOTE | 2024-05-18 13:56 | CHAPLAIN ---
Jerrod was sleeping when I visited. I spoke with his caregiver from home who was with him, explained my role and offered support.
[2024-05-18 19:42] VITALS: BP 129/63; PULSE 77; RESP 15; TEMP 36.6; O2SAT 94
[2024-05-18] MEDS: Docusate Sodium 100 MG CAP PO (20:20)
[2024-05-18] MEDS: Simvastatin 20 MG TAB PO (20:20)
[2024-05-18] MEDS: Ibuprofen 400 MG TAB PO (20:20)
[2024-05-18] MEDS: Polyethylene Glycol 3350 17 GM PACKET PO (20:21)
[2024-05-18 23:15] VITALS: BP 130/69; PULSE 73; RESP 17; TEMP 36; O2SAT 95
[2024-05-19] MEDS: Refresh PLUS Eye Drops 0.4ml 1 EACH OU (00:13)
[2024-05-19 07:06] LABS: Abs Immature Grans 0.03 10^3/uL (0.0-0.06); Absolute Basophil Count 0.05 10^3/uL (0.0-0.2); Absolute Eosinophil Count 0.36 10^3/uL (0.0-0.7); Absolute Lymphocyte Count 1.24 10^3/uL (1.2-3.4); Absolute Monocyte Count 0.62 10^3/uL (0.1-0.8); Absolute Neutrophil Count 5.14 10^3/uL (1.2-6.7); Basophils % 0.7 %; Eosinophils % 4.8 %; HCT 33.4 % (40.0-50.0); HGB 10.8 g/dL (13.5-17.5); Immature Grans % 0.4 %; Lymphocytes % 16.7 %; MCH 27.3 pg (27.0-33.0); MCHC 32.3 % (32.0-36.0); MCV 84 fL (80-95); Monocytes % 8.3 %; Neutrophils % 69.1 %; Platelet Count 134 10^3/uL (130-400); RBC 3.96 10^6/uL (4.36-5.78); RDW 15.9 % (11.8-14.1); RDW-SD 48.5 fL; WBC 7.44 10^3/uL (4.4-10.8)
[2024-05-19 07:14] LABS: Anion Gap 8.7 mmol/L (3-11); BUN 22 mg/dL (7-18); CO2 28.3 mmol/L (21.0-32.0); CREATININE 1.4 mg/dL (0.70-1.30); Calcium 9.1 mg/dL (8.5-10.1); Chloride 107 mmol/L (98-107); Estimated GFR 49.25 (mL/min/1.73m2); Glucose 113 mg/dL (74-106); Potassium 3.8 mmol/L (3.5-5.1); Sodium 144 mmol/L (136-145)
[2024-05-19 07:52] VITALS: BP 177/84; PULSE 74; RESP 18; TEMP 36.6; O2SAT 94
--- NOTE | 2024-05-19 09:18 | PDOC.HHF2F_ITS ---
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 The patient has been receiving 24-hour nursing care at home and sustained a mechanical fall after tripping on his oxygen tubing. There was no report of head strike or loss of consciousness. The patient was able to get up with assistance of his blending machine feeder. Workup in the ED was significant for mild compression of the superior endplate of the T12 which was of indeterminate age. Other imaging showed no acute process, no pelvis or lower spine injury. The patient was unable to ambulate in the ED and was admitted to the hospitalist service for evaluation and management of ambulatory dysfunction and back pain. The patient was noticed to have pain to his left lumbar area where ecchymosis/bruising was forming. The patient did not express any complaints of pain to the T12 area. During the stay was treated with scheduled acetaminophen and NSAID with improvement in his mobility. The patient continued to work with physical therapy and was able to transfer from bed to chair with walker and assistant winemaker which is similar to Assessment from home. The patient will be discharged home with home health physical therapy in addition to his 24-hour blending machine feeder services that he was getting prior to admission. The patient will need to follow-up with his primary care practitioner within 7 days of discharge; they should discuss outpatient air traffic control specialist center referral. Discussed with Dr. Reddy Medical diagnosis necessitation home health referral: Fall, ambulatory dysfunction Physical Therapist: Check all that apply Increase strength & endurance for safe mobility at home: Ordered To design/establish home maintenance program: Ordered Home safety evaluation and teaching/gait training including stair management (if applicable): Ordered Other: Continue global strengthening per plan of [facility] Status Requires the aid of supportive device (check all that apply): Wheelchair and Walker Describe why leaving home would require a considerable and taxing effort: Requires frequent rest periods and Oxygen Encounter Date and Reason: I certify that a FTF encounter for this patient was performed on May 19, 2024 and that such encounter was related to the primary reason the patient requires home health services. The encounter was conducted in the following manner: * By me as the certifying physician, BAR TACKER SEWING MACHINE, PA or * By an inpatient physician, BAR TACKER SEWING MACHINE or PA during an inpatient stay who communicated findings to me, Certification And Authentication I certify that I composed the above information based on my clinical judgment relating to this patient's medical condition and, if applicable, clinical findings communicated to me by the NPP or inpatient physician who performed the FTF encounter. Name of Provider that will be monitoring home health services: Molly Powers
--- NOTE | 2024-05-19 09:41 | PDOC.CMDIS ---
Date of service: 05/19/24 Time of Service: 09:41 LACE Index Scoring Tool Questions: Length of Stay (in days): 3 Was the patient admitted via the E.D.?: Yes Comorbidities: Cerebrovascular Disease, Chronic Pulmonary Disease and Dementia E.D. Visits: 1 Answers: Total Score: 12 Risk of Readmission: High Risk Care Management Discharge Plan Reason for Hospitalization: back pain Discharge Plan: Jerrod will return home with a resumption of his 04/11 caregivers. He will have new PT to increase his independence with mobility at home. Jerrod will transport via private vehicle with family and will follow up with his PCP and discharge plan of care. Patient/Family Education Needs: Review discharge instructions, limitations, follow up plan and discuss Ask Me Three Services Needed at Discharge: Home Health Care Services SDOH Health Related Social Needs: No Data to Display
[2024-05-19] MEDS: Acetaminophen 325 MG TAB 650 MG PO (09:55)
[2024-05-19] MEDS: Pantoprazole 40 MG TABCR PO (09:56)
[2024-05-19] MEDS: Aspirin 81 MG CHEW PO (09:56)
[2024-05-19] MEDS: Potassium Chloride 20 MEQ TABCR PO (09:56)
[2024-05-19] MEDS: amLODIPine 5 MG TAB PO (09:56)
[2024-05-19] MEDS: Docusate Sodium 100 MG CAP PO (09:56)
[2024-05-19] MEDS: Ibuprofen 400 MG TAB PO (09:57)
[2024-05-19] MEDS: Sertraline 50 MG TAB 75 MG PO (09:57)
[2024-05-19] MEDS: Apixaban 5 MG TAB PO (09:57)
[2024-05-19] MEDS: Nicotine 21 MG/24 HR PATCH TD (09:58)
[2024-05-19] MEDS: Polyethylene Glycol 3350 17 GM PACKET PO (09:58)
[2024-05-19] MEDS: Normal Saline Flush 10 ML SYR IVP (09:59)
[2024-05-19] MEDS: Tamsulosin 0.4 MG CAPCR 0.8 MG PO (10:00)
--- NOTE | 2024-05-28 19:08 | NUR.NOTE ---
chart access for follow up for isha Jason Note:
== END 2024-05-19 12:05 | disposition home health service (06) ==
LOC: ER 05-16 05:04 → EDHOLD 05-16 05:07 → MS 05-16 14:06
PROVIDERS: Nurse Practitioner Acute Care; Admitting Provider Student in an Organized Health Care Education/Training Program; Emergency Provider Student in an Organized Health Care Education/Training Program; PCP Nurse Practitioner Family; Visit Provider Student in an Organized Health Care Education/Training Program
DX: G89.11 Acute pain due to trauma (principal); R41.89 Other symptoms and signs involving cognitive functions and awareness; M54.59 Other low back pain; S22.080A Wedge compression fracture of T11-T12 vertebra, initial encounter for closed fracture; M25.552 Pain in left hip; Z79.899 Other long term (current) drug therapy; Z79.01 Long term (current) use of anticoagulants; Z86.711 Personal history of pulmonary embolism; I10 Essential (primary) hypertension; Z86.73 Personal history of transient ischemic attack (TIA), and cerebral infarction without residual deficits; Z99.81 Dependence on supplemental oxygen; J96.11 Chronic respiratory failure with hypoxia; W18.39XA Other fall on same level, initial encounter; M62.838 Other muscle spasm; F17.210 Nicotine dependence, cigarettes, uncomplicated; M85.80 Other specified disorders of bone density and structure, unspecified site; K57.30 Diverticulosis of large intestine without perforation or abscess without bleeding; Z86.718 Personal history of other venous thrombosis and embolism; F41.1 Generalized anxiety disorder; E78.5 Hyperlipidemia, unspecified
CPT/HCPCS: 00123; 36415; 71250; 80048; 97112; 97162; 97530; 99285; 70450; 72125; 74176; 83735; 85025; 99222; 99233; 99239; G0378; J3490

== ENCOUNTER 2024-06-09 19:52 | Outpatient (REF) | payer MEDICARE, SELFPAY ==
[2024-06-09 18:01] LABS: Bilirubin Negative (Negative); Blood Large (Negative); Clarity Sl Cloudy (Clear); Glucose Negative (Negative); Ketones Negative (Negative); Leukocyte Esterase Negative (Negative); Nitrite Negative (Negative); Urobilinogen 0.2 mg/dL (Up to 0.2)
[2024-06-09 18:15] LABS: Bacteria Negative HPF (Negative); C & S Indicated? No; Casts Negative LPF (Negative); Crystals Negative HPF (Negative); Epithelial Cells Rare HPF (Negative); Mucus Negative (Negative); RBC >50 HPF (0-2); WBC 0-2 HPF (0-5)
== END 2024-06-09 19:53 | disposition home or self-care (01) ==
LOC: LBN 19:52
PROVIDERS: PCP Nurse Practitioner Family; Visit Provider Nurse Practitioner Family
DX: R31.9 Hematuria, unspecified (principal)
CPT/HCPCS: 81003; 81015

== ENCOUNTER 2024-08-04 10:37 | Inpatient (IN) | payer MEDICARE, SELFPAY ==
[2024-08-04] VITALS (32 sets, daily range): BP systolic 133–190; BP diastolic 63–101; PULSE 38–91; RESP 14–22; TEMP 36.2–37; O2SAT 80–97
--- NOTE | 2024-08-04 10:45 | DI.RAD_ITS ---
Exam(s) XR PORTABLE CHEST AP EXAM: XR PORTABLE CHEST AP CLINICAL HISTORY: Shortness of breath TECHNIQUE: 2D digital imaging was performed of the chest. One image was obtained. An AP view was ob tained. COMPARISON: CR,XR XR PORTABLE CHEST AP from 04/20/2023 CR XR CHEST 2V PA LATERAL from 11/06/2023 FINDINGS: MEDIASTINUM: Normal. HEART: Normal. PULMONARY VASCULATURE: Normal. LUNGS: There is atelectasis in the lungs. No focal consolidating infiltrates are seen. PLEURAL SPACE: No pleural effusion or pneumothorax. BONE:Within normal limits for the patient's age. OTHER FINDINGS:Normal. IMPRESSION: No acute pulmonary findings. DATA REPOSITORY: RADIATION DOSE DELIVERED:
--- NOTE | 2024-08-04 10:45 | RT.EKG_ITS ---
APPROVED REPORT Exam: Resting ECG Reason for Exam: Chest pain Patient Location: E HR:83 bpm ECG Measurements Heart Rate 83 AXIS OR 181 P 25 QRSd 138 QRS -93 QT 389 T -11 QTc 458 Conclusion Sinus rhythm, rate 83 Bigeminy, PVCs RBBB, unchanged from priors No STEMI
--- NOTE | 2024-08-04 10:51 | W.ED.GENAD ---
Discharge Plan Disposition Patient Disposition: Admit to [facility] Condition: Fair Discharge Details Chief Complaint: SOB Clinical Impression: Acute and chronic respiratory failure with hypoxia, History of thromboembolism, Interstitial lung disease, History of recent pneumonia Primary Care Provider: Molly Powers ED Provider: Peg Dia Home Meds and New Rx's Prescriptions: No Action cholecalciferol (vitamin D3) 25 mcg (1,000 unit) capsule 25 mcg PO DAILY multivitamin Tablet 1 tab PO DAILY azithromycin 250 mg tablet See Rx Instructions PO .COMPLEX Qty: 6 0RF Rx Instructions: For 250 mg dose pack: take 500 mg today (day 1), then 250 mg for 4 days (days 2-5) PO prednisone 5 mg tablet 5 mg PO DAILY Qty: 49 0RF Rx Instructions: 40mg x 2 days, 30mg x 2 days, 20mg x 2 days, 15 mg x 2 days, 10 mg x 2 days, 5 mg x 2 days, 2.5 mg x 2 days. amoxicillin-pot clavulanate 875-125 mg tablet 1 tab PO Q12H Qty: 10 0RF aspirin 81 mg tablet,chewable 81 mg PO DAILY nicotine 21 mg/24 hr patch 24 hour 1 patch transdermal DAILY PRN (Reason: nicotine cravings) Qty: 90 0RF Rx Instructions: Apply 1 patch daily as needed sertraline 50 mg tablet 75 mg PO DAILY Qty: 135 3RF ipratropium-albuterol 0.5 mg-3 mg(2.5 mg base)/3 mL solution for nebulization 3 ml inhalation Q6H PRN (Reason: wheezing) Qty: 90 2RF polyethylene glycol 3350 [Miralax] 17 gram/dose powder 17 g PO .MWF Rx Instructions: See Task from 01/21/2024. -hb simvastatin 20 mg tablet 20 mg PO DAILY Qty: 90 3RF amlodipine 5 mg tablet 5 mg PO DAILY Qty: 90 3RF Eliquis 5 mg tablet 5 mg PO BID Qty: 180 3RF tamsulosin 0.4 mg capsule 0.8 mg PO DAILY Qty: 180 3RF potassium chloride 20 mEq tablet extended release 20 meq PO DAILY Qty: 90 3RF epinephrine 0.3 mg/0.3 mL Auto-Injector 0.3 mg IM ONCE Rx Instructions: as a single dose; may repeat once acetaminophen 325 mg Tablet 650 mg PO QID Qty: 40 0RF ibuprofen 200 mg tablet 400 mg PO Q12H PRNQty: 30 0RF pantoprazole [Protonix] 40 mg tablet,delayed release (DR/EC) 40 mg PO DAILY Qty: 5 0RF lidocaine 5 % adhesive patch,medicated 1 patch topical DAILY Qty: 15 0RF Rx Instructions: leave on most painful area for up to 12 hrs HPI General Mode of arrival: wheelchair. Date/Time Provider Initiated Documentation: 08/04/24 10:48. Limitations to Documentation: no limitations. Information obtained by: patient, family, RN/MD and old records reviewed. HPI Narrative: This is an 83-year-old male patient with a past medical history significant for left-sided hemiparesis after stroke, interstitial lung disease with chronic hypoxic respiratory failure, on 2 L of oxygen at baseline, cognitive impairment, hypertension, and hyperlipidemia who is presenting for evaluation of worsening shortness of breath and cough after being diagnosed with pneumonia approximately 1 and half weeks ago. He was diagnosed with pneumonia approximately 1 week ago and has been on antibiotics for over a week. This morning, he experienced difficulty breathing, accompanied by raspy lung sounds and significant weakness. He reports no chest pain but admits to a mild cough without any expectoration of blood or sputum. He was seen at emergency room on Friday for breathing issues, where it was noted that the pneumonia persisted in his left lung, and he was advised to continue his medication. The previous Friday, he visited urgent care at [facility], where his prednisone dosage was increased, and he was continued on amoxicillin and azithromycin. He has been on this new medication regimen for over 8 days. He has been using 2 L of oxygen for at least a year, initially prescribed due to a COPD diagnosis, but then formally diagnosed with interstitial lung disease instead. At this time, he does not use any inhalers or nebulizers at home. He is scheduled to start a nebulizer today per his outpatient providers. His medical history includes a stroke, and he is currently on anticoagulant therapy due to a history of thromboembolic events in his legs and lungs. Related Data Home Medications ?Medication ?Instructions ?Recorded ?Confirmed epinephrine 0.3 mg/0.3 mL 0.3 mg IM ONCE 12/22/22 08/04/24 injection, auto-injector aspirin 81 mg chewable tablet 81 mg PO DAILY 01/06/23 08/04/24 cholecalciferol (vitamin D3) 25 25 mcg PO DAILY 04/10/23 08/04/24 mcg (1,000 unit) capsule multivitamin 1 tab PO DAILY 04/10/23 08/04/24 polyethylene glycol 3350 17 17 g PO .MWF 01/21/24 08/04/24 gram/dose oral powder (Miralax) amlodipine 5 mg tablet 5 mg PO DAILY #90 tabs 04/12/24 08/04/24 apixaban 5 mg tablet (Eliquis) 5 mg PO BID #180 tabs 04/12/24 08/04/24 simvastatin 20 mg tablet 20 mg PO DAILY #90 tabs 04/12/24 08/04/24 tamsulosin 0.4 mg capsule 0.8 mg (2 x 0.4 mg) PO DAILY #180 04/12/24 08/04/24 caps acetaminophen 325 mg tablet 650 mg (2 x 325 mg) PO QID #40 tabs 05/18/24 08/04/24 ibuprofen 200 mg tablet 400 mg (2 x 200 mg) PO Q12H PRN 05/18/24 08/04/24 #30 tabs lidocaine 5 % topical patch 1 patch topical DAILY #15 ea 05/18/24 08/04/24 pantoprazole 40 mg tablet,delayed 40 mg PO DAILY #5 tabs 05/18/24 08/04/24 release (Protonix) potassium chloride 20 mEq 20 meq PO DAILY #90 tabs 07/21/24 08/04/24 tablet,extended release nicotine 21 mg/24 hr daily 1 patch transdermal DAILY PRN 07/26/24 08/04/24 transdermal patch nicotine cravings #90 ea sertraline 50 mg tablet 75 mg (1.5 x 50 mg) PO DAILY #135 07/26/24 08/04/24 tabs amoxicillin 875 mg-potassium 1 tab PO Q12H #10 tabs 07/31/24 08/04/24 clavulanate 125 mg tablet azithromycin 250 mg tablet See Rx Instructions PO .COMPLEX #6 07/31/24 08/04/24 tabs prednisone 5 mg tablet 5 mg PO DAILY #49 tabs 07/31/24 08/04/24 ipratropium 0.5 mg-albuterol 3 mg 3 ml inhalation Q6H PRN wheezing 08/02/24 08/04/24 (2.5 mg base)/3 mL nebulization #90 mL soln Previous Rx's ?Medication ?Instructions ?Recorded amlodipine 5 mg tablet 5 mg PO DAILY #90 tabs 04/12/24 apixaban 5 mg tablet (Eliquis) 5 mg PO BID #180 tabs 04/12/24 simvastatin 20 mg tablet 20 mg PO DAILY #90 tabs 04/12/24 tamsulosin 0.4 mg capsule 0.8 mg (2 x 0.4 mg) PO DAILY #180 04/12/24 caps acetaminophen 325 mg tablet 650 mg (2 x 325 mg) PO QID #40 tabs 05/18/24 ibuprofen 200 mg tablet 400 mg (2 x 200 mg) PO Q12H PRN 05/18/24 #30 tabs lidocaine 5 % topical patch 1 patch topical DAILY #15 ea 05/18/24 pantoprazole 40 mg tablet,delayed 40 mg PO DAILY #5 tabs 05/18/24 release (Protonix) potassium chloride 20 mEq 20 meq PO DAILY #90 tabs 07/21/24 tablet,extended release nicotine 21 mg/24 hr daily 1 patch transdermal DAILY PRN 07/26/24 transdermal patch nicotine cravings #90 ea sertraline 50 mg tablet 75 mg (1.5 x 50 mg) PO DAILY #135 07/26/24 tabs amoxicillin 875 mg-potassium 1 tab PO Q12H #10 tabs 07/31/24 clavulanate 125 mg tablet azithromycin 250 mg tablet See Rx Instructions PO .COMPLEX #6 07/31/24 tabs prednisone 5 mg tablet 5 mg PO DAILY #49 tabs 07/31/24 ipratropium 0.5 mg-albuterol 3 mg 3 ml inhalation Q6H PRN wheezing 08/02/24 (2.5 mg base)/3 mL nebulization #90 mL soln Allergies Allergy/AdvReac Type Severity Reaction Status Date / Time bee venom protein (honey bee) Allergy Severe Anaphylaxis Verified 08/04/24 10:50 General Stated Complaint: SOB ALFRED: 3 Exam Narrative Exam Narrative: Gen: awake and alert, pleasantly confused. Appears well nourished. HEENT: PERRL, EOMs full and without nystagmus. External ears and nose normal, mucous membranes moist. Neck: Supple, full range of motion, no observable masses Lungs: Moderate respiratory distress and tachypnea appreciated, left-sided lung sounds with rhonchi, no wheezing appreciated CV: Heart with a regularly irregular bigeminal rate and rhythm, no murmurs auscultated. Strong and symmetrical radial pulses. Abdomen: Soft, nondistended, non-tender to palpation. No rigidity, rebound tenderness, or guarding. MSK: No joint swelling, no redness. Trace bilateral peripheral edema appreciated Skin: No rashes or lesions to visualized skin. Cyanosis of the lips is appreciated Neuro: Left-sided hemiparesis at baseline for this patient, increasing generalized weakness and difficulty with transferring from the wheelchair to the bed which is increased from typical. Course Vital Signs Vital signs: Vital Signs Temperature 36.2 C L 08/04/24 10:44 Pulse 90 08/04/24 10:44 Respiratory Rate 15 08/04/24 10:44 Blood Pressure 153/88 H 08/04/24 10:44 Pulse Oximetry 95 08/04/24 10:44 Temperature 36.2 C L 08/04/24 10:48 Pulse 90 08/04/24 10:48 Respiratory Rate 15 08/04/24 10:48 Blood Pressure 153/88 H 08/04/24 10:48 Blood Pressure Position Sitting 08/04/24 10:48 Pulse Oximetry 95 08/04/24 10:48 Oxygen Delivery Method Nasal Cannula 08/04/24 10:48 Oxygen Flow Rate 4 08/04/24 10:48 Medical Decision Making In brief, this is an 83-year-old male patient with a history of chronic hypoxic respiratory failure due to interstitial lung disease, and history of thromboembolic disease on anticoagulation, and history of stroke with residual left-sided hemiparesis who is presenting for evaluation of shortness of breath and hypoxia. Differential includes but is not limited to pulmonary infection including pneumonia, bronchitis, certainly considered exacerbation of his interstitial lung disease. I note no wheezing and the patient has no history of reactive airway disease to suggest exacerbation. He has no history of heart failure, does not have evidence of significant fluid overload on physical examination. Exam less consistent with pneumothorax. Considered metabolic and electrolyte derangements, anemia, dehydration and kidney injury. We will obtain an x-ray of the chest, laboratory studies to include CBC, CMP, magnesium, troponin. I obtained an EKG, which shows a sinus rhythm with bigeminy, no acute ischemia and no significant changes from priors - I reviewed the patient's laboratory studies, which show a leukocytosis to 18, a mild anemia to 12.6 and no thrombocytopenia. VBG was obtained, showing no acidosis or hypercarbia. Chemistry panel without electrolyte derangements, creatinine is 1.4 which is within the range of normal for this patient, mild transaminitis appreciated, troponin negative. BNP is slightly elevated to 799. X-ray reviewed by myself, no significant consolidations appreciated on the portable view that we were able to obtain. However, given his known history and worsening shortness of breath and hypoxia I did elect to provide him with ceftriaxone and doxycycline. I reached out to the hospitalist given his new increase in his oxygen to 4 L/min, who is graciously accepted the patient for admission to their service. He did request steroid administration and Solu-Medrol was provided. Transferred to the hospitalist team without incident. Final Assessment: Acute on chronic hypoxic respiratory failure, recent pneumonia Clinical Impression: - Pneumonia - Bigeminy Disposition: - Admit MDM Components Evaluation: - Number of Differential Diagnoses or Management Options: Pneumonia, Bigeminy - Amount and Complexity of Data Reviewed: Blood work, EKG, chest x-ray - Risk of Complication and Morbidity or Mortality: High due to persistent pneumonia symptoms and cardiac irregularities Peg Dia MD Patient consented to the use of MIGUEL for this patient encounter. Quality:SDOH Health Related Social Needs: No Data to Display Critical Care Time Critical Care Time Critical Care Time: Yes Total Critical Care Time: 35 Attestation: Upon my evaluation, this patient had a high probability of imminent or life-threatening deterioration due to acute on chronic hypoxic respiratory failure, which required my direct attention, intervention, and personal management. I have personally provided 35 minutes of critical care time exclusive of time spent on separately billable procedures. Time includes review of laboratory data, radiology results, discussion with consultants, and monitoring for potential decompensation. Interventions were performed as documented above. Peg Dia MD [facility] All Active Problems (Updated 08/04/24 @ 13:22 by Peg Dia MD) History of recent pneumonia (Acute) Acute and chronic respiratory failure with hypoxia (Acute) Discharge planning issues (Acute) Atrial fibrillation (Chronic) History of stroke (Acute) Chronic respiratory failure with hypoxia (Acute) Interstitial lung disease (Acute) Generalized anxiety disorder (Acute) History of thromboembolism (Acute) P.E., DVT 2018 and 2023 Hyperlipidemia (Acute) Hypertension (Chronic) Cognitive impairment (Acute) Suspect dementia, declines neurology consult Compression fracture of L3 vertebra (Acute ~05/19/24) Bladder diverticulum (Acute) Nicotine dependence (Acute) Osteopenia (Chronic) Diverticulosis of colon (Chronic) Medical History (Updated 08/04/24 @ 13:22 by Peg Dia MD) Left femoral vein DVT (~2023) Pulmonary embolism (~10/2018) TIA (transient ischemic attack) BPH w urinary obs/LUTS CVA (cerebral vascular accident) (~09/2018) Right posterior internal capsule ischemic stroke Surgical History Status post left hip replacement History of appendectomy (07/16/20) Family History Mother Dementia Father No problems noted. Daughter No problems noted. Daughter No problems noted. Son No problems noted. Maternal Grandfather No problems noted. Maternal Grandmother No problems noted. Paternal Grandfather No problems noted. Paternal Grandmother No problems noted. Brother Alcohol use disorder Colon cancer Hyperlipidemia Hypertension Diabetes Social History Smoking/Tobacco Use Status: Former Tobacco Use tobacco type: cigarettes and smokeless tobacco Quit Date: 04/14/85 Smokeless tobacco user: snuff Second Hand Exposure: Yes Smoking risk assessment performed?: Yes Alcohol Intake: former Drug use: Never Substance use type: does not use Counseling given: No Adopted: No Caregiver/Support person: Yes Foster care: No Household members: caregiver Housing: house Number of Children: 3 number of grandchildren: 7 Communication Needs: None Education Level: high school Do you need help understanding health information?: Never 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 Pets and animals: Yes Pets and animals: dog(s) Sexually active: No Do you think of yourself as: straight/heterosexual Current gender identity: male What is your relationship status?: How often do you talk on the phone with friends or family?: three or more times per week How often do you get together with friends or relatives?: three or more times per week How often do you attend catholic or bahai services?: 4 or more times per year Do you belong to any clubs or organized social groups?: no Panel score (0-1 are the most socially isolated patients): 3 What type of physical activity do you participate in: walking and regular exercise Duration: 45-60 minutes/day Frequency: daily Tamela/Yarsanism: Scientologist Special tamela needs: No Agree to transfusion: Yes Seatbelt use: always Drive intox or ride w/intox driver's license reviewing officer: No Working smoke detector in home: Yes Carbon monox detector in home: Yes Firearms in home: Yes Firearms unloaded and locked: Yes Do you feel safe at home: Yes Victim of physical abuse: No Victim of emotional abuse: No Victim of sexual abuse: No Would you like helpful sources: No
[2024-08-04 11:17] LABS: BE (Venous) 3 mmol/L (-2-3); HCO3 (Venous) 28 mmol/L (23-28); O2 Sat (Venous) 76 %; TCO2 (Venous) 25 mmol/L (24-29); pCO2 (Venous) 45 mmHg (41-51); pH (Venous) 7.41 (7.31-7.41); pO2 (Venous) 43 mmHg
[2024-08-04 11:19] LABS: Abs Immature Grans 0.21 10^3/uL (0.0-0.06); Absolute Basophil Count 0.04 10^3/uL (0.0-0.2); Absolute Eosinophil Count 0.09 10^3/uL (0.0-0.7); Absolute Neutrophil Count 14.07 10^3/uL (1.2-6.7); Basophils % 0.2 %; Eosinophils % 0.5 %; HCT 39.8 % (40.0-50.0); HGB 12.6 g/dL (13.5-17.5); Immature Grans % 1.1 %; Lymphocytes % 14.6 %; MCH 26.7 pg (27.0-33.0); MCHC 31.7 % (32.0-36.0); MCV 84 fL (80-95); MPV 11.1 fL (8.0-11.0); Monocytes % 6.9 %; Neutrophils % 76.7 %; Platelet Count 259 10^3/uL (130-400); RBC 4.72 10^6/uL (4.36-5.78); RDW-SD 46.6 fL; WBC 18.34 10^3/uL (4.4-10.8)
[2024-08-04 11:20] LABS: Absolute Lymphocyte Count 2.68 10^3/uL (1.2-3.4); Absolute Monocyte Count 1.27 10^3/uL (0.1-0.8)
[2024-08-04 11:47] LABS: ALT 94 U/L (16-63); AST 49 U/L (15-37); Albumin 3.1 g/dL (3.4-5.0); Alkaline Phosphatase 74 U/L (46-116); Anion Gap 10.4 mmol/L (3-11); BUN 18 mg/dL (7-18); Bilirubin, Total 0.4 mg/dL (0.2-1.0); CO2 28.6 mmol/L (21.0-32.0); CREATININE 1.4 mg/dL (0.70-1.30); Calcium 9.6 mg/dL (8.5-10.1); Chloride 104 mmol/L (98-107); Estimated GFR 49.25 (mL/min/1.73m2); Glucose 104 mg/dL (74-106); Magnesium 2.2 mg/dL (1.8-2.4); NT-proBNP 799 pg/mL (<300); Potassium 3.6 mmol/L (3.5-5.1); Sodium 143 mmol/L (136-145); Total Protein 6.6 g/dL (6.4-8.2); Troponin I 39 ng/L (<or=76)
--- NOTE | 2024-08-04 12:14 | W.PM.HP.N ---
Date of service: 08/04/24 Time of Service: 12:14 Assessment and Plan Assessment and plan (1) Acute on chronic respiratory failure with hypoxia: Status: Resolved Assessment and plan: On 2l/min at home with hypoxia < 88% - up to 4 l/min in the ED to maintain saturation in the setting of pneumonia Failed outpatient Tx for pneumonia with Augmentin and zithromax Now on ceftriaxone and doxycycline PRN ans scheduled nebs IS and acapella mucinex With Hx of IDL will cover with increased steroids dosing (2) Pneumonia: Status: Resolved Assessment and plan: As above Blood Cx (3) Atrial fibrillation: Status: Chronic Assessment and plan: Continue home medicine Eliquis - not on a B-norbert (4) Discharge planning issues: Status: Acute (5) Hypertension: Status: Chronic Assessment and plan: Continue amlodipine (6) History of stroke: Status: Acute Assessment and plan: Home dose ASA and statin Discussed with Dr. 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 On arrival to the ED the patient was cyanotic with saturation in oxygen in the 80's on baseline oxygen ,improving on 4l/min. Work-up showed leukocytosis at 18 with ANC at 14, BNP at 799, negative troponin; EKG showed no signs of coronary occlusion but know ectopy/bigeminy. The patient received ceftriaxone, azithromycin, methylprednisolone in the ED and will be admitted to the medical surgical floor for acute on chronic respiratory failure inthe setting of pneumonia and IDL exacerbation by the hospitalist service. Chest XR without obvious but questionable LLL reticulation pattern. DNR/DNI as per [facility] form on file. Denies chills , fevers, headache, chest pain , nausea, vomiting, diarrhea or dysuria. Reports wheezing, shortness of breath. Review of Systems All systems reviewed & are unremarkable except as noted in HPI and below PFSH All Active Problems (Updated 08/04/24 @ 13:22 by Peg Dia MD) History of recent pneumonia (Acute) Acute and chronic respiratory failure with hypoxia (Acute) Discharge planning issues (Acute) Atrial fibrillation (Chronic) History of stroke (Acute) Chronic respiratory failure with hypoxia (Acute) Interstitial lung disease (Acute) Generalized anxiety disorder (Acute) History of thromboembolism (Acute) P.E., DVT 2018 and 2023 Hyperlipidemia (Acute) Hypertension (Chronic) Cognitive impairment (Acute) Suspect dementia, declines neurology consult Compression fracture of L3 vertebra (Acute ~05/19/24) Bladder diverticulum (Acute) Nicotine dependence (Acute) Osteopenia (Chronic) Diverticulosis of colon (Chronic) Medical History (Updated 08/04/24 @ 13:22 by Peg Dia MD) Left femoral vein DVT (~2023) Pulmonary embolism (~10/2018) TIA (transient ischemic attack) BPH w urinary obs/LUTS CVA (cerebral vascular accident) (~09/2018) Right posterior internal capsule ischemic stroke Surgical History Status post left hip replacement History of appendectomy (07/16/20) Family History Mother Dementia Father No problems noted. Daughter No problems noted. Daughter No problems noted. Son No problems noted. Maternal Grandfather No problems noted. Maternal Grandmother No problems noted. Paternal Grandfather No problems noted. Paternal Grandmother No problems noted. Brother Alcohol use disorder Colon cancer Hyperlipidemia Hypertension Diabetes Social History Smoking/Tobacco Use Status: Former Tobacco Use tobacco type: cigarettes and smokeless tobacco Quit Date: 04/14/85 Smokeless tobacco user: snuff Second Hand Exposure: Yes Smoking risk assessment performed?: Yes Alcohol Intake: former Drug use: Never Substance use type: does not use Counseling given: No Adopted: No Caregiver/Support person: Yes Foster care: No Household members: caregiver Housing: house Number of Children: 3 number of grandchildren: 7 Communication Needs: None Education Level: high school Do you need help understanding health information?: Never 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 Pets and animals: Yes Pets and animals: dog(s) Sexually active: No Do you think of yourself as: straight/heterosexual Current gender identity: male What is your relationship status?: How often do you talk on the phone with friends or family?: three or more times per week How often do you get together with friends or relatives?: three or more times per week How often do you attend anabaptism or church services?: 4 or more times per year Do you belong to any clubs or organized social groups?: no Panel score (0-1 are the most socially isolated patients): 3 What type of physical activity do you participate in: walking and regular exercise Duration: 45-60 minutes/day Frequency: daily Tamela/Cheondoism: Zoroastrianism Special tamela needs: No Agree to transfusion: Yes Seatbelt use: always Drive intox or ride w/intox sanitation truck driver: No Working smoke detector in home: Yes Carbon monox detector in home: Yes Firearms in home: Yes Firearms unloaded and locked: Yes Do you feel safe at home: Yes Victim of physical abuse: No Victim of emotional abuse: No Victim of sexual abuse: No Would you like helpful sources: No Meds Allergies and Home Medications Allergies Allergy/AdvReac Type Severity Reaction Status Date / Time bee venom protein (honey bee) Allergy Severe Anaphylaxis Verified 08/04/24 10:50 Home Medications ?Medication ?Instructions ?Recorded ?Confirmed ?Type epinephrine 0.3 mg/0.3 mL 0.3 mg IM ONCE 12/22/22 08/04/24 History injection, auto-injector aspirin 81 mg chewable tablet 81 mg PO DAILY 01/06/23 08/04/24 History cholecalciferol (vitamin D3) 25 25 mcg PO DAILY 04/10/23 08/04/24 History mcg (1,000 unit) capsule multivitamin 1 tab PO DAILY 04/10/23 08/04/24 History polyethylene glycol 3350 17 17 g PO .MWF 01/21/24 08/04/24 History gram/dose oral powder (Miralax) amlodipine 5 mg tablet 5 mg PO DAILY #90 tabs 04/12/24 08/04/24 Rx apixaban 5 mg tablet (Eliquis) 5 mg PO BID #180 tabs 04/12/24 08/04/24 Rx simvastatin 20 mg tablet 20 mg PO DAILY #90 tabs 04/12/24 08/04/24 Rx tamsulosin 0.4 mg capsule 0.8 mg (2 x 0.4 mg) PO DAILY #180 04/12/24 08/04/24 Rx caps acetaminophen 325 mg tablet 650 mg (2 x 325 mg) PO QID #40 tabs 05/18/24 08/04/24 Rx ibuprofen 200 mg tablet 400 mg (2 x 200 mg) PO Q12H PRN 05/18/24 08/04/24 Rx #30 tabs lidocaine 5 % topical patch 1 patch topical DAILY #15 ea 05/18/24 08/04/24 Rx pantoprazole 40 mg tablet,delayed 40 mg PO DAILY #5 tabs 05/18/24 08/04/24 Rx release (Protonix) potassium chloride 20 mEq 20 meq PO DAILY #90 tabs 07/21/24 08/04/24 Rx tablet,extended release nicotine 21 mg/24 hr daily 1 patch transdermal DAILY PRN 07/26/24 08/04/24 Rx transdermal patch nicotine cravings #90 ea sertraline 50 mg tablet 75 mg (1.5 x 50 mg) PO DAILY #135 07/26/24 08/04/24 Rx tabs amoxicillin 875 mg-potassium 1 tab PO Q12H #10 tabs 07/31/24 08/04/24 Rx clavulanate 125 mg tablet azithromycin 250 mg tablet See Rx Instructions PO .COMPLEX #6 07/31/24 08/04/24 Rx tabs prednisone 5 mg tablet 5 mg PO DAILY #49 tabs 07/31/24 08/04/24 Rx ipratropium 0.5 mg-albuterol 3 mg 3 ml inhalation Q6H PRN wheezing 08/02/24 08/04/24 Rx (2.5 mg base)/3 mL nebulization #90 mL soln Exam Narrative Exam Narrative: Constitutional The patient is lying in bed comfortable and cooperative during the interview, daughter at bedside. The patient is without acute distress, makes eye contact, speaks in short sentences HENMT: Head is atraumatic, normocephalic Eyes: Well aligned, intact ROM Neuro:alert and oriented to self,place, person. Residual upper left-sided paresis from previous CVA, ext is flaccid, contracted fist Chest:Chest is symmetrical and normal appearance Resp: Normal respiratory pattern, unlabored breathing,diminished right base> Left base, scattered ronchi clearing somewhat with cough Cardio: regular rhythm,no murmur, pulse are positive and palpable to ext X4 GI: Abdomen is not distended, soft and non tender, bowel sounds are present : no bladder distension Back/spine/Pelvis: No back tenderness, normal alignment Integumentary: No skin lesions or rash Extremities: strength 5/5 to right UE, 0/5 LUE, lower ext 4/5 Psych: RASS 0, tired mood and flat affect. Results Labs 08/04/24 11:11 08/04/24 11:11 Labs: Laboratory Results - last 24 hr 08/04/24 11:11 WBC 18.34 H RBC 4.72 Hgb 12.6 L Hct 39.8 L MCV 84 MCH 26.7 L MCHC 31.7 L RDW 15.0 H Plt Count 259 MPV 11.1 H Immature Gran % 1.1 Neutrophils % 76.7 Lymphocytes % 14.6 Monocytes % 6.9 Eosinophils % 0.5 Basophils % 0.2 Nucleated RBC % 0.0 Absolute Neutrophils 14.07 H Absolute Lymphocytes 2.68 Absolute Monocytes 1.27 H Absolute Eosinophils 0.09 Absolute Basophils 0.04 VBG pH 7.41 VBG pCO2 45 VBG pO2 43 VBG HCO3 28 VBG Total CO2 25 VBG O2 Saturation 76 VBG Base Excess 3 Sodium 143 Potassium 3.6 Chloride 104 Carbon Dioxide 28.6 Anion Gap 10.4 BUN 18 Creatinine 1.4 H Est GFR (CKD-EPI 2020) 49.25 Glucose 104 Calcium 9.6 Magnesium 2.2 Total Bilirubin 0.4 AST 49 H ALT 94 H Alkaline Phosphatase 74 Troponin I 39 NT-Pro-B Natriuret Pep 799 H Total Protein 6.6 Albumin 3.1 L Last Vital Signs Temp 36.2 C L 08/04/24 10:48 Pulse 90 08/04/24 10:48 Resp 15 08/04/24 10:48 BP 153/88 H 08/04/24 10:48 Pulse Ox 95 08/04/24 10:48 Time Spent Time spent with Patient: >75 minutes Time was spent: preparing to see the patient(eg.review tests), obtaining and/or reviewing separately otained hiistory, ordering medications,tests, procedures, referring, communicating with other health medicare nurse, indepentently interpreting results, counseling the patient and care coordination
[2024-08-04] MEDS: methylPREDNISolone SUCC 125 MG VIAL IVP (12:29)
[2024-08-04] MEDS: cefTRIAXone 1 GM/50 ML BAG IVPB (12:33)
[2024-08-04 13:05] LABS: Troponin I 41 ng/L (<or=76)
[2024-08-04] MEDS: DOXYCYCLINE 100 MG in Normal Saline 100 ML IVPB ×2 (13:13→22:38)
--- NOTE | 2024-08-04 13:25 | W.PC.ACHO ---
Registration Status: Primary Language: Preferred Language: ED Information & Data Chief Complaint SOB 08/04/24 10:52 Triage Note Instructional Design Technologist reports recent 08/04/24 10:44 increase in weakness and shortness of breath w/ recent treatment for pneumonia Medical / Surgical History (Last Updated 07/26/24 @ 15:14 by Molly Powers NP) Left femoral vein DVT (~2023) Pulmonary embolism (~10/2018) TIA (transient ischemic attack) BPH w urinary obs/LUTS CVA (cerebral vascular accident) (~09/2018) (Last Reviewed 01/28/24 @ 12:04 by Cristobal Casillas NP) Status post left hip replacement History of appendectomy (07/16/20) Most Recent Vital Signs Temperature 36.2 C L 08/04/24 10:48 Pulse 90 08/04/24 10:48 Respiratory Rate 15 08/04/24 10:48 Blood Pressure 153/88 H 08/04/24 10:48 Blood Pressure Position Sitting 08/04/24 10:48 Pulse Oximetry 95 08/04/24 10:48 Oxygen Delivery Method Nasal Cannula 08/04/24 10:48 Oxygen Flow Rate 4 08/04/24 10:48 Allergies bee venom protein (honey bee) Allergy (Severe, Verified 08/04/24 10:50) Anaphylaxis IV IV Catheter Type [Right Saline Lock Forearm] IV Catheter Type [Right Saline Lock Antecubital] IV Catheter Gauge [Right 20 Forearm] IV Catheter Gauge [Right 20 Antecubital] Diagnostics 08/04/24 08/04/24 08/04/24 Range/Units 13:50 12:34 11:50 WBC (4.4-10.8) 10^3/uL RBC (4.36-5.78) 10^6/uL Hgb (13.5-17.5) g/dL Hct (40.0-50.0) % MCV (80-95) fL MCH (27.0-33.0) pg MCHC (32.0-36.0) % RDW (11.8-14.1) % Plt Count (130-400) 10^3/uL MPV (8.0-11.0) fL Immature Gran % % Neutrophils % % Lymphocytes % % Monocytes % % Eosinophils % % Basophils % % Nucleated RBC % (0.0-0.3) % Absolute Neutrophils (1.2-6.7) 10^3/uL Absolute Lymphocytes (1.2-3.4) 10^3/uL Absolute Monocytes (0.1-0.8) 10^3/uL Absolute Eosinophils (0.0-0.7) 10^3/uL Absolute Basophils (0.0-0.2) 10^3/uL VBG pH (7.31-7.41) VBG pCO2 (41-51) mmHg VBG pO2 mmHg VBG HCO3 (23-28) mmol/L VBG Total CO2 (24-29) mmol/L VBG O2 Saturation % VBG Base Excess (-2-3) mmol/L Sodium (136-145) mmol/L Potassium (3.5-5.1) mmol/L Chloride (98-107) mmol/L Carbon Dioxide (21.0-32.0) mmol/L Anion Gap (3-11) mmol/L BUN (7-18) mg/dL Creatinine (0.70-1.30) mg/dL Est GFR (CKD-EPI 2020) (mL/min/1.73m2) Glucose (74-106) mg/dL Calcium (8.5-10.1) mg/dL Magnesium (1.8-2.4) mg/dL Total Bilirubin (0.2-1.0) mg/dL AST (15-37) U/L ALT (16-63) U/L Alkaline Phosphatase (46-116) U/L Troponin I Pending 41 (<or=76) ng/L NT-Pro-B Natriuret Pep (<300) pg/mL Total Protein (6.4-8.2) g/dL Albumin (3.4-5.0) g/dL COVID-19 Source Pending SARS-CoV-2 (PCR) Pending Influenza Type A (PCR) Pending Influenza Type B (PCR) Pending RSV (PCR) Pending 08/04/24 Range/Units 11:11 WBC 18.34 H (4.4-10.8) 10^3/uL RBC 4.72 (4.36-5.78) 10^6/uL Hgb 12.6 L (13.5-17.5) g/dL Hct 39.8 L (40.0-50.0) % MCV 84 (80-95) fL MCH 26.7 L (27.0-33.0) pg MCHC 31.7 L (32.0-36.0) % RDW 15.0 H (11.8-14.1) % Plt Count 259 (130-400) 10^3/uL MPV 11.1 H (8.0-11.0) fL Immature Gran % 1.1 % Neutrophils % 76.7 % Lymphocytes % 14.6 % Monocytes % 6.9 % Eosinophils % 0.5 % Basophils % 0.2 % Nucleated RBC % 0.0 (0.0-0.3) % Absolute Neutrophils 14.07 H (1.2-6.7) 10^3/uL Absolute Lymphocytes 2.68 (1.2-3.4) 10^3/uL Absolute Monocytes 1.27 H (0.1-0.8) 10^3/uL Absolute Eosinophils 0.09 (0.0-0.7) 10^3/uL Absolute Basophils 0.04 (0.0-0.2) 10^3/uL VBG pH 7.41 (7.31-7.41) VBG pCO2 45 (41-51) mmHg VBG pO2 43 mmHg VBG HCO3 28 (23-28) mmol/L VBG Total CO2 25 (24-29) mmol/L VBG O2 Saturation 76 % VBG Base Excess 3 (-2-3) mmol/L Sodium 143 (136-145) mmol/L Potassium 3.6 (3.5-5.1) mmol/L Chloride 104 (98-107) mmol/L Carbon Dioxide 28.6 (21.0-32.0) mmol/L Anion Gap 10.4 (3-11) mmol/L BUN 18 (7-18) mg/dL Creatinine 1.4 H (0.70-1.30) mg/dL Est GFR (CKD-EPI 2020) 49.25 (mL/min/1.73m2) Glucose 104 (74-106) mg/dL Calcium 9.6 (8.5-10.1) mg/dL Magnesium 2.2 (1.8-2.4) mg/dL Total Bilirubin 0.4 (0.2-1.0) mg/dL AST 49 H (15-37) U/L ALT 94 H (16-63) U/L Alkaline Phosphatase 74 (46-116) U/L Troponin I 39 (<or=76) ng/L NT-Pro-B Natriuret Pep 799 H (<300) pg/mL Total Protein 6.6 (6.4-8.2) g/dL Albumin 3.1 L (3.4-5.0) g/dL COVID-19 Source SARS-CoV-2 (PCR) Influenza Type A (PCR) Influenza Type B (PCR) RSV (PCR) 08/04/24 11:11 Blood Culture - Pending Blood 08/04/24 11:11 Blood Culture - Pending Blood Intake and Output - 24 Hour Total 08/04/24 10:37 thru 08/04/24 13:13 Intake Total 70 Balance 70 Weight 88.9 kg Intake: IV 70 Falls Risk Assessment History of Falls Previous History 08/04/24 10:48 Contributing Factors Impairments 08/04/24 10:48 Ambulatory Aids Uses ambulatory device + 08/04/24 10:48 Tubes/Lines With any additional score 08/04/24 10:48 Gait Evaluation W/any additional score 08/04/24 10:48 Cognition No cognitive impairment 08/04/24 10:48 Fall Total Score 88 08/04/24 10:48 Level of Risk Maximum Risk 08/04/24 10:48 Problems (Last Updated 07/26/24 @ 15:14 by Molly Powers NP) Discharge planning issues (Acute) Atrial fibrillation (Chronic) v v v v v v v v v Sending and/or Receiving Nurses: Please use comment section below to note any information pertinent to the patient hand-off not included above. Information / Comments: Report received from: Arminda TEJADA
--- NOTE | 2024-08-04 14:26 | PHA.REVIEW2 ---
Pharmacy Admission Review Admission Clinical Review Admission Pharmacy Review: Discharge planning issues (Acute) bee venom protein (honey bee) Allergy (Severe, Verified 08/04/24 10:50) Anaphylaxis Resuscitation Status DNR/DNI Height 5 ft 9.5 in Weight 88.9 kg Pharmacy Admission Review Renal Dosing Renal Dosing: BUN 18 mg/dL (7-18) 08/04/24 11:11 Creatinine 1.4 mg/dL (0.70-1.30) H 08/04/24 11:11 Medications needing adjustments: Reviewed (CrCl 42.92 mL/min) List of meds needing interventions: Current medications are okay Anticoagulation Anticoagulation: Hgb 12.6 g/dL (13.5-17.5) L 08/04/24 11:11 Hct 39.8 % (40.0-50.0) L 08/04/24 11:11 Plt Count 259 10^3/uL (130-400) 08/04/24 11:11 Creatinine 1.4 mg/dL (0.70-1.30) H 08/04/24 11:11 DVT Prophylaxis: Reviewed Medications: Apixaban (5mg PO BID) Relevant Labs Relevant Labs: Sodium 143 mmol/L (136-145) 08/04/24 11:11 Potassium 3.6 mmol/L (3.5-5.1) 08/04/24 11:11 Chloride 104 mmol/L (98-107) 08/04/24 11:11 Magnesium 2.2 mg/dL (1.8-2.4) 08/04/24 11:11 Electrolytes, C-Reactive P, ESR: Reviewed (AST/ALT 49/94) Cardiac Review Cardiac Review: Troponin I 41 ng/L (<or=76) 08/04/24 11:50 NT-Pro-B Natriuret Pep 799 pg/mL (<300) H 08/04/24 11:11 Blood Pressure : Heart Rate 138/63 : 57 1351 Blood Pressure : Heart Rate 153/71 : 40 1316 Blood Pressure : Heart Rate 133/99 : 40 1301 Blood Pressure : Heart Rate 190/74 : 40 1246 Blood Pressure : Heart Rate 171/87 : 61 1232 Blood Pressure : Heart Rate 184/101 : 76 1216 Blood Pressure : Heart Rate 175/99 : 76 1201 BP, HR, EF%: Reviewed (oxygen flow rate =2) QTc Review QTc: Reviewed (458 from 08/04/24) IV to PO Switch IV Medications: Reviewed (ceftriaxone and doxycycline) Home Meds Home Med List reviewed: Reviewed Relevent Home Meds Not ordered & why?: Augmentin (receiving IV ceftriaxone and doxycycline), Epipen (PRN) and azithromycin (receiving IV ceftriaxone and doxycycline) Current Meds Current Medication Order Review: Intervened Comments: Added patch removal order for lidocaine patch Pharmacy Antibiotic Review Relevant Labs: WBC 18.34 10^3/uL (4.4-10.8) H 08/04/24 11:11 Temperature 36.6 C Temperature 36.2 C Temperature 36.2 C Comments: Patient is on ceftriaxone and doxycycline, day 1, for pneumonia. Blood cultures pending.
[2024-08-04 14:36] LABS: COVID-19 PCR Negative (Negative); Influenza A PCR Negative (Negative); Influenza B PCR Negative (Negative); RSV PCR Negative (Negative)
[2024-08-04 14:42] LABS: Source Nasopharynx
[2024-08-04 15:14] LABS: Troponin I 35 ng/L (<or=76)
[2024-08-04 16:11] LABS: MRSA PCR Negative (Negative)
--- NOTE | 2024-08-04 18:25 | NUR.NOTE ---
patient received from the ED this afternoon, on 3L NC, titrated down to 2L NC with sats in mid 90s. 2L NC is pt's baseline. Skin intact upon arrival, brief changed due to incontinence, fungal rash vs contact dermatitis noted in Melody wilson RN NEONATAL ICU notified of home nystatin use and request by family. No response from RN NEONATAL ICU. Patient has noted LUE limited ROM defecits from prior 2019 CVA. Pt is at baseline AxOx2 cognitive status. Pleasantly confused. Tolerating PO intake without n/v, denies pain, PIV intact, lungs sound coarse and mildly wheezy but pt not in acute distress. Family at bedside visiting. Pt upset this evening due to his dog having just passed this afternoon. Patient is eating dinner with family, here for IV abx course and continued monitoring of respiratory status. Nursing Note:
[2024-08-04] MEDS: Acetaminophen 325 MG TAB 650 MG PO (19:54)
[2024-08-04] MEDS: Apixaban 5 MG TAB PO (19:54)
[2024-08-04] MEDS: Normal Saline Flush 10 ML SYR IVP (19:58)
[2024-08-05 03:19] VITALS: BP 170/101; PULSE 73; RESP 18; TEMP 36.8; O2SAT 97
[2024-08-05 07:01] LABS: Abs Immature Grans 0.22 10^3/uL (0.0-0.06); Absolute Basophil Count 0.02 10^3/uL (0.0-0.2); Absolute Lymphocyte Count 1.53 10^3/uL (1.2-3.4); Absolute Monocyte Count 0.75 10^3/uL (0.1-0.8); Absolute Neutrophil Count 14.86 10^3/uL (1.2-6.7); Basophils % 0.1 %; HGB 11.3 g/dL (13.5-17.5); Immature Grans % 1.3 %; Lymphocytes % 8.8 %; MCH 26.8 pg (27.0-33.0); MCHC 32.3 % (32.0-36.0); MCV 83 fL (80-95); Monocytes % 4.3 %; Neutrophils % 85.5 %; Platelet Count 236 10^3/uL (130-400); RBC 4.21 10^6/uL (4.36-5.78); RDW 14.8 % (11.8-14.1); RDW-SD 44.8 fL; WBC 17.38 10^3/uL (4.4-10.8)
[2024-08-05 07:12] LABS: Anion Gap 7.3 mmol/L (3-11); BUN 19 mg/dL (7-18); CO2 26.7 mmol/L (21.0-32.0); CREATININE 1.1 mg/dL (0.70-1.30); Calcium 9.4 mg/dL (8.5-10.1); Chloride 107 mmol/L (98-107); Estimated GFR 65.79 (mL/min/1.73m2); Glucose 121 mg/dL (74-106); Potassium 4.1 mmol/L (3.5-5.1); Sodium 141 mmol/L (136-145)
[2024-08-05 07:17] VITALS: BP 140/81; PULSE 65; RESP 16; TEMP 36.4; O2SAT 96
[2024-08-05] MEDS: Acetaminophen 325 MG TAB 650 MG PO ×4 (08:20→20:17)
[2024-08-05] MEDS: Sertraline 25 MG TAB 75 MG PO (08:20)
[2024-08-05] MEDS: Simvastatin 20 MG TAB PO (08:20)
[2024-08-05] MEDS: predniSONE 20 MG TAB 40 MG PO (08:21)
[2024-08-05] MEDS: Tamsulosin 0.4 MG CAPCR 0.8 MG PO (08:21)
[2024-08-05] MEDS: Cholecalciferol (Vitamin D3) 1,000 UNIT TAB 1000 UNITS PO (08:21)
[2024-08-05] MEDS: Multivitamin TAB 1 TAB PO (08:21)
[2024-08-05] MEDS: Potassium Chloride 20 MEQ TABCR PO (08:21)
[2024-08-05] MEDS: Lidocaine 5% Patch 1 PATCH TP (08:21)
[2024-08-05] MEDS: amLODIPine 5 MG TAB PO (08:21)
[2024-08-05] MEDS: Normal Saline Flush 10 ML SYR IVP ×2 (08:22→20:00)
[2024-08-05] MEDS: Aspirin 81 MG CHEW PO (08:22)
[2024-08-05] MEDS: Pantoprazole 40 MG TABCR PO (08:22)
[2024-08-05] MEDS: Apixaban 5 MG TAB PO ×2 (08:22→20:17)
--- NOTE | 2024-08-05 09:41 | PDOC.CMIN ---
Date of service: 08/05/24 Time of Service: 09:41 Care Management Initial Assmt Initial Assessment Reason for Hospitalization: acute on chronic respiratory failure/pneumonia Functional Status/Living Situation Patient Presentation: Jerrod presented to the ED yesterday afternoon with c/o SOB. He had been seen at [facility] on 07/23 and began tx for pneumonia. He was at urgent care on 07/31, and saw his PCP on 08/02 with the same c/o. Jerrod is now back to his baseline O2 status of 2L, and stated that he is feeling well. Jerrod was sitting up in the bedside chair when CM met with him this morning. His primary caregiver, Lauren, was also present. Jerrod was very pleasant and quick with a smile. He stated that he is feeling pretty good, and is hoping to go home. Jerrod has privately paid caregivers in his home 04/11, as well as good support from his daughters. CM mentioned that PT is recommending PT. Jerrod was very much in agreement with this plan. He was just recently d/c'd from PT and stated that he really liked working with them. Town of Residence: [place] Resides with: Other (Jerrod has 24/7 live-in caregivers) Significant Other/Family: Local (3 children Angelique (HCA and DPOA), Shawna, and son Humberto) Caregiver/Guardian: Angelique is HCA and DPOA. Jerrod has 04/11 caregivers, privately paid Natural Supports: family Employment Status: Retired Instrumental Activities of Daily Living (ADLs): Requires support Medications Medication Management: No Issues/Barriers identified (Jerrod has caregivers) Physical Functioning/Mobility Assistive Device: cane Advance Directives Advance Directives: Do you have an Advance Directive: Y 01/12/23 21:09 AD On File at [facility]: Y 11/17/17 08:10 Date Asked 11/19/23 11/19/23 11:21 AD Date Reviewed 07/29/23 07/29/23 11:46 COLST On File at [facility] Yes 01/12/23 21:09 COLST Date Scanned 01/06/23 01/12/23 21:09 Code Status Resuscitation Status DNR/DNI Portal Pt does not currently have a portal and education provided: Yes Insurance Coverage/Financial Issues Insurance: Medicare Part A & B - AARP [facility] Supplemental Care Team Visit Care Team Role Provider Type Molly Powers NP Primary Care Provider NURSE PRACTITIONER InPatient Kumar Bienvenido Other Providers OTHER Peg Dia MD Emergency Provider [facility] STAFF PHYSICIAN Ankit Acuna Admit Provider [facility] STAFF PHYSICIAN Attending Provider Discharge Potential Discharge Needs: PT Evaluation and PCP F/U Appt Anticipated Barriers to Discharge: None Identified Patient/Family Education Needs: Review discharge instructions, discuss Ask Me Three Transportation: Private vehicle Plan: Anticipate Jerrod will return home once medically cleared, and his 04/11 caregivers will resume care. He will benefit from HH PT to increase his independence with mobility at home. He will transport via private vehicle by family. He will follow up with his PCP and discharge plan of care. CM will continue to follow Social Determinants of Health Screening Will the Patient Participate in the Screening?: Declined to provide PFSH All Active Problems (Updated 08/04/24 @ 13:22 by Peg Dia MD) History of recent pneumonia (Acute) Acute and chronic respiratory failure with hypoxia (Acute) Discharge planning issues (Acute) Atrial fibrillation (Chronic) History of stroke (Acute) Chronic respiratory failure with hypoxia (Acute) Interstitial lung disease (Acute) Generalized anxiety disorder (Acute) History of thromboembolism (Acute) P.E., DVT 2018 and 2023 Hyperlipidemia (Acute) Hypertension (Chronic) Cognitive impairment (Acute) Suspect dementia, declines neurology consult Compression fracture of L3 vertebra (Acute ~05/19/24) Bladder diverticulum (Acute) Nicotine dependence (Acute) Osteopenia (Chronic) Diverticulosis of colon (Chronic) Medical History (Updated 08/04/24 @ 13:22 by Peg Dia MD) Left femoral vein DVT (~2023) Pulmonary embolism (~10/2018) TIA (transient ischemic attack) BPH w urinary obs/LUTS CVA (cerebral vascular accident) (~09/2018) Right posterior internal capsule ischemic stroke Surgical History Status post left hip replacement History of appendectomy (07/16/20) Family History Mother Dementia Father No problems noted. Daughter No problems noted. Daughter No problems noted. Son No problems noted. Maternal Grandfather No problems noted. Maternal Grandmother No problems noted. Paternal Grandfather No problems noted. Paternal Grandmother No problems noted. Brother Alcohol use disorder Colon cancer Hyperlipidemia Hypertension Diabetes Social History Smoking/Tobacco Use Status: Former Tobacco Use tobacco type: cigarettes and smokeless tobacco Quit Date: 04/14/85 Smokeless tobacco user: snuff Second Hand Exposure: Yes Smoking risk assessment performed?: Yes Alcohol Intake: former Drug use: Never Substance use type: does not use Counseling given: No Adopted: No Caregiver/Support person: Yes Foster care: No Household members: caregiver Housing: house Number of Children: 3 number of grandchildren: 7 Communication Needs: None Education Level: high school Do you need help understanding health information?: Never 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 Pets and animals: Yes Pets and animals: dog(s) Sexually active: No Do you think of yourself as: straight/heterosexual Current gender identity: male What is your relationship status?: How often do you talk on the phone with friends or family?: three or more times per week How often do you get together with friends or relatives?: three or more times per week How often do you attend taoism or jehovah's witness services?: 4 or more times per year Do you belong to any clubs or organized social groups?: no Panel score (0-1 are the most socially isolated patients): 3 What type of physical activity do you participate in: walking and regular exercise Duration: 45-60 minutes/day Frequency: daily Tamela/Hindu: Alevism Special tamela needs: No Agree to transfusion: Yes Seatbelt use: always Drive intox or ride w/intox regional intermodal truck driver: No Working smoke detector in home: Yes Carbon monox detector in home: Yes Firearms in home: Yes Firearms unloaded and locked: Yes Do you feel safe at home: Yes Victim of physical abuse: No Victim of emotional abuse: No Victim of sexual abuse: No Would you like helpful sources: No Readmission Within the Past 30 Days Yes or No: No Anticipated HH Services Anticipated HH Services at Discharge [facility] ([facility] Services Needed (PT).
[2024-08-05] MEDS: DOXYCYCLINE 100 MG in Normal Saline 100 ML IVPB ×2 (09:48→21:41)
[2024-08-05 09:56] VITALS: O2SAT 89
--- NOTE | 2024-08-05 10:00 | PT.INIE ---
PT Notes Visit Reasons: acute on chronic hypoxic respiratory failure, pne Physical Therapy Day Surgery Initial Evaluation Date: 08/05/2024 Referring Doctor: Melody Desir APRN PT Orders: PT CONSULT: Safety Consult for D/C Precautions:IV access, Oxygen to keep sats <88% ( currently 2L/Min via NC), Left hemiparesis Patient Profile/Admitting Diagnosis: Pt is 83 yo male presented to ED with increased SOB, hypoxia. Pt recently dx of PNA treated with ABX at home. Pt required increased supplemental oxygen to 4L/Min in ED and IV Antibiotic. Pt Dx of Acute Hypoxic Respiratory Failure and Left Lung Pneumonia. PMHX: History of recent pneumonia (Acute) Acute and chronic respiratory failure with hypoxia (Acute) Discharge planning issues (Acute) Atrial fibrillation (Chronic) History of stroke (Acute) Chronic respiratory failure with hypoxia (Acute) Interstitial lung disease (Acute) Generalized anxiety disorder (Acute) History of thromboembolism (Acute) P.E., DVT 2018 and 2023Hyperlipidemia (Acute) Hypertension (Chronic) Cognitive impairment (Acute) Suspect dementia, declines neurology consultCompression fracture of L3 vertebra (Acute ~05/19/24) Bladder diverticulum (Acute) Nicotine dependence (Acute) Osteopenia (Chronic) Diverticulosis of colon (Chronic) Medical History (Updated 08/04/24 @ 13:22 by Peg Dia MD) Left femoral vein DVT (~2023) Pulmonary embolism (~10/2018) TIA (transient ischemic attack) BPH w urinary obs/LUTS CVA (cerebral vascular accident) (~09/2018) Right posterior internal capsule ischemic stroke Surgical History Status post left hip replacement History of appendectomy (07/16/20) Social History/Home Situation: Pt resides in his home with [id number]. Pt has ramp to enter home. He performs assist of 1 stand step turn transfers only. He no longer is ambulatory. He utilizes a w/c as primary mode of locomotion. Caregivers provide meals and ADL. Per caregiver pt is able to propel short distances in w/c with BLE within home . Oxygen continuous at 2l/Min via NC Equipment Owned/DME: hospital bed, w/c with 2 cushion, commode, lift/ stand assist chair, gait belt, Oxygen concentrator, Subjective: Pt reports he feels better. Objective: [] General Observation: male semireclined in bed with oxygen at 2L/Min via NC , hand roll to Left hand and caregiver at bedside. Mental Status:Alert, oriented to person and place. Poor historian, caregiver provided Pain: denied ROM: [] Right Upper Extremity: WFL Left Upper Extremity: shoulder elevation to 90degrees, elbow WFL, wrist and hand limited Right Lower Extremity: WFL, limited hamstring length, DF to neutral with knee extension Left Lower Extremity: limited hamstring length, DF to neutral with knee extension. Strength: [] Right Upper Extremity: 3/5 Left Upper Extremity: less than 25% active movement left shoulder. adductor, flexor tone toned elbow wrist and hand Right Lower Extremity: hip 3-/5, knee 3/5, ankle 3/5 Left Lower Extremity:hip 2+/5, knee 3-/5, ankle 3/5 Sensation: intact Bed Mobility/Transfers: Supine to sit max Assist Sit to stand max Assist of 1 mod A of 1 from 22 height Stand to sit Max Assist of 1 to 25 height Bed to chair Max A of 1 and min A of 1 step turn toward right , Pt needs cues to stand tall and 100% cues for sequencing. Gait: non ambulatory Balance: Static Sitting: good Dynamic Sitting: Fair Static Standing:Poor+/Fair - Dynamic Standing: Fair - Special Tests: [] Mobility Limitations Standardized Measure [] [facility] AM-PAC 6 clicks Basic Mobility Inpatient Short Form: [] Raw Score: 10 CMS Score: 76.75% Informed Consent/Education: Patient instructed in purpose of PT consult. Assessment: Patient is an 83 yo male who presents with clinical signs and symptoms consistent with current/admitting diagnoses that have resulted in mobility limitations,balance instability, generalized weakness, and decline in motor control as demonstrated by the following impairment level findings: 1. Decreased strength to BUE/LE L>R major muscle groups 2. Impaired standing balance 3. Limitation of joint range of motion in left knee shoulder, hand 4. impaired breath control Impairments are contributing to the following functional limitations: 1. Inability to perform transfer at prior level of 1 assist 2. Increase completion time for mobility ADL performance 3. Increased fall risk Patient is assessed as a moderate complexity based on the following: History: 83-year-old male with impairment level findings, functional limitations, and past medical history as indicated above Examination: Demonstrable impairment in strength, balance, and mobility level with underlying impairments and functional limitations as documented above Presentation: evolving Decision Making: moderate Goals: 1. Mod A to sit at EOB with HOB elevated 2. Max A of 1 step turn transfer surface to surface Plan of Care/Treatment Plan: 1-2x/day, 7 days/week x 1 week. Plan of care has been reviewed with the MANPOWER DEVELOPMENT MANAGER providing the service under Physical Therapy direction. Initiate Physical Therapy intervention for strengthening, bed mobility, transfers, balance training, w/c mobility. DISCHARGE RECOMMENDATIONS: Home with PT and caregivers TREATMENT CODE/TIME: 91316/60389/ [id number] Thank you for the opportunity to participate in the care of this patient. [facility]
[2024-08-05] MEDS: cefTRIAXone 1 GM/50 ML BAG IVPB (11:19)
[2024-08-05 11:41] VITALS: BP 137/59; PULSE 47; RESP 20; TEMP 36.2; O2SAT 96
--- NOTE | 2024-08-05 12:22 | PGE_ITS ---
Date of Service Date of service: 08/05/24 Time of Service: 12:23 Assessment and Plan Assessment and plan (1) Acute on chronic respiratory failure with hypoxia: Start date: 08/05/24 Start time: 12:33 Status: Resolved Assessment and plan: On 2l/min at home with hypoxia < 88% - up to 4 l/min in the ED to maintain saturation in the setting of pneumonia Resolving now on baseline oxygen requirement Failed outpatient Tx for pneumonia with Augmentin and zithromax Continue ceftriaxone and doxycycline Ongoing oral prednisone burst Ongoing PRN and scheduled nebs Continue IS and acapella continue mucinex With Hx of IDL will cover with increased steroids and resume home dosing at d/c (2) Pneumonia: Start date: 08/05/24 Start time: 12:33 Status: Resolved Assessment and plan: As above Blood C&S still pending (3) Atrial fibrillation: Start date: 08/05/24 Start time: 12:33 Status: Chronic Assessment and plan: On home medicine Eliquis - not on a B-norbert (4) Hypertension: Start date: 08/05/24 Start time: 12:33 Status: Chronic Assessment and plan: Ongoing home dose of amlodipine (5) History of stroke: Start date: 08/05/24 Start time: 12:33 Status: Acute Assessment and plan: Home dose ASA and statin (6) Discharge planning issues: Start date: 08/05/24 Start time: 12:33 Status: Acute Assessment and plan: PT at discharge Discussed with Dr. Acuna Subjective Subjective Patient reports: feels better, tolerating liquids well, tolerating a regular diet and voiding w/o difficulty; denies diarrhea, nausea, vomiting, shortness of breath or fever Exam Narrative Exam Narrative: Constitutional Neuro:alert and oriented to self,place, person. 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 Objective Last Vital Signs Temp 36.2 C L 08/05/24 11:41 Pulse 47 L 08/05/24 11:41 Resp 20 08/05/24 11:41 BP 137/59 L 08/05/24 11:41 Pulse Ox 96 08/05/24 11:41 Laboratory Results - last 24 hr 08/04/24 08/04/24 08/04/24 11:50 13:30 14:28 WBC RBC Hgb Hct MCV MCH MCHC RDW Plt Count MPV Immature Gran % Neutrophils % Lymphocytes % Monocytes % Eosinophils % Basophils % Nucleated RBC % Absolute Neutrophils Absolute Lymphocytes Absolute Monocytes Absolute Eosinophils Absolute Basophils Sodium Potassium Chloride Carbon Dioxide Anion Gap BUN Creatinine Est GFR (CKD-EPI 2020) Glucose Calcium Troponin I 41 COVID-19 Source Nasopharynx SARS-CoV-2 (PCR) Negative Influenza Type A (PCR) Negative Influenza Type B (PCR) Negative RSV (PCR) Negative MRSA (TEM-PCR) Negative 08/04/24 08/05/24 14:46 06:48 WBC 17.38 H RBC 4.21 L Hgb 11.3 L Hct 35.0 L MCV 83 MCH 26.8 L MCHC 32.3 RDW 14.8 H Plt Count 236 MPV 11.0 Immature Gran % 1.3 Neutrophils % 85.5 Lymphocytes % 8.8 Monocytes % 4.3 Eosinophils % 0.0 Basophils % 0.1 Nucleated RBC % 0.0 Absolute Neutrophils 14.86 H Absolute Lymphocytes 1.53 Absolute Monocytes 0.75 Absolute Eosinophils 0.00 Absolute Basophils 0.02 Sodium 141 Potassium 4.1 Chloride 107 Carbon Dioxide 26.7 Anion Gap 7.3 BUN 19 H Creatinine 1.1 Est GFR (CKD-EPI 2020) 65.79 Glucose 121 H Calcium 9.4 Troponin I 35 COVID-19 Source SARS-CoV-2 (PCR) Influenza Type A (PCR) Influenza Type B (PCR) RSV (PCR) MRSA (TEM-PCR) Time Spent with Patient Time Spent with Patient: >50 minutes Time was spent: preparing to see the patient(eg.review tests), obtaining and/or reviewing separately otained hiistory, ordering medications,tests, procedures, referring, communicating with other health acute care occupational therapist, indepentently interpreting results, counseling the patient and care coordination
--- NOTE | 2024-08-05 14:32 | CHAPLAIN ---
Jerrod was sleeping when I visited. I spoke with one of his caregivers, Lauren, and explained my role and offered support. I will try to catch Jerrod awake at another time.
[2024-08-05 15:03] VITALS: BP 153/87; PULSE 71; RESP 15; TEMP 36.2
[2024-08-05] MEDS: Nystatin POWDER 15 GM JAR TP (17:46)
[2024-08-05 20:06] VITALS: BP 150/87; PULSE 73; RESP 18; TEMP 36.7; O2SAT 95
[2024-08-05] MEDS: Patch Removal LIDOCAINE 1 EACH TP (21:15)
[2024-08-06 00:07] VITALS: BP 165/87; PULSE 66; RESP 16; TEMP 36.6; O2SAT 95
[2024-08-06 06:01] VITALS: BP 137/86; PULSE 61; RESP 18; TEMP 36.7; O2SAT 95
[2024-08-06 07:25] VITALS: BP 147/92; PULSE 63; RESP 16; TEMP 36.3; O2SAT 96
[2024-08-06] MEDS: Lidocaine 5% Patch 1 PATCH TP (08:07)
[2024-08-06] MEDS: Normal Saline Flush 10 ML SYR IVP (08:07)
[2024-08-06] MEDS: Sertraline 25 MG TAB 75 MG PO (08:08)
[2024-08-06] MEDS: Potassium Chloride 20 MEQ TABCR PO (08:08)
[2024-08-06] MEDS: Tamsulosin 0.4 MG CAPCR 0.8 MG PO (08:08)
[2024-08-06] MEDS: Simvastatin 20 MG TAB PO (08:09)
[2024-08-06] MEDS: amLODIPine 5 MG TAB PO (08:09)
[2024-08-06] MEDS: Cholecalciferol (Vitamin D3) 1,000 UNIT TAB 1000 UNITS PO (08:09)
[2024-08-06] MEDS: Pantoprazole 40 MG TABCR PO (08:09)
[2024-08-06] MEDS: Multivitamin TAB 1 TAB PO (08:09)
[2024-08-06] MEDS: Aspirin 81 MG CHEW PO (08:09)
[2024-08-06] MEDS: Apixaban 5 MG TAB PO (08:09)
[2024-08-06] MEDS: predniSONE 20 MG TAB 40 MG PO (08:09)
[2024-08-06] MEDS: Acetaminophen 325 MG TAB 650 MG PO ×2 (09:04→11:27)
[2024-08-06] MEDS: Nystatin POWDER 15 GM JAR TP (09:04)
[2024-08-06] MEDS: Polyethylene Glycol 3350 17 GM PACKET PO (09:04)
--- NOTE | 2024-08-06 09:44 | PTTR_ITS ---
PT Notes Visit Reasons: acute on chronic hypoxic respiratory failure, pne Inpatient Physical Therapy Treatment Note [facility] Date: 08/06/2024 PRECAUTIONS:Fall Risk, Left hemiplegia SUBJECTIVE: Pt agreeable to geting OOB today. Caregiver reports some of the other caregivers walk Jerrod with cane and w/c follow at home. He also was receiving PT until approx. 1 month ago and he was walking at that time. OBJECTIVE: Pt presents in bed with oxygen 2L/Min via NC, His caregiver from home, Joann, is present and participated in care PAIN: Pt denied pain Therapeutic Activities (10498r8): Direct one-on-one instruction in dynamic activities to improve functional performance. ? BED MOBILITY/TRANSFERS? Supine-sit: with HOB elevated 70 degrees and toward the left ( as at home) Max Assist of 1 with increased time.? Sit-supine: max A of 1? Sit-stand: Mod A of 1 with SBQC on R x 3 trials then Min A of 1 x 2 trials from high seat height of recliner ?with cues to stand up straight/tall ? Stand-sit:Mod A of 1 with SBQC on R x 3 trials then [place] of 1 x 2 trials fr om elevated seat height of recliner Step turn transfer to right with SBQC Mod A of 1 and SBA of 1 Pt difficulty sustaining upright posture and difficulty advancing LLE. Cues to stand tall ? Provided skilled cues and instruction on performance and technique throughout. Neuromuscular Re-education (91194r3): Activities that facilitate re-education of movement balance, posture, coordination, and proprioception or kinesthetic sense, requiring skilled tactile and verbal cues ?sit at EOB with BLE wide TERRY and intermittent RUE support wide to the right to achieve and sustain midline. Pt required min A intermittently to reset LLE wide to sustain midline. Static stand with SBQC with mod A of 1 and SBA of 1 x 3 trials ,45 sec x 2 36 sec x 1. ASSESSMENT:?Pt tolerated session well Pt required continuous cues for upright trunk posture in stand.pt has a stand assist chair at home and hospital bed which staff utilize the ability to elevate for ease of transfers. pt does however utilize a wheelchair for locomotion and this seat height is 20. Will add goal for short distance ambulation with cane and assist as new information available for PLOF. At end of session pt noted fatigue. falling asleep. Goal added: 1. ambulate 20 feet with SBQC mod A and w/c follow step to pattern. PLAN: 1-2x/day, 7 days/week x 1 week.Plan of care has been reviewed with the TEMPERATURE CONTROL INSPECTOR providing the service under Physical Therapy direction. Initiate Physical Therapy intervention for strengthening, bed mobility, transfers, gait, balance training, use of assistive device. TREATMENT CODE/TIME:25470, 94063/ [id number] DISCHARGE RECOMMENDATION: Home with private Home services as prior and HH PT vs SNF
[2024-08-06] MEDS: DOXYCYCLINE 100 MG in Normal Saline 100 ML IVPB (09:45)
--- NOTE | 2024-08-06 09:46 | PDOC.HHF2F ---
Home Health Referral Home Health Orders Clinical synopsis of why skilled professionals are needed: Jerrod Teran is an 83 yo male with PMH significant for 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 On arrival to the ED hypoxic and cyanotic with saturation in oxygen in the 80's on baseline oxygen ,improving on 4l/min. Work-up showed leukocytosis at 18 with ANC at 14 and the patient was , BNP at 799, negative for ACS; chest XR without obvious infiltrates or consolidation but questionable LLL reticulation pattern. .The patient received ceftriaxone, doxycycline , methylprednisolone in the ED and was admitted to the medical surgical floor for acute on chronic respiratory failure in the setting of pneumonia and IDL exacerbation. by the hospitalist service. The patient is at baseline oxygen requirement and his hemodynamically stable and will be discharged home with home health physical therapy and nursing for assistance with new medicines and monitoring of worsening of his condition. prdenisone taper, cefpodoxime, doxycycline scripts sent to pharmacy. Please follow-up with PCP within 7 - 10 days of discharge. Discussed with Dr. Acuna Registered Nurse: Check all that apply Instruct on new or changed medication(s)/assess compliance: Ordered Assess for exacerbation of medical condition, instruct patient/caregivers on signs and symptoms to report for early detection: Ordered Physical Therapist: Check all that apply Increase strength & endurance for safe mobility at home: Ordered To design/establish home maintenance program: Ordered Home safety evaluation and teaching/gait training including stair management (if applicable): Ordered Other: Continue global strengthening per plan of long term Bound Status Requires the aid of supportive device (check all that apply): Wheelchair and Walker Encounter Date and Reason: I certify that a FTF encounter for this patient was performed on August 06, 2024 and that such encounter was related to the primary reason the patient requires home health services. The encounter was conducted in the following manner: By me as the certifying physician, CLIENT CARE CONSULTANT, PA or By an inpatient physician, CLIENT CARE CONSULTANT or PA during an inpatient stay who communicated findings to me, Certification And Authentication I certify that I composed the above information based on my clinical judgment relating to this patient's medical condition and, if applicable, clinical findings communicated to me by the NPP or inpatient physician who performed the FTF encounter. Name of Provider that will be monitoring home health services: Molly Powers
--- NOTE | 2024-08-06 10:04 | W.PM.DS.N ---
Date of service: 08/06/24 Time of Service: 10:04 DS: Diagnosis Discharge Diagnosis (1) Acute on chronic respiratory failure with hypoxia: Status: Resolved (2) Pneumonia: Status: Resolved (3) Atrial fibrillation: Status: Chronic (4) Hypertension: Status: Chronic (5) History of stroke: Status: Acute (6) Discharge planning issues: Status: Acute Discharge Plan Disposition Patient Disposition: Home W/Home Health Services Condition: Improving Discharge Details Reason For Visit: acute on chronic hypoxic respiratory failure, pne Admit Date/Time: 08/04/24 12:34 Admit Provider: Ankit Acuna Attending Provider: Ankit Acuna [facility] Course: Jerrod Teran is an 83 yo male with PMH significant for 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 On arrival to the ED hypoxic and cyanotic with saturation in oxygen in the 80's on baseline oxygen ,improving on 4l/min. Work-up showed leukocytosis at 18 with ANC at 14 and the patient was , BNP at 799, negative for ACS; chest XR without obvious infiltrates or consolidation but questionable LLL reticulation pattern. .The patient received ceftriaxone, doxycycline , methylprednisolone in the ED and was admitted to the medical surgical floor for acute on chronic respiratory failure in the setting of pneumonia and IDL exacerbation. by the hospitalist service. The patient is at baseline oxygen requirement and his hemodynamically stable and will be discharged home with home health physical therapy and nursing for assistance with new medicines and monitoring of worsening of his condition. prdenisone taper, cefpodoxime, doxycycline scripts sent to pharmacy. Please follow-up with PCP within 7 - 10 days of discharge. Continue your Acapella and incentive spirometry as you were during your stay. Discussed with Dr. Acuna Home Meds and New Rx's Prescriptions: New prednisone 20 mg Tablet 40 mg PO DAILY Qty: 10 0RF Rx Instructions: Take 40 mg for 2 days Then 30 mg for 2 days Then 20 mg for 2 days Then 10 mg for 2 days and then resume your home dose cefpodoxime 200 mg tablet 200 mg PO BID Qty: 6 0RF Rx Instructions: must administer with a meal/food doxycycline hyclate 100 mg capsule 100 mg PO BID Qty: 6 0RF Continued cholecalciferol (vitamin D3) 25 mcg (1,000 unit) capsule 25 mcg PO DAILY multivitamin Tablet 1 tab PO DAILY aspirin 81 mg tablet,chewable 81 mg PO DAILY nicotine 21 mg/24 hr patch 24 hour 1 patch transdermal DAILY PRN (Reason: nicotine cravings) Qty: 90 0RF Rx Instructions: Apply 1 patch daily as needed sertraline 50 mg tablet 75 mg PO DAILY Qty: 135 3RF ipratropium-albuterol 0.5 mg-3 mg(2.5 mg base)/3 mL solution for nebulization 3 ml inhalation Q6H PRN (Reason: wheezing) Qty: 90 2RF polyethylene glycol 3350 [Miralax] 17 gram/dose powder 17 g PO .MWF Rx Instructions: See Task from 01/21/2024. -hb simvastatin 20 mg tablet 20 mg PO DAILY Qty: 90 3RF amlodipine 5 mg tablet 5 mg PO DAILY Qty: 90 3RF Eliquis 5 mg tablet 5 mg PO BID Qty: 180 3RF tamsulosin 0.4 mg capsule 0.8 mg PO DAILY Qty: 180 3RF potassium chloride 20 mEq tablet extended release 20 meq PO DAILY Qty: 90 3RF epinephrine 0.3 mg/0.3 mL Auto-Injector 0.3 mg IM ONCE Rx Instructions: as a single dose; may repeat once acetaminophen 325 mg Tablet 650 mg PO QID Qty: 40 0RF ibuprofen 200 mg tablet 400 mg PO Q12H PRNQty: 30 0RF pantoprazole [Protonix] 40 mg tablet,delayed release (DR/EC) 40 mg PO DAILY Qty: 5 0RF lidocaine 5 % adhesive patch,medicated 1 patch topical DAILY Qty: 15 0RF Rx Instructions: leave on most painful area for up to 12 hrs Held prednisone 5 mg tablet 5 mg PO DAILY Qty: 49 0RF Hold Instructions: Resume on 08/15/24. Resume home dose after finishing taper Rx Instructions: 40mg x 2 days, 30mg x 2 days, 20mg x 2 days, 15 mg x 2 days, 10 mg x 2 days, 5 mg x 2 days, 2.5 mg x 2 days. Discontinued azithromycin 250 mg tablet See Rx Instructions PO .COMPLEX Qty: 6 0RF Rx Instructions: For 250 mg dose pack: take 500 mg today (day 1), then 250 mg for 4 days (days 2-5) PO amoxicillin-pot clavulanate 875-125 mg tablet 1 tab PO Q12H Qty: 10 0RF Discharge Instructions Stand Alone Forms: Nursing Discharge Form Referrals: Molly Powers NP [Primary Care Provider] - (We talked to your PCP and they will be reaching out to you to schedule a follow up appointment to be seen within 1-2 weeks from the day of discharge. If you do not hear from them please call! ) Activity:: Activity as Tolerated Equipment/Supplies:: Walker Diet:: heart healthy DS: Summary Time Spent with Patient providing and/or coordinating discharge services: Greater than 30 minutes Status at Discharge Functional status at discharge: uses cane/walker Overall status at discharge: patient is progressing back to baseline Mental Status: mental status grossly normal Speech and Movement: speech and movement normal Mood: congruent mood Affect: normal affect Quality:SDOH Health Related Social Needs: No Data to Display Exam Narrative Exam Narrative: Constitutional Neuro:alert and oriented to self,place, person. Residual upper left-sided paresis from previous CVA, ext is flaccid, contracted fist Resp: Unlabored breathing,diminished right base, clearer Left base with minimal velcro-like fine crackles Cardio: regular rhythm,no murmur, pulse are positive and palpable to ext X4 GI: Abdomen is not distended, soft and non tender, bowel sounds are presen Integumentary: No skin lesions or rash Extremities: moves bilateral LEs and RUE Psych: RASS 0, congruent mood and affect. Psych Mental Status: mental status grossly normal Speech and Movement: speech and movement normal Mood: congruent mood Affect: normal affect DS: Data Vitals/I&O Vitals and I&O: Vital Signs Temperature 36.3 C L 08/06/24 07:25 Temperature Source Temporal Artery Scan 08/06/24 07:25 Pulse 63 08/06/24 07:25 Pulse 80 08/04/24 13:20 Respiratory Rate 16 08/06/24 07:25 Respiratory Effort Normal, Non-Labored 08/04/24 14:10 Respiratory Depth Normal 08/04/24 14:10 Respiratory Pattern Normal 08/04/24 14:10 Blood Pressure 147/92 H 08/06/24 07:25 Blood Pressure Mean 103 08/04/24 13:16 Blood Pressure Position Sitting 08/04/24 10:48 Pulse Oximetry 96 08/06/24 07:25 Oxygen Delivery Method Nasal Cannula 08/06/24 07:25 Oxygen Flow Rate 2 08/06/24 07:25 Pain Level 0 08/06/24 09:04 Comment RN notified 08/05/24 11:41 Intake & Output 08/05/24 08/05/24 08/06/24 11:59 23:59 11:59 Intake Total 100 / 250 150 / 250 Output Total 100 / 400 300 / 400 540 / 540 Balance 0 / -150 -150 / -150 -540 / -540 Intake: IV 100 / 250 150 / 250 Output: Urine 100 / 400 300 / 400 540 / 540 Other: Urine Color Yellow Yellow Pale Yellow Urine Appearance Clear Clear Clear Urine Odor Strong Normal Comment unable to measure voided in brief Stool Size Smear Data Completed and Pending Labs on day of discharge: Preliminary micro results at discharge 08/04/24 11:11 Blood Culture - Preliminary Blood NO GROWTH 24 HOURS 08/04/24 11:11 Blood Culture - Preliminary Blood NO GROWTH 24 HOURS PFSH All Active Problems (Updated 08/04/24 @ 13:22 by Peg Dia MD) History of recent pneumonia (Acute) Acute and chronic respiratory failure with hypoxia (Acute) Discharge planning issues (Acute) Atrial fibrillation (Chronic) History of stroke (Acute) Chronic respiratory failure with hypoxia (Acute) Interstitial lung disease (Acute) Generalized anxiety disorder (Acute) History of thromboembolism (Acute) P.E., DVT 2018 and 2023 Hyperlipidemia (Acute) Hypertension (Chronic) Cognitive impairment (Acute) Suspect dementia, declines neurology consult Compression fracture of L3 vertebra (Acute ~05/19/24) Bladder diverticulum (Acute) Nicotine dependence (Acute) Osteopenia (Chronic) Diverticulosis of colon (Chronic) Medical History (Updated 08/04/24 @ 13:22 by Peg Dia MD) Left femoral vein DVT (~2023) Pulmonary embolism (~10/2018) TIA (transient ischemic attack) BPH w urinary obs/LUTS CVA (cerebral vascular accident) (~09/2018) Right posterior internal capsule ischemic stroke Surgical History Status post left hip replacement History of appendectomy (07/16/20) Family History Mother Dementia Father No problems noted. Daughter No problems noted. Daughter No problems noted. Son No problems noted. Maternal Grandfather No problems noted. Maternal Grandmother No problems noted. Paternal Grandfather No problems noted. Paternal Grandmother No problems noted. Brother Alcohol use disorder Colon cancer Hyperlipidemia Hypertension Diabetes Social History Smoking/Tobacco Use Status: Former Tobacco Use tobacco type: cigarettes and smokeless tobacco Quit Date: 04/14/85 Smokeless tobacco user: snuff Second Hand Exposure: Yes Smoking risk assessment performed?: Yes Alcohol Intake: former Drug use: Never Substance use type: does not use Counseling given: No Adopted: No Caregiver/Support person: Yes Foster care: No Household members: caregiver Housing: house Number of Children: 3 number of grandchildren: 7 Communication Needs: None Education Level: high school Do you need help understanding health information?: Never 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 Pets and animals: Yes Pets and animals: dog(s) Sexually active: No Do you think of yourself as: straight/heterosexual Current gender identity: male What is your relationship status?: How often do you talk on the phone with friends or family?: three or more times per week How often do you get together with friends or relatives?: three or more times per week How often do you attend temple or adventism services?: 4 or more times per year Do you belong to any clubs or organized social groups?: no Panel score (0-1 are the most socially isolated patients): 3 What type of physical activity do you participate in: walking and regular exercise Duration: 45-60 minutes/day Frequency: daily Tamela/Rastafarian: Confucianism Special tamela needs: No Agree to transfusion: Yes Seatbelt use: always Drive intox or ride w/intox team truck driver: No Working smoke detector in home: Yes Carbon monox detector in home: Yes Firearms in home: Yes Firearms unloaded and locked: Yes Do you feel safe at home: Yes Victim of physical abuse: No Victim of emotional abuse: No Victim of sexual abuse: No Would you like helpful sources: No Time Spent with Patient Time Spent with Patient: 70-84 minutes4 Time was spent: preparing to see the patient(eg.review tests), obtaining and/or reviewing separately otained hiistory, ordering medications,tests, procedures, referring, communicating with other health director critical care, indepentently interpreting results, counseling the patient and care coordination
--- NOTE | 2024-08-06 11:19 | PDOC.CMDIS ---
Date of service: 08/06/24 Time of Service: 11:19 LACE Index Scoring Tool Questions: Length of Stay (in days): 2 Was the patient admitted via the E.D.?: Yes Comorbidities: Cerebrovascular Disease and Chronic Pulmonary Disease E.D. Visits: 2 Answers: Total Score: 10 Risk of Readmission: High Risk Care Management Discharge Plan Reason for Hospitalization: respiratory failure, pneumonia Discharge Plan: Jerrod will be discharged home this afternoon with new HH services of SN and PT through [facility]. He will continue with his in-home 04/11 caregivers. He will f/u with his PCP and continue per his plan of care. He is encouraged to continue using his acapella and IS. Jerrod will transport home in a private vehicle with his daughter. Patient/Family Education Needs: Review of discharge instructions, activity, limitations, and discuss, ask me 3. Services Needed at Discharge: Home Health Care Services ([facility] - SN and PT ) SDOH Health Related Social Needs: No Data to Display
[2024-08-06] MEDS: cefTRIAXone 1 GM/50 ML BAG IVPB (11:27)
== END 2024-08-06 13:32 | disposition home health service (06) | DRG 196 ==
LOC: ER 13:22 → MS 13:41
PROVIDERS: Admitting Provider Family Medicine; Emergency Provider Emergency Medicine; PCP Nurse Practitioner Family; Responsible Provider Nurse Practitioner Acute Care; Visit Provider Family Medicine
DX: J84.9 Interstitial pulmonary disease, unspecified (principal); J18.9 Pneumonia, unspecified organism; J96.21 Acute and chronic respiratory failure with hypoxia; N13.8 Other obstructive and reflux uropathy; I69.354 Hemiplegia and hemiparesis following cerebral infarction affecting left non-dominant side; I48.91 Unspecified atrial fibrillation; I10 Essential (primary) hypertension; Z96.642 Presence of left artificial hip joint; N40.1 Benign prostatic hyperplasia with lower urinary tract symptoms; E78.5 Hyperlipidemia, unspecified; D64.9 Anemia, unspecified; D72.829 Elevated white blood cell count, unspecified; R74.01 Elevation of levels of liver transaminase levels; R00.8 Other abnormalities of heart beat; F41.1 Generalized anxiety disorder; K57.30 Diverticulosis of large intestine without perforation or abscess without bleeding; F03.90 Unspecified dementia, unspecified severity, without behavioral disturbance, psychotic disturbance, mood disturbance, and anxiety; M85.80 Other specified disorders of bone density and structure, unspecified site; Z99.81 Dependence on supplemental oxygen; Z86.711 Personal history of pulmonary embolism; Z86.718 Personal history of other venous thrombosis and embolism; Z79.01 Long term (current) use of anticoagulants; Z79.899 Other long term (current) drug therapy; Z87.891 Personal history of nicotine dependence; Z66 Do not resuscitate
CPT/HCPCS: 00123; 36415; 80048; 80053; 82805; 87040; 87637; 87641; 93005; 96365; 96367; 96375; 97112; 97162; 97530; 99291; 71045; 83735; 83880; 84484; 85025; 93010; 94667; 94760; 99223; 99233; 99239; J0696; J2919; J3490; J7512

== ENCOUNTER 2025-02-09 14:49 | Outpatient (REF) | payer MEDICARE, SELFPAY ==
[2025-02-09 16:35] LABS: Glucose Negative (Negative)
== END 2025-02-09 14:50 | disposition home or self-care (01) ==
LOC: NCHCN 14:49
PROVIDERS: PCP Nurse Practitioner Family; Visit Provider Nurse Practitioner Family
DX: R35.0 Frequency of micturition (principal)
CPT/HCPCS: 81003

== ENCOUNTER 2025-03-16 11:47 | Outpatient (REF) | payer MEDICARE, SELFPAY ==
[2025-03-16 16:58] LABS: Glucose Negative (Negative)
== END 2025-03-16 11:48 | disposition home or self-care (01) ==
LOC: LBN 11:47
PROVIDERS: PCP Nurse Practitioner Family; Visit Provider Nurse Practitioner Family
DX: R39.9 Unspecified symptoms and signs involving the genitourinary system (principal)
CPT/HCPCS: 81003